=== PATIENT | male | born 1955 | race Caucasian/White ===

== ENCOUNTER 2020-05-04 00:08 | Inpatient (IN) | payer BC ==
[~2020-05-04] VITALS: Ht 162.6 cm; Wt 96.2 kg
[2020-05-04] VITALS (46 sets, daily range): BP systolic 87–162; BP diastolic 37–76
[2020-05-04] MEDS ORDERED: NACL 0.9% 1,000 ML IV SCH (00:15)
[2020-05-04] MEDS ORDERED: ETOMIDATE 20 MG/10 ML VIAL IVP ONE ×2 (00:15→12:00)
[2020-05-04] MEDS ORDERED: cefTRIAXone 1,000 MG in DEXT 5% MINI-BAG PLUS 50 ML IV ONE (00:15)
[2020-05-04] MEDS ORDERED: SUCCINYLCHOLINE CHLORIDE 200 MG/10 ML VIAL IVP ONE ×2 (00:15→12:00)
[2020-05-04] MEDS ORDERED: INTUBATION KIT MC ONE (00:20)
--- NOTE | 2020-05-04 00:20 | NUR ---
IV ACCESS OBTAINED TO RIGHT HAND [address] CHILD TO INTUBATE PATIENT.
[2020-05-04] MEDS ORDERED: PROPOFOL 1000 MG/100 ML PREMIX 100 ML IV ONE ×2 (00:23→00:45)
--- NOTE | 2020-05-04 00:37 | NUR ---
Assist ER DR Diggs intubating patient in ER with ETT size 8 secured with anchorfast @ 23 cm at teeth. Ventilator plugged to the red outlet. BVM @ the bedside. Patient kept desaturating after placed on the vent. Bagged for couple of minutes. Changed G5 ventilator to Torres. Airway patent, will continue to monitor.
--- NOTE | 2020-05-04 00:40 | NUR ---
INTUBATED BY DR CHILD. ETT TO VENT 7.5, 23CM AT TEETH. GOOD COLOR CHANGE UPON BAGGING.
--- NOTE | 2020-05-04 00:45 | NUR ---
REPORT RECEIVED FROM ANJEL CORREA FOR CONTINUATION OF CARE.
--- NOTE | 2020-05-04 00:45 | NUR ---
RE[facility] KAT HOBBS. [facility]
--- NOTE | 2020-05-04 01:15 | NUR ---
65 Y/O MALE BIBA C/O SOB X 1 DAY. PT IS COVID + , TESTED ON MONDAY. PT C/O OF INTERMITTENT DULL CHEST PAIN 2/. PT OBSERVED TO BE LABORED BREATHING WITH PALE SKIN AT THIS TIME. PT SAO2 21% ON RM AIR. LUNG SOUND BL DIMINSHED . A/O X 4 AT THIS TIME. PT POOR HISTORIAN , UNABLE TO SPEAK DUE TO SOB. PT IN BED, LOCKED AND IN LOWEST POSITION, HOB ELEVATED, SIDE RAIL X2 FOR PT SAFETY. SOFT WRIST RESTRAINTS NOTED FOR PREVENTION OF MEDICAL DISRUPTION . NO INJURY NOTED AT WRIST RESTRAINT SITES. +CMS. PT CONNECTED TO CHILD ADVOCATE , PULSE OX AND BP CUFF. RT AT BEDSIDE. PMH: DM, HTN NKA
--- NOTE | 2020-05-04 01:30 | NUR ---
RT AT BEDSIDE FOR PT EVALUATION.
[2020-05-04] MEDS ORDERED: MIDAZOLAM MDV 50 MG in NACL 0.9% 40 ML IV PRN ×2 (02:00→08:15)
[2020-05-04] MEDS ORDERED: ATROPINE 1 MG/10 ML SYR IVP ONE ×2 (02:00→02:01)
--- NOTE | 2020-05-04 02:00 | NUR ---
ERMD MADE AWARE OF PT DECREASED HR , 49 BPM AND DECREASED BLOOD PRESSURE 81/47 mmHg. PER ERMD ADMINISTER ATROPINE 1 MG STAT. DISCONTINUE PROPOFOL AND BEGIN VERSED 50MG DRIP INSTEAD.
[2020-05-04] MEDS ORDERED: MIDAZOLAM MDV 50 MG/10 ML VIAL IV ONE ×2 (02:05→04:01)
[2020-05-04] MEDS ORDERED: NACL 0.9% 1,000 ML IV ONE (02:15)
--- NOTE | 2020-05-04 02:45 | NUR ---
PT REPOSITIONED FOR COMFORT.
--- NOTE | 2020-05-04 02:47 | NUR ---
# 16 FR Mendieta catheter with 10 ml utilizing sterile technique. Immediate return of 300 ml YELLOW urine noted. Bedside drainage bag placed below level of bladder. Urine sample collected and sent to lab. Pt tolerated procedure WELL.
[2020-05-04] MEDS ORDERED: LORazepam 2 MG/ML VIAL IM/IVP PRN (02:50)
[2020-05-04] MEDS ORDERED: MAG SULF 2000 MG/WATER PREMIX 50 ML IV PRN (02:50)
[2020-05-04] MEDS ORDERED: MORPHINE SULFATE 2 MG/ML SYR IVP PRN (02:50)
[2020-05-04] MEDS ORDERED: ZOLPIDEM 5 MG TAB PO PRN (02:50)
[2020-05-04] MEDS ORDERED: ONDANSETRON 4 MG/2 ML VIAL IM/IVP PRN (02:50)
[2020-05-04] MEDS ORDERED: HYDROcodone/APAP 5/325 MG 1 TAB TAB PO PRN (02:50)
[2020-05-04] MEDS ORDERED: ALBUTEROL HFA MDI 90 MCG/ACTUATION 8 GM INH PRN (02:55)
--- NOTE | 2020-05-04 02:55 | NUR ---
blood culture , labs and urine sample collected and handed to Pb, Second Operator.
--- NOTE | 2020-05-04 03:20 | NUR ---
RT AT BEDSIDE FOR ASSESSMENT.
[2020-05-04 03:24] LABS: BASOPHILS % (AUTO) 0.2 % (0.0-2.0); HEMATOCRIT 37.9 % (36-52); HEMOGLOBIN 12.7 g/dL (12.0-18.0); LYMPHOCYTES # (AUTO) 1.2 K/uL (2.0-11.5); LYMPHOCYTES % (AUTO) 11.1 % (20.5-51.1); MEAN CORPUSCULAR HEMOGLOBIN 30 pg (27-31); MEAN CORPUSCULAR HGB CONC 34 g/dL (33-37); MONOCYTES # (AUTO) 0.4 K/uL (0.8-1.0); MONOCYTES % (AUTO) 3.6 % (1.7-9.3); NEUTROPHILS # (AUTO) 9.1 K/uL (1.8-7.7); NEUTROPHILS % (AUTO) 85.1 % (42.2-75.2); PLATELET COUNT (AUTO) 184 K/uL (140-450); RED BLOOD CELL COUNT(AUTO) 4.25 MIL/uL (4.20-6.10); RED CELL DISTRIBUTION WIDTH 13.3 % (11.6-13.7); WHITE BLOOD COUNT (AUTO) 10.7 K/uL (4.8-10.8)
[2020-05-04 03:26] LABS: APPEARANCE,URINE HAZY (CLEAR); BILIRUBIN,URINE NEGATIVE (NEGATIVE); BLOOD, URINE 2+ (NEGATIVE); COLOR,URINE YELLOW (YELLOW); LEUKOCYTE ESTERASE ,URINE NEGATIVE (NEGATIVE); NITRITE, URINE NEGATIVE (NEGATIVE); PH,URINE 5.5 (5.0-9.0); UGLUCOSE 3+ (NEGATIVE)
[2020-05-04] MEDS ORDERED: cefTRIAXone 1,000 MG VIAL ONE (03:30)
[2020-05-04 03:32] LABS: WBC,URINE 0-5 /HPF (0-5)
[2020-05-04 03:37] LABS: BARBITURATE, URINE NEGATIVE ng/ml (NEG <=200); BENZODIAZEPINE, URINE NEGATIVE ng/mL (NEG <=200); CANNABINOID, URINE NEGATIVE ng/mL (NEG <=50); COCAINE, URINE NEGATIVE ng/mL (NEG <=300); OPIATE, URINE NEGATIVE ng/mL (NEG <=2000); PHENCYCLIDINE SCREEN,URINE NEGATIVE ng/mL (NEG <=25)
[2020-05-04 03:40] LABS: PROTHROMBIN TIME 10.8 secs (10.8-13.4)
--- NOTE | 2020-05-04 03:45 | NUR ---
TRANSFERRING PT TO ICU BED 5 W/ EMT AND RT AT THIS TIME.
[2020-05-04 03:48] LABS: ALBUMIN 2.4 g/dL (3.4-5.0); CARBON DIOXIDE 19.9 mmol/L (21-32); CREATININE 1.9 mg/dL (0.6-1.3); POTASSIUM 4.9 mmol/L (3.5-5.1); TOTAL BILIRUBIN 0.5 mg/dL (0.0-1.0)
--- NOTE | 2020-05-04 04:00 | NUR ---
Patient will be admitted to care of DR. OWENS. Admited to ICU. Will go to room 5. Belongings list completed. Report to ANJEL CAMPOS.
[2020-05-04 04:48] LABS: PHOSPHORUS 3.9 mg/dL (2.5-4.9); THYROID STIMULATING HORMONE 1.75 uIU/mL (0.34-3.74)
--- NOTE | 2020-05-04 07:00 | NUR ---
HANDOFF RECEIVED FROM FORENSIC ACCOUNTANT RN. PT IS ETT TO VENT, FIO2 100%, PEEP 16, R 22. PT IS SR ON THE MONITOR. PT HAS RAC 20 G AND R HAND 20 G. PT HAS VERSED RUNNING AT 6 MG/HR. PT IS NPO EXCEPT MEDS. PT HAS CERDA CATHETER IN PLACE. HOB 30 DEG WITH BED IN LOW, LOCKED POSITION.
[2020-05-04] MEDS ORDERED: AZITHROMYCIN 250 MG TAB PO SCH ×2 (08:00→09:00)
[2020-05-04] MEDS ORDERED: DOCUSATE 100 MG/10 ML UDC PO PRN (08:05)
--- NOTE | 2020-05-04 08:29 | NUR ---
PATIENT HAS BEEN SCREENED AND CATEGORIZED HIGH NUTRITION RISK. PATIENT WILL BE SEEN WITHIN 1-2 DAYS OF ADMISSION. 05/04/20-05/05/[address]
[2020-05-04] MEDS ORDERED: LOVENOX 1MG/KG Q12H SUBQ SCH (09:00)
[2020-05-04] MEDS: NACL 0.9% 1,000 ML IV SCH ×2 (09:08→20:00)
[2020-05-04 09:38] LABS: BASOPHILS # (AUTO) 0.1 K/uL (0.00-0.22); BASOPHILS % (AUTO) 0.6 % (0.0-2.0); LYMPHOCYTES # (AUTO) 1.4 K/uL (2.0-11.5); LYMPHOCYTES % (AUTO) 9.9 % (20.5-51.1); MEAN CORPUSCULAR HEMOGLOBIN 30 pg (27-31); MEAN CORPUSCULAR HGB CONC 33 g/dL (33-37); MEAN CORPUSCULAR VOLUME 88.9 fL (80-94); MONOCYTES # (AUTO) 0.4 K/uL (0.8-1.0); MONOCYTES % (AUTO) 2.6 % (1.7-9.3); NEUTROPHILS # (AUTO) 12.2 K/uL (1.8-7.7); NEUTROPHILS % (AUTO) 86.9 % (42.2-75.2); PLATELET COUNT (AUTO) 237 K/uL (140-450); RED BLOOD CELL COUNT(AUTO) 4.72 MIL/uL (4.20-6.10); RED CELL DISTRIBUTION WIDTH 13.5 % (11.6-13.7); WHITE BLOOD COUNT (AUTO) 14.1 K/uL (4.8-10.8)
[2020-05-04] MEDS: ZINC SULF 220 MG CAP PO SCH ×2 (09:59→20:36)
[2020-05-04] MEDS: VITAMIN D 400 IU TAB PO SCH (09:59)
[2020-05-04] MEDS: ASCORBIC ACID 500 MG/5 ML ORASYR PO SCH (10:00)
[2020-05-04] MEDS: ENOXAPARIN 100 MG/ML SYR SUBQ SCH ×2 (10:05→20:37)
--- NOTE | 2020-05-04 11:09 | NUR ---
SOCIAL WORK NOTE: BOB WAS UNABLE TO MEET PATIENT AT BEDSIDE DUE TO MEDICAL CONDITION. BOB CONTACTED PATIENT'S EMERGENCY CONTACT AND LEFT VM TO COMPLETE ASSESSMENT. BOB WILL FOLLOW UP. Addendum: 06/11/20 at 1115 by Reinaldo Styles SS [facility] Patient: Sushil Riverao : 1955 Age/Sex: 65/M Unit#: [id number] Room/Bed: IC01/A User: Reinaldo Styles SS Date: 05/04/20 15:48 Type: CM Discharge Plan Assessment Patient's Orientation Unable To Assess Information Provided By SUSHIL RIVERA JR - SON Comments SW WAS UNABLE TO MEET PATIENT AT BEDSIDE DUE TO MEDICAL CONDITION. SW COMPLETED ASSESSMENT WITH PATIENT'S SON. PATIENT'S SON REQUESTED TO ADD PATIENT'S DAUGHTER TO EMERGENCY CONTACT LIST. Program Advocate, Realtionship and Phone Number SUSHIL RIVREA JR SON [phone] FLORIN MYERS DAUGHTER [phone] [facility] Power of Electric Pile Driver Operator No Does Patient Have a POLST No Identifying Problems No Social Work Triggers Is A Social Work Consult Needed No Mandate Report Filed No Explanation Of Identifying Problems PATIENT IS A 65-YEAR-OLD MALE ADMITTED FOR COVID AND RESPIRATORY FAILURE. PATIENT HAS PMHX OF DIABETES AND HYPERTENSION. PER SON, PATIENT HAS NO HISTORY OF SUBSTANCE ABUSE OR MENTAL HEALTH. Admitted From Home Pre-Admission Level Of Functioning Status Independent/Ambulatory Prior Resources/Services Used In Last 12 Months No Prior Resources Used Prior DME No Prior DME Used Dialysis Comments N/A Living Situation Lives With Family House Other Living Situation/Comment PER SON, PATIENT LIVES WITH , SON, AND DAUGHTER. Patient Had Caregiver No Home Support No Caregiver Issues Financial Issues No Known Financial Issue Referral To The Financial Counselor Needed No Factors/Needs No D/C Needs Identified Explanation And Or Other Factors Affecting/Possible DC Needs PATIENT'S SON STATED HE WOULD PROVIDE TRANSPORTATION FOR PATIENT HOME. Pt/Rep Participated In Discharge Plan Yes Patient/Family Agress With Discharge Plan Yes Discharge Plan Comments TENTATIVE DISCHARGE PLAN IS FOR PATIENT TO RETURN HOME. DC Plan Status Initiated Addendum: 06/11/20 at 1117 by Reinaldo Styles BOB CONTACTED ZECHARIAH RIVERA JR TO OFFER SOCIAL SUPPORT AND RESOURCES. BOB LEFT VM AND WILL FOLLOW UP. Addendum: 06/11/20 at 1139 by Reinaldo SLAUGHTER BOB WAS CONTACTED BY SUSHIL RIVERA JR WHO RETURNED SW PHONE CALL. PER SUSHIL, NOTHING COMES TO MIND REGARDING RESOURCES OR ASSISTANCE. BOB PROVIDED CONTACT INFORMATION TO SUSHIL AND WILL REMAIN AVAILABLE IF ANY ISSUES ARISE.
[2020-05-04] MEDS ORDERED: ATEN50TA8 PO (11:10)
[2020-05-04] MEDS ORDERED: CANA100T PO (11:10)
[2020-05-04] MEDS ORDERED: AMLO5TAB PO (11:10)
[2020-05-04] MEDS ORDERED: BENA40TA9 PO (11:10)
[2020-05-04] MEDS ORDERED: INSU100I3 SQ (11:10)
[2020-05-04] MEDS ORDERED: ATOR40TA PO (11:10)
[2020-05-04] MEDS ORDERED: ACT30 PO (11:10)
--- NOTE | 2020-05-04 11:48 | NUR ---
GAVE DR. NEWMAN ABG RESULTS. INCREASED PEEP TO 18 AND ORDERED PT TO BE PLACED PRONE. STATED PEEP MAY BE TITRATED DOWN AT TOLERATED.
--- NOTE | 2020-05-04 12:00 | NUR ---
PT PLACED INTO PRONE POSITION PER DR. NEWMAN'S RECOMMENDATION. RT ANISHA AT BEDSIDE FOR ASSISTANCE.
[2020-05-04] MEDS ORDERED: DEXTROSE 50% 50 ML SYR IVP PRN (12:05)
[2020-05-04] MEDS ORDERED: ROCURONIUM 50 MG/5 ML VIAL IV ONE (12:19)
[2020-05-04] MEDS ORDERED: ROCURONIUM 50 MG/5 ML VIAL IV SCH (12:25)
[2020-05-04] MEDS ORDERED: fentaNYL citrate 1 MG in NACL 0.9% 80 ML IV PRN (12:25)
[2020-05-04 13:04] LABS: CHOL/HDL RATIO 4.4 (1-4.5)
[2020-05-04] MEDS: fentaNYL citrate 1 MG in NACL 0.9% 80 ML IV PRN ×2 (13:53→20:00)
[2020-05-04] MEDS: MIDAZOLAM MDV 100 MG in NACL 0.9% 80 ML IV PRN ×2 (14:00→22:37)
[2020-05-04] MEDS: PROPOFOL 1000 MG/100 ML PREMIX 100 ML IV PRN (16:01)
[2020-05-04] MEDS: BLOOD GLUCOSE MONITORING 1 DEV DEV FS SCH ×2 (16:30→20:40)
[2020-05-04] MEDS: INSULIN LISPRO SLIDING SCALE 100 UNITS/ML VIAL SUBQ PRN ×2 (17:46→20:42)
--- NOTE | 2020-05-04 17:55 | NUR ---
SPOKE TO SON SUSHIL RIVERA ABOUT CONVALESCENT PLASMA THERAPY. FAMILY REFUSED TRANSFUSION. PAPERWORK IN CHART. DR. RADHA MITTAL.
[2020-05-04] MEDS ORDERED: BUMETANIDE 1 MG/4 ML VIAL IV SCH (18:15)
--- NOTE | 2020-05-04 19:15 | NUR ---
HANDOFF GIVEN TO FERN PICKER RN FOR CONTINUITY OF CARE
--- NOTE | 2020-05-04 19:30 | NUR ---
ASSUMED CARE OF PT.SR TO SB ON MONITOR. ETT TO VENT AC PRVC MODE FIO2 100% TV 450 PEEP 16; WITH CHRIS PICC LINE GOOD BLOOD TO BOTH PORT INFUSING FENTANYL 1.5MCG/KG/HR; NS AT 60ML/HR; PROPOFOL AT 5MCG/KG/MIN;VERSED 10MG/HR.W/OGT INTACT.CLAMPED.W/CERDA CATHETER TO BSD DRAINING SMALL AMT OF YELLOW URINE.FLACC 0 Addendum: 05/05/20 at 0132 by Bhavana Taylor RN PTS DRY WEIGHT 95.3KG
[2020-05-04] MEDS: amLODIPine 5 MG TAB PO SCH (20:37)
--- NOTE | 2020-05-04 21:00 | NUR ---
URINE SPECIMEN SENT TO LAB ORDERED
[2020-05-05] VITALS (71 sets, daily range): BP systolic 80–135; BP diastolic 44–77
--- NOTE | 2020-05-05 01:30 | NUR ---
PTS CONDITION REMAINS UNCHANGED.VENT SETTINGS STILL THE SAME.PICC LINE INTACT .PT SEDATED.FLACC 0
[2020-05-05] MEDS: fentaNYL citrate 1 MG in NACL 0.9% 80 ML IV PRN ×3 (02:56→18:06)
--- NOTE | 2020-05-05 05:00 | NUR ---
PTS POSITION CHANGED TO SUPINE.VAP ORAL CARE DONE.MORNING CARE AND CHG BATH DONE.FLACC 0
[2020-05-05 06:47] LABS: BASOPHILS % (AUTO) 0.1 % (0.0-2.0); HEMATOCRIT 37.4 % (36-52); HEMOGLOBIN 12.3 g/dL (12.0-18.0); LYMPHOCYTES % (AUTO) 5.7 % (20.5-51.1); MEAN CORPUSCULAR HEMOGLOBIN 30 pg (27-31); MEAN CORPUSCULAR HGB CONC 33 g/dL (33-37); MEAN CORPUSCULAR VOLUME 89.4 fL (80-94); MONOCYTES # (AUTO) 0.4 K/uL (0.8-1.0); MONOCYTES % (AUTO) 2.3 % (1.7-9.3); NEUTROPHILS # (AUTO) 15.9 K/uL (1.8-7.7); NEUTROPHILS % (AUTO) 91.9 % (42.2-75.2); PLATELET COUNT (AUTO) 237 K/uL (140-450); RED BLOOD CELL COUNT(AUTO) 4.18 MIL/uL (4.20-6.10); RED CELL DISTRIBUTION WIDTH 13.9 % (11.6-13.7); WHITE BLOOD COUNT (AUTO) 17.3 K/uL (4.8-10.8)
[2020-05-05 06:52] LABS: ALBUMIN 2.4 g/dL (3.4-5.0); ANION GAP 13.8 (8-16); CARBON DIOXIDE 19.7 mmol/L (21-32); CREATININE 2.3 mg/dL (0.6-1.3); MAGNESIUM 2.3 mg/dL (1.8-2.4); PHOSPHORUS 4.5 mg/dL (2.5-4.9); POTASSIUM 5.5 mmol/L (3.5-5.1); TOTAL BILIRUBIN 0.2 mg/dL (0.0-1.0)
--- NOTE | 2020-05-05 07:00 | NUR ---
HANDOFF RECEIVED FROM GRAB DRIVER RN. PT IS ETT TO VENT, FIO2 100%, VT 450, PEEP 16, R 20. PT IS SB ON THE MONITOR. PT HAS RAC 20 G AND R UA PICC. PT HAS VERSED RUNNING AT 10 MG/HR, PROPOFOL AT 5 MCG/KG/MIN, AND FENTANYL AT 1.5 MCG/KR/HR. DOSING WEIGHT IS 95.3 KG. PT IS NPO EXCEPT MEDS. PT HAS CERDA CATHETER IN PLACE. HOB 30 DEG WITH BED IN LOW, LOCKED POSITION.
[2020-05-05] MEDS: BLOOD GLUCOSE MONITORING 1 DEV DEV FS SCH ×4 (07:30→21:11)
[2020-05-05 08:08] LABS: T4 (THYROXINE) 5.8 ug/dL (4.5-12.0)
[2020-05-05] MEDS: amLODIPine 5 MG TAB PO SCH ×2 (08:13→21:00)
[2020-05-05] MEDS: atenoloL 50 MG TAB PO SCH (08:13)
--- NOTE | 2020-05-05 08:58 | NUR ---
DR. NEWMAN AT BEDSIDE TO SEE PT
[2020-05-05] MEDS ORDERED: NOREPINEPHRINE 4 MG in DEXTROSE 5% 250 ML IV PRN (09:05)
[2020-05-05] MEDS ORDERED: SODIUM ZIRCONIUM CYCLOSILICATE 10 GM POWD.PACK PO SCH (09:18)
[2020-05-05] MEDS: DEXAMETHASONE 4 MG/ML VIAL IVP SCH (09:32)
[2020-05-05] MEDS: ZINC SULF 220 MG CAP PO SCH ×2 (09:33→21:00)
[2020-05-05] MEDS: PANTOPRAZOLE 40 MG INJ VIAL IVP SCH (09:33)
[2020-05-05] MEDS: ATORVASTATIN 20 MG TAB PO SCH (09:33)
[2020-05-05] MEDS: ASCORBIC ACID 500 MG/5 ML ORASYR PO SCH (09:33)
[2020-05-05] MEDS: VITAMIN D 400 IU TAB PO SCH (09:34)
[2020-05-05] MEDS: AZITHROMYCIN 250 MG TAB PO SCH (09:34)
[2020-05-05] MEDS: ENOXAPARIN 100 MG/ML SYR SUBQ SCH (09:35)
[2020-05-05] MEDS: MIDAZOLAM MDV 100 MG in NACL 0.9% 80 ML IV PRN ×2 (09:38→21:14)
--- NOTE | 2020-05-05 09:45 | NUR ---
MEDICATIONS ADMINISTERED PER ORDER. PT TOLERATED WELL. TEMPERATURE 97.5 AXILLARY. BS 190, 2 UNITS INSULIN ADMINISTERED. CHG BATH, VAP ORAL CARE, CERDA CARE PROVIDED.
[2020-05-05] MEDS: INSULIN LISPRO SLIDING SCALE 100 UNITS/ML VIAL SUBQ PRN ×4 (10:36→21:12)
--- NOTE | 2020-05-05 11:17 | NUR ---
DISCHARGE PLANNING: THIS IS A 65 Y/O MALE PATIENT BIBA FROM HOME DUE TO WORSENING SOB. PAST MEDICAL HISTORY INCLUDE DIABETES, HTN AND HYPERLIPIDEMIA. INITIAL DIAGNOSIS OF COVID, RESPIRATORY FAILURE. CURRENT LABS INCLUDE WBC 17.3, H/H 12.3/37.4, NA/K 128/5.5, BUN/CREA 57/2.3, D DIMER 631. ORALLY INTUBATED TO VENT, FIO2 100%, PEEP 16, O2 SAT 97%. SEDATED WITH VERSED AND FENTANYL. ON DECADRON, ROCEPHIN, AZITHROMYCIN. SEEN BY PULMO - CONT VENT WEAN TOLERABLE. FAMILY REFUSE CONVALESCENT. NOT A CANDIDATE FOR REMDESIVIR DUE TO RENAL FAILURE. SEEN BY NEPHRO - CHECK URINE ELECTROLYTES AND RENAL U/S, GENTLE HYDRATION, RECOMMEND 1 DOSE OF BUMEX TO MONITOR URINE OUTPUT, PATIENT MAY REQUIRE RENAL PATIENT THERAPY IF URINE OUTPUT REMAINS POOR KIDNEY FUNCTION WORSENS. SEEN BY ID - CONTACT AND DROPLET ISOLATION, CONT PROPHYLACTIC ANTICOAGULATION WITH LOVENOX, CONT DEXAMETHASONE, MAY CONTINUE EMPIRIC ANTIBIOTIC THERAPY WITH CEFTRIAXONE AND AZITHROMYCIN, NOT A CANDIDATE FOR REMDESIVIR THERAPY DUE TO RENAL INSUFFICIENCY. DC PLAN PENDING ON PATIENT'S RESPONSE TO TREATMENT. Addendum: 05/08/20 at 1304 by Colleen Darling CM REMAINS INTUBATED TO VENT FIO2 60%, PEEP 10, O2 SAT 94%. SEDATED WITH FENTANYL AND PROPOFOL. FOR HD TOMORROW. Addendum: 05/11/20 at 1142 by Colleen Darling CM REMAINS INTUBATED TO VENT FIO2 100%, PEEP 10, O2 SAT 96%. SEDATED WITH FENTANYL AND PROPOFOL. ON ZOSYN, DEXAMETHASONE. HD TODAY. SEEN BY PULMO - CONT VENT WEANING. Addendum: 05/18/20 at 1117 by Colleen Darling CM REMAINS INTUBATED TO VENT, FIO2 80, PEEP 8, O2 SAT 93%. SEDATED WITH FENTANYL AND VERSED. STILL ON DECADRON. PER PULMO - CONT MECHANICAL VENTILATION. CONTINUE WEANING DOWN PEEP AND FIO2 REQUIREMENTS. RPT CXR TODAY - IMPROVED AERATION OF THE LUNGS. BIBASILAR/ATELECTASIS/CONSOLIDATION. Addendum: 05/24/20 at 0918 by Colleen Darling CM REMAINS ORALLY INTUBATED TO VENT, FIO2 70%, PEEP 10 AND O2 SAT 94%. SEDATED WITH VERSED AND FENTANYL DRIPS. ON DECADRON, LOVENOX. SEEN BY ALLEN HERRERA PROTOCOL. Addendum: 06/01/20 at 1140 by Colleen Darling CM REMAINS INTUBATED TO VENT FIO2 80%, PEEP 14, O2 SAT 90% AND SEDATED WITH FENTANYL, VERSED AND PROPOFOL. ON ZOSYN, DECADRON AND HEPARIN SQ. FOR HD TOMORROW. Addendum: 06/05/20 at 1439 by Colleen Darling CM REMAINS INTUBATED TO VENT, FIO2 70%, PEEP 12 AND O2 SAT 93%. SEDATED WITH FENTANYL AND VERSED. ON VANCOMYCIN AND ZOSYN. PER PULMO - PATIENT IS UNABLE YET TO WEAN. PATIENT'S PROGNOSIS IS GUARDED AND CRITICAL. SEN BY SURGERY - AWAITING FIO2 TO ATTAIN STABLE LEVELS PREFERABLY BELOW 50% PRIOR TO PROCEEDING WITH PEG/TRACH. Addendum: 06/05/20 at 1659 by Colleen Darling LATE ENTRY: MANASA [place]OLES OF [facility] UPDATED OF THE PATIENT'S CONDITION. SHE CONFIRMED THAT STAY IS AUTHORIZED [id number]. Addendum: 06/10/20 at 1216 by Colleen Darling CM S/P PEG PLACEMENT 06/09/[address] HARRELL. PATIENT REMAINS ORALLY INTUBATED TO VENT, FIO2 60%, PEEP 8 AND O2 SAT 93%. SEDATED WITH FENTANYL AND VERSED. FOR HD YESTERDAY FOR VOLUME AND CLEARANCE. PER ID - CONT CURRENT THERAPY. PER PULMO - CONT MECHANICAL VENT WEAN, RECOMMEND SURGERY CONSULTATION FOR TRACHEOSTOMY. Addendum: 06/12/20 at 1147 by Colleen Darling CM REMAINS INTUBATED TO VENT FIO2 50%, PEEP8, O2 SAT 92%. SEDATED WITH FENTANYL AND VERSED. ON VANCOMYCIN, ZOSYN, DECADRON. SEEN BY NEPHRO-HD TODAY FOR CLEARANCE. PATIENT'S FAMILY REFUSED BLOOD PRODUCT PATIENT IS JEHOVAH WITNESS. Addendum: 06/15/20 at 1117 by Colleen Darling CM REMAINS INTUBATED TO VENT - FIO2 50%, PEEP 8, O2 SAT 98%. SEDATED WITH FENTANYL AND VERSED. ON DECADRON. SEEN BY NEPHRO - CONT MECHANICAL VENTILATION WEAN , NOT TOLERATING CPAP. PENDING TRACH PER SURGERY. SEEN BY [facility] - ORDERED PROCRIT IV 3 TIMES A WEEK WITH DIALYSIS. H/H 6.7/21.3. FERRIC GLUCONATE IV ORDERED. Addendum: 06/16/20 at 1421 by Colleen Darling CM CONTACTED PATIENT'S SON SUSHIL HARLEY, TO DISCUSS PLAN FOR TRACH AND IS IN AGREEMENT. ALL QUESTIONS AND CONCERNS ANSWERED. PRIMARY ANJEL JARQUIN AND DR. MORRIS MADE AWARE. Addendum: 06/19/20 at 1128 by Colleen Darling CM REMAINS INTUBATED SEDATED TO VENT, FIO2 40%, PEEP 5, O2 SAT 97%. SEDATED WITH FENTANYL AND VERSED. ON DECADRON. DISCUSSED DURING BED HUDDLE, TRACH AND TUNNELLED CATH PLACEMENT WILL NOT BE DONE TODAY DUE TO DROP IN H/H. Addendum: 06/22/20 at 1050 by Colleen Darling CM CONTACTED MANASA NAPOLES OF [facility] AT [phone] TO PROVIDE UPDATES, NO ANSWER. LEFT MESSAGE. WILL FOLLOW UP. Addendum: 06/22/20 at 1524 by Colleen Darling CM RECEIVED A CALL BACK FROM MANASA NAPOLES OF . I INQUIRED IF SHE IS STILL THE CM ASSIGNED TO THE PATIENT AND SHE ANSWERED YES. UPDATED HER OF THE PATIENT'S CONDITION. PER YESIKA, SHE APPROVED [id number] THE STAY UNTIL 06/23/2020 AND REMAINING DAYS WILL BE PENDING REVIEW OF DAILY CLINICALS. Addendum: 06/23/20 at 1046 by Colleen Darling CM REMAINS INTUBATED TO VENT, FIO2 45%, PEEP 5, O2 SAT 98%. ON LEVOPHED DRIP AT 2 MCG. SCHEDULED FOR TRACH PLACEMENT AT [address] HARRELL. Addendum: 06/25/20 at 1446 by Colleen Darling CM PATIENT CODED 2X EARLY THIS MORNING. DISCUSSED DURING BED HUDDLE FAMILY STILL WANTS FULL CODE. Addendum: 06/26/20 at 1431 by Colleen Darling CM REACHED OUT TO MANASA NAPOLES OF OF [facility] TO PROVIDE UPDATES, NO ANSWER. LEFT MESSAGE.
--- NOTE | 2020-05-05 12:00 | NUR ---
BS 175, 2 UNITS INSULIN ADMINISTERED.
[2020-05-05] MEDS: NACL 0.9% 1,000 ML IV SCH (12:10)
--- NOTE | 2020-05-05 13:30 | NUR ---
05/05/20 RD INITIAL ASSESSMENT COMPLETED PLEASE REFER TO NUTRITION ASSESSMENT UNDER CARE ACTIVITY FOR ESTIMATED NUTRITIONAL NEEDS. 1. RECOMMENDED GLUCERNA 1.2 @ 70 ML/HR X 8 HOURS WITH PROSOURCE BID -THIS WILL PROVIDE 792 KCAL AND 63 GM OF PROTEIN, MEETING 74% OF KCAL AND 90% OF PROTEIN 2. FREE WATER FLUSH OF 100 ML Q6H 3. CONTINUE VITAMIN C AND ZINC SUPPLEMENTATION 4. RD TO FOLLOW-UP 2-3 DAYS, HIGH RISK [address]
--- NOTE | 2020-05-05 13:58 | NUR ---
DR. MULLER AT BEDSIDE. PT TO HAVE HEMODIALYSIS CATHETER PLACED TODAY AND UNDERGO HEMODIALYSIS. CONSENT OBTAINED FROM SONSUSHIL JR. CONSENT IN CHART.
[2020-05-05] MEDS: PROPOFOL 1000 MG/100 ML PREMIX 100 ML IV PRN (16:05)
--- NOTE | 2020-05-05 16:30 | NUR ---
BS 204 4 UNITS GIVEN. VAP ORAL CARE, REPOSITIONED.
--- NOTE | 2020-05-05 17:50 | NUR ---
DR HOBBS CALLED BACK REGARDING HD CATH PLACEMENT, DR HOBBS IS UNAVAILABLE TODAY, MAYBE ABLE TO PLACE HD CATH TOMORROW, DR RODNEY RICHARDS FOR DR MULLER PAGED AND CALLED BACK NOTIFIED OF DELAY IN HD CATH PLACEMENT, OK TO DO DIALYSIS TOMORROW AFTER CATH PLACEMENT.
--- NOTE | 2020-05-05 18:00 | NUR ---
PT PRONED WITH RT ANISHA'S ASSISTANCE. PT TOLERATED WELL
--- NOTE | 2020-05-05 19:15 | NUR ---
HANDOFF GIVEN TO TREE TRIMMER HELPER RN FOR CONTINUITY OF CARE.
[2020-05-05 19:30] LABS: ANION GAP 15.3 (8-16); CREATININE 2.8 mg/dL (0.6-1.3); POTASSIUM 5.3 mmol/L (3.5-5.1)
--- NOTE | 2020-05-05 19:30 | NUR ---
ASSUMED CARE OF PT. SB NOTED ON MONITOR. ETT TO VENT AC PRVC MODE FIO2 100% TV 450 PEEP 16; WITH CHRIS PICC LINE GOOD BLOOD TO BOTH PORT INFUSING FENTANYL 1.5MCG/KG/HR; NS AT 60ML/HR; PROPOFOL AT 5MCG/KG/MIN;VERSED 10MG/HR.W/OGT INTACT.CLAMPED.W/CERDA CATHETER TO BSD DRAINING SMALL AMT OF YELLOW URINE.FLACC 0 DRY WEIGHT 95.3KG
--- NOTE | 2020-05-05 19:59 | NUR ---
RECEIVED PATIENT FROM AM SHIFT. PATIENT WAS SEEN AND ASSESSED. FOUND PT IN PRONE POSITION. PATIENT IS INTUBATED WITH ETT SIZE 8.0 AND SECURED WITH ANCHOR-FAST AT 23cm. PATIENT IS ON VENT SETTINGS: AC/PRVC RR 20, VT 450, PEEP 16, FiO2 100% WITH SPO2 OF 98%. VENT IS PLUGGED IN RED OUTLET. ALARMS SET AND AUDIBLE TO ENVIRONMENT. SUCTIONED SMALL AMOUNT OF CLEAR/WHITE THICK SECRETIONS FROM ETT. AIRWAY IS PATENT. AUSCULTATION REVEALS BILATERAL COARSE BREATH SOUNDS. PATIENT IS IN NO APPARENT RESPIRATORY DISTRESS AT THIS TIME. WILL CONTINUE TO MONITOR PATIENT.
[2020-05-05] MEDS: BUMETANIDE 1 MG/4 ML VIAL IV SCH (21:01)
--- NOTE | 2020-05-05 22:30 | NUR ---
PHONE CALL FROM PTS LILIANA LING JR, PTS SON.UPDATED ON PTS PRESENT CONDITION.QUESTIONS ANSWERED.
[2020-05-06] VITALS (69 sets, daily range): BP systolic 84–140; BP diastolic 48–86
--- NOTE | 2020-05-06 01:05 | NUR ---
PT STILL ON PRONE POSITION.NO SOB NOTED.SR TO SB NOTED ON MONITOR.FLACC 0
[2020-05-06] MEDS: fentaNYL citrate 1 MG in NACL 0.9% 80 ML IV PRN ×3 (02:05→20:30)
--- NOTE | 2020-05-06 04:00 | NUR ---
PTS CONDITION REMAINS UNCHANGED.STILL ON PRONE POSITION.PICC LINE AND CERDA CATHETER INTACT.FLACC 0
[2020-05-06] MEDS: NACL 0.9% 1,000 ML IV SCH (04:50)
[2020-05-06 06:05] LABS: BASOPHILS % (AUTO) 0.2 % (0.0-2.0); HEMATOCRIT 37.4 % (36-52); HEMOGLOBIN 12.4 g/dL (12.0-18.0); LYMPHOCYTES # (AUTO) 0.9 K/uL (2.0-11.5); LYMPHOCYTES % (AUTO) 4.6 % (20.5-51.1); MEAN CORPUSCULAR HEMOGLOBIN 30 pg (27-31); MEAN CORPUSCULAR HGB CONC 33 g/dL (33-37); MONOCYTES # (AUTO) 0.5 K/uL (0.8-1.0); MONOCYTES % (AUTO) 2.7 % (1.7-9.3); NEUTROPHILS # (AUTO) 17.4 K/uL (1.8-7.7); NEUTROPHILS % (AUTO) 92.5 % (42.2-75.2); PLATELET COUNT (AUTO) 271 K/uL (140-450); RED BLOOD CELL COUNT(AUTO) 4.16 MIL/uL (4.20-6.10); RED CELL DISTRIBUTION WIDTH 14.2 % (11.6-13.7); WHITE BLOOD COUNT (AUTO) 18.9 K/uL (4.8-10.8)
--- NOTE | 2020-05-06 06:30 | NUR ---
PT STILL ON PRONE POSITION.NO BM NOTED THIS SHIFT.FLACC 0
[2020-05-06 06:43] LABS: ALBUMIN 2.1 g/dL (3.4-5.0); ANION GAP 19.5 (8-16); CARBON DIOXIDE 16.9 mmol/L (21-32); CREATININE 3.3 mg/dL (0.6-1.3); MAGNESIUM 2.6 mg/dL (1.8-2.4); PHOSPHORUS 6.7 mg/dL (2.5-4.9); POTASSIUM 5.4 mmol/L (3.5-5.1); TOTAL BILIRUBIN 0.2 mg/dL (0.0-1.0)
--- NOTE | 2020-05-06 07:20 | NUR ---
RECEIVED BEDSIDE REPORT FROM CHIEF LIBRARIAN BRANCH NURSE ANUSHA RN, PT SEDATED RASS -3, DRY WEIGHT 95.3KG,PT IN PRONE POSITION. ON ETT TO VENT AC/PVRC FIO2 100%, PEEP 16, RATE 20, NO SOB NOTED, SATURATING @ 100%, PICC LINE TO R UPPER ARM RUNNING @ 5MCG/KG/MIN, VERSED @ 10MG/HR, FENTANYL @1.5MCG/KG/HR, AND NS @ 60ML/HR, INFUSING WELL. OGT IN PLACE, CLAMPED FOR PRONING. CERDA CATH IN PLACE DRAINING TO GRAVITY. INITIAL ASSESSMENT DONE, ALL SAFETY PRECAUTION MET, CALL LIGHT WITHIN REACH, WILL CONTINUE TO MONITOR.
[2020-05-06] MEDS: MIDAZOLAM MDV 100 MG in NACL 0.9% 80 ML IV PRN ×2 (07:34→16:36)
[2020-05-06] MEDS: BLOOD GLUCOSE MONITORING 1 DEV DEV FS SCH ×4 (08:07→21:00)
[2020-05-06] MEDS: INSULIN LISPRO SLIDING SCALE 100 UNITS/ML VIAL SUBQ PRN ×4 (08:11→23:03)
[2020-05-06] MEDS: amLODIPine 5 MG TAB PO SCH ×2 (09:00→21:00)
[2020-05-06] MEDS: atenoloL 50 MG TAB PO SCH (09:00)
[2020-05-06] MEDS: PANTOPRAZOLE 40 MG INJ VIAL IVP SCH (09:51)
[2020-05-06] MEDS: BUMETANIDE 1 MG/4 ML VIAL IV SCH (09:51)
[2020-05-06] MEDS: VITAMIN D 400 IU TAB PO SCH (09:52)
[2020-05-06] MEDS: ASCORBIC ACID 500 MG/5 ML ORASYR PO SCH (09:52)
[2020-05-06] MEDS: DOCUSATE 100 MG/10 ML UDC GT SCH (09:52)
[2020-05-06] MEDS: DEXAMETHASONE 4 MG/ML VIAL IVP SCH (09:53)
[2020-05-06] MEDS: SENNA 8.6 MG TAB PO SCH (09:53)
[2020-05-06] MEDS: ATORVASTATIN 20 MG TAB PO SCH (09:53)
[2020-05-06] MEDS: ZINC SULF 220 MG CAP PO SCH ×2 (09:53→21:50)
[2020-05-06] MEDS: AZITHROMYCIN 250 MG TAB PO SCH (09:53)
[2020-05-06] MEDS: ENOXAPARIN 100 MG/ML SYR SUBQ SCH (10:10)
--- NOTE | 2020-05-06 10:35 | NUR ---
PT. ADMITTED WITH LOW PRINCE SCALE AT RISK, COVID POSITIVE, ON PRONE POSITIONING, BILATERAL INNER BUTTOCKS STARTING BLISTERING, SKIN INTACT, VERSATEL DRESSING APPLIED, CONTINUE TO FOLLOW PRESSURE INJURY PREVENTION INTERVENTIONS.POC DISCUSSED WITH PRIMARY RN. -TURN AND REPOSITION PATIENT Q 2H -ASSESS AND MONITOR SKIN CONDITION DURING POSITION CHANGE -OFFLOAD BILATERAL HEELS BY PLACING PILLOWS UNDER CALVES AT ALL TIMES, UNLESS OTHERWISE CONTRAINDICATED -PRESSURE REDISTRIBUTION BY PLACING PILLOWS AND OFFLOADING SACRALCOCCYX -KEEP SKIN CLEAN AND DRY AT ALL TIMES. -APPLY VERSATEL DRESSING TO R/L INNER BUTTOCKS CHANGE Q5 DAYS AND PRN IF SOILING
--- NOTE | 2020-05-06 11:15 | NUR ---
DR HOBBS AT BEDSIDE TO INSERT DIALYSIS CATH.
--- NOTE | 2020-05-06 11:20 | NUR ---
DR NEWMAN CAME AND SAW PT, PER DR TO LOWER PEEP TO 15, AND AFTER DIALYSIS TO LOWER PEEP TO 14, WILL ENDORSE TO RT.
[2020-05-06] MEDS: PROPOFOL 1000 MG/100 ML PREMIX 100 ML IV PRN (11:34)
--- NOTE | 2020-05-06 11:35 | NUR ---
DR HOBBS SAW CXR, STATED CATH OK TO USE.
--- NOTE | 2020-05-06 16:20 | NUR ---
DIALYSIS COMPLETED PER DIALYSIS NURSE 2L TAKEN OUT.
--- NOTE | 2020-05-06 19:20 | NUR ---
ENDORSED PT TO BOOKKEEPING CLERK NURSE EDUARDO FOR CONTINUOUS OF CARE.
--- NOTE | 2020-05-06 19:32 | NUR ---
RECEIVED PATIENT FROM AM SHIFT. PATIENT WAS SEEN AND ASSESSED. PATIENT IS INTUBATED WITH ETT SIZE 8.0 AND SECURED WITH ANCHOR-FAST AT 23cm. PATIENT IS ON VENT SETTINGS: AC/PRVC RR 20, VT 450, PEEP 15, FiO2 100% WITH SPO2 OF 98%. TITRATED PEEP TO 14 PER DOCTOR'S ORDER. VENT IS PLUGGED IN RED OUTLET. ALARMS SET AND AUDIBLE TO ENVIRONMENT. SUCTIONED SMALL AMOUNT OF YELLOW THICK SECRETIONS FROM ETT. AIRWAY IS PATENT. AUSCULTATION REVEALS BILATERAL COARSE BREATH SOUNDS. PATIENT IS IN NO APPARENT RESPIRATORY DISTRESS AT THIS TIME. PRN TX NOT INDICATED AT THIS TIME. WILL CONTINUE TO MONITOR PATIENT.
--- NOTE | 2020-05-06 19:35 | NUR ---
RECEIVED REPORT FROM [facility] NURSE. PT ETT TO VENT, AC PRVC FI02 100%, RATE 20, PEEP 15. CHRIS PICC IN PLACE. PROPOFOL 5MCG/KG/MIN, VERSED 10MG/HR, FENTANYL 1 MCG/KG/HR AND NS @ 60ML/HR. PT RASS -3, DRY WEIGHT 95.3KG. PT WITHDRAWS TO PAIN. RAC 20G SL. RIJ KENZIE CATH WITH PIGTAIL IN PLACE. SOME BLOOD NOTED AT SITE, DRESSING IN PLACE/SURGICELL. PT HAS OGT IN PLACE, CONNECTED TO GLUCERNA 1.2 @ 10ML/HR. SKIN WARM AND DRY, AFEBRILE, INTACT. HOB 30 DEGREES, SIDE RAILS UP, BED LOCKED AND IN LOWEST POSITION. DROPLET PRECAUTIONS IN PLACE. WILL CONTINUE TO MONITOR.
--- NOTE | 2020-05-06 20:05 | NUR ---
RT AT BEDSIDE, DECREASED PEEP TO 14, ALL VITALS WITHIN RANGE, WILL CONTINUE TO MONITOR.
--- NOTE | 2020-05-06 22:25 | NUR ---
RT DECREASED PEEP TO 13, SP02 ABOVE 95%, NO SIGNS OF DISTRESS. WILL CONTINUE TO MONITOR.
--- NOTE | 2020-05-06 22:58 | NUR ---
CALL MADE TO DR. HOBBS, MADE AWARE PT IS BLEEDING CONTINUOUSLY MODERATE AMOUNT OF BLOOD AT RIGHT IJ HD CATH. MD AWARE PT's DRESSING HAS ALREADY BEEN CHANGED 3 TIMES. WILL CHANGE DRESSING AGAIN AND APPLY MORE SANDBAGS. WILL CONTINUE TO MONITOR.
[2020-05-07] VITALS (103 sets, daily range): BP systolic 95–165; BP diastolic 41–94
--- NOTE | 2020-05-07 00:01 | NUR ---
CENTRAL LINE DRESSING CHANGE AT [facility] IJ HD CATH. SANDBAGS APPLIED AND LEFT ON SITE. HR AND BP STABLE. SP02 WITHIN RANGE PEEP AT 12 PER RT. PROVIDED ORAL CARE. PT TOLERATING FEEDINGS WELL. FLACC 0. SAFETY MEASURES IN PLACE.
--- NOTE | 2020-05-07 01:30 | NUR ---
PLACED PATIENT IN PRONE POSITION. PATIENT TOLERATED PROCEDURE WELL. SUCTION YELLOW AMOUNT OF YELLOW THICK SECRETIONS FROM ETT. SPO2 94%. BILATERAL BREATH SOUNDS ON AUSCULTATION. PATIENT IS IN NO RESPIRATORY DISTRESS AT THIS TIME. RN AT BEDSIDE. WILL CONTINUE TO MONITOR PATIENT.
--- NOTE | 2020-05-07 01:40 | NUR ---
FEEDING HELD AT THIS TIME. CHECKED RIJ SITE, STILL A MODERATE AMOUNT OF BLEEDING NOTED WHEN SANDBAGS ARE REMOVED, CHANGED DRESSING PER EXCESS SOILING. PT SUCCESSFULLY PRONED, HEAD/NECK IS POSITIONED WITH SANDBAG AT RIJ SITE WITH PRESSURE AND DRESSING SECURELY IN PLACE. CONNECTED TO MONITOR, REVERSE [place], SIDE RAILS UP, ETT INTACT AND ABLE TO PASS CATHETER THROUGH. CHRIS PICC INTACT. PT RASS -3. WILL CONTINUE TO MONITOR.
--- NOTE | 2020-05-07 06:31 | NUR ---
05/06/20 @ 2210 PEEP WAS TITRATED TO 13 cmH20 05/06/20 @ 2315 PEEP WAS TITRATED TO 12 cmH20 PER DOCTORS ORDER 05/07/20 @ 0130 FiO2 TITRATED TO 90%. WILL CONTINUE TO MONITOR PT.
[2020-05-07 07:17] LABS: HEPATITIS A ANTIBODY IGM Negative (Negative); HEPATITIS B CORE AB TOTAL Negative (Negative); HEPATITIS B SURFACE ANTIBODY Non Reactive (.); HEPATITIS B SURFACE ANTIGEN Negative (Negative)
[2020-05-07 07:20] LABS: BASOPHILS % (AUTO) 0.2 % (0.0-2.0); HEMATOCRIT 34.9 % (36-52); HEMOGLOBIN 11.8 g/dL (12.0-18.0); LYMPHOCYTES # (AUTO) 0.6 K/uL (2.0-11.5); LYMPHOCYTES % (AUTO) 3.5 % (20.5-51.1); MEAN CORPUSCULAR HEMOGLOBIN 30 pg (27-31); MEAN CORPUSCULAR HGB CONC 34 g/dL (33-37); MEAN CORPUSCULAR VOLUME 88.8 fL (80-94); MONOCYTES # (AUTO) 0.5 K/uL (0.8-1.0); MONOCYTES % (AUTO) 2.8 % (1.7-9.3); NEUTROPHILS # (AUTO) 17.1 K/uL (1.8-7.7); NEUTROPHILS % (AUTO) 93.5 % (42.2-75.2); PLATELET COUNT (AUTO) 306 K/uL (140-450); RED BLOOD CELL COUNT(AUTO) 3.93 MIL/uL (4.20-6.10); RED CELL DISTRIBUTION WIDTH 13.9 % (11.6-13.7); WHITE BLOOD COUNT (AUTO) 18.3 K/uL (4.8-10.8)
--- NOTE | 2020-05-07 07:20 | NUR ---
RECEIVED BEDSIDE REPORT FROM BI MANAGER NURSE ONEYDA RN, PT SEDATED RASS -3, DRY WEIGHT 95.3KG,PT IN PRONE POSITION. ON ETT TO VENT AC/PVRC FIO2 100%, PEEP 12, RATE 20, NO SOB NOTED, SATURATING @ 100%, PICC LINE TO R UPPER ARM RUNNING PROPOFOL @ 5MCG/KG/MIN, VERSED @ 10MG/HR, FENTANYL @1MCG/KG/HR, AND IV TO LEFT FA 20G, NS @ 60ML/HR, INFUSING WELL. OGT IN PLACE, CLAMPED FOR PRONING. CERDA CATH IN PLACE DRAINING TO GRAVITY. INITIAL ASSESSMENT DONE, ALL SAFETY PRECAUTION MET, CALL LIGHT WITHIN REACH, WILL CONTINUE TO MONITOR.
[2020-05-07] MEDS: BLOOD GLUCOSE MONITORING 1 DEV DEV FS SCH ×4 (07:30→21:00)
--- NOTE | 2020-05-07 07:45 | NUR ---
TURNED PT TO SUPINE POSITION WITH NO ISSUES. ETT IS SECURED AND PATENT.
--- NOTE | 2020-05-07 08:00 | NUR ---
SUCCESSFULLY SUPINE PT, PT TOLERATED WELL, NO DISTRESS NOTED, WILL CONTINUE TO MONITOR.
[2020-05-07] MEDS: fentaNYL citrate 1 MG in NACL 0.9% 80 ML IV PRN (08:09)
[2020-05-07 08:14] LABS: ALBUMIN 1.7 g/dL (3.4-5.0); ANION GAP 13.4 (8-16); CARBON DIOXIDE 22.6 mmol/L (21-32); CREATININE 3.3 mg/dL (0.6-1.3); MAGNESIUM 2.2 mg/dL (1.8-2.4); PHOSPHORUS 5.8 mg/dL (2.5-4.9); TOTAL BILIRUBIN 0.3 mg/dL (0.0-1.0)
[2020-05-07] MEDS: MIDAZOLAM MDV 100 MG in NACL 0.9% 80 ML IV PRN ×3 (08:24→23:57)
[2020-05-07] MEDS: NACL 0.9% 1,000 ML IV SCH ×2 (08:26→14:10)
--- NOTE | 2020-05-07 08:48 | NUR ---
CALLED DR HOBBS REGARDING PT BLEEDING, PER , HE WILL COME AND SEE PT LATER DURING THE DAY.
[2020-05-07] MEDS: INSULIN LISPRO SLIDING SCALE 100 UNITS/ML VIAL SUBQ PRN ×4 (08:49→20:58)
[2020-05-07] MEDS: ENOXAPARIN 100 MG/ML SYR SUBQ SCH (09:00)
[2020-05-07] MEDS: PANTOPRAZOLE 40 MG INJ VIAL IVP SCH (09:03)
[2020-05-07] MEDS: SENNA 8.6 MG TAB PO SCH (09:03)
[2020-05-07] MEDS: DOCUSATE 100 MG/10 ML UDC GT SCH (09:03)
[2020-05-07] MEDS: DEXAMETHASONE 4 MG/ML VIAL IVP SCH (09:03)
[2020-05-07] MEDS: ZINC SULF 220 MG CAP PO SCH ×2 (09:03→21:00)
[2020-05-07] MEDS: amLODIPine 5 MG TAB PO SCH ×2 (09:04→21:00)
[2020-05-07] MEDS: VITAMIN D 400 IU TAB PO SCH (09:04)
[2020-05-07] MEDS: atenoloL 50 MG TAB PO SCH (09:04)
[2020-05-07] MEDS: AZITHROMYCIN 250 MG TAB PO SCH (09:04)
[2020-05-07] MEDS: ASCORBIC ACID 500 MG/5 ML ORASYR PO SCH (09:04)
--- NOTE | 2020-05-07 09:04 | NUR ---
DUE MEDICATIONS ADMINISTERED, PT TOLERATED WELL, NO DISTRESS NOTED, CERDA CARE DONE, CHG BATH GIVEN, PT TOLERATED WELL, WILL CONTINUE TO MONITOR.
[2020-05-07] MEDS: ATORVASTATIN 20 MG TAB PO SCH (09:05)
--- NOTE | 2020-05-07 09:15 | NUR ---
DR LOONEY AT BEDSIDE EVALUATING PT, NOTIFIED REGARDING BLEEDING, PER DR POOL TO HOLD LOVENOX AND TO CONTINUE TO MONITOR PT. WILL CONTINUE WITH ORDERS.
--- NOTE | 2020-05-07 11:30 | NUR ---
DR HOBBS AT BEDSIDE DOING PROCEDURE. PT TOLERATED WELL, WILL CONTINUE TO MONITOR.
--- NOTE | 2020-05-07 13:49 | NUR ---
NEW TUBE FEEDING RECOMMENDATIONS GIVEN TO ANJEL DUVALL FOR NEPRO 1.8 @ 70 ML/HR X 8 HOURS WITH PROSOURCE BID. THIS WILL PROVIDE 1128 KCAL AND 75 GM OF PROTEIN.
--- NOTE | 2020-05-07 14:00 | NUR ---
DIALYSIS STARTED, DIALYSIS NURSE AT BEDSIDE, WILL CONTINUE TO MONITOR.
--- NOTE | 2020-05-07 16:33 | NUR ---
DILAYSIS COMPLETED, PER DIALYSIS NURSE 2L FLUID TAKEN OUT, PT TOLERATED WELL, WILL CONTINUE TO MONITOR.
--- NOTE | 2020-05-07 19:26 | NUR ---
RECEIVED PATIENT FROM AM SHIFT. PATIENT WAS SEEN AND ASSESSED. FOUND PT IN SUPINE POSITION. PATIENT IS INTUBATED WITH ETT SIZE 8.0 AND SECURED WITH ANCHOR-FAST AT 23cm. PATIENT IS ON VENT SETTINGS: AC/PRVC RR 20, VT 450, PEEP 12, FiO2 100% WITH SPO2 OF 95%. TITRATED PEEP TO [id number]. PER DOCTOR'S ORDER. VENT IS PLUGGED IN RED OUTLET. ALARMS SET AND AUDIBLE TO ENVIRONMENT. SUCTIONED SMALL AMOUNT OF YELLOW THICK SECRETIONS FROM ETT. AIRWAY IS PATENT. AUSCULTATION REVEALS BILATERAL COARSE BREATH SOUNDS. PATIENT IS IN NO APPARENT RESPIRATORY DISTRESS AT THIS TIME. PRN TX NOT INDICATED AT THIS TIME. WILL CONTINUE TO MONITOR PATIENT.
--- NOTE | 2020-05-07 19:29 | NUR ---
RECEIVED REPORT FROM AM SHIFT RN FOR CONTINUITY OF CARE. ETT TO VENT, SEDATED RASS -3. ON AC PRVC MODE FIO2 60%, RATE 20, PEEP 12. SINUS RHYTHM ON MONITOR. RIJ DIALYSIS CATHETER IN PLACE, SALINE LOCKED. CHRIS PICC INFUSING PROPOFOL 5 MCG/KG/MIN, VERSED 10MG/HR, FENTANYL 1MCG/KG/MIN. SKIN INTACT, WARM AND DRY. TEMP 101.4F OGT TO FEEDING, 0 RESIDUALS NOTED. CERDA CATHETER IN PLACE.
--- NOTE | 2020-05-07 19:29 | NUR ---
ENDORSED TO STOKER ERECTOR AND SERVICER NURSE BG HOBBS, FOR CONTINUOUS OF CARE.
[2020-05-07] MEDS: ACETAMINOPHEN 325 MG TAB PO PRN (20:30)
[2020-05-07] MEDS ORDERED: CRUSHER, PILL MC ONE (20:56)
--- NOTE | 2020-05-07 21:00 | NUR ---
TEMPERATURE 101.4F TYLENOL PRN ADMINISTERED. WILL CONTINUE TO MONITOR.
--- NOTE | 2020-05-07 21:30 | NUR ---
SPO2 97%. PER DOCTORS ORDER. TITRATED PEEP TO 10 CMH20. PT IS TOLERATING WELL. RN NOTIFIED. WILL CONTINUE TO MONITOR PT.
[2020-05-07] MEDS: fentaNYL citrate - 50mL vial 2.5 MG in NACL 0.9% 200 ML IV PRN (21:35)
--- NOTE | 2020-05-07 22:45 | NUR ---
PT ETT TO VENT, RESPIRATIONS EVEN AND UNLABORED, CHEST RISE IS SYMMETRICAL. WILL CONTINUE TO MONITOR.
[2020-05-08] VITALS (72 sets, daily range): BP systolic 92–165; BP diastolic 45–72
[2020-05-08] MEDS: ACETAMINOPHEN 325 MG TAB PO PRN
--- NOTE | 2020-05-08 | NUR ---
TEMPERATURE 100.4F, TYLENOL PRN GIVEN. WILL CONTINUE TO MONITOR.
[2020-05-08] MEDS: MIDAZOLAM MDV 100 MG in NACL 0.9% 80 ML IV PRN ×3 (00:12→22:35)
[2020-05-08] MEDS: PROPOFOL 1000 MG/100 ML PREMIX 100 ML IV PRN (00:12)
--- NOTE | 2020-05-08 01:00 | NUR ---
PLACED PATIENT IN PRONE POSITION. PATIENT TOLERATED PROCEDURE WELL. SUCTION YELLOW AMOUNT OF WHITE/YELLOW THICK SECRETIONS FROM ETT. SPO2 90%. BILATERAL BREATH SOUNDS ON AUSCULTATION. PATIENT IS IN NO RESPIRATORY DISTRESS AT THIS TIME. RNs AT BEDSIDE. WILL CONTINUE TO MONITOR PATIENT.
--- NOTE | 2020-05-08 01:00 | NUR ---
PT PLACED IN PRONE POSITION. WILL CONTINUE TO MONITOR.
--- NOTE | 2020-05-08 03:45 | NUR ---
ORAL CARE PROVIDED, CERDA CARE PROVIDED. PT IN PRONE POSITION. WILL CONTINUE TO MONITOR.
--- NOTE | 2020-05-08 05:38 | NUR ---
PT IS STILL ON VENTILATOR SUPPORT. VENT PLUGGED IN RED OUTLET AND ALARMS SET AND FUNCTIONING. AIRWAY IS PATENT AND ETT IS SECURED WITH ANCHOR-FAST. PT IS IN NO RESPIRATORY DISTRESS AT THIS TIME. WILL CONTINUE TO MONITOR PT.
[2020-05-08] MEDS: NACL 0.9% 1,000 ML IV SCH ×2 (06:50→23:30)
--- NOTE | 2020-05-08 07:20 | NUR ---
RECEIVED PT FROM SYSTEMATIC THEOLOGY PROFESSOR NURSE, SEDATED, IN PRONE POSITION. PUPILS 3MM, PERRL. RESPONDS TO PAINFUL STIMULI. ETT TO VENT: PRVC MODE WITH FIO2 @ 70%. LUNG SOUNDS DIMINISHED THROUGHOUT. +S1, S2 UPON AUSCULTATION, OGT IN PLACE WITH TUBE FEEDING ON HOLD, PER SYSTEMATIC THEOLOGY PROFESSOR. BOWEL SOUNDS ACTIVE X4. ABD LARGE, SOFT WITHOUT PALPABLE MASSES. RT IJ KENZIE CATH IN PLACE. CHRIS PICC INFUSING PROPOFOL, VERSED, NS, AND FENTANYL INFUSING. SEE IV SPREADSHEET. RFA 20 G, SALINE LOCK PATENT. CERDA IN PLACE DRAINING CLEAR, LIGHT-KHAI URINE TO GRAVITY. SKIN WARM AND DRY. SAFETY PRECAUTIONS IN PLACE WITH BED LOW AND LOCKED. WILL CONTINUE TO MONITOR FOR CHANGES.
--- NOTE | 2020-05-08 07:22 | NUR ---
REPORT GIVEN TO AM SHIFT RN FOR CONTINUITY OF CARE
[2020-05-08] MEDS: BLOOD GLUCOSE MONITORING 1 DEV DEV FS SCH ×4 (07:30→21:00)
[2020-05-08 07:32] LABS: ALBUMIN 1.6 g/dL (3.4-5.0); ANION GAP 13.6 (8-16); CARBON DIOXIDE 26.5 mmol/L (21-32); CREATININE 3.9 mg/dL (0.6-1.3); MAGNESIUM 2.2 mg/dL (1.8-2.4); PHOSPHORUS 4.5 mg/dL (2.5-4.9); POTASSIUM 4.1 mmol/L (3.5-5.1); TOTAL BILIRUBIN 0.4 mg/dL (0.0-1.0)
[2020-05-08] MEDS: amLODIPine 5 MG TAB PO SCH ×2 (09:00→21:00)
[2020-05-08] MEDS: atenoloL 50 MG TAB PO SCH (09:00)
[2020-05-08] MEDS: DOCUSATE 100 MG/10 ML UDC GT SCH (09:30)
[2020-05-08] MEDS: PANTOPRAZOLE 40 MG INJ VIAL IVP SCH (09:34)
[2020-05-08] MEDS: VITAMIN D 400 IU TAB PO SCH (09:34)
[2020-05-08] MEDS: DEXAMETHASONE 4 MG/ML VIAL IVP SCH (09:34)
[2020-05-08] MEDS: ATORVASTATIN 20 MG TAB PO SCH (09:35)
[2020-05-08] MEDS: SENNA 8.6 MG TAB PO SCH (09:35)
[2020-05-08] MEDS: ENOXAPARIN 100 MG/ML SYR SUBQ SCH (09:36)
[2020-05-08] MEDS: AZITHROMYCIN 250 MG TAB PO SCH (09:36)
[2020-05-08] MEDS: ZINC SULF 220 MG CAP PO SCH ×2 (09:36→21:00)
[2020-05-08] MEDS: ASCORBIC ACID 500 MG/5 ML ORASYR PO SCH (09:37)
[2020-05-08] MEDS: INSULIN LISPRO SLIDING SCALE 100 UNITS/ML VIAL SUBQ PRN ×4 (09:38→22:18)
--- NOTE | 2020-05-08 11:30 | NUR ---
DIALYSIS NURSE IN, REQUESTED PT BE SUPINED AT THIS TIME. PT TOLERATED WELL.
--- NOTE | 2020-05-08 15:23 | NUR ---
05/08/20 RD FOLLOW UP COMPLETED PLEASE REFER TO NUTRITION ASSESSMENT UNDER CARE ACTIVITY FOR ESTIMATED NUTRITIONAL NEEDS. 1. CONTINUE NEPRO 1.8 @ 70 ML/HR X 8 HOURS WITH PROSOURCE BID -THIS PROVIDES 1128 KCAL AND 75 GM OF PROTEIN. MEETING 100% OF ESTIMATED KCAL AND PROTEIN NEEDS 2. CONT. FREE WATER FLUSH OF 100 ML Q6H 3. CONTINUE VITAMIN C AND ZINC SUPPLEMENTATION 4. RD TO FOLLOW-UP 2-3 DAYS, HIGH RISK FLOWER WATKINS, CHERYL
[2020-05-08] MEDS ORDERED: NOREPINEPHRINE 4 MG/4 ML VIAL IV ONE (16:42)
--- NOTE | 2020-05-08 19:33 | NUR ---
REPORT RECEIVED FROM AM SHIFT RN FOR CONTINUITY OF CARE. PT SEDATED RASS -3. ETT TO VENT. PRVC MODE. FIO2 60%, RATE 20, TV 450, PEEP 10. SINUS RHYTHM ON MONITOR. IV SITE RT FOREARM 20G AND CHRIS PICC LINE INFUSING PROPOFOL 5MCG/KG/MIN, VERSED 10MG/HR, FENTANYL 1MCG/KG/MIN, NS 60 ML/HR. RIJ HEMODIALYSIS CATHETER SALINE LOCKED, INTACT, PATENT. OGT TO FEEDING, 0 RESIDUALS NOTED. CERDA CATHETER IN PLACE. SKIN WARM AND DRY. DRY WEIGHT 95.3KG.
--- NOTE | 2020-05-08 19:33 | NUR ---
REPORT GIVEN TO NIGHTSHIFT NURSE, AT BEDSIDE, FOR CONTINUITY OF CARE.
--- NOTE | 2020-05-08 21:00 | NUR ---
TEMPERATURE 100.2F, COOLING MEASURES IN PLACE.
--- NOTE | 2020-05-08 23:15 | NUR ---
ORAL CARE PROVIDED. RESPIRATIONS EVEN AND UNLABORED. CHEST RISE SYMMETRICAL. SAFETY PRECAUTIONS IN PLACE. WILL CONTINUE TO MONITOR.
[2020-05-08] MEDS ORDERED: PIPERACILLIN/TAZOBACTAM 3.375 GM VIAL IV ONE (23:55)
[2020-05-09] VITALS (58 sets, daily range): BP systolic 93–152; BP diastolic 45–88
--- NOTE | 2020-05-09 | NUR ---
TEMPERATURE 99.6F, WILL CONTINUE TO MONITOR.
[2020-05-09] MEDS: fentaNYL citrate - 50mL vial 2.5 MG in NACL 0.9% 200 ML IV PRN (00:55)
--- NOTE | 2020-05-09 02:17 | NUR ---
PT HAS EYES CLOSED, SEDATED RASS -3, RESPIRATIONS EVEN AND UNLABORED. CHEST RISE SYMMETRICAL. SAFETY PRECAUTIONS IN PLACE. WILL CONTINUE TO MONITOR.
--- NOTE | 2020-05-09 02:45 | NUR ---
PT PLACED IN PRONE POSITION, FEEDING HELD. WILL CONTINUE TO MONITOR.
--- NOTE | 2020-05-09 04:56 | NUR ---
PT HAS EYES CLOSED, SEDATED RASS -3, RESPIRATIONS EVEN AND UNLABORED. CHEST RISE SYMMETRICAL. SAFETY PRECAUTIONS IN PLACE. WILL CONTINUE TO MONITOR.
--- NOTE | 2020-05-09 06:35 | NUR ---
PT HAS EYES CLOSED, SEDATED RASS -3, RESPIRATIONS EVEN AND UNLABORED. CHEST RISE SYMMETRICAL. SAFETY PRECAUTIONS IN PLACE. WILL CONTINUE TO MONITOR.
[2020-05-09 06:53] LABS: ALBUMIN 1.6 g/dL (3.4-5.0); ANION GAP 11.4 (8-16); CARBON DIOXIDE 26.3 mmol/L (21-32); MAGNESIUM 2.2 mg/dL (1.8-2.4); PHOSPHORUS 4.9 mg/dL (2.5-4.9); POTASSIUM 3.7 mmol/L (3.5-5.1); TOTAL BILIRUBIN 0.3 mg/dL (0.0-1.0)
[2020-05-09 07:18] LABS: CREATININE 4.1 mg/dL (0.6-1.3)
--- NOTE | 2020-05-09 07:30 | NUR ---
REPORT GIVEN TO AM SHIFT RN FOR CONTINUITY OF CARE
--- NOTE | 2020-05-09 07:30 | NUR ---
RECEIVED WINDOW SIDE REPORT FROM BLANKER PRESS OPERATOR NURSE. PT PRONE IN BED, INTUBATED, RASS -3, UNABLE TO MAKE NEEDS KNOWN, AROUSABLE TO LIGHT PAIN. ETT TO VENT: ACPRVC FIO2 100%, RR 20, PEEP 10, BREATHING EVEN AND UNLABORED. OG TUBE FEEDING HELD WHILE PRONE. CERDA CATHETER DRAINING TO GRAVITY, CLEAR YELLOW URINE. RFA 20 G, CHRIS PICC CLEAN DRY INTACT. INFUSING PROPOFOL @ 5 MCG/KG/MIN, NS @ 60 ML/HR, FENTANYL @ 1 MCG/KG/HR, VERSED @ MG/HR. BED IN TRENDELENBURG POSITION, PROCESS CONTROL BOARD OPERATOR IN PLACE. SAFETY MEASURES IN PLACE.
[2020-05-09] MEDS: MIDAZOLAM MDV 100 MG in NACL 0.9% 80 ML IV PRN ×2 (07:31→19:01)
[2020-05-09] MEDS: BLOOD GLUCOSE MONITORING 1 DEV DEV FS SCH ×4 (08:04→21:52)
[2020-05-09] MEDS: INSULIN LISPRO SLIDING SCALE 100 UNITS/ML VIAL SUBQ PRN ×3 (08:06→16:58)
--- NOTE | 2020-05-09 08:06 | NUR ---
BLOOD GLUCOSE CHECKED, 326, 8 UNITS HUMALOG ADMINISTERED.
[2020-05-09] MEDS: DOCUSATE 100 MG/10 ML UDC GT SCH (10:02)
[2020-05-09] MEDS: DEXAMETHASONE 4 MG/ML VIAL IVP SCH (10:03)
[2020-05-09] MEDS: PANTOPRAZOLE 40 MG INJ VIAL IVP SCH (10:03)
[2020-05-09] MEDS: ATORVASTATIN 20 MG TAB PO SCH (10:04)
[2020-05-09] MEDS: VITAMIN D 400 IU TAB PO SCH (10:04)
[2020-05-09] MEDS: amLODIPine 5 MG TAB PO SCH ×2 (10:04→21:14)
[2020-05-09] MEDS: atenoloL 50 MG TAB PO SCH (10:05)
[2020-05-09] MEDS: AZITHROMYCIN 250 MG TAB PO SCH (10:06)
[2020-05-09] MEDS: ZINC SULF 220 MG CAP PO SCH (10:06)
[2020-05-09] MEDS: ENOXAPARIN 100 MG/ML SYR SUBQ SCH (10:07)
[2020-05-09] MEDS: SENNA 8.6 MG TAB PO SCH (10:09)
--- NOTE | 2020-05-09 10:15 | NUR ---
SCHEDULED AM MEDS ADMINISTERED PER MD ORDER. MED EDUCATION PROVIDED, REINFORCEMENT NEEDED. VIT C NOT STOCKED, CALLED PHARMACY, WILL ADMINISTER SOON AVAILABLE. OG TUBE RESIDUAL 5ML, FLUSHED BEFORE AND AFTER MEDS. MORNING HYGIENE AND ORAL CARE PROVIDED. CHANGED ALL DIRTY LINEN AND OFFLOADED PRESSURE WITH PILLOWS. HCG BATH AND CATHETER CARE PROVIDED. PT TOLERATED WELL, NO SIGNS OF ACUTE DISTRESS NOTED. EDUCATION PROGRAM ASSOCIATE IN PLACE. SAFETY MEASURES IN PLACE.
[2020-05-09] MEDS: PROPOFOL 1000 MG/100 ML PREMIX 100 ML IV PRN (10:30)
--- NOTE | 2020-05-09 10:30 | NUR ---
STARTED NEW BOTTLE OF PROPOFOL. MED EDUCATION PROVIDED, REINFORCEMENT NEEDED.
[2020-05-09] MEDS: ASCORBIC ACID 500 MG/5 ML ORASYR PO SCH (10:39)
--- NOTE | 2020-05-09 10:39 | NUR ---
VIT C RECEIVED FROM PHARMACY. ADMINISTERED PER MD ORDER. MED EDUCATION PROVIDED, REINFORCEMENT NEEDED. BED IN LOW POSITION. SAP TREASURY CONSULTANT IN PLACE, SAFETY MEASURES IN PLACE.
--- NOTE | 2020-05-09 12:28 | NUR ---
BLOOD SUGAR CHECKED, 362, 10 UNITS HUMALOG ADMINISTERED. MED EDUCATION PROVIDED, REINFORCEMENT NEEDED.
[2020-05-09] MEDS: PIPERACILLIN/TAZOBACTAM 2.25 GM in DEXTROSE 5% 50 ML IV SCH ×2 (13:06→21:50)
--- NOTE | 2020-05-09 16:59 | NUR ---
BLOOD GLUCOSE CHECKED, 236, 4 UNITS HUMALOG ADMINISTERED. MED EDUCATION PROVIDED, REINFORCEMENT NEEDED.
[2020-05-09] MEDS: NACL 0.9% 1,000 ML IV SCH (19:03)
--- NOTE | 2020-05-09 19:25 | NUR ---
RECEIVED PATIENT ON BED WITH HOB ELEVATED TO 30 DEGREE; SEDATED WITH PROFOPOL, VERSED AND FENTANYL DRIP, RASS-3. ORALLY INTUBATED AND VENTILATED AT 90% FIO2. CARDIACSCOPE SHOWS ON SINUS RHYTHM HR 67/MIN NO ARRTHYMIAS SEEN. IVF IN PROGRESS NORMAL SALINE AT 60 ML/HR VIA PICC LINE ON RIGHT UPPER ARM; PATENT AND INTACT.ABDOMEN IS SOFT; HYPOACTIVE BOWEL SOUNDS. WITH CERDA CATH IN PLACE DRAINING TO CLOUDY YELLOW URINE OUTPUT; INTACT.
--- NOTE | 2020-05-09 20:30 | NUR ---
RECEIVED PATIENT FROM AM SHIFT. PATIENT WAS SEEN AND ASSESSED. FOUND PT IN SUPINE POSITION. PATIENT IS INTUBATED WITH ETT SIZE 8.0 AND SECURED WITH ANCHOR-FAST AT 23cm. PATIENT IS ON VENT SETTINGS: AC/PRVC RR 20, VT 450, PEEP 10, FiO2 90% WITH SPO2 OF 98%. VENT IS PLUGGED IN RED OUTLET. ALARMS SET AND AUDIBLE TO ENVIRONMENT. SUCTIONED SMALL AMOUNT OF YELLOW THICK SECRETIONS FROM ETT. AIRWAY IS PATENT. AUSCULTATION REVEALS BILATERAL COARSE BREATH SOUNDS. PATIENT IS IN NO APPARENT RESPIRATORY DISTRESS AT THIS TIME. PRN TX NOT INDICATED AT THIS TIME. WILL CONTINUE TO MONITOR PATIENT.
[2020-05-10] VITALS (44 sets, daily range): BP systolic 99–173; BP diastolic 47–91
--- NOTE | 2020-05-10 00:30 | NUR ---
PLACED PATIENT IN PRONE POSITION; MONITORED CLOSELY.
--- NOTE | 2020-05-10 00:45 | NUR ---
PLACED PATIENT IN PRONE POSITION. PATIENT TOLERATED PROCEDURE WELL. SUCTION YELLOW AMOUNT OF WHITE/YELLOW THICK SECRETIONS FROM ETT. SPO2 95%. BILATERAL BREATH SOUNDS ON AUSCULTATION. PATIENT IS IN NO RESPIRATORY DISTRESS AT THIS TIME. RNs AT BEDSIDE. WILL CONTINUE TO MONITOR PATIENT.
[2020-05-10] MEDS: PIPERACILLIN/TAZOBACTAM 2.25 GM in DEXTROSE 5% 50 ML IV SCH ×3 (05:00→20:44)
[2020-05-10 06:16] LABS: BASOPHILS % (AUTO) 0.1 % (0.0-2.0); EOSINOPHILS % (AUTO) 0.1 % (0.0-4.0); HEMATOCRIT 29.9 % (36-52); LYMPHOCYTES # (AUTO) 0.6 K/uL (2.0-11.5); LYMPHOCYTES % (AUTO) 3.8 % (20.5-51.1); MEAN CORPUSCULAR HEMOGLOBIN 30 pg (27-31); MEAN CORPUSCULAR HGB CONC 33 g/dL (33-37); MEAN CORPUSCULAR VOLUME 89.2 fL (80-94); MONOCYTES # (AUTO) 0.3 K/uL (0.8-1.0); MONOCYTES % (AUTO) 2.2 % (1.7-9.3); NEUTROPHILS # (AUTO) 14.8 K/uL (1.8-7.7); NEUTROPHILS % (AUTO) 93.8 % (42.2-75.2); PLATELET COUNT (AUTO) 284 K/uL (140-450); RED BLOOD CELL COUNT(AUTO) 3.36 MIL/uL (4.20-6.10); RED CELL DISTRIBUTION WIDTH 14.1 % (11.6-13.7); WHITE BLOOD COUNT (AUTO) 15.8 K/uL (4.8-10.8)
[2020-05-10] MEDS: fentaNYL citrate - 50mL vial 2.5 MG in NACL 0.9% 200 ML IV PRN (06:30)
[2020-05-10] MEDS: MIDAZOLAM MDV 100 MG in NACL 0.9% 80 ML IV PRN ×2 (06:38→15:54)
[2020-05-10 06:41] LABS: ALBUMIN 1.6 g/dL (3.4-5.0); ANION GAP 12.2 (8-16); CARBON DIOXIDE 25.1 mmol/L (21-32); MAGNESIUM 2.4 mg/dL (1.8-2.4); PHOSPHORUS 5.3 mg/dL (2.5-4.9); POTASSIUM 4.3 mmol/L (3.5-5.1); TOTAL BILIRUBIN 0.3 mg/dL (0.0-1.0)
[2020-05-10 07:10] LABS: CREATININE 4.3 mg/dL (0.6-1.3)
--- NOTE | 2020-05-10 07:25 | NUR ---
RECEIVED WINDOW SIDE REPORT FROM FAST FOOD CREW MEMBER NURSE. PT PRONE IN BED, INTUBATED, RASS -3, UNABLE TO MAKE NEEDS KNOWN, AROUSABLE TO LIGHT PAIN. ETT TO VENT: ACPRVC FIO2 90%, RR 20, PEEP 10, SPO2 99%. BREATHING EVEN AND UNLABORED, NO SIGNS OF ACUTE DISTRESS NOTED. OG TUBE FEEDING ON HOLD WHILE PATIENT PRONE. CERDA CATHETER IN PLACE, DRAINING TO GRAVITY, KHAI COLORED URINE. RFA 20 G, CHRIS PICC CLEAN DRY INTACT, INFUSING:PROPOFOL @ 5 MCG/KG/MIN, NS @ 60 ML/HR, FENTANYL @ 1 MCG/KG/HR, VERSED @ 10 MG/HR. BED IN [place]DE[place]G, LOW POSITION, BANK NOTE DESIGNER IN PLACE. SAFETY MEASURES IN PLACE.
[2020-05-10] MEDS: INSULIN LISPRO SLIDING SCALE 100 UNITS/ML VIAL SUBQ PRN ×5 (07:31→21:30)
[2020-05-10] MEDS: BLOOD GLUCOSE MONITORING 1 DEV DEV FS SCH ×4 (08:03→21:30)
--- NOTE | 2020-05-10 08:04 | NUR ---
BLOOD GLUCOSE CHECKED, 425, ADMINISTERED 10 UNITS HUMALOG, AWAITING MD ORDERS FOR FOLLOW UP.
[2020-05-10] MEDS: NACL 0.9% 1,000 ML IV SCH (08:50)
[2020-05-10] MEDS: DEXAMETHASONE 4 MG/ML VIAL IVP SCH (09:13)
[2020-05-10] MEDS: DOCUSATE 100 MG/10 ML UDC GT SCH (09:13)
[2020-05-10] MEDS: PANTOPRAZOLE 40 MG INJ VIAL IVP SCH (09:14)
[2020-05-10] MEDS: ATORVASTATIN 20 MG TAB PO SCH (09:14)
[2020-05-10] MEDS: amLODIPine 5 MG TAB PO SCH ×2 (09:15→20:45)
[2020-05-10] MEDS: SENNA 8.6 MG TAB PO SCH (09:15)
[2020-05-10] MEDS: atenoloL 50 MG TAB PO SCH (09:15)
[2020-05-10] MEDS: ASCORBIC ACID 500 MG/5 ML ORASYR PO SCH (09:16)
[2020-05-10] MEDS: ENOXAPARIN 100 MG/ML SYR SUBQ SCH (09:17)
--- NOTE | 2020-05-10 09:19 | NUR ---
SCHEDULED MORNING MEDS ADMINISTERED PER MD ORDER. MED EDUCATION PROVIDED, REINFORCEMENT NEEDED. G TUBE RESIDUAL <3 ML, FLUSHED BEFORE AND AFTER MEDS. MORNING HYGIENE PROVIDED, CHANGED ALL DIRTY LINEN, REPOSITIONED PT AND OFFLOADED PRESSURE WITH PILLOWS. HCG BATH PROVIDED, CATHETER CARE PROVIDED. BED IN LOW POSITION, SEASONER IN PLACE, SAFETY MEASURES IN PLACE.
[2020-05-10] MEDS ORDERED: MAGNESIUM HYDROXIDE 2400 MG/30 ML UDC PO PRN (11:40)
[2020-05-10] MEDS ORDERED: MINERAL OIL 135 ML ENEM RC SCH (11:45)
--- NOTE | 2020-05-10 11:53 | NUR ---
BLOOD GLUCOSE CHECKED, 430, ADMINISTERED [address] OWENS OFFICE FOR ORDERS. LEFT A VOICEMAIL, AWAITING ORDERS FROM DR OWENS.
[2020-05-10] MEDS ORDERED: INSULIN LANTUS 100 UNITS/ML 10 ML VIAL SUBQ SCH (12:19)
--- NOTE | 2020-05-10 19:18 | NUR ---
RECEIVED PATIENT FROM AM SHIFT. PATIENT WAS SEEN AND ASSESSED. FOUND PT IN PRONE POSITION. PATIENT IS INTUBATED WITH ETT SIZE 8.0 AND SECURED WITH ANCHOR-FAST AT 23cm. PATIENT IS ON VENT SETTINGS: AC/PRVC RR 20, VT 450, PEEP 10, FiO2 80% WITH SPO2 OF 97%. VENT IS PLUGGED IN RED OUTLET. ALARMS SET AND AUDIBLE TO ENVIRONMENT. SUCTIONED SMALL AMOUNT OF WHITE/YELLOW THICK SECRETIONS FROM ETT. AIRWAY IS PATENT. AUSCULTATION REVEALS BILATERAL RALES BREATH SOUNDS. PATIENT IS IN NO APPARENT RESPIRATORY DISTRESS AT THIS TIME. PRN TX NOT INDICATED AT THIS TIME. WILL CONTINUE TO MONITOR PATIENT.
--- NOTE | 2020-05-10 20:00 | NUR ---
RECEIVED PATIENT IN PRONE POSITION , ETT TO VENT, SETTING IS AC/PC /28 RATE 30 FIO2 90% PEEP 10, OG IN PLACE , ON VERSED 7 MG/HR, PROPOFOL 15 MCG/KG/MIN , FENTANYL 1.6 MCG/KG/HR, PAULETTE 50 MCG/MIN, INFUSING AT CHRIS , SITE IS DRY AND INTACT, FLUSHED WITH 10 ML NS, RASS SCORE IS -3, WILL CONTINUE TO MONITOR PATIENT.
[2020-05-10] MEDS: PROPOFOL 1000 MG/100 ML PREMIX 100 ML IV PRN (20:41)
[2020-05-10] MEDS: POLYETHYLENE GLYCOL 17 GM/PKT PO SCH (20:47)
[2020-05-11] VITALS (38 sets, daily range): BP systolic 95–177; BP diastolic 49–97
--- NOTE | 2020-05-11 | NUR ---
CHANGED HEAD OF PATIENT TO RIGHT SIDE, GOOD SKIN CARE AND ORAL CARE GIVEN.
--- NOTE | 2020-05-11 00:30 | NUR ---
REPOSITION PATIENT'S HEAD, ARMS, AND ETT. PATIENT TOLERATED PROCEDURE WELL. BILATERAL BREATH SOUNDS ON AUSCULTATION. CATHETER PASSED. SUCTION SCANT WHITE/YELLOW THICK SECRETIONS FROM ETT. AIRWAY IS PATENT. PATIENT IS IN NO RESPIRATORY DISTRESS AT THIS TIME. RN AT BEDSIDE. WILL CONTINUE TO MONITOR PATIENT.
[2020-05-11] MEDS: MIDAZOLAM MDV 100 MG in NACL 0.9% 80 ML IV PRN ×3 (01:35→20:44)
--- NOTE | 2020-05-11 02:14 | NUR ---
BLOOD SUGER CHECKED =279 , HUMALOG 6 UNITS SQ GIVEN ORDERED.
--- NOTE | 2020-05-11 04:51 | NUR ---
ORAL CARE GIVEN , AM LAB OBTAINED FROM PICC LINE , MORNING CARE PROVIDED.
[2020-05-11] MEDS: PIPERACILLIN/TAZOBACTAM 2.25 GM in DEXTROSE 5% 50 ML IV SCH ×3 (05:01→20:35)
[2020-05-11 06:42] LABS: BASOPHILS % (AUTO) 0.3 % (0.0-2.0); HEMATOCRIT 32.8 % (36-52); HEMOGLOBIN 10.8 g/dL (12.0-18.0); LYMPHOCYTES # (AUTO) 0.7 K/uL (2.0-11.5); LYMPHOCYTES % (AUTO) 4.1 % (20.5-51.1); MEAN CORPUSCULAR HEMOGLOBIN 30 pg (27-31); MEAN CORPUSCULAR HGB CONC 33 g/dL (33-37); MEAN CORPUSCULAR VOLUME 89.6 fL (80-94); MONOCYTES # (AUTO) 0.5 K/uL (0.8-1.0); MONOCYTES % (AUTO) 2.6 % (1.7-9.3); NEUTROPHILS # (AUTO) 16.5 K/uL (1.8-7.7); PLATELET COUNT (AUTO) 293 K/uL (140-450); RED BLOOD CELL COUNT(AUTO) 3.66 MIL/uL (4.20-6.10); RED CELL DISTRIBUTION WIDTH 14.1 % (11.6-13.7); WHITE BLOOD COUNT (AUTO) 17.8 K/uL (4.8-10.8)
--- NOTE | 2020-05-11 07:15 | NUR ---
RECEIVED BEDSIDE REPORT FROM ASSOCIATE PROFESSOR OF ENGLISH NURSE, PT SEDATED RASS -3. BREATHING ON ETT TO VENT, AC/PVRC FIO2 100%, PEEP 10 RATE 20, NO SOB NOTED, EQUAL BILATERAL CHEST RISE, PICC LINE TO R UPPER ARM PATENT INTACT, INFUSING PROPOFOL @ 5MCG/KG/MIN, VERSED @ 10MG/HR, FENTANYL @ 1 MCG/KG/HR, NS @ 60ML/HR, INFUSING WELL. IV TO R FA 20G PATENT INTACT, SL. R IJ DIALYSIS CATH DRESSING CLEAN DRY AND INTACT. PT SCHEDULED FOR DIALYSIS TODAY. OGT IN PLACE, CONFIRMED WITH AUSCULTATION, RESIDUAL 50ML. CERDA CATH IN PLACE, DRAINING TO GRAVITY. PT HAS BEEN ANURIC. INITIAL ASSESSMENT DONE, ALL SAFETY PRECAUTION MET, CALL LIGHT WITHIN REACH. WILL CONTINUE TO MONITOR.
[2020-05-11] MEDS: BLOOD GLUCOSE MONITORING 1 DEV DEV FS SCH ×4 (08:01→21:00)
[2020-05-11] MEDS: INSULIN LISPRO SLIDING SCALE 100 UNITS/ML VIAL SUBQ PRN ×4 (08:02→22:57)
[2020-05-11] MEDS: NACL 0.9% 1,000 ML IV SCH ×2 (08:10→18:10)
[2020-05-11] MEDS: atenoloL 50 MG TAB PO SCH ×2 (09:00→09:02)
[2020-05-11] MEDS: amLODIPine 5 MG TAB PO SCH ×3 (09:00→20:33)
[2020-05-11] MEDS: ASCORBIC ACID 500 MG/5 ML ORASYR PO SCH (09:01)
[2020-05-11] MEDS: PANTOPRAZOLE 40 MG INJ VIAL IVP SCH (09:01)
[2020-05-11] MEDS: DOCUSATE 100 MG/10 ML UDC GT SCH (09:01)
[2020-05-11] MEDS: POLYETHYLENE GLYCOL 17 GM/PKT PO SCH ×2 (09:01→20:32)
[2020-05-11] MEDS: ATORVASTATIN 20 MG TAB PO SCH (09:02)
[2020-05-11] MEDS: SENNA 8.6 MG TAB PO SCH (09:02)
[2020-05-11] MEDS: DEXAMETHASONE 4 MG/ML VIAL IVP SCH (09:03)
[2020-05-11] MEDS: INSULIN LANTUS 100 UNITS/ML 10 ML VIAL SUBQ SCH (09:05)
[2020-05-11] MEDS: ENOXAPARIN 100 MG/ML SYR SUBQ SCH (09:05)
--- NOTE | 2020-05-11 09:05 | NUR ---
DUE MEDICATIONS ADMINISTERED, NORVASC AND TENORMIN NOT GIVEN, PT IS GETTING DIALYSIS, CERDA CARE DONE, CHG BATH GIVEN, PT TOLERATED WELL, WILL CONTINUE TO MONITOR.
[2020-05-11 10:01] LABS: ANION GAP 18.9 (8-16); CARBON DIOXIDE 24.6 mmol/L (21-32); POTASSIUM 4.5 mmol/L (3.5-5.1)
[2020-05-11 10:02] LABS: ALBUMIN 1.8 g/dL (3.4-5.0); PHOSPHORUS 5.2 mg/dL (2.5-4.9); TOTAL BILIRUBIN 0.4 mg/dL (0.0-1.0)
[2020-05-11 10:03] LABS: CREATININE 4.7 mg/dL (0.6-1.3)
[2020-05-11] MEDS: PROPOFOL 1000 MG/100 ML PREMIX 100 ML IV PRN ×2 (12:26→20:39)
[2020-05-11] MEDS: fentaNYL citrate - 50mL vial 2.5 MG in NACL 0.9% 200 ML IV PRN (12:27)
--- NOTE | 2020-05-11 15:13 | NUR ---
05/11/20 RD FOLLOW UP COMPLETED PLEASE REFER TO NUTRITION ASSESSMENT UNDER CARE ACTIVITY FOR ESTIMATED NUTRITIONAL NEEDS. 1. CONTINUE NEPRO 1.8 @ 70 ML/HR X 8 HOURS WITH PROSOURCE BID -THIS PROVIDES 1128 KCAL AND 75 GM OF PROTEIN. MEETING 100% OF ESTIMATED KCAL AND PROTEIN NEEDS 2. CONT. FREE WATER FLUSH OF 100 ML Q6H 3. CONTINUE VITAMIN C SUPPLEMENTATION 4. RD TO FOLLOW-UP 2-3 DAYS, HIGH RISK FLOWER WATKINS, RD
--- NOTE | 2020-05-11 17:18 | NUR ---
DUE MEDICATION ADMINISTERED, WILL CONTINUE TO MONITOR,.
--- NOTE | 2020-05-11 19:26 | NUR ---
ENDORSED PT TO DENTURE FINISHER NURSE FOR CONTINUOUS OF CARE.
--- NOTE | 2020-05-11 20:15 | NUR ---
RECEIVED PATIENT ON PRONE POSITION , ET SECURED TO VENT , SETTING : AC/PRVC MODE ,TV 450 RATE OF 20 FIO2 90% PEEP 10, TOLERATED SETTING AT THIS TIME. OGT FEEDIN IS ON HOLD DUE TO PRONE POSITION, F/C IN PLACE TO GRAVITY , RIGHT IJ KENZIE CATHETER TO HD ACCESS , DRESSING INTACT. WILL CONTINUE TO MONITOR.
--- NOTE | 2020-05-11 22:20 | NUR ---
BLOOD SUGAR CHECKED 392 HUMALOG 10 UNITS SQ GIVEN PER SLIDING SCALE. CONTINUE WITH PROPOFOL 15 MCG/KG/MIN VERSED 10 MG/HR, FENTANYL 1 MCG/KG/HR , NS AT 60 ML/HR , WILL CONTINUE TO MONITOR,
[2020-05-12] VITALS (74 sets, daily range): BP systolic 84–172; BP diastolic 37–82
--- NOTE | 2020-05-12 00:46 | NUR ---
PT RECIEVED IN PRONE POSITION CURRENTLY UNABLE TO OBTAIN/VIEW ETT DEPTH/MARKINGS PT RECIEVED ON PRVC 450 +10, f 20 100% VENT PLUGGED INTO RED OUTLET AMBU AT BEDSIDE WILL CONTINUE TO MONITOR
[2020-05-12] MEDS: NACL 0.9% 1,000 ML IV SCH (01:46)
[2020-05-12] MEDS: PIPERACILLIN/TAZOBACTAM 2.25 GM in DEXTROSE 5% 50 ML IV SCH ×3 (05:02→20:43)
[2020-05-12] MEDS: INSULIN LISPRO SLIDING SCALE 100 UNITS/ML VIAL SUBQ PRN ×4 (05:28→21:32)
[2020-05-12] MEDS: BLOOD GLUCOSE MONITORING 1 DEV DEV FS SCH ×4 (05:30→21:49)
[2020-05-12 05:47] LABS: BASOPHILS % (AUTO) 0.1 % (0.0-2.0); EOSINOPHILS % (AUTO) 0.3 % (0.0-4.0); HEMATOCRIT 24.7 % (36-52); HEMOGLOBIN 8.1 g/dL (12.0-18.0); LYMPHOCYTES # (AUTO) 0.9 K/uL (2.0-11.5); LYMPHOCYTES % (AUTO) 5.6 % (20.5-51.1); MEAN CORPUSCULAR HEMOGLOBIN 30 pg (27-31); MEAN CORPUSCULAR HGB CONC 33 g/dL (33-37); MEAN CORPUSCULAR VOLUME 90.7 fL (80-94); MONOCYTES # (AUTO) 0.5 K/uL (0.8-1.0); NEUTROPHILS # (AUTO) 14.9 K/uL (1.8-7.7); PLATELET COUNT (AUTO) 231 K/uL (140-450); RED BLOOD CELL COUNT(AUTO) 2.72 MIL/uL (4.20-6.10); WHITE BLOOD COUNT (AUTO) 16.4 K/uL (4.8-10.8)
[2020-05-12 06:18] LABS: ALBUMIN 1.4 g/dL (3.4-5.0); ANION GAP 15.1 (8-16); CARBON DIOXIDE 26.1 mmol/L (21-32); POTASSIUM 5.2 mmol/L (3.5-5.1); TOTAL BILIRUBIN 0.3 mg/dL (0.0-1.0)
--- NOTE | 2020-05-12 06:20 | NUR ---
DR ROA CAME IN AND UPDATE PATIENT'S CONDITION, NO NEW ORDER NOTED.
--- NOTE | 2020-05-12 06:50 | NUR ---
DR ROA STATES OK TO GIVE TUBE FEEDING AT 10 ML /HR WHILE PATIENT IS IN PRONE POSITION, WILL ENDORSE TO ONCOMING SHIFT NURSE.
[2020-05-12 07:22] LABS: CREATININE 5.2 mg/dL (0.6-1.3)
[2020-05-12] MEDS: PROPOFOL 1000 MG/100 ML PREMIX 100 ML IV PRN ×2 (07:28→19:00)
--- NOTE | 2020-05-12 07:41 | NUR ---
RECEIVED BEDSIDE REPORT FROM ELECTROLYSIS NEEDLE OPERATOR NURSE, PT SEDATED RASS -3. BREATHING ON ETT TO VENT, AC/PVRC FIO2 100%, PEEP 10 RATE 20, NO SOB NOTED, PT IN PRONE POSITION, PICC LINE TO R UPPER ARM PATENT INTACT, INFUSING PROPOFOL @ 15MCG/KG/MIN, VERSED @ 10MG/HR, FENTANYL @ 1 MCG/KG/HR, NS @ 60ML/HR, INFUSING WELL. IV TO R FA 20G PATENT INTACT, SL. R IJ DIALYSIS CATH DRESSING CLEAN DRY AND INTACT. PT SCHEDULED FOR DIALYSIS TODAY. OGT IN PLACE, CONFIRMED WITH AUSCULTATION, RESIDUAL 50ML. CERDA CATH IN PLACE, DRAINING TO GRAVITY. PT HAS BEEN ANURIC. INITIAL ASSESSMENT DONE, ALL SAFETY PRECAUTION MET, CALL LIGHT WITHIN REACH. WILL CONTINUE TO MONITOR.
[2020-05-12 07:42] LABS: MAGNESIUM 2.4 mg/dL (1.8-2.4)
[2020-05-12] MEDS: MIDAZOLAM MDV 100 MG in NACL 0.9% 80 ML IV PRN ×2 (07:53→18:27)
[2020-05-12] MEDS: POLYETHYLENE GLYCOL 17 GM/PKT PO SCH ×2 (08:53→20:43)
[2020-05-12] MEDS: DOCUSATE 100 MG/10 ML UDC GT SCH (08:54)
[2020-05-12] MEDS: ASCORBIC ACID 500 MG/5 ML ORASYR PO SCH (08:54)
[2020-05-12] MEDS: ENOXAPARIN 100 MG/ML SYR SUBQ SCH (08:54)
[2020-05-12] MEDS: PANTOPRAZOLE 40 MG INJ VIAL IVP SCH (08:54)
[2020-05-12] MEDS: DEXAMETHASONE 4 MG/ML VIAL IVP SCH (08:55)
[2020-05-12] MEDS: SENNA 8.6 MG TAB PO SCH (08:55)
[2020-05-12] MEDS: ATORVASTATIN 20 MG TAB PO SCH (08:55)
--- NOTE | 2020-05-12 08:55 | NUR ---
DUE MEDICATIONS ADMINISTERED, PT TOLERATED WELL, WILL CONTINUE TO MONITOR
[2020-05-12] MEDS: INSULIN LANTUS 100 UNITS/ML 10 ML VIAL SUBQ SCH (08:57)
[2020-05-12] MEDS: atenoloL 50 MG TAB PO SCH (09:00)
[2020-05-12] MEDS: amLODIPine 5 MG TAB PO SCH ×2 (09:00→20:43)
--- NOTE | 2020-05-12 12:30 | NUR ---
PT WAS TURNED TO SUPINE POSITION WITH NO ISSUES. ETT SECURED AND PATENT.
--- NOTE | 2020-05-12 12:32 | NUR ---
SUCCESSFULLY POSITIONED PT TO SUPINE POSITION, PT TOLERATED WELL, WILL CONTINUE TO MONITOR.
--- NOTE | 2020-05-12 13:24 | NUR ---
DUE MEDICATIONS ADMINISTERED, PT TOLERATED WELL, WILL CONTINUE TO MONITOR.
[2020-05-12] MEDS: fentaNYL citrate - 50mL vial 2.5 MG in NACL 0.9% 200 ML IV PRN (16:52)
--- NOTE | 2020-05-12 16:52 | NUR ---
BLOOD SUGAR CHECKED, INSULIN GIVEN PER PROTOCOL, WILL CONTINUE TO MONITOR.
--- NOTE | 2020-05-12 19:25 | NUR ---
PT RECEIVED IN SUPINE POSITION ON PRVC W/ SETTINGS NOTATED 450 +10 f20 75% 8.0 ETT SECURED @ 24CM BMV AT BEDSIDE VENT PLUGGED INTO RED OUTLET WILL CONTINUE TO MONITOR
--- NOTE | 2020-05-12 19:26 | NUR ---
ENDORSED PT TO CRUCIBLE PACKER NURSE FOR CONTINUOUS OF CARE.
--- NOTE | 2020-05-12 19:54 | NUR ---
RECEIVED PATIENT IN SUPINE POSITION , REMAINS ON VENT WITH AC/PVRC MODE FIO2 75% RATE OF 20 PEEP 10, TOLERATE SETTING AT THIS TIME, OG FEEDING CONTINUES WITH NEPRO @ 60 ML/HR, CONTINUE ON VERSED 10 MG/HR , PROPOFOL , FENTANYL AND IVF NS AT 60 ML/HR , ALL INFUSING AT CHRIS PICC LINE , DRESSING DRY AND CLEAN, RIJ IN PLACE TO HD ACCESS, HD TODAY ,HD NURSE AWARE, LARGE ABD IS NON TENDER AND NONDISTENDED, ON BACTERIOLOGIST INDUSTRIAL -SINUS RHYTHM ON THE MONITOR.WILL CONTINUE TO MONITOR.
--- NOTE | 2020-05-12 20:48 | NUR ---
SCANNER IS NOT WORKING UNABLE TO SCAN ANYTHING, REPORT TO CHARGE NURSE.
--- NOTE | 2020-05-12 22:17 | NUR ---
HEMODIALYSIS NURSE STARTED HD AT BEDSIDE.
--- NOTE | 2020-05-12 22:18 | NUR ---
HEPARIN 10,000 UNIT GIVEN TO HD NURSE FOR HER TO USE .
--- NOTE | 2020-05-12 22:59 | NUR ---
SBP DROP TO 70'S , START LEVOPHED DRIP PER PRN ORDER. WILL CONTINUE TO MONITOR.
[2020-05-13] VITALS (36 sets, daily range): BP systolic 98–158; BP diastolic 49–75
--- NOTE | 2020-05-13 00:37 | NUR ---
HD COMPLETED WITH 1800 ML OUT, WILL TITRATE OFF LEVOPHED.
--- NOTE | 2020-05-13 01:30 | NUR ---
HD FINISHED AND 1800 ML OUT , TAPE OFF LEVOPHED, WILL CONTINUE TO MONITOR.
--- NOTE | 2020-05-13 02:56 | NUR ---
LARGE BM X1 CHANGED ALL LINEN , GOOD SKIN CARE AND ORAL CARE GIVEN, PUT PATIENT ON PRONE POSITION WITH RT .
[2020-05-13] MEDS: PIPERACILLIN/TAZOBACTAM 2.25 GM in DEXTROSE 5% 50 ML IV SCH ×3 (04:36→21:36)
[2020-05-13] MEDS ORDERED: MIDAZOLAM MDV 50 MG/10 ML VIAL IV ONE (05:32)
[2020-05-13] MEDS: INSULIN LISPRO SLIDING SCALE 100 UNITS/ML VIAL SUBQ PRN ×4 (05:43→22:24)
[2020-05-13 05:57] LABS: HEMOGLOBIN 8.9 g/dL (12.0-18.0)
[2020-05-13 06:06] LABS: HEMATOCRIT 26.5 % (36-52); MEAN CORPUSCULAR HEMOGLOBIN 30 pg (27-31); MEAN CORPUSCULAR HGB CONC 33 g/dL (33-37); PLATELET COUNT (AUTO) 261 K/uL (140-450); RED BLOOD CELL COUNT(AUTO) 2.95 MIL/uL (4.20-6.10); WHITE BLOOD COUNT (AUTO) 23.5 K/uL (4.8-10.8)
[2020-05-13] MEDS: BLOOD GLUCOSE MONITORING 1 DEV DEV FS SCH ×4 (06:17→21:00)
[2020-05-13 06:41] LABS: EOSINOPHILS % (MANUAL) 1 % (0-4)
[2020-05-13 06:42] LABS: LYMPHOCYTES % (MANUAL) 6 % (20-46); MONOCYTES % (MANUAL) 3 % (5-12)
[2020-05-13 06:52] LABS: ALBUMIN 1.6 g/dL (3.4-5.0); ANION GAP 15.5 (8-16); MAGNESIUM 2.2 mg/dL (1.8-2.4); PHOSPHORUS 6.8 mg/dL (2.5-4.9); POTASSIUM 4.5 mmol/L (3.5-5.1); TOTAL BILIRUBIN 0.4 mg/dL (0.0-1.0)
[2020-05-13 06:56] LABS: CREATININE 4.5 mg/dL (0.6-1.3)
--- NOTE | 2020-05-13 06:57 | NUR ---
RECEIVED A CALL FROM LAB FOR BUN 77 CREATININE 45, PATIENT IS ON HD , RENAL MD AWARE.
[2020-05-13] MEDS: NACL 0.9% 1,000 ML IV SCH (07:39)
[2020-05-13] MEDS: PANTOPRAZOLE 40 MG INJ VIAL IVP SCH (08:07)
[2020-05-13] MEDS: SENNA 8.6 MG TAB PO SCH (08:08)
[2020-05-13] MEDS: ASCORBIC ACID 500 MG/5 ML ORASYR PO SCH (08:08)
[2020-05-13] MEDS: DOCUSATE 100 MG/10 ML UDC GT SCH (08:08)
[2020-05-13] MEDS: ATORVASTATIN 20 MG TAB PO SCH (08:09)
[2020-05-13] MEDS: DEXAMETHASONE 4 MG/ML VIAL IVP SCH (08:09)
[2020-05-13] MEDS: POLYETHYLENE GLYCOL 17 GM/PKT PO SCH ×2 (08:09→21:00)
[2020-05-13] MEDS: INSULIN LANTUS 100 UNITS/ML 10 ML VIAL SUBQ SCH (08:11)
[2020-05-13] MEDS: atenoloL 50 MG TAB PO SCH (08:15)
[2020-05-13] MEDS: amLODIPine 5 MG TAB PO SCH ×2 (08:15→21:36)
[2020-05-13] MEDS: ENOXAPARIN 30 MG/0.3 ML SYR SUBQ SCH (08:18)
--- NOTE | 2020-05-13 08:41 | NUR ---
am meds GIVEN, GT RESIDUAL 100ML, PT IN PRONE POSITION, ORAL CARE DONE BUT LIMITTED, LARGE SOFT BM, PERICARE DONE, CERDA CARE DONE/. CHG WIPE DONE.
--- NOTE | 2020-05-13 13:35 | NUR ---
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 BILATERAL INNER BUTTOCKS BLISTERING WITH CLEAR FLUIDS SKIN INTACT, VERSATEL DRESSING IN PLACE. CONTINUE OFFLOADING AND KEEP AREA DRY AND CLEAN.
--- NOTE | 2020-05-13 14:02 | NUR ---
DR ALCAZAR AT BEDSIDE.
[2020-05-13] MEDS: fentaNYL citrate - 50mL vial 2.5 MG in NACL 0.9% 200 ML IV PRN (14:15)
[2020-05-13] MEDS: PROPOFOL 1000 MG/100 ML PREMIX 100 ML IV PRN (14:21)
[2020-05-13] MEDS: MIDAZOLAM MDV 100 MG in NACL 0.9% 80 ML IV PRN (14:27)
--- NOTE | 2020-05-13 16:00 | NUR ---
DR CISNEROS AT BEDSIDE, NO NEW ORDERS
--- NOTE | 2020-05-13 16:30 | NUR ---
PT TURNED TO SUPINE POSITION AT THIS TIME WITH RT MANAGING AIRWAY, PT RYLEY WELL, NO ADVERSE EVENTS, LARGE LOOSE BM, PERICARE DONE, CERDA CARE DONE, CHG WIPE DONE OGT FEEDING STARTED.
--- NOTE | 2020-05-13 16:30 | NUR ---
RN AT BEDSIDE, PT PLACED IN SUPINE POSITION, ETT SECURE AND INTACT, WILL CONTINUE TO MONITOR.
[2020-05-13] MEDS ORDERED: Z-GUARD PASTE TP ONE (18:26)
--- NOTE | 2020-05-13 19:20 | NUR ---
RECEIVED PATIENT ON BED WITH HOB ELEVATED TO 30 DEGREE; ORALLY INTUBATED AND VENTILATED AT 75%FIO2. SEDATED RASS-3 WITH CONTINOUS PROPOFOL, VERSED AND FENTANYL DRIP. CARDIACSCOPE SHOWS ON SINUS RHYTHM HR 90/MIN NO ARRHYTHMIAS SEEN. ABDOMEN IS SOFT, OBESE BOWEL SOUNDS ACTIVE. ON CONTINOUS TUBE FEEDING NEPRO AT 70 ML/HR VIA OGT; TOLERATED, NO RESIDUALS. WITH CERDA CATH IN SITU TO GRAVITY DRAINAGE BAG WITH SCANTY BROWN URINE OUTPUT. WITH RECTAL TUBE IN PLACE DRAINING TO LOOSE WATERY STOOL.
[2020-05-14] VITALS (72 sets, daily range): BP systolic 77–177; BP diastolic 34–87
--- NOTE | 2020-05-14 01:30 | NUR ---
POSITIONED PATIENT INTO PRONE POSITION. TUBE FEEDING HOLD WHILE IN PRONE POSITION.
[2020-05-14] MEDS: Z-GUARD PASTE TP SCH ×2 (03:00→12:19)
[2020-05-14] MEDS: PROPOFOL 1000 MG/100 ML PREMIX 100 ML IV PRN ×2 (03:52→20:01)
--- NOTE | 2020-05-14 04:00 | NUR ---
MORNING CARE DONE.
[2020-05-14] MEDS: PIPERACILLIN/TAZOBACTAM 2.25 GM in DEXTROSE 5% 50 ML IV SCH ×3 (05:00→20:32)
[2020-05-14 05:57] LABS: HEMATOCRIT 26.1 % (36-52); HEMOGLOBIN 8.5 g/dL (12.0-18.0); MEAN CORPUSCULAR HEMOGLOBIN 30 pg (27-31); MEAN CORPUSCULAR HGB CONC 33 g/dL (33-37); MEAN CORPUSCULAR VOLUME 91.2 fL (80-94); PLATELET COUNT (AUTO) 256 K/uL (140-450); RED BLOOD CELL COUNT(AUTO) 2.86 MIL/uL (4.20-6.10); RED CELL DISTRIBUTION WIDTH 14.1 % (11.6-13.7)
[2020-05-14 06:22] LABS: ALBUMIN 1.6 g/dL (3.4-5.0); ANION GAP 20.9 (8-16); CARBON DIOXIDE 21.2 mmol/L (21-32); PHOSPHORUS 8.3 mg/dL (2.5-4.9); POTASSIUM 5.1 mmol/L (3.5-5.1); TOTAL BILIRUBIN 0.3 mg/dL (0.0-1.0)
[2020-05-14 06:33] LABS: CREATININE 6.3 mg/dL (0.6-1.3)
[2020-05-14 06:45] LABS: MAGNESIUM 2.5 mg/dL (1.8-2.4)
--- NOTE | 2020-05-14 06:45 | NUR ---
SEEN BY DR. CISNEROS' UPDATED ON PATIENT'S CONDITION; NO NEW ORDER MADE.
--- NOTE | 2020-05-14 07:15 | NUR ---
RECEIVED REPORT FROM Remitly RN. POC DISCUSSED. PT ON PRONE POSITION. OT TO VENT, AC MODE @ 85% FIO2. O2 SAT 94%. SEDATED RASS -3 ON CONTINUES PROPOFOL, VERSED, AND FENTANYL DRIP. SR IN THE TELE MONITOR. ACTIVE BOWEL SOUND NOTED. RECTAL TUBE IN PLACE WITH MED BROWN LOOSE STOOL. FC PATENT WITH ZERO OUTPUT. WILL CONTINUE TO MONITOR. Addendum: 05/14/20 at 1031 by Mikhail Fall RN RECEIVED REPORT FROM Remitly RN. POC DISCUSSED. PT ON PRONE POSITION. ETT TO VENT, AC MODE @ 85% FIO2. O2 SAT 94%. SEDATED RASS -3 ON CONTINUES PROPOFOL, VERSED, AND FENTANYL DRIP. SR IN THE TELE MONITOR. ACTIVE BOWEL SOUND NOTED. RECTAL TUBE IN PLACE WITH MED BROWN LOOSE STOOL. FC PATENT WITH ZERO OUTPUT. WILL CONTINUE TO MONITOR.
[2020-05-14] MEDS: BLOOD GLUCOSE MONITORING 1 DEV DEV FS SCH ×4 (08:25→20:46)
[2020-05-14] MEDS: SENNA 8.6 MG TAB PO SCH (08:26)
[2020-05-14] MEDS: PANTOPRAZOLE 40 MG INJ VIAL IVP SCH (08:27)
[2020-05-14] MEDS: DOCUSATE 100 MG/10 ML UDC GT SCH (08:28)
[2020-05-14] MEDS: DEXAMETHASONE 4 MG/ML VIAL IVP SCH (08:28)
[2020-05-14] MEDS: POLYETHYLENE GLYCOL 17 GM/PKT PO SCH ×2 (08:29→20:32)
[2020-05-14] MEDS: atenoloL 50 MG TAB PO SCH (08:29)
[2020-05-14] MEDS: amLODIPine 5 MG TAB PO SCH ×2 (08:29→20:32)
[2020-05-14] MEDS: ENOXAPARIN 30 MG/0.3 ML SYR SUBQ SCH (08:33)
[2020-05-14] MEDS: ATORVASTATIN 20 MG TAB PO SCH (08:33)
[2020-05-14 08:37] LABS: WHITE BLOOD COUNT (AUTO) 25.8 K/uL (4.8-10.8)
[2020-05-14 08:38] LABS: EOSINOPHILS % (MANUAL) 3 % (0-4); LYMPHOCYTES % (MANUAL) 8 % (20-46); MONOCYTES % (MANUAL) 2 % (5-12)
[2020-05-14] MEDS: INSULIN LANTUS 100 UNITS/ML 10 ML VIAL SUBQ SCH ×2 (08:38→14:17)
[2020-05-14] MEDS: INSULIN LISPRO SLIDING SCALE 100 UNITS/ML VIAL SUBQ PRN ×4 (08:39→20:47)
[2020-05-14] MEDS: MIDAZOLAM MDV 100 MG in NACL 0.9% 80 ML IV PRN ×2 (09:26→19:59)
[2020-05-14] MEDS: ASCORBIC ACID 500 MG/5 ML ORASYR PO SCH (10:00)
--- NOTE | 2020-05-14 10:55 | NUR ---
HD STARTED. REPORTED CURRENT VS TO HD NURSE. NO CHANGE OF CONDITION AT THIS TIME.
--- NOTE | 2020-05-14 11:15 | NUR ---
LEVOPHED RESTARTED FOR LOW BP DURING DIALYSIS
--- NOTE | 2020-05-14 11:35 | NUR ---
INCREASED LEVO FROM 6 MCG/MIN TO 8 MCG/MIN. LOW BP NOTED WITH HD.
--- NOTE | 2020-05-14 13:30 | NUR ---
HD DONE WITH 1500 OUTPUT. PT TOLERATED WELL. NO CHANGE OF CONDITION.
[2020-05-14] MEDS: fentaNYL citrate - 50mL vial 2.5 MG in NACL 0.9% 200 ML IV PRN (14:14)
--- NOTE | 2020-05-14 15:23 | NUR ---
RN AT BEDSIDE, PT PLACED IN SUPINE POSITION, ETT SECURE AND INTACT.
--- NOTE | 2020-05-14 16:30 | NUR ---
TURNED PATIENT TO SUPINE POSITION. TUBE FEEDING RESUMED. PT TOLERATED WELL TO POSITIONING, O2 SAT MAINTAINED TO 94 TO 96%. NO CYANOSIS NOTED.
[2020-05-14] MEDS: NOREPINEPHRINE 8 MG in DEXTROSE 5% 250 ML IV PRN (17:48)
--- NOTE | 2020-05-14 19:10 | NUR ---
ENDORSED TO NIGHT RN. POC DISCUSSED. O2 SAT 88%, RT AT BEDSIDE. TRACH SUCTIONING DONE. OBTAINED THICK YELLOW SECRETIONS. KEPT PT ON SUPINE POSITON.
--- NOTE | 2020-05-14 19:14 | NUR ---
RECEIVED PATIENT FROM AM SHIFT. PATIENT WAS SEEN AND ASSESSED. FOUND PT IN SUPINE POSITION. PATIENT IS INTUBATED WITH ETT SIZE 8.0 AND SECURED WITH ANCHOR-FAST AT 23cm. PATIENT IS ON VENT SETTINGS: AC/PRVC RR 20, VT 450, PEEP 10, FiO2 80% WITH SPO2 OF 91%. VENT IS PLUGGED IN RED OUTLET. ALARMS SET AND AUDIBLE TO ENVIRONMENT. SUCTIONED SMALL AMOUNT OF WHITE/YELLOW THICK SECRETIONS FROM ETT. AIRWAY IS PATENT. AUSCULTATION REVEALS BILATERAL RALES BREATH SOUNDS. PATIENT IS IN NO APPARENT RESPIRATORY DISTRESS AT THIS TIME. PRN TX NOT INDICATED AT THIS TIME. WILL CONTINUE TO MONITOR PATIENT.
--- NOTE | 2020-05-14 19:30 | NUR ---
ASSUMED CARE OF PT.INITIAL ASSESSMENT COMPLETED.SR ON MONITOR. HOB ELEVATED TO 30 DEGREE; ORALLY INTUBATED AC/PRVC FIO2 80% TV450 RATE 20 PEEP 10 . WITH PICC LINE TO CHRIS.SEDATED RASS-3 ON CONTINUOUS PROPOFOL DRIP 10MCG/KG/MIN. DRY WEIGHT 95.3 KG, VERSED 10MG/HR AND FENTANYL DRIP 1MCG/KG/HR AND LEVOPHED 8MG IN 250ML D5W AT 8MCG/MIN. ABDOMEN SOFT, BOWEL SOUNDS ACTIVE. ON CONTINUOUS TUBE FEEDING NEPRO AT 70 ML/HR VIA OGT; TOLERATED,50ML RESIDUALS. WITH CERDA CATH TO GRAVITY DRAINAGE BAG WITH SCANTY LIGHT KHAI URINE OUTPUT. WITH RECTAL TUBE IN PLACE DRAINING LOOSE WATERY STOOL.FLACC 0.NOTED MULTIPLE BLISTERS.
--- NOTE | 2020-05-14 20:00 | NUR ---
ORAL CARE USING VAP KIT RENDERED.PT REPOSITIONED.FLACC 0
[2020-05-15] VITALS (55 sets, daily range): BP systolic 57–159; BP diastolic 31–80
[2020-05-15] MEDS: Z-GUARD PASTE TP SCH ×2 (00:20→13:00)
--- NOTE | 2020-05-15 01:20 | NUR ---
PLACED PATIENT IN PRONE POSITION. PATIENT TOLERATED PROCEDURE WELL. SUCTION SMALL AMOUNT OF WHITE/YELLOW THICK SECRETIONS FROM ETT. ETT SECURED AND AIRWAY IS PATENT. SPO2 93%. BILATERAL BREATH SOUNDS ON AUSCULTATION. PATIENT IS IN NO RESPIRATORY DISTRESS AT THIS TIME. RNs AT BEDSIDE. WILL CONTINUE TO MONITOR PATIENT.
--- NOTE | 2020-05-15 02:54 | NUR ---
PTS CONDITION REMAINS UNCHANGED.STILL SEDATED; FLACC 0.PRONE POSITION
--- NOTE | 2020-05-15 04:30 | NUR ---
MORNING CARE DONE.PT STILL PRONE.FLACC 0
[2020-05-15 05:08] LABS: BASOPHILS # (AUTO) 0.1 K/uL (0.00-0.22); BASOPHILS % (AUTO) 0.3 % (0.0-2.0); EOSINOPHILS % (AUTO) 0.3 % (0.0-4.0); HEMATOCRIT 24.1 % (36-52); HEMOGLOBIN 7.9 g/dL (12.0-18.0); LYMPHOCYTES # (AUTO) 1.2 K/uL (2.0-11.5); LYMPHOCYTES % (AUTO) 6.5 % (20.5-51.1); MEAN CORPUSCULAR HEMOGLOBIN 30 pg (27-31); MEAN CORPUSCULAR HGB CONC 33 g/dL (33-37); MEAN CORPUSCULAR VOLUME 90.5 fL (80-94); MONOCYTES # (AUTO) 0.4 K/uL (0.8-1.0); MONOCYTES % (AUTO) 2.5 % (1.7-9.3); NEUTROPHILS # (AUTO) 16.4 K/uL (1.8-7.7); NEUTROPHILS % (AUTO) 90.4 % (42.2-75.2); PLATELET COUNT (AUTO) 231 K/uL (140-450); RED BLOOD CELL COUNT(AUTO) 2.67 MIL/uL (4.20-6.10); RED CELL DISTRIBUTION WIDTH 13.9 % (11.6-13.7); WHITE BLOOD COUNT (AUTO) 18.1 K/uL (4.8-10.8)
[2020-05-15] MEDS: PIPERACILLIN/TAZOBACTAM 2.25 GM in DEXTROSE 5% 50 ML IV SCH ×3 (05:09→20:36)
[2020-05-15 06:09] LABS: ALBUMIN 1.4 g/dL (3.4-5.0); ANION GAP 20.8 (8-16); CARBON DIOXIDE 22.3 mmol/L (21-32); POTASSIUM 5.1 mmol/L (3.5-5.1); TOTAL BILIRUBIN 0.3 mg/dL (0.0-1.0)
[2020-05-15 06:30] LABS: CREATININE 6.6 mg/dL (0.6-1.3)
[2020-05-15] MEDS: MIDAZOLAM MDV 100 MG in NACL 0.9% 80 ML IV PRN ×2 (06:50→19:19)
--- NOTE | 2020-05-15 07:04 | NUR ---
DR CISNEROS,PULMO IN THE UNIT.UPDATED ON PTS PRESENT CONDITION; PER MD TO DECREASE PEEP TO 8. ORDERED.
--- NOTE | 2020-05-15 07:10 | NUR ---
RECEIVED REPORT FROM [facility] NURSE. PT RESTING IN BED. NO SIGNS OF DISTRESS NOTED. PT ON FIO2 17%, PEEP 8, AND RATE 20. R UPPER ARM PICC LINE AND RAC 20G IS CLEAN, DRY, AND INTACT. CERDA CATH DRAINING URINE, RECTAL TUBE DRAINING OUT BROWN COLORED STOOL. SAFETY MEASURES IN PLACE. WILL CONTINUE TO MONITOR Addendum: 05/15/20 at 0912 by Melisa Chapman RN PT SEDATED RASS -3, DRY WEIGHT 95.3 KG, IN PRONE POSITION, OGT IN PLACE CONFIRMED PLACEMENT WITH AUSCULTATION, RESIDUAL 90ML, PT ON PROPOFOL 10MCG/KG/MIN, VERSED 10MG/HR, FENTANYL @ 1MCG/KG/HR, NS @ 60ML/HR, INFUSING WELL.
[2020-05-15] MEDS: BLOOD GLUCOSE MONITORING 1 DEV DEV FS SCH ×4 (07:30→20:45)
[2020-05-15] MEDS: PANTOPRAZOLE 40 MG INJ VIAL IVP SCH (08:03)
[2020-05-15] MEDS: DOCUSATE 100 MG/10 ML UDC GT SCH (08:03)
[2020-05-15] MEDS: POLYETHYLENE GLYCOL 17 GM/PKT PO SCH ×2 (08:03→20:36)
[2020-05-15] MEDS: DEXAMETHASONE 4 MG/ML VIAL IVP SCH (08:04)
[2020-05-15] MEDS: ATORVASTATIN 20 MG TAB PO SCH (08:04)
[2020-05-15] MEDS: SENNA 8.6 MG TAB PO SCH (08:04)
[2020-05-15] MEDS: amLODIPine 5 MG TAB PO SCH ×2 (08:06→20:37)
[2020-05-15] MEDS: atenoloL 50 MG TAB PO SCH (08:06)
[2020-05-15] MEDS: ENOXAPARIN 30 MG/0.3 ML SYR SUBQ SCH (08:08)
[2020-05-15] MEDS: ASCORBIC ACID 500 MG/5 ML ORASYR PO SCH (08:30)
[2020-05-15] MEDS: INSULIN LANTUS 100 UNITS/ML 10 ML VIAL SUBQ SCH (08:31)
[2020-05-15] MEDS: INSULIN LISPRO SLIDING SCALE 100 UNITS/ML VIAL SUBQ PRN ×4 (08:32→20:46)
--- NOTE | 2020-05-15 08:33 | NUR ---
ADMINISTERED SCHED MED PRESCRIBED PER MD ORDER. PT TOLERATED WELL. NO SIGNS OF DISTRESS NOTED. RESIDUALS CHECKED WITH ONLY OUTPUT OF 90. CHG BATH PER PROTOCOL. PT TOLERATED WELL. SAFETY MEASURES IN PLACE. WILL CONTINUE TO MONITOR
[2020-05-15] MEDS ORDERED: fentaNYL citrate 1 MG in NACL 0.9% 80 ML IV PRN (09:00)
--- NOTE | 2020-05-15 11:30 | NUR ---
PT BLOOD SUGAR IS 326. PRN INSULIN WILL BE ADMINISTERED PRESCRIBED PER MD ORDER. SAFETY MEASURES IN PLACE. WILL CONTINUE TO MONITOR
--- NOTE | 2020-05-15 12:00 | NUR ---
ADMINISTERED PRN INSULIN PRESCRIBED PER MD ORDER. PT TOLERATED WELL. NO SIGNS OF DISTRESS NOTED. SAFETY MEASURES IN PLACE. WILL CONTINUE TO MONITOR
--- NOTE | 2020-05-15 16:30 | NUR ---
PT BLOOD SUGAR IS 284. PRN INSULIN WILL BE ADMINISTERED PRESCRIBED PER MD ORDER. SAFETY MEASURES IN PLACE. WILL CONTINUE TO MONITOR
--- NOTE | 2020-05-15 16:45 | NUR ---
PT PLACED INTO SUPINE POSITION. ETT IS SECURE WITH A PATENT AIRWAY. VENT ALARMS ON AND FUNCTIONING.
--- NOTE | 2020-05-15 17:31 | NUR ---
ADMINISTERED PRN INSULIN PRESCRIBED PER MD ORDER. PT TOLERATED WELL. NO SIGNS OF DISTRESS NOTED. SAFETY MEASURES IN PLACE. WILL CONTINUE TO MONITOR
--- NOTE | 2020-05-15 19:15 | NUR ---
ASSUMED CARE OF PT.INITIAL ASSESSMENT COMPLETED.SR ON MONITOR.ETT TO VENT AC/PRVC FIO2 75% TV450 RATE 20 PEEP 8 . WITH PICC LINE TO CHRIS.SEDATED RASS-3 ON CONTINUOUS. DRY WEIGHT 95.3 KG, VERSED 10MG/HR AND FENTANYL DRIP 1MCG/KG/HR AND LEVOPHED 8MG IN 250ML D5W AT 10MCG/MIN. ABDOMEN SOFT, BOWEL SOUNDS ACTIVE, WILL RESTART OGT FEEDING ORDERED. WITH CERDA CATH TO GRAVITY DRAINAGE BAG WITH SCANTY LIGHT KHAI URINE OUTPUT. WITH RECTAL TUBE IN PLACE DRAINING LOOSE WATERY STOOL.MULTIPLE BLISTERS STILL NOTED.FLACC 0
[2020-05-15] MEDS: fentaNYL citrate - 50mL vial 2.5 MG in NACL 0.9% 200 ML IV PRN (19:20)
--- NOTE | 2020-05-15 19:30 | NUR ---
ENDORSED PT TO FIRST ASSIST NURSE FOR CONTINUOUS OF CARE.
--- NOTE | 2020-05-15 20:15 | NUR ---
OGT FEEDING RESTARTED ORDERED.NEPRO AT 70ML/HR AND WATER FLUSH.
--- NOTE | 2020-05-15 23:19 | NUR ---
PHONE CALL FROM PTS SON SUSHIL, UPDATED ON PTS PRESENT CONDITION.QUESTIONS ANSWERED
[2020-05-16] VITALS (35 sets, daily range): BP systolic 86–163; BP diastolic 47–78
[2020-05-16] MEDS: Z-GUARD PASTE TP SCH ×2 (00:17→13:00)
--- NOTE | 2020-05-16 01:00 | NUR ---
PTS POSITION CHANGED TO PRONE; RT EDUARDO AT BEDSIDE.OGT CLAMPED FOR NOW.
--- NOTE | 2020-05-16 04:20 | NUR ---
MORNING CARE DONE.FLACC 0.STILL ON PRONE POSITION.
[2020-05-16] MEDS: MIDAZOLAM MDV 100 MG in NACL 0.9% 80 ML IV PRN (04:29)
[2020-05-16] MEDS: PIPERACILLIN/TAZOBACTAM 2.25 GM in DEXTROSE 5% 50 ML IV SCH ×3 (05:18→21:49)
[2020-05-16] MEDS: BLOOD GLUCOSE MONITORING 1 DEV DEV FS SCH ×4 (06:21→21:49)
[2020-05-16] MEDS: INSULIN LISPRO SLIDING SCALE 100 UNITS/ML VIAL SUBQ PRN ×3 (06:23→21:51)
--- NOTE | 2020-05-16 06:36 | NUR ---
DR CISNEROS IN THE UNIT; UPDATED ON PTS CONDITION.MD AWARE PTS SATURATION 81%; TO NOTIFY RT TO INCREASE FIO2 ON THE VENT SETTING; PT ON 75% AT THIS TIME.
[2020-05-16 07:08] LABS: BASOPHILS # (AUTO) 0.1 K/uL (0.00-0.22); BASOPHILS % (AUTO) 0.3 % (0.0-2.0); EOSINOPHILS % (AUTO) 0.2 % (0.0-4.0); HEMATOCRIT 25.6 % (36-52); HEMOGLOBIN 8.5 g/dL (12.0-18.0); LYMPHOCYTES # (AUTO) 1.1 K/uL (2.0-11.5); LYMPHOCYTES % (AUTO) 5.8 % (20.5-51.1); MEAN CORPUSCULAR HEMOGLOBIN 30 pg (27-31); MEAN CORPUSCULAR HGB CONC 33 g/dL (33-37); MEAN CORPUSCULAR VOLUME 89.8 fL (80-94); MONOCYTES # (AUTO) 0.4 K/uL (0.8-1.0); MONOCYTES % (AUTO) 1.9 % (1.7-9.3); NEUTROPHILS # (AUTO) 18.2 K/uL (1.8-7.7); NEUTROPHILS % (AUTO) 91.8 % (42.2-75.2); PLATELET COUNT (AUTO) 262 K/uL (140-450); RED BLOOD CELL COUNT(AUTO) 2.85 MIL/uL (4.20-6.10); RED CELL DISTRIBUTION WIDTH 13.7 % (11.6-13.7); WHITE BLOOD COUNT (AUTO) 19.8 K/uL (4.8-10.8)
[2020-05-16 07:24] LABS: ANION GAP 20.9 (8-16); CARBON DIOXIDE 21.7 mmol/L (21-32); POTASSIUM 4.6 mmol/L (3.5-5.1)
[2020-05-16 07:28] LABS: CREATININE 5.8 mg/dL (0.6-1.3)
--- NOTE | 2020-05-16 07:30 | NUR ---
RECEIVED REPORT FROM ZEV HOBBS , ETT TO VENT ON PRONE POSITION ,OGT FEEDING ON HOLD, IV GLUID HAH CHRIS PICCLINE. RT IJ BYRON TON CATH. CERDA CATH HAS SMALL AMOUNT OF DARK URINE.. RECTAL BAG HAS DARK LIQUID BM.
[2020-05-16] MEDS: amLODIPine 5 MG TAB PO SCH (09:00)
[2020-05-16] MEDS: POLYETHYLENE GLYCOL 17 GM/PKT PO SCH ×2 (09:00→21:56)
[2020-05-16] MEDS: INSULIN LANTUS 100 UNITS/ML 10 ML VIAL SUBQ SCH (09:00)
[2020-05-16] MEDS: ENOXAPARIN 30 MG/0.3 ML SYR SUBQ SCH (09:00)
[2020-05-16] MEDS: atenoloL 50 MG TAB PO SCH (09:00)
[2020-05-16] MEDS: DOCUSATE 100 MG/10 ML UDC GT SCH (09:00)
[2020-05-16] MEDS: DEXAMETHASONE 4 MG/ML VIAL IVP SCH (09:00)
[2020-05-16] MEDS: ASCORBIC ACID 500 MG/5 ML ORASYR PO SCH (09:00)
[2020-05-16] MEDS: PANTOPRAZOLE 40 MG INJ VIAL IVP SCH (09:00)
[2020-05-16] MEDS: SENNA 8.6 MG TAB PO SCH (09:00)
[2020-05-16] MEDS: ATORVASTATIN 20 MG TAB PO SCH (09:00)
[2020-05-16] MEDS: NOREPINEPHRINE 8 MG in DEXTROSE 5% 250 ML IV PRN ×3 (18:10→22:31)
--- NOTE | 2020-05-16 18:10 | NUR ---
HEMODIALYSIS STARTED NBLOOD PRESSURE DROP 67/41 START LEVO PHED 5MCG/KG/MIN.
--- NOTE | 2020-05-16 19:30 | NUR ---
PT. ON HEMODIALYSIS REPORT GIVE TO
--- NOTE | 2020-05-16 20:00 | NUR ---
PATIENT RECEIVED FROM SUN MATA RN AT 1900. PATIENT IS SEDATED, RASS -3, SR ON THE MONITOR, ETT TO VENT, ON AC/PRVC, TV 450, RATE 20, PEEP 10, FIO2 80%. OGT INTACT, FEEDING NEPRO AT 70 ML/HR, RESIDUAL 10 ML, HOB ELEVATED. CERDA CATH INTACT WITH SCANTY LIGHT KHAI URINE. HEMODIALYSIS ONGOING AT THIS TIME. PICC LINE ON CHRIS INTACT, PATIENT ON VERSED DRIP AT 10 MG/HR, LEVOPHED AT 10 MCG/MIN, FENTANYL AT 1 MCG/KG/HR. NO RESPIRATORY DISTRESS, FLACC 0.
--- NOTE | 2020-05-16 22:00 | NUR ---
HEMODIALYSIS OUTPUT 1600 ML. PATIENT SEDATED, NO RESPIRATORY DISTRESS, FLACC 0.
[2020-05-16] MEDS: fentaNYL citrate - 50mL vial 2.5 MG in NACL 0.9% 200 ML IV PRN (22:16)
[2020-05-17] VITALS (20 sets, daily range): BP systolic 103–173; BP diastolic 55–78
--- NOTE | 2020-05-17 01:00 | NUR ---
PATIENT PLACED ON PRONE POSITION, RT AT BEDSIDE, NO RESPIRATORY DISTRESS, FLACC 0. Addendum: 05/17/20 at 0229 by Chetna Wagner RN PATIENT'S OGT CLAMPED, FEEDING OFF AT THIS TIME.
[2020-05-17] MEDS: Z-GUARD PASTE TP SCH ×3 (01:32→23:28)
[2020-05-17] MEDS: MIDAZOLAM MDV 100 MG in NACL 0.9% 80 ML IV PRN ×3 (02:00→23:40)
--- NOTE | 2020-05-17 02:25 | NUR ---
REMAINS SEDATED ,ON PRONE POSITION, NO RESPIRATORY DISTRESS.
--- NOTE | 2020-05-17 04:00 | NUR ---
PATIENT CALM AND SEDATED, REMAINS ON PRONE POSITION, NO RESPIRATORY DISTRESS.
[2020-05-17] MEDS: PIPERACILLIN/TAZOBACTAM 2.25 GM in DEXTROSE 5% 50 ML IV SCH ×3 (04:46→21:15)
[2020-05-17] MEDS: BLOOD GLUCOSE MONITORING 1 DEV DEV FS SCH ×4 (06:10→21:00)
[2020-05-17] MEDS: INSULIN LISPRO SLIDING SCALE 100 UNITS/ML VIAL SUBQ PRN ×3 (06:10→22:38)
--- NOTE | 2020-05-17 06:57 | NUR ---
AM CARE PROVIDED, OGT FEEDING STILL OFF AT THIS TIME, PATIENT ON PRONE POSITION, NO RESPIRATORY DISTRESS, BLOOD SUGAR CHECKED DONE , 278, 6 UNITS HUMALOG INSULIN GIVEN SUBQ, CONTINUE ON FENTANYL, VERSED AND LEVOPHED DRIPS, NO RESPIRATORY DISTRESS, FLACC 0.
[2020-05-17 06:58] LABS: BASOPHILS # (AUTO) 0.2 K/uL (0.00-0.22); EOSINOPHILS # (AUTO) 0.1 K/uL (0-0.4); EOSINOPHILS % (AUTO) 0.3 % (0.0-4.0); HEMOGLOBIN 8.9 g/dL (12.0-18.0); LYMPHOCYTES # (AUTO) 1.2 K/uL (2.0-11.5); MEAN CORPUSCULAR HEMOGLOBIN 30 pg (27-31); MEAN CORPUSCULAR HGB CONC 33 g/dL (33-37); MEAN CORPUSCULAR VOLUME 90.3 fL (80-94); MONOCYTES # (AUTO) 0.3 K/uL (0.8-1.0); NEUTROPHILS # (AUTO) 21.6 K/uL (1.8-7.7); PLATELET COUNT (AUTO) 303 K/uL (140-450); RED CELL DISTRIBUTION WIDTH 13.7 % (11.6-13.7); WHITE BLOOD COUNT (AUTO) 23.5 K/uL (4.8-10.8)
[2020-05-17 07:12] LABS: ANION GAP 22.3 (8-16); CARBON DIOXIDE 21.8 mmol/L (21-32); POTASSIUM 4.1 mmol/L (3.5-5.1)
[2020-05-17 07:15] LABS: CREATININE 5.2 mg/dL (0.6-1.3)
--- NOTE | 2020-05-17 07:34 | NUR ---
RECEIVED FROM CHARITY HOBBS. HE HAS TRACH TO VENT, ON PRONE POSITION, OGT ON HOLD RECTAL BAG DRAIN DARK LIQUID BM CERDA CATH DRAIN SMALL AMOUNT OF DARK URINE.
[2020-05-17 07:45] LABS: NEUTROPHILS % (AUTO) 92.1 % (42.2-75.2)
[2020-05-17 07:46] LABS: LYMPHOCYTES % (AUTO) 5.3 % (20.5-51.1); MONOCYTES % (AUTO) 1.3 % (1.7-9.3)
[2020-05-17] MEDS: DOCUSATE 100 MG/10 ML UDC GT SCH (08:23)
[2020-05-17] MEDS: DEXAMETHASONE 4 MG/ML VIAL IVP SCH (08:24)
[2020-05-17] MEDS: POLYETHYLENE GLYCOL 17 GM/PKT PO SCH ×2 (08:24→21:15)
[2020-05-17] MEDS: PANTOPRAZOLE 40 MG INJ VIAL IVP SCH (08:24)
[2020-05-17] MEDS: SENNA 8.6 MG TAB PO SCH (08:24)
[2020-05-17] MEDS: ATORVASTATIN 20 MG TAB PO SCH (08:24)
[2020-05-17] MEDS: atenoloL 50 MG TAB PO SCH (08:25)
[2020-05-17] MEDS: ENOXAPARIN 30 MG/0.3 ML SYR SUBQ SCH (09:00)
[2020-05-17] MEDS: INSULIN LANTUS 100 UNITS/ML 10 ML VIAL SUBQ SCH (09:00)
[2020-05-17] MEDS: ASCORBIC ACID 500 MG/5 ML ORASYR PO SCH (09:00)
[2020-05-17] MEDS: NOREPINEPHRINE 8 MG in DEXTROSE 5% 250 ML IV PRN (10:49)
--- NOTE | 2020-05-17 11:26 | NUR ---
(05/17/20) RD FOLLOW UP COMPLETED PLEASE REFER TO NUTRITION PROGRESS NOTE UNDER CARE ACTIVITY FOR ESTIMATED NUTRITION NEEDS. RD RECOMMENDATIONS: 1. CONTINUE NEPRO 1.8 @ 70 ML/HR X 8 HOURS WITH PROSOURCE BID. THIS PROVIDES 1128 KCAL AND 75 GM OF PROTEIN. MEETING 100% OF ESTIMATED KCAL AND PROTEIN NEEDS. 2. CONT. FREE WATER FLUSH OF 100 ML Q6H. 3. CONTINUE VITAMIN C SUPPLEMENTATION. 4. RD TO FOLLOW-UP 2-3 DAYS, HIGH RISK. RUBEN NAIDU, , RDN
--- NOTE | 2020-05-17 15:00 | NUR ---
VISIT BY DR STEVENS NO ORDER CHANGED.
--- NOTE | 2020-05-17 20:00 | NUR ---
RECEIVED PATIENT IN SUPINE POSITION , ETT TO VENT WITH PRVC MODE , FIO2 80%, PP 8 , SEDATED WITH RASS SCORE -3, ON OT WITH NEPRO FEEDING TOLERATED WELL, RIGHT IJ QUONTIN CATHETER FOR HD ACCESS, DRESSING INTACT, RECTAL TUBE IS IN PLACE, ON IV DRIP VERSED , FENTANYL VIA CHRIS PICC LINE , DRESSING INTACT.
--- NOTE | 2020-05-17 22:16 | NUR ---
BLOOD SUGAR CHECKED , HUMALOG 4 UNITS SQ GIVEN FOR BS 235 PER SLIDIING SCALE, .
[2020-05-18] VITALS (37 sets, daily range): BP systolic 72–164; BP diastolic 49–77
--- NOTE | 2020-05-18 | NUR ---
PUT PATIENT IN PRONE POSITION WITH ASSISTED BY 3 RN AND 1 RT. PATIENT TOLERATED WELL.
--- NOTE | 2020-05-18 02:00 | NUR ---
RED PORT OF PICC LINE IS NOT WORKING , AND ANOTHER PORT HAS A LOT RESISTANT, FLUSHED WITH NS.
--- NOTE | 2020-05-18 06:00 | NUR ---
UNABLE TO GET BLOOD FROM PICC LINE, AND THE LAST PORT ALSO NOT WORKING . ALL LINES CONNECTED TO PERIPHARAL LINE AT [facility] WITH 2O G WITH GOOD BLOOD RETURN.
[2020-05-18 06:38] LABS: BASOPHILS # (AUTO) 0.1 K/uL (0.00-0.22); BASOPHILS % (AUTO) 0.5 % (0.0-2.0); EOSINOPHILS % (AUTO) 0.2 % (0.0-4.0); HEMATOCRIT 25.8 % (36-52); HEMOGLOBIN 8.6 g/dL (12.0-18.0); LYMPHOCYTES # (AUTO) 1.2 K/uL (2.0-11.5); LYMPHOCYTES % (AUTO) 5.5 % (20.5-51.1); MEAN CORPUSCULAR HEMOGLOBIN 30 pg (27-31); MEAN CORPUSCULAR HGB CONC 33 g/dL (33-37); MEAN CORPUSCULAR VOLUME 90.3 fL (80-94); MONOCYTES # (AUTO) 0.4 K/uL (0.8-1.0); MONOCYTES % (AUTO) 1.8 % (1.7-9.3); NEUTROPHILS # (AUTO) 19.9 K/uL (1.8-7.7); PLATELET COUNT (AUTO) 267 K/uL (140-450); RED BLOOD CELL COUNT(AUTO) 2.86 MIL/uL (4.20-6.10); RED CELL DISTRIBUTION WIDTH 13.7 % (11.6-13.7); WHITE BLOOD COUNT (AUTO) 21.6 K/uL (4.8-10.8)
[2020-05-18] MEDS: INSULIN LISPRO SLIDING SCALE 100 UNITS/ML VIAL SUBQ PRN ×4 (06:38→21:33)
[2020-05-18] MEDS: BLOOD GLUCOSE MONITORING 1 DEV DEV FS SCH ×4 (06:40→20:35)
[2020-05-18 06:53] LABS: ANION GAP 23.1 (8-16); CARBON DIOXIDE 20.8 mmol/L (21-32); POTASSIUM 4.9 mmol/L (3.5-5.1)
[2020-05-18 07:08] LABS: CREATININE 6.9 mg/dL (0.6-1.3)
--- NOTE | 2020-05-18 07:16 | NUR ---
ENDORSED TO DAY SHIFT NURSE FOR CONTINUITY OF CARE.
[2020-05-18] MEDS: DOCUSATE 100 MG/10 ML UDC GT SCH (08:10)
[2020-05-18] MEDS: atenoloL 50 MG TAB PO SCH (08:11)
[2020-05-18] MEDS: ENOXAPARIN 30 MG/0.3 ML SYR SUBQ SCH (08:11)
[2020-05-18] MEDS: INSULIN LANTUS 100 UNITS/ML 10 ML VIAL SUBQ SCH (08:11)
[2020-05-18] MEDS: SENNA 8.6 MG TAB PO SCH (08:12)
[2020-05-18] MEDS: POLYETHYLENE GLYCOL 17 GM/PKT PO SCH ×2 (08:12→20:35)
[2020-05-18] MEDS: ATORVASTATIN 20 MG TAB PO SCH (08:12)
[2020-05-18] MEDS: PANTOPRAZOLE 40 MG INJ VIAL IVP SCH (08:15)
[2020-05-18] MEDS: DEXAMETHASONE 4 MG/ML VIAL IVP SCH (08:15)
[2020-05-18] MEDS: ASCORBIC ACID 500 MG/5 ML ORASYR PO SCH (08:58)
--- NOTE | 2020-05-18 08:58 | NUR ---
AM MEDS GIVEN, OGT RESIDUAL 130ML, RECEIVED PT FROM VETERINARIAN POULTRY NURSE AT 0730, PT SEDATED TO RASS -3 WITH VERSED AT 10MG/HR, FENTANYL AT 1MCG/KG/HR, VITALS STABLE, ETT TO VENT, PRVC FIO2 80%, 450, PEEP 8, RR 20, PT IN PRONE POSITION, ARM POSITIONS CHANGED, SKIN WARM DRY COLOR WNL, FC TO GRAVITY, NO URINE NOTED AT THIS TIME, RECTAL TUBE IN PLACE, NONBLOODDY DARK BROWN STOOL, TUBE FLUSHED WITH 40ML WATER, RAC 20G PIV SITE WNL, FLUSHES WELL, CHRIS PICC OCCLUDED BOTH PORTS, WILL NOTIFY , SITE WNL, ALL SAFETY MEASURES I NPLACE, POC REVIEWED.
[2020-05-18] MEDS ORDERED: ALTEPLASE 2 MG VIAL MC SCH (11:10)
--- NOTE | 2020-05-18 11:58 | NUR ---
DIALYSIS NURSE JACOB CALLED TO NOTIFY OF HD ORDER FOR TODAY
[2020-05-18] MEDS: MIDAZOLAM MDV 100 MG in NACL 0.9% 80 ML IV PRN (12:36)
[2020-05-18] MEDS: PIPERACILLIN/TAZOBACTAM 2.25 GM in DEXTROSE 5% 50 ML IV SCH ×2 (13:00→20:35)
--- NOTE | 2020-05-18 13:15 | NUR ---
DR COPELAND AT BEDSIDE FOR EVAL
[2020-05-18] MEDS: Z-GUARD PASTE TP SCH (13:18)
--- NOTE | 2020-05-18 13:25 | NUR ---
DAUGHTER FLORIN RIVERA CALLED, PT CONDITION UPDATED, REQUESTS DOCTOR TO CALL HER, WILL RELAY MESSAGE TO DR LOONEY.
--- NOTE | 2020-05-18 16:09 | NUR ---
CATHFLOW USED FOR BOTH PORT OF PICC LINE PER PROTOCOL, SUCCESSFULLY FIXED OCCLUSION, ACTIVASE WITHDRAWN PER PROTOCOL.
--- NOTE | 2020-05-18 17:15 | NUR ---
DIALYSIS NURSE AT BEDSIDE.
--- NOTE | 2020-05-18 17:30 | NUR ---
BP LOW, LEVO RE-STARTED AT 4MCG
--- NOTE | 2020-05-18 19:15 | NUR ---
DIALYSIS DONE, 1900ML TAKEN OUT PER TERA HOBBS.
--- NOTE | 2020-05-18 19:30 | NUR ---
ASSUMED CARE OF PT.PT ON PRONE POSITION.SR ON MONITOR.ETT TO VENT AC/PRVC MODE FIO2 75% TV 450 RATE 20 PEEP8; PICC LINE TO CHRIS INTACT.GOOD BLOOD RETURN TO BOTH PORTS INFUSING VERSED 8MG/HR; LEVOPHED 8MG IN 250ML D5W AT 8MCG/MIN; [id number]/KG/HR.RT KENZIE CATH INTACT.OGT INTACT.CLAMPED FOR NOW.RECTAL TUBE LEAKING; REINSERTED.CERDA CATH INTACT WITH SCANTY KHAI COLORED URINE NOTED.FLACC 0
--- NOTE | 2020-05-18 22:05 | NUR ---
DR GARCIA IN THE UNIT.NO NEW ORDERS
--- NOTE | 2020-05-18 23:00 | NUR ---
PTS POSITION CHANGED TO SUPINE WITH RT EDUARDO AT BEDSIDE.
[2020-05-19] VITALS (45 sets, daily range): BP systolic 81–161; BP diastolic 46–82
--- NOTE | 2020-05-19 | NUR ---
ORAL CARE USING VAP KIT RENDERED.FLACC 0
[2020-05-19] MEDS: Z-GUARD PASTE TP SCH ×2 (01:10→13:00)
--- NOTE | 2020-05-19 02:00 | NUR ---
PTS CONDITION REMAINS UNCHANGED.REPOSITIONED.FLACC 0
[2020-05-19] MEDS: MIDAZOLAM MDV 100 MG in NACL 0.9% 80 ML IV PRN ×2 (03:43→18:02)
--- NOTE | 2020-05-19 04:30 | NUR ---
ORAL CARE DONE.REPOSITIONED.FLACC 0
[2020-05-19] MEDS: PIPERACILLIN/TAZOBACTAM 2.25 GM in DEXTROSE 5% 50 ML IV SCH ×3 (05:06→20:21)
[2020-05-19] MEDS: fentaNYL citrate - 50mL vial 2.5 MG in NACL 0.9% 200 ML IV PRN (05:11)
--- NOTE | 2020-05-19 06:00 | NUR ---
MORNING CARE DONE.REPOSITIONED.15ML KHAI URINE/CERDA CATHETER,FLACC 0
[2020-05-19 06:50] LABS: BASOPHILS # (AUTO) 0.1 K/uL (0.00-0.22); BASOPHILS % (AUTO) 0.6 % (0.0-2.0); EOSINOPHILS # (AUTO) 0.1 K/uL (0-0.4); EOSINOPHILS % (AUTO) 0.2 % (0.0-4.0); HEMATOCRIT 24.8 % (36-52); HEMOGLOBIN 8.2 g/dL (12.0-18.0); LYMPHOCYTES # (AUTO) 0.7 K/uL (2.0-11.5); LYMPHOCYTES % (AUTO) 2.7 % (20.5-51.1); MEAN CORPUSCULAR HEMOGLOBIN 30 pg (27-31); MEAN CORPUSCULAR HGB CONC 33 g/dL (33-37); MEAN CORPUSCULAR VOLUME 91.1 fL (80-94); MONOCYTES # (AUTO) 0.5 K/uL (0.8-1.0); MONOCYTES % (AUTO) 1.8 % (1.7-9.3); NEUTROPHILS # (AUTO) 23.3 K/uL (1.8-7.7); NEUTROPHILS % (AUTO) 94.7 % (42.2-75.2); PLATELET COUNT (AUTO) 259 K/uL (140-450); RED BLOOD CELL COUNT(AUTO) 2.72 MIL/uL (4.20-6.10); WHITE BLOOD COUNT (AUTO) 24.6 K/uL (4.8-10.8)
[2020-05-19] MEDS: BLOOD GLUCOSE MONITORING 1 DEV DEV FS SCH ×4 (07:00→20:40)
[2020-05-19] MEDS: INSULIN LISPRO SLIDING SCALE 100 UNITS/ML VIAL SUBQ PRN ×4 (07:01→20:41)
[2020-05-19 07:05] LABS: ANION GAP 23.3 (8-16); CARBON DIOXIDE 20.8 mmol/L (21-32); POTASSIUM 4.1 mmol/L (3.5-5.1)
[2020-05-19 08:52] LABS: CREATININE 5.9 mg/dL (0.6-1.3)
[2020-05-19] MEDS: atenoloL 50 MG TAB PO SCH (09:00)
[2020-05-19] MEDS: SENNA 8.6 MG TAB PO SCH (09:00)
[2020-05-19] MEDS: ENOXAPARIN 30 MG/0.3 ML SYR SUBQ SCH (09:00)
[2020-05-19] MEDS: POLYETHYLENE GLYCOL 17 GM/PKT PO SCH ×2 (09:00→20:21)
[2020-05-19] MEDS: DOCUSATE 100 MG/10 ML UDC GT SCH (09:00)
[2020-05-19] MEDS: ASCORBIC ACID 500 MG/5 ML ORASYR PO SCH (09:42)
[2020-05-19] MEDS: DEXAMETHASONE 4 MG/ML VIAL IVP SCH (09:43)
[2020-05-19] MEDS: PANTOPRAZOLE 40 MG INJ VIAL IVP SCH (09:43)
[2020-05-19] MEDS: ATORVASTATIN 20 MG TAB PO SCH (09:43)
--- NOTE | 2020-05-19 09:45 | NUR ---
AM MEDS GIVEN, PT WITHOUT ANY RESIDUAL IN OGT, FEEDING ONGOING, PROSOURCE GIVEN, CERDA CARE DONE, CHG WIPE DONE, ORAL CARE DONE.
[2020-05-19] MEDS: INSULIN LANTUS 100 UNITS/ML 10 ML VIAL SUBQ SCH (11:00)
--- NOTE | 2020-05-19 11:20 | NUR ---
FENTANYL INCREASED FOR INCREASED RR, RESTLESS, RASS +1, O2SAT 80%, ETT SUCTIONED WITH THICK SECRETIONS, FIO2 INCREASED TO 75%, RT ANISHA NOTIFIED.
--- NOTE | 2020-05-19 13:00 | NUR ---
PT PRONED AT THIS TIME, WITH RT AT BEDSIDE FOR AIRWAY MANAGEMENT, PT RYLEY WELL, NO ADVERSE EVENTS.
--- NOTE | 2020-05-19 18:10 | NUR ---
FENT DECREASED FOR DECREASED BP.
--- NOTE | 2020-05-19 19:30 | NUR ---
DR GARCIA IN THE UNIT.UPDATED ON PTS PRESENT CONDITION.NO NEW ORDERS
--- NOTE | 2020-05-19 20:00 | NUR ---
PTS POSITION CHANGED TO SUPINE; [place] FOR HD TONIGHT
--- NOTE | 2020-05-19 21:46 | NUR ---
ONGOING HEMODIALYSIS; BP 79/51; LEVOPHED INCREASED TO 8MCG/MIN Addendum: 05/19/20 at 2213 by Bhavana Taylor RN LEVOPHED RESTARTED FOR LOW BP DURING HD AT 4MCG/MIN
--- NOTE | 2020-05-19 21:55 | NUR ---
BP 87/45; LEVOPHED INCREASED TO 8MCG/MIN; PT STILL ONGOING HD AT THIS TIME
--- NOTE | 2020-05-19 22:30 | NUR ---
HD COMPLETED; PT STILL ON LEVOPHED DRIP AT 8MCG/MIN.1600ML OUT PER HD NURSE
[2020-05-20] VITALS (34 sets, daily range): BP systolic 92–136; BP diastolic 52–98
--- NOTE | 2020-05-20 | NUR ---
ORAL CARE USING VAP KIT RENDERED.FLACC 0.REPOSITIONED
[2020-05-20] MEDS: fentaNYL citrate - 50mL vial 2.5 MG in NACL 0.9% 200 ML IV PRN (00:37)
[2020-05-20] MEDS: Z-GUARD PASTE TP SCH ×2 (01:36→13:00)
--- NOTE | 2020-05-20 03:30 | NUR ---
PTS RECTAL TUBE LEAKING; IRRIGATED; PT CLEANED.REPOSITIONED
--- NOTE | 2020-05-20 04:30 | NUR ---
ORAL CARE DONE.REPOSITIONED.FLACC 0
[2020-05-20] MEDS: PIPERACILLIN/TAZOBACTAM 2.25 GM in DEXTROSE 5% 50 ML IV SCH ×3 (05:19→20:12)
[2020-05-20 06:31] LABS: HEMATOCRIT 23.8 % (36-52); HEMOGLOBIN 7.9 g/dL (12.0-18.0); MEAN CORPUSCULAR HEMOGLOBIN 30 pg (27-31); MEAN CORPUSCULAR HGB CONC 33 g/dL (33-37); PLATELET COUNT (AUTO) 237 K/uL (140-450); RED BLOOD CELL COUNT(AUTO) 2.61 MIL/uL (4.20-6.10); RED CELL DISTRIBUTION WIDTH 14.3 % (11.6-13.7); WHITE BLOOD COUNT (AUTO) 21.1 K/uL (4.8-10.8)
[2020-05-20] MEDS: BLOOD GLUCOSE MONITORING 1 DEV DEV FS SCH ×4 (06:34→20:12)
[2020-05-20 06:35] LABS: ANION GAP 19.6 (8-16); CARBON DIOXIDE 24.2 mmol/L (21-32); POTASSIUM 3.8 mmol/L (3.5-5.1)
[2020-05-20] MEDS: INSULIN LISPRO SLIDING SCALE 100 UNITS/ML VIAL SUBQ PRN ×3 (06:37→20:14)
--- NOTE | 2020-05-20 07:21 | NUR ---
REPORT GIVEN TO SUN FOR CONTINUITY OF CARE
--- NOTE | 2020-05-20 07:30 | NUR ---
RECEIVED REPORT FRON ZEV LUNA. ON SUPINE ETT TO VENT ,OGT FEEDING .IV FLUID HAS PICCLINE ONRT UPPER ARM, HEMODIALYSIS CATH ON RT IJ.CERDA CATH DRAIN SMALL AMOUNT OF URINE.
[2020-05-20 07:59] LABS: LYMPHOCYTES % (MANUAL) 4 % (20-46); MONOCYTES % (MANUAL) 3 % (5-12)
[2020-05-20 08:17] LABS: CREATININE 5.1 mg/dL (0.6-1.3)
[2020-05-20] MEDS: INSULIN LANTUS 100 UNITS/ML 10 ML VIAL SUBQ SCH (09:00)
[2020-05-20] MEDS: ENOXAPARIN 30 MG/0.3 ML SYR SUBQ SCH (09:00)
[2020-05-20] MEDS: PANTOPRAZOLE 40 MG INJ VIAL IVP SCH (09:09)
[2020-05-20] MEDS: DEXAMETHASONE 4 MG/ML VIAL IVP SCH (09:09)
[2020-05-20] MEDS: DOCUSATE 100 MG/10 ML UDC GT SCH (09:09)
[2020-05-20] MEDS: ATORVASTATIN 20 MG TAB PO SCH (09:09)
[2020-05-20] MEDS: SENNA 8.6 MG TAB PO SCH (09:10)
[2020-05-20] MEDS: POLYETHYLENE GLYCOL 17 GM/PKT PO SCH ×2 (09:10→20:12)
[2020-05-20] MEDS: atenoloL 50 MG TAB PO SCH (09:11)
[2020-05-20] MEDS: ASCORBIC ACID 500 MG/5 ML ORASYR PO SCH (09:11)
[2020-05-20] MEDS: MIDAZOLAM MDV 100 MG in NACL 0.9% 80 ML IV PRN (09:15)
--- NOTE | 2020-05-20 10:30 | NUR ---
PUT PT. ON PRONE POSITION AT 1030 AM. , TOLERATED WELL.
--- NOTE | 2020-05-20 13:45 | NUR ---
THE RESULT OF COVID SWAB [RAPID] IS NEGATIVE, CALENDER RUNNER AWARE, Addendum: 05/20/20 at 2015 by Nevin Vargas RN THIS NOTE IS NOT FOR THIS PATIENT.
--- NOTE | 2020-05-20 16:30 | NUR ---
BLOOD GLUCOSE 276 INSULIN COVER ORDERED.
--- NOTE | 2020-05-20 17:30 | NUR ---
REPORT GIVE TO ZEV FOR CONTINUOS CARE.
--- NOTE | 2020-05-20 19:20 | NUR ---
ASSUMED CARE OF PT.INITIAL ASSESSMENT COMPLETED.PT ON PRONE POSITION.SR ON MONITOR.ETT TO VENT AC/PRVC FIO2 75% TV450 RATE 20 PEEP 8 . WITH PICC LINE TO CHRIS.SEDATED RASS-3 ;VERSED 7 MG/HR AND FENTANYL DRIP 1MCG/KG/HR; ABDOMEN SOFT, BOWEL SOUNDS ACTIVE, OGT CLAMPED FOR NOW. WITH CERDA CATH TO GRAVITY DRAINAGE BAG WITH SCANTY LIGHT KHAI URINE OUTPUT. WITH RECTAL TUBE IN PLACE DRAINING LOOSE WATERY STOOL.MULTIPLE BLISTERS STILL NOTED.FLACC 0
--- NOTE | 2020-05-20 20:00 | NUR ---
ORAL CARE USING VAP KIT RENDERED.FLACC 0.
--- NOTE | 2020-05-20 23:27 | NUR ---
PHONE CALL FROM PTS SON, UPDATED ON PTS PRESENT CONDITION.QUESTIONS ANSWERED.
[2020-05-21] VITALS (26 sets, daily range): BP systolic 80–139; BP diastolic 8–72
[2020-05-21] MEDS: Z-GUARD PASTE TP SCH ×2 (01:14→13:00)
[2020-05-21] MEDS: MIDAZOLAM MDV 100 MG in NACL 0.9% 80 ML IV PRN (01:15)
--- NOTE | 2020-05-21 01:19 | NUR ---
PT STILL PRONE POSITION.RASS -3 ON VERSED AND FENTANYL DRIP.FLACC 0
[2020-05-21] MEDS: fentaNYL citrate - 50mL vial 2.5 MG in NACL 0.9% 200 ML IV PRN ×2 (04:49→14:46)
[2020-05-21] MEDS: PIPERACILLIN/TAZOBACTAM 2.25 GM in DEXTROSE 5% 50 ML IV SCH ×2 (04:53→13:00)
--- NOTE | 2020-05-21 05:00 | NUR ---
PT POSITION CHANGED TO SUPINE.ORAL CARE DONE.MORNING CARE DONE.FLACC 0.OGT FEEDING RESTARTED.
[2020-05-21] MEDS: BLOOD GLUCOSE MONITORING 1 DEV DEV FS SCH ×4 (06:31→21:00)
[2020-05-21 06:40] LABS: BASOPHILS # (AUTO) 0.2 K/uL (0.00-0.22); EOSINOPHILS % (AUTO) 0.1 % (0.0-4.0); HEMATOCRIT 25.6 % (36-52); HEMOGLOBIN 8.5 g/dL (12.0-18.0); LYMPHOCYTES % (AUTO) 4.8 % (20.5-51.1); MEAN CORPUSCULAR HEMOGLOBIN 30 pg (27-31); MEAN CORPUSCULAR HGB CONC 33 g/dL (33-37); MEAN CORPUSCULAR VOLUME 91.2 fL (80-94); MONOCYTES # (AUTO) 0.5 K/uL (0.8-1.0); MONOCYTES % (AUTO) 2.3 % (1.7-9.3); NEUTROPHILS # (AUTO) 19.4 K/uL (1.8-7.7); NEUTROPHILS % (AUTO) 91.8 % (42.2-75.2); PLATELET COUNT (AUTO) 261 K/uL (140-450); RED BLOOD CELL COUNT(AUTO) 2.81 MIL/uL (4.20-6.10); RED CELL DISTRIBUTION WIDTH 14.7 % (11.6-13.7); WHITE BLOOD COUNT (AUTO) 21.1 K/uL (4.8-10.8)
[2020-05-21 07:15] LABS: ALBUMIN 1.7 g/dL (3.4-5.0); ASPARTATE AMINOTRANSFERASE 50 U/L (15-37); CARBON DIOXIDE 21.4 mmol/L (21-32); CHLORIDE 97 mmol/L (98-107); GFR ARICAN-AMERICAN 11 mL/min (>90); GLUCOSE 144 mg/dL (74-106); MAGNESIUM 2.5 mg/dL (1.8-2.4); POTASSIUM 4.4 mmol/L (3.5-5.1); SODIUM SERUM 138 mmol/L (136-145); TOTAL BILIRUBIN 0.4 mg/dL (0.0-1.0)
--- NOTE | 2020-05-21 07:30 | NUR ---
Received pt on the vent setting PRVC 450, R 20, Fio2 75% Peep 8. Patient intubated with 8.0 ETT secured with anchor fast @ 23CM at lip. Pt has good chest rise and fall, airway patent. No respiratory distress noted. Vent plugged into the red outlet, alarm set audible. Ambu bag @ the bedside. Will continue to monitor.
--- NOTE | 2020-05-21 07:30 | NUR ---
SEEN BY DR. HOBBS, ORDER RECEIVED HE AWARE .OF CRITICAL LAB RESULT HE WILL HAVE HD TO DAY.
--- NOTE | 2020-05-21 08:15 | NUR ---
SEEN BYDR. PAIGE NO ORDER CHANGED.
[2020-05-21] MEDS: POLYETHYLENE GLYCOL 17 GM/PKT PO SCH ×2 (09:00→20:54)
[2020-05-21] MEDS: ASCORBIC ACID 500 MG/5 ML ORASYR PO SCH (09:00)
[2020-05-21] MEDS: DOCUSATE 100 MG/10 ML UDC GT SCH (09:00)
[2020-05-21] MEDS: DEXAMETHASONE 4 MG/ML VIAL IVP SCH (09:00)
[2020-05-21] MEDS: atenoloL 50 MG TAB PO SCH (09:00)
[2020-05-21] MEDS: ATORVASTATIN 20 MG TAB PO SCH (09:00)
[2020-05-21] MEDS: INSULIN LANTUS 100 UNITS/ML 10 ML VIAL SUBQ SCH (09:00)
[2020-05-21] MEDS: ENOXAPARIN 30 MG/0.3 ML SYR SUBQ SCH (09:00)
[2020-05-21] MEDS: PANTOPRAZOLE 40 MG INJ VIAL IVP SCH (09:00)
[2020-05-21] MEDS: SENNA 8.6 MG TAB PO SCH (09:00)
[2020-05-21 10:29] LABS: UREA NITROGEN, BLOOD 124 mg/dL (7-18)
[2020-05-21 10:30] LABS: CREATININE 6.8 mg/dL (0.6-1.3); PHOSPHORUS 10.5 mg/dL (2.5-4.9)
[2020-05-21] MEDS: INSULIN LISPRO SLIDING SCALE 100 UNITS/ML VIAL SUBQ PRN ×3 (12:00→21:00)
[2020-05-21 15:25] LABS: LACTATE DEHYDROGENASE 120 U/L (85-227)
[2020-05-21] MEDS: NOREPINEPHRINE 8 MG in DEXTROSE 5% 250 ML IV PRN (16:00)
--- NOTE | 2020-05-21 16:00 | NUR ---
PT B/P DROP TO 67/40. LEVOPHED IV STARTED AT 2MCG`/MIN
--- NOTE | 2020-05-21 17:30 | NUR ---
HEMODIALYSIS COMPLETED REMOVE 2.2 ML OUT
--- NOTE | 2020-05-21 19:05 | NUR ---
RECEIVED PATIENT FROM DAY SHIFT ON DOCUMENTED VENT SETTINGS. VENT PLUGGED INTO RED OUTLET. BMV AT BEDSIDE.ETT SECURED AND MOVED. ALARMS AUDIBLE AND FUNCTIONING. WILL CONT TO MONITOR IN CHANGES OF PATIENT CONDITIONS.
--- NOTE | 2020-05-21 23:05 | NUR ---
RECEIVED REPORT FROM DAY NURSE; PT SEDATED RASS-3 ON PROPOFOL @ 10 MCG/KG/MIN AND FENTANYL @ 1.5 MCG/KG/HR. ETT TO VENT ON PRESSURE CONTROL PEEP 10 @ 85% FIO2. SR 70-80S, +1 TRACE GENERALIZED EDEMA; PALPABLE PERIPHERAL PULSES. OGT IN PLACE; CLAMPED @ THIS TIME. CERDA CATH DRAINING DARK YELLOW URINE. R UPPER ARM PICC NOTED; PATENT INTACT, L IJ KENZIE CATH IN PLACE. R AC 20 G NOTED. SKIN NON INTACT. FLACC 0 WILL CONTINUE TO OBSERVE. Addendum: 05/22/20 at 0611 by Juan Miller RN ERROR WRONG PATIENT
--- NOTE | 2020-05-21 23:05 | NUR ---
RECEIVED REPORT FROM DAY NURSE; PT IN SUPINE POSITION. SEDATED ON VERSED AND FENTANYL DRIP RASS -3. ETT TO VENT ON PRESSURE CONTROL 75%, PEEP 8, IRENE SECRETIONS ONTED. SR 80S NOTED, +1-2 EDEMA GENERALIZED. ABD SOFT NON DISTENDED. OGT IN PLACE TOLERATING GT FEEDINGS. RECTAL TUBE IN PLACE. CERDA DRAINING SCANT URINE. R UPPER ARM PICC PATENT INTACT, R IJ KENZIE CATH NOTED. SKIN NON INTACT. FLACC 0.
[2020-05-22] VITALS (38 sets, daily range): BP systolic 58–156; BP diastolic 32–89
[2020-05-22] MEDS: Z-GUARD PASTE TP SCH ×2 (01:43→12:16)
[2020-05-22] MEDS: fentaNYL citrate - 50mL vial 2.5 MG in NACL 0.9% 200 ML IV PRN ×2 (02:00→21:17)
[2020-05-22 05:50] LABS: BASOPHILS # (AUTO) 0.1 K/uL (0.00-0.22); BASOPHILS % (AUTO) 0.5 % (0.0-2.0); EOSINOPHILS # (AUTO) 0.2 K/uL (0-0.4); EOSINOPHILS % (AUTO) 1.1 % (0.0-4.0); HEMATOCRIT 25.2 % (36-52); HEMOGLOBIN 8.4 g/dL (12.0-18.0); LYMPHOCYTES # (AUTO) 0.8 K/uL (2.0-11.5); LYMPHOCYTES % (AUTO) 4.3 % (20.5-51.1); MEAN CORPUSCULAR HEMOGLOBIN 30 pg (27-31); MEAN CORPUSCULAR HGB CONC 33 g/dL (33-37); MEAN CORPUSCULAR VOLUME 90.9 fL (80-94); MONOCYTES # (AUTO) 0.4 K/uL (0.8-1.0); MONOCYTES % (AUTO) 2.3 % (1.7-9.3); NEUTROPHILS # (AUTO) 16.8 K/uL (1.8-7.7); NEUTROPHILS % (AUTO) 91.8 % (42.2-75.2); PLATELET COUNT (AUTO) 237 K/uL (140-450); RED BLOOD CELL COUNT(AUTO) 2.77 MIL/uL (4.20-6.10); RED CELL DISTRIBUTION WIDTH 14.8 % (11.6-13.7); WHITE BLOOD COUNT (AUTO) 18.3 K/uL (4.8-10.8)
[2020-05-22 05:53] LABS: ALBUMIN 1.5 g/dL (3.4-5.0); ANION GAP 18.2 (8-16); ASPARTATE AMINOTRANSFERASE 45 U/L (15-37); CARBON DIOXIDE 23.3 mmol/L (21-32); CHLORIDE 99 mmol/L (98-107); GFR ARICAN-AMERICAN 13 mL/min (>90); GLUCOSE 298 mg/dL (74-106); LACTATE DEHYDROGENASE 541 U/L (85-227); MAGNESIUM 1.8 mg/dL (1.8-2.4); PHOSPHORUS 8.1 mg/dL (2.5-4.9); POTASSIUM 3.5 mmol/L (3.5-5.1); SODIUM SERUM 137 mmol/L (136-145); TOTAL BILIRUBIN 0.3 mg/dL (0.0-1.0)
[2020-05-22] MEDS: INSULIN LISPRO SLIDING SCALE 100 UNITS/ML VIAL SUBQ PRN ×2 (06:15→20:12)
[2020-05-22] MEDS: BLOOD GLUCOSE MONITORING 1 DEV DEV FS SCH ×4 (06:15→20:12)
[2020-05-22] MEDS: MIDAZOLAM MDV 100 MG in NACL 0.9% 80 ML IV PRN ×2 (07:14→21:17)
--- NOTE | 2020-05-22 07:30 | NUR ---
RECEIVE FROM MERVIN HOBBS. ET TUBE TO VENT ON PRONE POSITION IV HAS PICC LINE . AND KENZIE CATH FOR HD,RECTAL TUBE DRAIN DARK LIQUID BM . CERDA CATH DRAIN SCAN AMOUNT OF DARK URINE.
[2020-05-22] MEDS: POLYETHYLENE GLYCOL 17 GM/PKT PO SCH ×2 (09:00→20:12)
[2020-05-22] MEDS: ATORVASTATIN 20 MG TAB PO SCH (09:00)
[2020-05-22] MEDS: PANTOPRAZOLE 40 MG INJ VIAL IVP SCH (09:00)
[2020-05-22] MEDS: ENOXAPARIN 30 MG/0.3 ML SYR SUBQ SCH (09:00)
[2020-05-22] MEDS: ASCORBIC ACID 500 MG/5 ML ORASYR PO SCH (09:00)
[2020-05-22] MEDS: atenoloL 50 MG TAB PO SCH (09:00)
[2020-05-22] MEDS: INSULIN LANTUS 100 UNITS/ML 10 ML VIAL SUBQ SCH (09:00)
[2020-05-22] MEDS: DEXAMETHASONE 4 MG/ML VIAL IVP SCH (09:00)
[2020-05-22] MEDS: DOCUSATE 100 MG/10 ML UDC GT SCH (09:00)
[2020-05-22] MEDS: SENNA 8.6 MG TAB PO SCH (09:00)
[2020-05-22 09:11] LABS: UREA NITROGEN, BLOOD 97 mg/dL (7-18)
[2020-05-22 09:12] LABS: CREATININE 5.6 mg/dL (0.6-1.3)
--- NOTE | 2020-05-22 11:30 | NUR ---
BLOOD SUGAR 332 INSULIN GIVEN ORDER.
--- NOTE | 2020-05-22 14:30 | NUR ---
BL. GLUCOSE 232 INSULIN GIVEN ORDER.
--- NOTE | 2020-05-22 18:00 | NUR ---
HEMODIALYSIS AT BED SIDE.
[2020-05-22] MEDS: NOREPINEPHRINE 8 MG in DEXTROSE 5% 250 ML IV PRN ×2 (18:20→18:28)
--- NOTE | 2020-05-22 19:30 | NUR ---
REPORT GAVE TO ANUSHA HOBBS.
--- NOTE | 2020-05-22 19:30 | NUR ---
PT PRONE POSITION.ETT TO VENT FIO2 FIO2 70% TV450 RATE 20 PEEP8; RT IJ KENZIE CATHETER.HD ONGOING.RECTAL TUBE LEAKING; PT CLEANED.CERDA CATHETER INTACT SCANTY URINE NOTED.PT ON LEVOPHED DRIP 8MG IN 250ML D5W AT 14MCG/MIN; FENTANYL 1.5MCG/KG/HR AND VERSED DRIP 7MG/HR.
--- NOTE | 2020-05-22 19:31 | NUR ---
RECEIVED PT ON PRONE POSITION; HEMODIALYSIS ONGOING AT THIS TIME.
--- NOTE | 2020-05-22 20:05 | NUR ---
HD COMPLETED; 1.6L OUT PER DIALYSIS NURSE.
--- NOTE | 2020-05-22 21:46 | NUR ---
2140 placed patient in supine position. sxned pt mouth and tube and placed tube to left side of mouth. patient on 100% fio2 during positioning
[2020-05-23] VITALS (28 sets, daily range): BP systolic 80–139; BP diastolic 15–93
--- NOTE | 2020-05-23 | NUR ---
ORAL CARE USING VAP KIT RENDERED.PT REPOSITIONED.FLACC 0
[2020-05-23] MEDS: Z-GUARD PASTE TP SCH ×2 (00:47→12:00)
--- NOTE | 2020-05-23 03:46 | NUR ---
PTS CONDITION REMAINS UNCHANGED.ORAL CARE DONE.FLACC 0
--- NOTE | 2020-05-23 05:30 | NUR ---
MORNING CARE DONE.ORAL CARE RENDERED.REPOSITIONED.CONTINUED ON OGT FEEDING,NO RESIDUALS NOTED.FLACC 0
[2020-05-23] MEDS: BLOOD GLUCOSE MONITORING 1 DEV DEV FS SCH ×4 (06:54→21:00)
[2020-05-23] MEDS: INSULIN LISPRO SLIDING SCALE 100 UNITS/ML VIAL SUBQ PRN ×4 (06:55→23:24)
[2020-05-23 07:21] LABS: BASOPHILS # (AUTO) 0.1 K/uL (0.00-0.22); BASOPHILS % (AUTO) 0.8 % (0.0-2.0); EOSINOPHILS # (AUTO) 0.5 K/uL (0-0.4); EOSINOPHILS % (AUTO) 2.5 % (0.0-4.0); HEMATOCRIT 27.2 % (36-52); LYMPHOCYTES # (AUTO) 1.3 K/uL (2.0-11.5); LYMPHOCYTES % (AUTO) 6.9 % (20.5-51.1); MEAN CORPUSCULAR HEMOGLOBIN 30 pg (27-31); MEAN CORPUSCULAR HGB CONC 33 g/dL (33-37); MEAN CORPUSCULAR VOLUME 91.9 fL (80-94); MONOCYTES # (AUTO) 0.5 K/uL (0.8-1.0); MONOCYTES % (AUTO) 2.6 % (1.7-9.3); NEUTROPHILS # (AUTO) 15.9 K/uL (1.8-7.7); NEUTROPHILS % (AUTO) 87.2 % (42.2-75.2); PLATELET COUNT (AUTO) 226 K/uL (140-450); RED BLOOD CELL COUNT(AUTO) 2.96 MIL/uL (4.20-6.10); RED CELL DISTRIBUTION WIDTH 14.9 % (11.6-13.7); WHITE BLOOD COUNT (AUTO) 18.3 K/uL (4.8-10.8)
[2020-05-23] MEDS: ASCORBIC ACID 500 MG/5 ML ORASYR PO SCH (07:41)
[2020-05-23] MEDS: DOCUSATE 100 MG/10 ML UDC GT SCH (07:41)
[2020-05-23] MEDS: SENNA 8.6 MG TAB PO SCH (07:42)
[2020-05-23] MEDS: PANTOPRAZOLE 40 MG INJ VIAL IVP SCH (07:42)
[2020-05-23] MEDS: DEXAMETHASONE 4 MG/ML VIAL IVP SCH (07:42)
[2020-05-23] MEDS: POLYETHYLENE GLYCOL 17 GM/PKT PO SCH ×2 (07:42→20:53)
[2020-05-23] MEDS: atenoloL 50 MG TAB PO SCH (07:42)
[2020-05-23] MEDS: ATORVASTATIN 20 MG TAB PO SCH (07:42)
[2020-05-23 07:48] LABS: ALBUMIN 1.7 g/dL (3.4-5.0); ANION GAP 20.2 (8-16); ASPARTATE AMINOTRANSFERASE 42 U/L (15-37); CARBON DIOXIDE 23.4 mmol/L (21-32); CHLORIDE 100 mmol/L (98-107); GFR ARICAN-AMERICAN 15 mL/min (>90); GLUCOSE 138 mg/dL (74-106); LACTATE DEHYDROGENASE 577 U/L (85-227); MAGNESIUM 1.6 mg/dL (1.8-2.4); PHOSPHORUS 8.6 mg/dL (2.5-4.9); POTASSIUM 3.6 mmol/L (3.5-5.1); SODIUM SERUM 140 mmol/L (136-145); TOTAL BILIRUBIN 0.3 mg/dL (0.0-1.0)
--- NOTE | 2020-05-23 08:02 | NUR ---
BEDSIDE REPORT RECEIVED FROM DRAFTING LAYOUT MAN NURSE AT 0720, PT ETT TO VENT, SEDATED TO RASS -3 WITH VERSED AT 7, FENTANYL AT 1.5, DRYWT 95.3KG, RESP EVEN, EQUAL CHEST RISE AND FALL, VENT SETTING PRVC FIO2 70% 450, PEEP 8, BS DIMINISHED, ABD SOFT NON DISTENDED, OGT FEEDING ONGOING WITH NEPRO AT 70ML/HR FWF 100/6HR, AM MEDS GIVEN, RESIDUAL 10ML, PROSOURCE GIVEN, ORAL CARE DONE, CERDA CARE DONE, CHG WIPE DONE, PICC LINE AT [facility] SITE WNL, PIV R FA 20G S/L, CERDA IN PLACE, MINIMAL URINE IN TUBING, RECTAL TUBE IN PLACE. ALL SAFETY MEASURE IN PLACE, POC REVIEWED, WILL CONTINUE TO MONTIOR
[2020-05-23] MEDS: INSULIN LANTUS 100 UNITS/ML 10 ML VIAL SUBQ SCH (09:00)
--- NOTE | 2020-05-23 09:06 | NUR ---
DR JIM AT BEDSIDE.
[2020-05-23 09:27] LABS: CREATININE 5.1 mg/dL (0.6-1.3); UREA NITROGEN, BLOOD 85 mg/dL (7-18)
[2020-05-23] MEDS: ENOXAPARIN 30 MG/0.3 ML SYR SUBQ SCH (10:00)
[2020-05-23 10:45] LABS: ANION GAP 24.4 (8-16); CARBON DIOXIDE 20.2 mmol/L (21-32); POTASSIUM 3.6 mmol/L (3.5-5.1)
[2020-05-23 11:33] LABS: CREATININE 5.2 mg/dL (0.6-1.3)
[2020-05-23] MEDS: ACETAMINOPHEN 325 MG TAB PO PRN (12:21)
[2020-05-23] MEDS: fentaNYL citrate - 50mL vial 2.5 MG in NACL 0.9% 200 ML IV PRN (12:29)
--- NOTE | 2020-05-23 12:30 | NUR ---
TYLENOL GIVEN FOR FEVER 100.4
--- NOTE | 2020-05-23 17:02 | NUR ---
SMALL LEAK FROM RECTAL TUBE, PERICARE DONE, BED BATH GIVEN, AWAITING DIALYSIS BEFORE PRONING.
[2020-05-23] MEDS: MIDAZOLAM MDV 100 MG in NACL 0.9% 80 ML IV PRN ×2 (18:12→21:09)
--- NOTE | 2020-05-23 19:25 | NUR ---
RECEIVED PATIENT FROM DAY SHIFT ON PRVC 20,450, PEEP 10, 70% FIO2. VENT PLUGGED INTO RED OUTLET. BMV AT BEDSIDE.ETT SECURED AND MOVED. ALARMS SET AND AUDIBLE. PATIENT IS IN NO RESPIRATORY DISTRESS. WILL CONT TO MONITOR
--- NOTE | 2020-05-23 20:00 | NUR ---
RECEIVED PATIENT IN SUPINE POSITION , ET TO VENT WITH FIO2 70% , OG TUBE FEEDING WITH NEPRO AT 70 ML/HR, SINUS RHYTHM ON THE MONITOR, PICC LINE AT [facility] , IV DRIP WITH VERSED AT 7MG/HR, FENTANYL 1.5 MCG/KG/HR INFUSING AT PICC LINE, SITE IS CLEAR, [facility] CATHETER ACCESS TO HD , HD NURSE IS GOING TO DIALYTE PATIENT, RASS SCARE IS -3. WILL CONTINUE TO MONITOR.
[2020-05-23] MEDS: NOREPINEPHRINE 8 MG in DEXTROSE 5% 250 ML IV PRN (21:06)
--- NOTE | 2020-05-23 22:43 | NUR ---
HD COMPLETED WITH 900 ML OUT, START LEVOPHED AT 2 MCG AND STOP AFTER HD DUE TO SBP DROP TO 80. WILL CONTINUE TO MONITOR,
--- NOTE | 2020-05-23 22:44 | NUR ---
BLOOD SUGAR CHECKED AND 6 UNIT OF HUMALOG GIVEN SQ PER SLIDING SCALE.
[2020-05-24] VITALS (26 sets, daily range): BP systolic 85–155; BP diastolic 53–83
--- NOTE | 2020-05-24 00:42 | NUR ---
PATIENT PLACED IN PRONE POSITION. ETT REMAINS SECURED. ALARMS SET. WILL CONT TO MONITOR
[2020-05-24] MEDS: Z-GUARD PASTE TP SCH ×3 (01:00→23:12)
[2020-05-24] MEDS: BLOOD GLUCOSE MONITORING 1 DEV DEV FS SCH ×4 (05:20→21:38)
[2020-05-24] MEDS: INSULIN LISPRO SLIDING SCALE 100 UNITS/ML VIAL SUBQ PRN ×2 (05:24→19:29)
[2020-05-24] MEDS: fentaNYL citrate - 50mL vial 2.5 MG in NACL 0.9% 200 ML IV PRN ×2 (05:38→23:25)
--- NOTE | 2020-05-24 06:13 | NUR ---
BLOOD SUGAR CHECKED AND HUMALOG 6 UNITS SQ GIVEN PER SLIDING SCALE.
[2020-05-24 06:56] LABS: BASOPHILS # (AUTO) 0.1 K/uL (0.00-0.22); EOSINOPHILS # (AUTO) 0.3 K/uL (0-0.4); EOSINOPHILS % (AUTO) 1.9 % (0.0-4.0); HEMATOCRIT 25.3 % (36-52); HEMOGLOBIN 8.4 g/dL (12.0-18.0); LYMPHOCYTES # (AUTO) 0.7 K/uL (2.0-11.5); MEAN CORPUSCULAR HEMOGLOBIN 31 pg (27-31); MEAN CORPUSCULAR HGB CONC 33 g/dL (33-37); MONOCYTES # (AUTO) 0.2 K/uL (0.8-1.0); MONOCYTES % (AUTO) 1.4 % (1.7-9.3); NEUTROPHILS # (AUTO) 13.3 K/uL (1.8-7.7); NEUTROPHILS % (AUTO) 90.7 % (42.2-75.2); PLATELET COUNT (AUTO) 201 K/uL (140-450); RED BLOOD CELL COUNT(AUTO) 2.75 MIL/uL (4.20-6.10); RED CELL DISTRIBUTION WIDTH 15.9 % (11.6-13.7); WHITE BLOOD COUNT (AUTO) 14.7 K/uL (4.8-10.8)
[2020-05-24 07:15] LABS: ANION GAP 19.1 (8-16); POTASSIUM 3.1 mmol/L (3.5-5.1)
[2020-05-24 07:18] LABS: MAGNESIUM 2.2 mg/dL (1.8-2.4); PHOSPHORUS 7.3 mg/dL (2.5-4.9)
--- NOTE | 2020-05-24 07:30 | NUR ---
RECEIVE REPORT FRON SOL HOBBS, PT HAS ETT SHORTY VENT . ON PRONE POSITIONiv fluid HAS PICC LINE AND KENZIE CATH FOR HD, HAS RECTAL BAG ANS CERDA CAT HAS SMALL AMT OF URINE.
[2020-05-24 07:55] LABS: CREATININE 5.4 mg/dL (0.6-1.3)
--- NOTE | 2020-05-24 07:58 | NUR ---
RECEIVED ON A CARESCAPE R860 VENTILATOR PLUGGED INOT RED OUTLET TOLERATING WELL WITHOUT ADVERSE REACTIONS NOTED TO AN ENDOTRACHEAL TUBE 8.0 SECURED AT 23cm TEETH/GUM LINE WITH ANCHOR FAST CUFF PRESSURE CHECKED NOTED AMBU BAG AT BEDSIDE LOC SEDATED PRONE POSITION GOOD CHEST RISE ENDOTRACHEAL SUCTION FOR LARGE THIN YELLOW SECRETIONS AIRWAY PATENT PER ARDS PROTOCOL INCREASED PEEP TO [id number] DECREASED FIO2 TO 65%
[2020-05-24] MEDS: ATORVASTATIN 20 MG TAB PO SCH (08:45)
[2020-05-24] MEDS: DEXAMETHASONE 4 MG/ML VIAL IVP SCH (08:45)
[2020-05-24] MEDS: DOCUSATE 100 MG/10 ML UDC GT SCH (08:45)
[2020-05-24] MEDS: PANTOPRAZOLE 40 MG INJ VIAL IVP SCH (08:45)
[2020-05-24] MEDS: ASCORBIC ACID 500 MG TAB PO SCH (08:46)
[2020-05-24] MEDS: atenoloL 50 MG TAB PO SCH (08:46)
[2020-05-24] MEDS: POLYETHYLENE GLYCOL 17 GM/PKT PO SCH ×2 (08:46→19:53)
[2020-05-24] MEDS: SENNA 8.6 MG TAB PO SCH (08:46)
[2020-05-24] MEDS: INSULIN LANTUS 100 UNITS/ML 10 ML VIAL SUBQ SCH (09:00)
[2020-05-24] MEDS: ENOXAPARIN 30 MG/0.3 ML SYR SUBQ SCH (09:00)
--- NOTE | 2020-05-24 12:10 | NUR ---
SEDATED NO RESPIRATORY DISTRESS NOTED GOOD CHEST RISE
--- NOTE | 2020-05-24 16:30 | NUR ---
BLOOD GLUCOSE 163 INSULIN GIVEN ORDERED,
--- NOTE | 2020-05-24 19:30 | NUR ---
REPORT GIVE TO SOL HOBBS.
--- NOTE | 2020-05-24 20:00 | NUR ---
RECEIVED PATIENT IN PRONE POSITION , ET TO VENT WITH SETTING OF : AC/PRVC RATE OF 20 FIO2 70% TOLERATE THE SETTING, OG FEEDING IS ON HOLD , IV DRIP: VERSED AT 7 MG/HR, FENTANYL 1.5 MCG /KG/HR, INFUSING AT CHRIS , SITE IS CLEAN, DRESSING INTACT, RASS -3 MUNIRA BUTTOCK OPEN WOUND- COVERED WITH OPTIFORM. RIJ DRESSING INTACT ACCESS TO HEMODIALYSIS. CERDA CATHETER IN PLACE AND RECTAL TUBE IN PLACE, DRAINING TO GRAVITY.
[2020-05-24] MEDS: POTASSIUM CHLORIDE 20% 40 MEQ/15 ML UDC PO PRN (21:38)
--- NOTE | 2020-05-24 21:39 | NUR ---
K 3.1 IN THIS MORNING , KCL 40 MEQ OG TUBE GIVEN PER PRN ORDER.
[2020-05-25] VITALS (30 sets, daily range): BP systolic 105–158; BP diastolic 51–80
--- NOTE | 2020-05-25 01:00 | NUR ---
ASSISTED BY RT AND 3 OTHER NURSE HELP TO PUT PATIENT IN SUPINE POSITION. GOOD SKIN CARE AND ORAL CARE GIVEN.
[2020-05-25] MEDS: BLOOD GLUCOSE MONITORING 1 DEV DEV FS SCH ×4 (05:49→21:00)
[2020-05-25 05:55] LABS: CARBON DIOXIDE 22.6 mmol/L (21-32); POTASSIUM 4.6 mmol/L (3.5-5.1)
[2020-05-25 06:08] LABS: CREATININE 6.7 mg/dL (0.6-1.3)
[2020-05-25 06:22] LABS: BASOPHILS # (AUTO) 0.1 K/uL (0.00-0.22); BASOPHILS % (AUTO) 0.7 % (0.0-2.0); EOSINOPHILS # (AUTO) 0.1 K/uL (0-0.4); EOSINOPHILS % (AUTO) 0.4 % (0.0-4.0); HEMATOCRIT 26.9 % (36-52); HEMOGLOBIN 8.8 g/dL (12.0-18.0); LYMPHOCYTES # (AUTO) 1.1 K/uL (2.0-11.5); LYMPHOCYTES % (AUTO) 6.4 % (20.5-51.1); MEAN CORPUSCULAR HEMOGLOBIN 30 pg (27-31); MEAN CORPUSCULAR HGB CONC 33 g/dL (33-37); MEAN CORPUSCULAR VOLUME 91.7 fL (80-94); MONOCYTES # (AUTO) 0.5 K/uL (0.8-1.0); MONOCYTES % (AUTO) 3.1 % (1.7-9.3); NEUTROPHILS # (AUTO) 14.8 K/uL (1.8-7.7); NEUTROPHILS % (AUTO) 89.4 % (42.2-75.2); PLATELET COUNT (AUTO) 231 K/uL (140-450); RED BLOOD CELL COUNT(AUTO) 2.94 MIL/uL (4.20-6.10); RED CELL DISTRIBUTION WIDTH 15.7 % (11.6-13.7); WHITE BLOOD COUNT (AUTO) 16.6 K/uL (4.8-10.8)
[2020-05-25] MEDS: MIDAZOLAM MDV 100 MG in NACL 0.9% 80 ML IV PRN ×2 (07:52→20:31)
[2020-05-25] MEDS: DOCUSATE 100 MG/10 ML UDC GT SCH (09:12)
[2020-05-25] MEDS: ATORVASTATIN 20 MG TAB PO SCH (09:13)
[2020-05-25] MEDS: PANTOPRAZOLE 40 MG INJ VIAL IVP SCH (09:13)
[2020-05-25] MEDS: DEXAMETHASONE 4 MG/ML VIAL IVP SCH (09:13)
[2020-05-25] MEDS: POLYETHYLENE GLYCOL 17 GM/PKT PO SCH ×2 (09:14→20:23)
[2020-05-25] MEDS: SENNA 8.6 MG TAB PO SCH (09:14)
[2020-05-25] MEDS: atenoloL 50 MG TAB PO SCH (09:14)
[2020-05-25] MEDS: ASCORBIC ACID 500 MG TAB PO SCH (09:15)
[2020-05-25] MEDS: INSULIN LANTUS 100 UNITS/ML 10 ML VIAL SUBQ SCH (09:17)
[2020-05-25] MEDS: ENOXAPARIN 30 MG/0.3 ML SYR SUBQ SCH (09:35)
--- NOTE | 2020-05-25 11:03 | NUR ---
ADMINISTERED SCHEDULED MEDS PER MD ORDER. MED EDUCATION PROVIDED, REINFORCEMENT NEEDED. G TUBE RESIDUAL 5ML, FLUSHED BEFORE AND AFTER MEDS. PROVIDED AM CARE: ORAL CARE, CATHETER CARE, CHG BATH, CHANGED ALL DIRTY LINEN. PT REPOSITIONED AND OFFLOADED PRESSURE WITH PILLOWS.
[2020-05-25] MEDS: INSULIN LISPRO SLIDING SCALE 100 UNITS/ML VIAL SUBQ PRN ×3 (12:08→22:51)
[2020-05-25] MEDS: Z-GUARD PASTE TP SCH (12:11)
--- NOTE | 2020-05-25 12:50 | NUR ---
PER LIBERTAD/RN DR. COREA AT BEDSIDE DECREASED PEEP [id number]
--- NOTE | 2020-05-25 13:55 | NUR ---
SEDATED RESTING WELL ENDOTRACHEAL SUCTION FOR MODERATE THICK YELLOW SECRETONS AIRWAY PATENT
--- NOTE | 2020-05-25 16:21 | NUR ---
05/25/20 RD FOLLOW UP COMPLETED PLEASE REFER TO NUTRITION ASSESSMENT UNDER CARE ACTIVITY FOR ESTIMATED NUTRITIONAL NEEDS. 1. CONTINUE NEPRO 1.8 @ 70 ML/HR X 8 HOURS WITH PROSOURCE BID -THIS PROVIDES 1128 KCAL AND 75 GM OF PROTEIN. MEETING 100% OF ESTIMATEDKCAL AND PROTEIN NEEDS 2. CONT. FREE WATER FLUSH OF 100 ML Q6H 3. CONTINUE VITAMIN C SUPPLEMENTATION 4. RD TO FOLLOW-UP 2-3 DAYS, HIGH RISK QUYEN ARREAGA, RD
[2020-05-25] MEDS: fentaNYL citrate - 50mL vial 2.5 MG in NACL 0.9% 200 ML IV PRN (20:35)
--- NOTE | 2020-05-25 20:37 | NUR ---
RECEIVED PATIENT IN SUPINE POSITION , ETT TO VENT, FIO2 60% PEEP 10 M SEDATED , OG FEEDING WITH NEPRO AT 70 ML/HR, IV DRIP : VERSED 7 MG/HR, TURN ON THE FENTANYL AT 1.5 MCG/KG/HR - PATIENT HAS DIFFICULTY BREATHING , RR UP TO 35, RIGHT IJ KENZIE CATHETER FOR HD ACCESS, WAITING FOR HD NURSE TO DO HD TODAY. ALL IV MEDICATION INFUSING AT CHRIS PICC LINE , SITE IS CLEAR, CERDA CATH IS IN PLACE, DRAIN TO GRAVITY , RECTAL TUBE IS IN PLACE, WILL CONTINUE THE CARE.
--- NOTE | 2020-05-25 22:05 | NUR ---
HD IS ONGOING AND HD NURSE AT BEDSIDE . TOLERATED AT THIS TIME.
--- NOTE | 2020-05-25 23:30 | NUR ---
HD COMPLETED WITH 2 LITER OUT, LEVOPHED STARTED AT 2 MCG WHILE DIALYTE DUE TO SBP DOWN TO 78. AND STOPPED AFTER HD.
[2020-05-26] VITALS (28 sets, daily range): BP systolic 97–156; BP diastolic 51–77
[2020-05-26] MEDS: Z-GUARD PASTE TP SCH ×3 (01:00→23:16)
--- NOTE | 2020-05-26 01:38 | NUR ---
0130 HELPED PRONE PATIENT
[2020-05-26] MEDS: BLOOD GLUCOSE MONITORING 1 DEV DEV FS SCH ×4 (06:36→21:00)
[2020-05-26] MEDS: INSULIN LISPRO SLIDING SCALE 100 UNITS/ML VIAL SUBQ PRN ×4 (06:37→23:17)
--- NOTE | 2020-05-26 07:15 | NUR ---
HANDOFF RECEIVED FROM MILITARY PAY TECHNICIAN RN. PT IS SEDATED RASS -3. PT IS ETT TO VENT, ACPRVC FIO2 65%, R 20, PEEP 10. PT HAS CHRIS PICC AND RIJ HD ACCESS. VERSED IS RUNNING AT 10 MG/HR, FENTANYL AT 1.5 MCG/KG/HR. PT HAS OG TUBE WITH NEPRO RUNNING AT 70 ML/HR WITH FWF 100 Q 6HR. PT IS SR ON THE MONITOR. CERDA CATHETER AND RECTAL TUBE IN PLACE. FEEDING IS HELD DUE TO PRONE. HOB 30 DEG, BED IN LOW, LOCKED POSITION. WILL CONTINUE TO MONITOR.
[2020-05-26] MEDS: atenoloL 50 MG TAB PO SCH (07:54)
[2020-05-26] MEDS: POLYETHYLENE GLYCOL 17 GM/PKT PO SCH ×2 (08:14→21:05)
[2020-05-26] MEDS: PANTOPRAZOLE 40 MG INJ VIAL IVP SCH (08:14)
[2020-05-26] MEDS: ATORVASTATIN 20 MG TAB PO SCH (08:15)
[2020-05-26] MEDS: DOCUSATE 100 MG/10 ML UDC GT SCH (08:15)
[2020-05-26] MEDS: SENNA 8.6 MG TAB PO SCH (08:15)
[2020-05-26] MEDS: ASCORBIC ACID 500 MG TAB PO SCH (08:15)
[2020-05-26] MEDS: DEXAMETHASONE 4 MG/ML VIAL IVP SCH (08:16)
[2020-05-26] MEDS: INSULIN LANTUS 100 UNITS/ML 10 ML VIAL SUBQ SCH (08:21)
--- NOTE | 2020-05-26 09:15 | NUR ---
MEDICATIONS ADMINISTERED PER ORDER. PT TOLERATED WELL. 5 ML RESIDUAL FROM TUBE FEED. CHG BATH PROVIDED. TEMPERATURE 99.2 AXILLARY. WILL CONTINUE TO MONITOR
[2020-05-26] MEDS: MIDAZOLAM MDV 100 MG in NACL 0.9% 80 ML IV PRN (09:51)
[2020-05-26 11:13] LABS: BASOPHILS # (AUTO) 0.2 K/uL (0.00-0.22); MEAN CORPUSCULAR HEMOGLOBIN 31 pg (27-31)
[2020-05-26 11:15] LABS: BASOPHILS % (AUTO) 1.1 % (0.0-2.0); EOSINOPHILS # (AUTO) 1.3 K/uL (0-0.4); EOSINOPHILS % (AUTO) 7.4 % (0.0-4.0); HEMATOCRIT 25.7 % (36-52); HEMOGLOBIN 8.6 g/dL (12.0-18.0); LYMPHOCYTES # (AUTO) 1.5 K/uL (2.0-11.5); LYMPHOCYTES % (AUTO) 8.5 % (20.5-51.1); MEAN CORPUSCULAR HGB CONC 34 g/dL (33-37); MEAN CORPUSCULAR VOLUME 91.8 fL (80-94); MONOCYTES # (AUTO) 0.3 K/uL (0.8-1.0); MONOCYTES % (AUTO) 1.8 % (1.7-9.3); NEUTROPHILS % (AUTO) 81.2 % (42.2-75.2); PLATELET COUNT (AUTO) 275 K/uL (140-450); RED CELL DISTRIBUTION WIDTH 16.1 % (11.6-13.7); WHITE BLOOD COUNT (AUTO) 17.2 K/uL (4.8-10.8)
[2020-05-26 11:45] LABS: ANION GAP 19.6 (8-16); CARBON DIOXIDE 23.8 mmol/L (21-32); POTASSIUM 3.4 mmol/L (3.5-5.1)
--- NOTE | 2020-05-26 12:20 | NUR ---
BS 196, 2 UNITS INSULIN ADMINISTERED. TEMPERATURE 98.1 AXILLARY. MEDS ADMINISTERED PER ORDER
[2020-05-26 12:22] LABS: CREATININE 5.4 mg/dL (0.6-1.3)
[2020-05-26] MEDS: fentaNYL citrate - 50mL vial 2.5 MG in NACL 0.9% 200 ML IV PRN (14:00)
--- NOTE | 2020-05-26 17:00 | NUR ---
BS 223, 4 UNITS INSULIN GIVEN
--- NOTE | 2020-05-26 17:10 | NUR ---
PT PLACED INTO SUPINE POSITION WITH RT JOAQUÍN AT BEDSIDE. TOLERATED WELL. CHANGED. VAP ORAL CARE, CHG BATH, CERDA CARE DONE.
--- NOTE | 2020-05-26 19:15 | NUR ---
HANDOFF GIVEN TO WASTEWATER OPERATOR RN FOR CONTINUITY OF CARE
--- NOTE | 2020-05-26 20:12 | NUR ---
RECEIVED PATIENT FROM AM SHIFT. PATIENT WAS SEEN AND ASSESSED. FOUND PT IN SUPINE POSITION. PATIENT IS INTUBATED WITH ETT SIZE 8.0 AND SECURED WITH ANCHOR-FAST AT 23cm. PATIENT IS ON VENT SETTINGS: AC/PRVC RR 16, VT 450, PEEP 10, FiO2 60% WITH SPO2 OF 92%. AMBU BAG AT BEDSIDE. VENT IS PLUGGED IN RED OUTLET. ALARMS SET AND AUDIBLE TO ENVIRONMENT. SUCTIONED SMALL AMOUNT OF YELLOW THIN SECRETIONS FROM ETT. AIRWAY IS PATENT. AUSCULTATION REVEALS BILATERAL RALES BREATH SOUNDS. PATIENT IS IN NO APPARENT RESPIRATORY DISTRESS AT THIS TIME. PRN TX NOT INDICATED AT THIS TIME. WILL CONTINUE TO MONITOR PATIENT.
--- NOTE | 2020-05-26 21:30 | NUR ---
CALLED DR. COREA TO ASKED IF HE MADE CHANGES TO VENT DURING HIS ICU VISIT. DOCTOR CONFIRMED HE DECREASED SET RATE TO 16 BPM.
--- NOTE | 2020-05-26 21:30 | NUR ---
DR GARCIA CAME IN AND UPDATE PATIENT'S CONDITION , NO NEW ORDER NOTED.
[2020-05-27] VITALS (26 sets, daily range): BP systolic 106–145; BP diastolic 55–80
--- NOTE | 2020-05-27 01:40 | NUR ---
HOLD FEEDING BEFORE PRONE POSITION , WAITING FOR RT TO HELP FOR PUTTING PATIENT IN PRONE POSITION.
--- NOTE | 2020-05-27 02:00 | NUR ---
PLACED PATIENT IN PRONE POSITION. PATIENT TOLERATED PROCEDURE WELL. SUCTION SMALL AMOUNT OF WHITE/YELLOW THICK SECRETIONS FROM ETT. ETT SECURED AND AIRWAY IS PATENT. BILATERAL BREATH SOUNDS ON AUSCULTATION. PATIENT IS IN NO RESPIRATORY DISTRESS AT THIS TIME. RNs AT BEDSIDE. WILL CONTINUE TO MONITOR PATIENT.
--- NOTE | 2020-05-27 03:28 | NUR ---
ORAL CARE AND SKIN CARE GIVEN, RT AND 3 RN ASSISTED TO PUT PATIENT IN PRONE POSITION.
[2020-05-27] MEDS: MIDAZOLAM MDV 100 MG in NACL 0.9% 80 ML IV PRN ×2 (04:02→18:24)
[2020-05-27] MEDS: BLOOD GLUCOSE MONITORING 1 DEV DEV FS SCH ×4 (08:38→20:12)
[2020-05-27] MEDS: INSULIN LISPRO SLIDING SCALE 100 UNITS/ML VIAL SUBQ PRN ×3 (08:39→17:46)
[2020-05-27] MEDS: atenoloL 50 MG TAB PO SCH (09:00)
[2020-05-27] MEDS: DOCUSATE 100 MG/10 ML UDC GT SCH (09:05)
[2020-05-27] MEDS: POLYETHYLENE GLYCOL 17 GM/PKT PO SCH ×2 (09:06→20:12)
[2020-05-27] MEDS: DEXAMETHASONE 4 MG/ML VIAL IVP SCH (09:07)
[2020-05-27] MEDS: PANTOPRAZOLE 40 MG INJ VIAL IVP SCH (09:07)
[2020-05-27] MEDS: ATORVASTATIN 20 MG TAB PO SCH (09:09)
[2020-05-27] MEDS: ASCORBIC ACID 500 MG TAB PO SCH (09:09)
[2020-05-27] MEDS: SENNA 8.6 MG TAB PO SCH (09:09)
[2020-05-27] MEDS: INSULIN LANTUS 100 UNITS/ML 10 ML VIAL SUBQ SCH (09:17)
[2020-05-27] MEDS: fentaNYL citrate - 50mL vial 2.5 MG in NACL 0.9% 200 ML IV PRN (10:37)
--- NOTE | 2020-05-27 12:15 | NUR ---
REPOSITIONED PT TO SUPINE POSITION, PT TOLERATED WELL, AWAITING FOR DIALYSIS, PER DIALYSIS NURSE WILL COME @ 11-12.
[2020-05-27] MEDS: Z-GUARD PASTE TP SCH (12:20)
--- NOTE | 2020-05-27 13:15 | NUR ---
SEDATED STABLE GOOD CHEST ENDOTRACHEAL SUCTION FOR LARGE THICK YELLOW SECRETIONS AIRWAY PATENT SATURATION 86% ON FIO2 OF 55% PEEP [id number] INCREASED FIO2 TO 60% PEEP [id number]
--- NOTE | 2020-05-27 15:09 | NUR ---
PT O2 SAT WENT DOWN TO 70%, PT ON DIALYSIS AT THIS MOMENT, FIO2 INCREASED TO 100%, WILL KEEP FIO2 100% DURING DIALYSIS, WILL CONTINUE TO MONITOR.
--- NOTE | 2020-05-27 19:15 | NUR ---
ENDORSED PT TO TUBERCULOSIS SPECIALIST NURSE, FOR CONTINUOUS OF CARE.
--- NOTE | 2020-05-27 19:30 | NUR ---
ASSUMED CARE OF PT.INITIAL ASSESSMENT COMPLETED.SR ON MONITOR.ETT TO VENT AC/PRVC FIO2 100%, CHANGED BY RT EDUARDO TO 65%,TV450 RATE 16 PEEP 12 .W/KENZIE CATHETER TO RT IJ INTACT. WITH PICC LINE TO CHRIS.SEDATED RASS-3 VERSED 5 MG/HR AND FENTANYL DRIP 1.5 MCG/KG/HR; ABDOMEN SOFT, BOWEL SOUNDS ACTIVE, OGT INTACT, WITH OGT INFUSING ORDERED NEPRO AT 70ML/HR WITH WATER FLUSH. WITH CERDA CATH TO GRAVITY DRAINAGE BAG WITH SCANTY LIGHT KHAI URINE OUTPUT. WITH RECTAL TUBE IN PLACE DRAINING LOOSE WATERY STOOL,SMALL AMT.MULTIPLE BLISTERS STILL NOTED AND OPEN BLISTER TO RT THIGH NOTED.FLACC 0
[2020-05-28] VITALS (29 sets, daily range): BP systolic 109–149; BP diastolic 53–108
--- NOTE | 2020-05-28 | NUR ---
ORAL CARE USING VAP KIT RENDERED,FLACC 0.REPOSITIONED
[2020-05-28] MEDS: Z-GUARD PASTE TP SCH ×2 (00:17→12:20)
--- NOTE | 2020-05-28 03:00 | NUR ---
PTS CONDITION REMAINS UNCHANGED.FLACC 0.AFEBRILE
[2020-05-28] MEDS: fentaNYL citrate - 50mL vial 2.5 MG in NACL 0.9% 200 ML IV PRN ×2 (04:16→21:55)
--- NOTE | 2020-05-28 05:00 | NUR ---
MORNING CARE DONE.ORAL CARE COMPLETED.PT SEDATED RASS-3; FLACC 0.REPOSITIONED
[2020-05-28 05:25] LABS: BASOPHILS % (AUTO) 0.3 % (0.0-2.0); EOSINOPHILS # (AUTO) 0.1 K/uL (0-0.4); HEMATOCRIT 26.4 % (36-52); HEMOGLOBIN 8.5 g/dL (12.0-18.0); LYMPHOCYTES # (AUTO) 0.8 K/uL (2.0-11.5); LYMPHOCYTES % (AUTO) 6.8 % (20.5-51.1); MEAN CORPUSCULAR HEMOGLOBIN 30 pg (27-31); MEAN CORPUSCULAR HGB CONC 32 g/dL (33-37); MEAN CORPUSCULAR VOLUME 93.7 fL (80-94); MONOCYTES # (AUTO) 0.7 K/uL (0.8-1.0); MONOCYTES % (AUTO) 6.1 % (1.7-9.3); NEUTROPHILS # (AUTO) 9.7 K/uL (1.8-7.7); NEUTROPHILS % (AUTO) 85.8 % (42.2-75.2); PLATELET COUNT (AUTO) 211 K/uL (140-450); RED BLOOD CELL COUNT(AUTO) 2.82 MIL/uL (4.20-6.10); RED CELL DISTRIBUTION WIDTH 16.6 % (11.6-13.7); WHITE BLOOD COUNT (AUTO) 11.3 K/uL (4.8-10.8)
[2020-05-28 06:59] LABS: ANION GAP 20.4 (8-16); CARBON DIOXIDE 21.3 mmol/L (21-32); POTASSIUM 3.7 mmol/L (3.5-5.1)
--- NOTE | 2020-05-28 07:09 | NUR ---
PHONE CALL TO DR LOONEY RE BS 429; SAID OK TO GIVE 10 UNITS HUMALOG.ADMINISTERED
[2020-05-28] MEDS: BLOOD GLUCOSE MONITORING 1 DEV DEV FS SCH ×4 (07:10→20:19)
[2020-05-28] MEDS: INSULIN LISPRO SLIDING SCALE 100 UNITS/ML VIAL SUBQ PRN ×4 (07:11→20:20)
--- NOTE | 2020-05-28 07:20 | NUR ---
RECEIVED BEDSIDE REPORT FROM SPLUNK DASHBOARD DEVELOPER NURSE, PT SEDATED RASS -3. BREATHING ON ETT TO VENT, AC/PVRC FIO2 65%, PEEP 10 RATE 20, NO SOB NOTED, EQUAL BILATERAL CHEST RISE, PICC LINE TO R UPPER ARM PATENT INTACT, INFUSING PROPOFOL @ 5MCG/KG/MIN, VERSED @ 10MG/HR, FENTANYL @ 1 MCG/KG/HR, NS @ 60ML/HR, INFUSING WELL. R IJ DIALYSIS CATH DRESSING CLEAN DRY AND INTACT. OGT IN PLACE, CONFIRMED WITH AUSCULTATION, RESIDUAL 0ML. CERDA CATH IN PLACE, DRAINING TO GRAVITY. PT HAS BEEN ANURIC. INITIAL ASSESSMENT DONE, ALL SAFETY PRECAUTION MET, CALL LIGHT WITHIN REACH. WILL CONTINUE TO MONITOR.
[2020-05-28] MEDS: MIDAZOLAM MDV 100 MG in NACL 0.9% 80 ML IV PRN (08:05)
[2020-05-28 08:18] LABS: CREATININE 5.3 mg/dL (0.6-1.3)
[2020-05-28] MEDS: PANTOPRAZOLE 40 MG INJ VIAL IVP SCH (09:09)
[2020-05-28] MEDS: POLYETHYLENE GLYCOL 17 GM/PKT PO SCH ×2 (09:09→20:09)
[2020-05-28] MEDS: ATORVASTATIN 20 MG TAB PO SCH (09:11)
[2020-05-28] MEDS: SENNA 8.6 MG TAB PO SCH (09:12)
[2020-05-28] MEDS: DEXAMETHASONE 4 MG/ML VIAL IVP SCH (09:12)
[2020-05-28] MEDS: ASCORBIC ACID 500 MG TAB PO SCH (09:13)
[2020-05-28] MEDS: atenoloL 50 MG TAB PO SCH (09:14)
[2020-05-28] MEDS: DOCUSATE 100 MG/10 ML UDC GT SCH (09:15)
--- NOTE | 2020-05-28 09:21 | NUR ---
05/28/20 RD FOLLOW UP COMPLETED PLEASE REFER TO NUTRITION ASSESSMENT UNDER CARE ACTIVITY FOR ESTIMATED NUTRITIONAL NEEDS. 1. RECOMMEND NEPRO 1.8 @ 30 ML/HR X 24 HOURS WITH PROSOURCE BID -THIS PROVIDES 1416 KCAL AND 88 GM OF PROTEIN. MEETING 100% OF ESTIMATEDKCAL AND PROTEIN NEEDS 2. CONT. FREE WATER FLUSH OF 100 ML Q6H 3. CONTINUE VITAMIN C SUPPLEMENTATION 4. RD TO FOLLOW-UP 2-3 DAYS, HIGH RISK CLAIRE ANDERSON, CHERYL
[2020-05-28] MEDS: INSULIN LANTUS 100 UNITS/ML 10 ML VIAL SUBQ SCH (09:29)
--- NOTE | 2020-05-28 19:15 | NUR ---
ASSUMED CARE OF PT.INITIAL ASSESSMENT COMPLETED.SR ON MONITOR.ORALLY INTUBATED TO VENT AC/PRVC FIO2 65%, TV450 RATE 16 PEEP 10 .W/KENZIE CATHETER TO RT IJ INTACT. WITH PICC LINE TO CHRIS.SEDATED RASS-3 VERSED 5 MG/HR AND FENTANYL DRIP 1.5 MCG/KG/HR; W/ OGT.ABDOMEN SOFT, BOWEL SOUNDS ACTIVE, WITH OGT FEEDING INFUSING NEPRO AT 40ML/HR WITH WATER FLUSH. WITH CERDA CATH TO GRAVITY DRAINAGE BAG WITH SCANTY LIGHT KHAI URINE OUTPUT. WITH RECTAL TUBE IN PLACE DRAINING LOOSE WATERY STOOL,MODERATE AMT.MULTIPLE BLISTERS STILL NOTED AND OPEN BLISTER TO RT THIGH WITH DRESSING NOTED.FLACC 0.REPOSITIONED
--- NOTE | 2020-05-28 19:20 | NUR ---
ENDORSED PT TO ENTERPRISE ARCHITECT MANAGER NURSE FOR CONTINUOUS OF CARE
--- NOTE | 2020-05-28 20:00 | NUR ---
ORAL CARE USING VAP KIT RENDERED.FLACC 0
[2020-05-29] VITALS (28 sets, daily range): BP systolic 95–165; BP diastolic 49–96
--- NOTE | 2020-05-29 | NUR ---
PT AFEBRILE.REPOSITIONED.NO RESIDUAL NOTED.OGT FEEDING CONTINUED ORDERED.FLACC 0
[2020-05-29] MEDS: Z-GUARD PASTE TP SCH ×2 (00:21→13:17)
--- NOTE | 2020-05-29 04:51 | NUR ---
Pt remains on vent, unchanged in condition throughout the night. in semi fowlers position.
--- NOTE | 2020-05-29 05:39 | NUR ---
PTS CONDITION REMAINS UNCHANGED.MORNING CARE DONE.REPOSITIONED.FLACC 0
[2020-05-29] MEDS: BLOOD GLUCOSE MONITORING 1 DEV DEV FS SCH ×4 (06:19→20:30)
[2020-05-29] MEDS: INSULIN LISPRO SLIDING SCALE 100 UNITS/ML VIAL SUBQ PRN ×4 (06:19→20:31)
[2020-05-29 06:21] LABS: BASOPHILS # (AUTO) 0.1 K/uL (0.00-0.22); BASOPHILS % (AUTO) 0.5 % (0.0-2.0); EOSINOPHILS # (AUTO) 0.1 K/uL (0-0.4); EOSINOPHILS % (AUTO) 1.2 % (0.0-4.0); HEMATOCRIT 26.2 % (36-52); HEMOGLOBIN 8.5 g/dL (12.0-18.0); LYMPHOCYTES # (AUTO) 0.9 K/uL (2.0-11.5); LYMPHOCYTES % (AUTO) 7.3 % (20.5-51.1); MEAN CORPUSCULAR HEMOGLOBIN 30 pg (27-31); MEAN CORPUSCULAR HGB CONC 33 g/dL (33-37); MEAN CORPUSCULAR VOLUME 93.2 fL (80-94); MONOCYTES # (AUTO) 0.7 K/uL (0.8-1.0); MONOCYTES % (AUTO) 5.3 % (1.7-9.3); NEUTROPHILS # (AUTO) 10.7 K/uL (1.8-7.7); NEUTROPHILS % (AUTO) 85.7 % (42.2-75.2); PLATELET COUNT (AUTO) 272 K/uL (140-450); RED BLOOD CELL COUNT(AUTO) 2.81 MIL/uL (4.20-6.10); RED CELL DISTRIBUTION WIDTH 16.4 % (11.6-13.7); WHITE BLOOD COUNT (AUTO) 12.5 K/uL (4.8-10.8)
[2020-05-29] MEDS: MIDAZOLAM MDV 100 MG in NACL 0.9% 80 ML IV PRN (07:02)
--- NOTE | 2020-05-29 07:10 | NUR ---
RECEIVED BEDSIDE REPORT FROM PHOTOENGRAVING PROOFER APPRENTICE NURSE, PT SEDATED RASS -3. BREATHING ON ETT TO VENT, AC/PVRC FIO2 65%, PEEP 10 RATE 20, NO SOB NOTED, EQUAL BILATERAL CHEST RISE, PICC LINE TO R UPPER ARM PATENT INTACT, INFUSING PROPOFOL @ 5MCG/KG/MIN, VERSED @ 5MG/HR, FENTANYL @ 1.5 MCG/KG/HR, NS @ 60ML/HR, INFUSING WELL. R IJ DIALYSIS CATH DRESSING CLEAN DRY AND INTACT. OGT IN PLACE, CONFIRMED WITH AUSCULTATION, RESIDUAL 0ML. CERDA CATH IN PLACE, DRAINING TO GRAVITY. PT HAS BEEN ANURIC. INITIAL ASSESSMENT DONE, ALL SAFETY PRECAUTION MET, CALL LIGHT WITHIN REACH. WILL CONTINUE TO MONITOR.
[2020-05-29 07:30] LABS: ANION GAP 19.7 (8-16); CARBON DIOXIDE 21.3 mmol/L (21-32)
[2020-05-29 08:18] LABS: CREATININE 6.2 mg/dL (0.6-1.3)
[2020-05-29] MEDS: PANTOPRAZOLE 40 MG INJ VIAL IVP SCH (09:19)
[2020-05-29] MEDS: DEXAMETHASONE 4 MG/ML VIAL IVP SCH (09:19)
[2020-05-29] MEDS: ATORVASTATIN 20 MG TAB PO SCH (09:19)
[2020-05-29] MEDS: DOCUSATE 100 MG/10 ML UDC GT SCH (09:19)
[2020-05-29] MEDS: SENNA 8.6 MG TAB PO SCH (09:20)
[2020-05-29] MEDS: POLYETHYLENE GLYCOL 17 GM/PKT PO SCH ×2 (09:20→20:13)
[2020-05-29] MEDS: atenoloL 50 MG TAB PO SCH (09:20)
[2020-05-29] MEDS: ASCORBIC ACID 500 MG TAB PO SCH (09:21)
[2020-05-29] MEDS: INSULIN LANTUS 100 UNITS/ML 10 ML VIAL SUBQ SCH (09:23)
[2020-05-29] MEDS: NOREPINEPHRINE 8 MG in DEXTROSE 5% 250 ML IV PRN (14:09)
--- NOTE | 2020-05-29 16:40 | NUR ---
DIALYSIS COMPLETED, PER DIALYSIS NURSE AMAIRANI HOBBS 2000ML OUTPUT. PT TOLERATED WELL, WILL CONTINUE TO MONITOR.
[2020-05-29] MEDS: fentaNYL citrate - 50mL vial 2.5 MG in NACL 0.9% 200 ML IV PRN (18:08)
--- NOTE | 2020-05-29 19:10 | NUR ---
RECEIVED PATIENT FROM DAY SHIFT ON DOCUMENTED VENT SETTINGS. VENT PLUGGED INTO RED OUTLET. BMV AT BEDSIDE.ETT SECURED. ALARMS AUDIBLE. SX COPIOUS AMOUNT OF SECRETION. WILL CONT TO MONITOR
--- NOTE | 2020-05-29 19:20 | NUR ---
ENDORSED PT TO FINGER GRIP MACHINE OPERATOR NURSE FOR CONTINUOUS OF CARE.
--- NOTE | 2020-05-29 19:25 | NUR ---
ASSUMED CARE OF PT.INITIAL ASSESSMENT COMPLETED.SR ON MONITOR.ETT TO VENT AC/PRVC FIO2 65%, TV450 RATE 16 PEEP 8.W/KENZIE CATHETER TO RT IJ INTACT. WITH PICC LINE TO CHRIS.SEDATED RASS-3 VERSED 5 MG/HR AND FENTANYL DRIP 1.5 MCG/KG/HR;WITH OGT,5ML RESIDUAL NOTED INFUSING NEPRO AT 40ML/HR WITH WATER FLUSH ORDERED. WITH CERDA CATHETER TO BSD W/ SCANTY CLOUDY LIGHT KHAI URINE OUTPUT. WITH RECTAL TUBE IN PLACE DRAINING LOOSE WATERY STOOL,SMALLL AMT.MULTIPLE BLISTERS STILL NOTED AND OPEN BLISTER TO RT THIGH WITH DRESSING NOTED.FLACC 0.REPOSITIONED
--- NOTE | 2020-05-29 21:51 | NUR ---
SPECIMEN FOR KIM VIRUS PCR AND GEOVANNA COLLECTED AND SENT TO LAB
[2020-05-30] VITALS (29 sets, daily range): BP systolic 99–180; BP diastolic 45–85
[2020-05-30] MEDS: Z-GUARD PASTE TP SCH ×2 (00:35→13:32)
--- NOTE | 2020-05-30 00:47 | NUR ---
ORAL CARE USING VAP KIT RENDERED,PT REPOSITIONED.FLACC 0
--- NOTE | 2020-05-30 04:00 | NUR ---
PTS CONDITION REMAINS UNCHANGED.ORAL CARE RENDERED.REPOSITIONED.FLACC 0
[2020-05-30] MEDS: MIDAZOLAM MDV 100 MG in NACL 0.9% 80 ML IV PRN ×3 (04:06→21:13)
[2020-05-30] MEDS: BLOOD GLUCOSE MONITORING 1 DEV DEV FS SCH ×4 (06:17→21:00)
[2020-05-30] MEDS: INSULIN LISPRO SLIDING SCALE 100 UNITS/ML VIAL SUBQ PRN ×3 (06:18→23:05)
[2020-05-30 06:25] LABS: BASOPHILS # (AUTO) 0.1 K/uL (0.00-0.22); BASOPHILS % (AUTO) 0.5 % (0.0-2.0); EOSINOPHILS # (AUTO) 0.3 K/uL (0-0.4); EOSINOPHILS % (AUTO) 2.3 % (0.0-4.0); HEMATOCRIT 24.5 % (36-52); LYMPHOCYTES # (AUTO) 1.1 K/uL (2.0-11.5); LYMPHOCYTES % (AUTO) 7.5 % (20.5-51.1); MEAN CORPUSCULAR HEMOGLOBIN 30 pg (27-31); MEAN CORPUSCULAR HGB CONC 33 g/dL (33-37); MEAN CORPUSCULAR VOLUME 92.6 fL (80-94); MONOCYTES # (AUTO) 0.6 K/uL (0.8-1.0); MONOCYTES % (AUTO) 3.7 % (1.7-9.3); NEUTROPHILS # (AUTO) 12.7 K/uL (1.8-7.7); PLATELET COUNT (AUTO) 262 K/uL (140-450); RED BLOOD CELL COUNT(AUTO) 2.65 MIL/uL (4.20-6.10); RED CELL DISTRIBUTION WIDTH 16.2 % (11.6-13.7); WHITE BLOOD COUNT (AUTO) 14.8 K/uL (4.8-10.8)
[2020-05-30 06:39] LABS: ANION GAP 18.7 (8-16); CARBON DIOXIDE 23.1 mmol/L (21-32); POTASSIUM 3.8 mmol/L (3.5-5.1)
--- NOTE | 2020-05-30 06:41 | NUR ---
MORNING CARE DONE.
[2020-05-30 07:28] LABS: CREATININE 5.5 mg/dL (0.6-1.3)
--- NOTE | 2020-05-30 07:30 | NUR ---
RECEIVED REPORT FROM ZEV HOBBS, ETT TO VENT .OG FEEDING IN PROGRESS ON SEDATIN WITH FENTANYL AND VERSED IV DRIP.
--- NOTE | 2020-05-30 08:00 | NUR ---
SEEN BY DR. ROMAN MEJIA.
[2020-05-30] MEDS: INSULIN LANTUS 100 UNITS/ML 10 ML VIAL SUBQ SCH (09:00)
[2020-05-30] MEDS: DOCUSATE 100 MG/10 ML UDC GT SCH (09:23)
[2020-05-30] MEDS: ATORVASTATIN 20 MG TAB PO SCH (09:23)
[2020-05-30] MEDS: ASCORBIC ACID 500 MG TAB PO SCH (09:23)
[2020-05-30] MEDS: atenoloL 50 MG TAB PO SCH (09:23)
[2020-05-30] MEDS: SENNA 8.6 MG TAB PO SCH (09:23)
[2020-05-30] MEDS: POLYETHYLENE GLYCOL 17 GM/PKT PO SCH ×2 (09:23→21:06)
[2020-05-30] MEDS: PANTOPRAZOLE 40 MG INJ VIAL IVP SCH (09:23)
[2020-05-30] MEDS ORDERED: fentaNYL citrate 1 MG in NACL 0.9% 80 ML IV PRN (10:40)
--- NOTE | 2020-05-30 11:38 | NUR ---
SEEN BY CHAU VILLANUEVA ORDER RECEIVED, WILL HAVE HEMODIALYSIS IN AM.
[2020-05-30] MEDS: fentaNYL citrate - 50mL vial 2.5 MG in NACL 0.9% 200 ML IV PRN ×2 (11:44→21:19)
--- NOTE | 2020-05-30 12:29 | NUR ---
BECOME SOB R 40/MIN HR 109/MIN BP175/85. O2 SAT 84%
--- NOTE | 2020-05-30 12:30 | NUR ---
SEEN BY DR. COREA AT BED SIDE, ORDER RECEIVED .
[2020-05-30] MEDS ORDERED: LORazepam 2 MG/ML VIAL ONE (12:36)
--- NOTE | 2020-05-30 12:36 | NUR ---
ATIVAN 2MG IV P GIVEN ORDERED.
--- NOTE | 2020-05-30 13:00 | NUR ---
PT BREASTING BETTER HR 90 R 19 BP 143 /64.
--- NOTE | 2020-05-30 16:36 | NUR ---
PT DESATURATING. INCREASED PEEP TO +14 AND FI02 100%. SATURATION IMPROVED TO 94&. DR. COREA NOTIFIED. Addendum: 05/30/20 at 1639 by Eliazar Pool RT VENT CHANGES DONE AT 12:25
--- NOTE | 2020-05-30 19:30 | NUR ---
REPORT GIVED TO SOL HOBBS.
--- NOTE | 2020-05-30 20:00 | NUR ---
RECEIVED PATIENT IN SUPINE POSITION , ETT TO VENT WITH FIO2 100%, PEEP 14 , OG TUBE FEEDING WITH NEPRO AT 40 ML/HR, OHKamila EKNZIE CATHETER ACCESS FOR HD, CHRIS PICC LINE FOR ALL IV MEDICATION : VERSED 6 MG/HR, FENTANYL 2.1 MCG/KG/HR , CERDA CATHETER IN PLACE DRAINING TO GRAVITY, RECTAL TUBE IN PLACE FOR DIARRHEA. WILL CONTINUE TO MONITOR.
[2020-05-30] MEDS: PIPERACILLIN/TAZOBACTAM 3.375 GM in DEXTROSE 5% 50 ML IV SCH (21:41)
--- NOTE | 2020-05-30 22:00 | NUR ---
BLOOD SUGAR CHECKED , 2 UNITS OF HUMALOG SQ GIVEN ORDERED.
[2020-05-31] VITALS (30 sets, daily range): BP systolic 89–151; BP diastolic 20–76
[2020-05-31] MEDS: Z-GUARD PASTE TP SCH ×2 (01:51→13:25)
--- NOTE | 2020-05-31 03:36 | NUR ---
FENTANYL TITRATE TO 1.5 MCG/KG/HR. SBP KEEP TO ABOVE 100. PATIENT TOLERATE WELL WITH VENT SETTING,
--- NOTE | 2020-05-31 04:53 | NUR ---
REPOSITION Q2H TO KEEP SKIN CLEAN AND DRY , GOOD SKIN CARE AND ORAL CARE PROVIDED, BARRIER CREAM APPLIED TO PERINEAL AND COCCYX AREA, OPTIFORM IS ON.
[2020-05-31 06:09] LABS: BASOPHILS # (AUTO) 0.1 K/uL (0.00-0.22); BASOPHILS % (AUTO) 0.8 % (0.0-2.0); EOSINOPHILS # (AUTO) 0.7 K/uL (0-0.4); EOSINOPHILS % (AUTO) 5.3 % (0.0-4.0); HEMATOCRIT 22.5 % (36-52); HEMOGLOBIN 7.3 g/dL (12.0-18.0); LYMPHOCYTES # (AUTO) 1.7 K/uL (2.0-11.5); LYMPHOCYTES % (AUTO) 11.9 % (20.5-51.1); MEAN CORPUSCULAR HEMOGLOBIN 30 pg (27-31); MEAN CORPUSCULAR HGB CONC 33 g/dL (33-37); MONOCYTES # (AUTO) 0.4 K/uL (0.8-1.0); MONOCYTES % (AUTO) 2.6 % (1.7-9.3); NEUTROPHILS # (AUTO) 11.1 K/uL (1.8-7.7); NEUTROPHILS % (AUTO) 79.4 % (42.2-75.2); PLATELET COUNT (AUTO) 247 K/uL (140-450); RED BLOOD CELL COUNT(AUTO) 2.42 MIL/uL (4.20-6.10); RED CELL DISTRIBUTION WIDTH 16.7 % (11.6-13.7)
[2020-05-31] MEDS: INSULIN LISPRO SLIDING SCALE 100 UNITS/ML VIAL SUBQ PRN ×3 (06:21→22:17)
[2020-05-31] MEDS: BLOOD GLUCOSE MONITORING 1 DEV DEV FS SCH ×4 (06:21→21:00)
[2020-05-31 06:29] LABS: ANION GAP 17.2 (8-16); CARBON DIOXIDE 23.7 mmol/L (21-32); POTASSIUM 3.9 mmol/L (3.5-5.1)
[2020-05-31 06:47] LABS: CREATININE 6.5 mg/dL (0.6-1.3)
--- NOTE | 2020-05-31 07:10 | NUR ---
PATIENT HAS A DIARRHEA, CHANGED TO PRONE POSITION , CHANGED ALL LINENS , GOOD SKIN CARE GIVEN, REPORT GIVEN TO SUN. Addendum: 05/31/20 at 0713 by [employer] HOBBS RN WRONG PATIENT,
--- NOTE | 2020-05-31 07:13 | NUR ---
PATIENT HAS RECTAL TUBE, REPORT GIVEN TO SUN.
[2020-05-31] MEDS: DOCUSATE 100 MG/10 ML UDC GT SCH (08:28)
[2020-05-31] MEDS: PIPERACILLIN/TAZOBACTAM 3.375 GM in DEXTROSE 5% 50 ML IV SCH ×2 (08:29→20:27)
[2020-05-31] MEDS: ATORVASTATIN 20 MG TAB PO SCH (08:30)
[2020-05-31] MEDS: SENNA 8.6 MG TAB PO SCH (08:31)
[2020-05-31] MEDS: atenoloL 50 MG TAB PO SCH (08:31)
[2020-05-31] MEDS: POLYETHYLENE GLYCOL 17 GM/PKT PO SCH ×2 (08:31→20:26)
[2020-05-31] MEDS: ASCORBIC ACID 500 MG TAB PO SCH (08:32)
[2020-05-31] MEDS: INSULIN LANTUS 100 UNITS/ML 10 ML VIAL SUBQ SCH (09:00)
--- NOTE | 2020-05-31 09:00 | NUR ---
HD START, WA TOLERATED WELL,
--- NOTE | 2020-05-31 10:25 | NUR ---
REPORT GIVE TO ANGEL HOBBS.
--- NOTE | 2020-05-31 11:56 | NUR ---
05/31/20 RD FOLLOW UP COMPLETED. PLEASE REFER TO NUTRITION ASSESSMENT UNDER CARE ACTIVITY FOR ESTIMATED NUTRITIONAL NEEDS. 1. CONTINUE NEPRO 1.8 @ 340 ML/HR X 24 HOURS WITH PROSOURCE BID 2. CONT. FREE WATER FLUSH OF 100 ML Q6H 3. CONTINUE VITAMIN C SUPPLEMENTATION 4. RD TO FOLLOW-UP 2-3 DAYS, HIGH RISK QUYEN ARREAGA, RD
--- NOTE | 2020-05-31 12:30 | NUR ---
HD COMPLETED 1600 FLUID REMOVED VITAL SIGN WITH IN NORMAL LIMIT.
[2020-05-31] MEDS: PROPOFOL 1000 MG/100 ML PREMIX 100 ML IV PRN (17:30)
--- NOTE | 2020-05-31 19:30 | NUR ---
RECEIVED PATIENT IN SUPINE POSITION , ETT TO VENT WITH FIO2 90%, PEEP 14, OG FEEDING WITH NEPRO AT 40 ML/HR, S/P HD TODAY -ACCESS AT RIGHT IJ KENZIE CATHETER , DRESSING INTACT, CHRIS PICC LINE - RUNNING ALL IV MEDICATION : VERSED 6 MG/HR, FENTANYL 2 MCG/KG/HR, SITE IS CLEAR, CERDA CATHER IN PLACE, DRAINING TO GRAVITY ,RECTAL TUBE IN PLACE. WILL CONTINUE TO MONITOR.
--- NOTE | 2020-05-31 19:35 | NUR ---
HG 7.3 HCT 22.5, NA 133 RENAL MD AWARE PER DAY SHIFT NURSE AND RENAL MD'S NOTES.
[2020-05-31] MEDS: MIDAZOLAM MDV 100 MG in NACL 0.9% 80 ML IV PRN (20:34)
--- NOTE | 2020-05-31 23:00 | NUR ---
BLOOD SUGAR CHECKED AND HUMALOG 6 UNIT SQ GIVEN PER SLIDING SCALE FOR BS 262.
[2020-06-01] VITALS (30 sets, daily range): BP systolic 112–194; BP diastolic 54–95
[2020-06-01] MEDS: Z-GUARD PASTE TP SCH ×3 (01:00→23:28)
--- NOTE | 2020-06-01 01:54 | NUR ---
TURN AND REPOSITION Q2H TO KEEP SKIN CLEAN AND DRY , SOME STOOL LEAKING FROKM RECTAL TUBE, BARRIER CREAM APPLIED , GOOD SKIN CARE AND ORAL CARE GIVEN. WILL CONTINUE TO MONITOR.
--- NOTE | 2020-06-01 04:57 | NUR ---
SBP 170-180'S , PAGED DR CROEA.
--- NOTE | 2020-06-01 05:40 | NUR ---
REPOSITION BP CUFF, SBP 134, BLOOD SUGAR CHECKED , BS 279 , NO HUMALOG AVAILABLE AT THIS TIME, CHARGE NURSE AWARE , PHARMACY IS CLOSED , WILL ENDORSE TO ONCOMING NURSE.
[2020-06-01 06:09] LABS: BASOPHILS # (AUTO) 0.1 K/uL (0.00-0.22); BASOPHILS % (AUTO) 0.4 % (0.0-2.0); EOSINOPHILS % (AUTO) 0.2 % (0.0-4.0); HEMATOCRIT 23.4 % (36-52); HEMOGLOBIN 7.6 g/dL (12.0-18.0); LYMPHOCYTES % (AUTO) 7.4 % (20.5-51.1); MEAN CORPUSCULAR HEMOGLOBIN 30 pg (27-31); MEAN CORPUSCULAR HGB CONC 33 g/dL (33-37); MEAN CORPUSCULAR VOLUME 92.6 fL (80-94); MONOCYTES # (AUTO) 0.5 K/uL (0.8-1.0); MONOCYTES % (AUTO) 3.8 % (1.7-9.3); NEUTROPHILS % (AUTO) 88.2 % (42.2-75.2); PLATELET COUNT (AUTO) 252 K/uL (140-450); RED BLOOD CELL COUNT(AUTO) 2.52 MIL/uL (4.20-6.10); RED CELL DISTRIBUTION WIDTH 16.1 % (11.6-13.7); WHITE BLOOD COUNT (AUTO) 13.6 K/uL (4.8-10.8)
[2020-06-01] MEDS: BLOOD GLUCOSE MONITORING 1 DEV DEV FS SCH ×4 (06:40→23:26)
[2020-06-01] MEDS: INSULIN LISPRO SLIDING SCALE 100 UNITS/ML VIAL SUBQ PRN ×4 (06:42→23:27)
[2020-06-01] MEDS: fentaNYL citrate - 50mL vial 2.5 MG in NACL 0.9% 200 ML IV PRN ×2 (06:53→21:02)
--- NOTE | 2020-06-01 07:25 | NUR ---
RECEIVED BEDSIDE REPORT FROM NURSE ASSESSOR NURSE SOL RN, PT SEDATED RASS -3. DRY WEIGHT 95.3KG. PT ON ETT TO VENT AC/PRVC FIO2 80%, RATE 16, PEEP 14, SATURATING @ 96%, NO SOB NOTED, EQUAL BILATERAL CHEST RISE, PICC LINE TO R UPPER ARM, PATENT INTACT, INFUSING VERSED @ 6MG/HR, FENTANYL @ 2MCG/KG/HR, INFUSING WELL, R IJ DIALYSIS CATH IN PLACE DRESSINGS CLEAN DRY AND INTACT. OGT IN PLACE WITH FEEDING NEPRO @40ML/HR, TOLERATING WELL, CERDA CATH IN PLACE DRAINING TO GRAVITY, RECTAL TUBE IN PLACE DRAINING TO GRAVITY, INITIAL ASSESSMENT DONE, ALL SAFETY PRECAUTIONS MET, CALL LIGHT WITHIN REACH, WILL CONTINUE TO MONITOR.
[2020-06-01] MEDS: DOCUSATE 100 MG/10 ML UDC GT SCH (08:34)
[2020-06-01] MEDS: ATORVASTATIN 20 MG TAB PO SCH (08:35)
[2020-06-01] MEDS: atenoloL 50 MG TAB PO SCH (08:35)
[2020-06-01] MEDS: ASCORBIC ACID 500 MG TAB PO SCH (08:36)
[2020-06-01] MEDS: SENNA 8.6 MG TAB PO SCH (08:36)
[2020-06-01] MEDS: POLYETHYLENE GLYCOL 17 GM/PKT PO SCH ×2 (08:36→20:55)
[2020-06-01] MEDS: PIPERACILLIN/TAZOBACTAM 3.375 GM in DEXTROSE 5% 50 ML IV SCH ×2 (08:37→20:55)
[2020-06-01] MEDS: LANSOPRAZOLE 30 MG CAPDR GT SCH (08:37)
--- NOTE | 2020-06-01 08:37 | NUR ---
DUE MEDICATIONS ADMINISTERED, PT TOLERATED WELL, WILL CONTINUE TO MONITOR.
[2020-06-01 08:42] LABS: ANION GAP 17.3 (8-16); CARBON DIOXIDE 24.8 mmol/L (21-32); POTASSIUM 4.1 mmol/L (3.5-5.1)
[2020-06-01 08:49] LABS: CREATININE 5.5 mg/dL (0.6-1.3)
[2020-06-01] MEDS: INSULIN LANTUS 100 UNITS/ML 10 ML VIAL SUBQ SCH (08:55)
[2020-06-01] MEDS ORDERED: PANTOPRAZOLE 40 MG TABEC PO SCH (09:00)
[2020-06-01] MEDS ORDERED: NACL 0.9% 500 ML IV SCH (09:45)
--- NOTE | 2020-06-01 11:15 | NUR ---
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 BILATERAL INNER BUTTOCKS BLISTERING WITH CLEAR FLUIDS SKIN INTACT, VERSATEL DRESSING IN PLACE. CONTINUE OFFLOADING AND KEEP AREA DRY AND CLEAN. WILL CONTINUE SAME INTERVENTIONS
[2020-06-01] MEDS ORDERED: BLOOD GLUCOSE MONITORING 1 DEV DEV FS SCH (11:52)
--- NOTE | 2020-06-01 12:42 | NUR ---
DUE MEDICATIONS ADMINISTERED, PT TOLERATED WELL, WILL CONTINUE TO MONITOR.
[2020-06-01] MEDS: MIDAZOLAM MDV 100 MG in NACL 0.9% 80 ML IV PRN (15:32)
--- NOTE | 2020-06-01 18:54 | NUR ---
DUE MEDICATIONS ADMINISTERED PT TOLERATED WELL, WILL CONTINUE TO MONITOR.
--- NOTE | 2020-06-01 19:18 | NUR ---
ENDORSED PT TO COMMERCIAL FIELD INSPECTOR NURSE FOR CONTINUOUS OF CARE.
--- NOTE | 2020-06-01 19:58 | NUR ---
RECEIVED PATIENT IN SUPINE POSITION, ETT TO VENT WITH FIO2 75% PEEP 14, OG TUBE FEEDING WITH NEPRO AT 40 ML/HR, RIKamila KENZIE CATHETER ACCESS FOR HD, CHRIS PICC LINE ACCESS FOR ALL IV MEDICATION, IV DRIP: VERSED 6 MG/HR, FENTANYL 2.0 MCG/KG/HR CERDA CATHETER IS IN PLACE , DRAINING TO GRAVITY, RECTAL TUBE IN PLACE, WILL CONTINUOUS OF CARE.
[2020-06-02] VITALS (29 sets, daily range): BP systolic 79–171; BP diastolic 43–81
[2020-06-02 05:12] LABS: CARBON DIOXIDE 23.3 mmol/L (21-32); POTASSIUM 4.3 mmol/L (3.5-5.1)
[2020-06-02 05:20] LABS: MAGNESIUM 2.6 mg/dL (1.8-2.4); PHOSPHORUS 6.3 mg/dL (2.5-4.9)
[2020-06-02 05:28] LABS: CREATININE 6.3 mg/dL (0.6-1.3)
[2020-06-02] MEDS: BLOOD GLUCOSE MONITORING 1 DEV DEV FS SCH ×3 (05:50→18:00)
[2020-06-02] MEDS: INSULIN LISPRO SLIDING SCALE 100 UNITS/ML VIAL SUBQ PRN ×2 (05:55→12:57)
--- NOTE | 2020-06-02 06:30 | NUR ---
RECEIVED A CALL FROM LAB, BS 440 . ACCUCHECK DONE BS 419 , 10 UNIT OF HUMALOG SQ GIVEN ORDERED , WILL ENDORSE TO ONCOMING NURSE PER CHARGE NURSE.
[2020-06-02 06:42] LABS: BASOPHILS % (AUTO) 0.3 % (0.0-2.0); EOSINOPHILS % (AUTO) 0.1 % (0.0-4.0); HEMATOCRIT 23.7 % (36-52); HEMOGLOBIN 7.7 g/dL (12.0-18.0); LYMPHOCYTES # (AUTO) 0.6 K/uL (2.0-11.5); LYMPHOCYTES % (AUTO) 4.4 % (20.5-51.1); MEAN CORPUSCULAR HEMOGLOBIN 30 pg (27-31); MEAN CORPUSCULAR HGB CONC 32 g/dL (33-37); MEAN CORPUSCULAR VOLUME 93.4 fL (80-94); MONOCYTES # (AUTO) 0.5 K/uL (0.8-1.0); MONOCYTES % (AUTO) 3.5 % (1.7-9.3); NEUTROPHILS # (AUTO) 12.4 K/uL (1.8-7.7); NEUTROPHILS % (AUTO) 91.7 % (42.2-75.2); PLATELET COUNT (AUTO) 286 K/uL (140-450); RED BLOOD CELL COUNT(AUTO) 2.54 MIL/uL (4.20-6.10); RED CELL DISTRIBUTION WIDTH 16.2 % (11.6-13.7); WHITE BLOOD COUNT (AUTO) 13.5 K/uL (4.8-10.8)
--- NOTE | 2020-06-02 07:20 | NUR ---
RECEIVED REPORT FROM SOL HOBBS. TRACH TO VENT SETTING ACPC RATE 16 FIO2 90% PEEP 14 .IV HAS PICC RT UPPER ARM IN FUSSING FENTANYL AND VERSED FOR SEDATION .
--- NOTE | 2020-06-02 09:00 | NUR ---
HOLD THE TENORMINDUE TO LOW B/P. PT. HAVING HEMODIALYSIS.
[2020-06-02] MEDS: DOCUSATE 100 MG/10 ML UDC GT SCH (09:13)
[2020-06-02] MEDS: LANSOPRAZOLE 30 MG CAPDR GT SCH (09:13)
[2020-06-02] MEDS: PIPERACILLIN/TAZOBACTAM 3.375 GM in DEXTROSE 5% 50 ML IV SCH ×2 (09:14→20:08)
[2020-06-02] MEDS: ATORVASTATIN 20 MG TAB PO SCH (09:17)
[2020-06-02] MEDS: ASCORBIC ACID 500 MG TAB PO SCH (09:18)
[2020-06-02] MEDS: POLYETHYLENE GLYCOL 17 GM/PKT PO SCH ×2 (09:18→20:07)
[2020-06-02] MEDS: SENNA 8.6 MG TAB PO SCH (09:18)
[2020-06-02] MEDS: INSULIN LANTUS 100 UNITS/ML 10 ML VIAL SUBQ SCH (09:20)
--- NOTE | 2020-06-02 10:00 | NUR ---
Jimena JONES REMOVED 2000 ML.
--- NOTE | 2020-06-02 12:00 | NUR ---
BLOOD GLUCOSE 276 INSULIN GIVEN ORDERED.
[2020-06-02] MEDS: Z-GUARD PASTE TP SCH (13:00)
[2020-06-02] MEDS: atenoloL 50 MG TAB PO SCH (13:00)
--- NOTE | 2020-06-02 18:00 | NUR ---
BLOOD GLUCOSE 337 INSULIN GIVEN ORDERED.
--- NOTE | 2020-06-02 19:30 | NUR ---
REPORT GIVED TO SOL HOBBS.
--- NOTE | 2020-06-02 19:36 | NUR ---
RECEIVED PATIENT FROM AM SHIFT. PATIENT WAS SEEN AND ASSESSED. FOUND PT IN SUPINE POSITION. PATIENT IS INTUBATED WITH ETT SIZE 8.0 AND SECURED WITH ANCHOR-FAST AT 23cm. PATIENT IS ON VENT SETTINGS: AC/PRVC RR 16, VT 450, PEEP 14, FiO2 1000% WITH SPO2 OF 97%. AMBU BAG AT BEDSIDE. VENT IS PLUGGED IN RED OUTLET. ALARMS SET AND AUDIBLE TO ENVIRONMENT. SUCTIONED SMALL AMOUNT OF YELLOW THIN SECRETIONS FROM ETT. AIRWAY IS PATENT. AUSCULTATION REVEALS BILATERAL RALES BREATH SOUNDS. PATIENT IS IN NO APPARENT RESPIRATORY DISTRESS AT THIS TIME. PRN TX NOT INDICATED AT THIS TIME. WILL CONTINUE TO MONITOR PATIENT.
--- NOTE | 2020-06-02 20:00 | NUR ---
RECEIVED PATIENT IN SUPINE POSITION , ETT TO VENT WITH FIO2 80%, PEEP 14 , TOLERATE SETTING AT THIS TIME. OG TUBE FEEDING WITH NEPRO AT 40 ML/HR, CHRIS PICC LINE ACCESS TO ALL IV MEDICATION - VERSED 5 MG/HR, FENTANYL 2.0 MCG/KG/HR, SITE IS CLEAR , RIJ DRESSING INTACT -ACCESS TO HEMODIALYSIS, CERDA CATH IN PLACE AND DRAINING TO GRAVITY. RECTAL TUBE IN PLACE, WILL CONTINUE TO MONITOR.
--- NOTE | 2020-06-02 23:25 | NUR ---
ACCUCHECK DONE , 2 UNIT OF HUMALOG SQ GIVEN ORDERED.
--- NOTE | 2020-06-02 23:54 | NUR ---
TITRATED FiO2 TO 70%. SPO2 94%. PT TOLERATING WELL RN NOTIFIED. WILL CONTINUE TO MONITOR PT.
[2020-06-03] VITALS (28 sets, daily range): BP systolic 102–167; BP diastolic 55–86
[2020-06-03] MEDS: BLOOD GLUCOSE MONITORING 1 DEV DEV FS SCH ×5 (00:10→23:09)
[2020-06-03] MEDS: Z-GUARD PASTE TP SCH ×2 (00:10→12:44)
[2020-06-03] MEDS: INSULIN LISPRO SLIDING SCALE 100 UNITS/ML VIAL SUBQ PRN ×5 (00:12→23:10)
[2020-06-03] MEDS: fentaNYL citrate - 50mL vial 2.5 MG in NACL 0.9% 200 ML IV PRN ×2 (00:12→16:01)
--- NOTE | 2020-06-03 05:00 | NUR ---
TURN AND REPOSITION Q2H TO KEEP SKIN CLEAN AND DRY, SKIN CARE AND ORAL CARE PROVIDED,BARRIER CREAM APPLIED TO PERINEAL AREA.
[2020-06-03 05:22] LABS: MAGNESIUM 3.5 mg/dL (1.8-2.4); PHOSPHORUS 5.3 mg/dL (2.5-4.9)
[2020-06-03 05:23] LABS: BASOPHILS # (AUTO) 0.1 K/uL (0.00-0.22); BASOPHILS % (AUTO) 0.4 % (0.0-2.0); EOSINOPHILS % (AUTO) 0.1 % (0.0-4.0); HEMATOCRIT 22.9 % (36-52); HEMOGLOBIN 7.4 g/dL (12.0-18.0); LYMPHOCYTES # (AUTO) 0.8 K/uL (2.0-11.5); MEAN CORPUSCULAR HEMOGLOBIN 30 pg (27-31); MEAN CORPUSCULAR HGB CONC 32 g/dL (33-37); MEAN CORPUSCULAR VOLUME 93.4 fL (80-94); MONOCYTES # (AUTO) 0.8 K/uL (0.8-1.0); MONOCYTES % (AUTO) 4.9 % (1.7-9.3); NEUTROPHILS # (AUTO) 14.4 K/uL (1.8-7.7); NEUTROPHILS % (AUTO) 89.6 % (42.2-75.2); PLATELET COUNT (AUTO) 284 K/uL (140-450); RED BLOOD CELL COUNT(AUTO) 2.45 MIL/uL (4.20-6.10); RED CELL DISTRIBUTION WIDTH 16.1 % (11.6-13.7); WHITE BLOOD COUNT (AUTO) 16.1 K/uL (4.8-10.8)
[2020-06-03 05:28] LABS: ANION GAP 18.1 (8-16); CARBON DIOXIDE 21.3 mmol/L (21-32); POTASSIUM 4.4 mmol/L (3.5-5.1)
[2020-06-03 06:12] LABS: CREATININE 5.3 mg/dL (0.6-1.3)
--- NOTE | 2020-06-03 06:12 | NUR ---
ABNORMAL LAB RESULTS REPORTED TO PRIMARY RN AT THIS TIME FOR FOLLOW UP WITH MD.
--- NOTE | 2020-06-03 06:17 | NUR ---
BUN 96 CREAT 5.3 GLUCOSE 472 , PATIENT IS ON HEMODIALYSIS , MD AWARE, 10 UNITS OF INSULIN GIVEN ORDERED. WILL ENDORSE TO ONCOMING NURSE.
--- NOTE | 2020-06-03 06:50 | NUR ---
CHARGE NURSE SPOKE TO DR GOLDMAN OVER THE PHONE , ADDITIONAL 4 UNIT OF HUMALOG SQ GIVEN ORDERED.
--- NOTE | 2020-06-03 06:55 | NUR ---
ALL SCANNER IS NOT WORKING IN ICU, SOME MEDS NOT SCAN. CHARGE NURSE AWARE.
[2020-06-03] MEDS ORDERED: INSULIN LISPRO 100 UNITS/ML VIAL SUBQ SCH (07:15)
--- NOTE | 2020-06-03 07:25 | NUR ---
RECEIVED BEDSIDE REPORT FROM LECTURER OF PORTUGUESE NURSE SOL RN, PT SEDATED RASS -3. IN DRY WEIGHT 95.3KG. PT ON ETT TO VENT AC/PRVC FIO2 70%, TV 450,RATE 16, PEEP 14, SATURATING @ 96%, NO SOB NOTED, EQUAL BILATERAL CHEST RISE AND FALL, PICC LINE TO R UPPER ARM, PATENT INTACT, INFUSING VERSED @ 5MG/HR, FENTANYL @ 1.5MCG/KG/HR, INFUSING WELL, R IJ DIALYSIS CATH IN PLACE DRESSINGS CLEAN DRY AND INTACT. OGT IN PLACE WITH FEEDING NEPRO @40ML/HR, TOLERATING WELL, CERDA CATH IN PLACE DRAINING MINIMAL URINE TO GRAVITY, RECTAL TUBE IN PLACE DRAINING TO GRAVITY, INITIAL ASSESSMENT DONE, ALL SAFETY PRECAUTIONS MET, CALL LIGHT WITHIN REACH, WILL CONTINUE TO MONITOR.
[2020-06-03] MEDS: DOCUSATE 100 MG/10 ML UDC GT SCH (08:37)
[2020-06-03] MEDS: POLYETHYLENE GLYCOL 17 GM/PKT PO SCH ×2 (08:38→20:11)
[2020-06-03] MEDS: SENNA 8.6 MG TAB PO SCH (08:38)
[2020-06-03] MEDS: ATORVASTATIN 20 MG TAB PO SCH (08:38)
[2020-06-03] MEDS: PIPERACILLIN/TAZOBACTAM 3.375 GM in DEXTROSE 5% 50 ML IV SCH ×2 (08:38→20:11)
[2020-06-03] MEDS: ASCORBIC ACID 500 MG TAB PO SCH (08:39)
[2020-06-03] MEDS: LANSOPRAZOLE 30 MG CAPDR GT SCH (08:40)
[2020-06-03] MEDS: atenoloL 50 MG TAB PO SCH (08:40)
--- NOTE | 2020-06-03 08:41 | NUR ---
AM MEDS GIVEN, ATENOLOL HELD FOR INTERMITTENT HYPOTENTION [facility]
[2020-06-03] MEDS: INSULIN LANTUS 100 UNITS/ML 10 ML VIAL SUBQ SCH (09:09)
[2020-06-03] MEDS: MIDAZOLAM MDV 100 MG in NACL 0.9% 80 ML IV PRN (10:05)
--- NOTE | 2020-06-03 13:36 | NUR ---
DIALYSIS NURSE IMMANUEL NOTIFIED OF HD ORDER FOR TOMORROW (06/04/2020)
--- NOTE | 2020-06-03 14:37 | NUR ---
06/03/20 RD FOLLOW UP COMPLETED. PLEASE REFER TO NUTRITION ASSESSMENT UNDER CARE ACTIVITY FOR ESTIMATED NUTRITIONAL NEEDS. 1. CONTINUE NEPRO 1.8 @ 40 ML/HR X 24 HOURS WITH PROSOURCE BID 2. CONT. FREE WATER FLUSH OF 100 ML Q6H 3. CONTINUE VITAMIN C SUPPLEMENTATION 4. RD TO FOLLOW-UP 2-3 DAYS, HIGH RISK QUYEN ARREAGA, RD
--- NOTE | 2020-06-03 17:20 | NUR ---
BED BATH GIVEN, CERDA CARE DONE, CHG WIPE DONE, ORAL CARE DONE,
--- NOTE | 2020-06-03 19:30 | NUR ---
ASSUMED CARE OF PT.INITIAL ASSESSMENT COMPLETED.SR ON MONITOR.ORALLY INTUBATED TO VENT AC/PRVC FIO2 60%, TV450 RATE 16 PEEP 14.W/KENZIE CATHETER TO RT IJ INTACT DRY AND INTACT DRESSING. WITH PICC LINE TO CHRIS FLUSHED; W/GOOD BLOOD RETURN TO BOTH PORTS.SEDATED RASS-3 VERSED 5 MG/HR AND FENTANYL DRIP 2 MCG/KG/HR;WITH OGT,NO RESIDUAL NOTED INFUSING NEPRO AT 40ML/HR WITH WATER FLUSH ORDERED. WITH CERDA CATHETER TO BSD W/ SCANTY CLOUDY LIGHT KHAI URINE OUTPUT. WITH RECTAL TUBE IN PLACE DRAINING LOOSE WATERY STOOL,SMALLL AMT.MULTIPLE OPEN BLISTERS STILL NOTED AND OPEN BLISTER TO RT THIGH WITH DRESSING NOTED.FLACC 0.REPOSITIONED
--- NOTE | 2020-06-03 20:00 | NUR ---
ORAL CARE USING VAP KIT RENDERED.PT ON PREVACID FOR GI PROPHYLAXIS AND HEPARIN FOR DVT PROPHYLAXIS.FLACC 0
--- NOTE | 2020-06-03 20:05 | NUR ---
RECEIVED PATIENT FROM AM SHIFT. PATIENT WAS SEEN AND ASSESSED. FOUND PT IN SUPINE POSITION. PATIENT IS INTUBATED WITH ETT SIZE 8.0 AND SECURED WITH ANCHOR-FAST AT 23cm. PATIENT IS ON VENT SETTINGS: AC/PRVC RR 16, VT 450, PEEP 14, FiO2 60% WITH SPO2 OF 97%. AMBU BAG AT BEDSIDE. VENT IS PLUGGED IN RED OUTLET. ALARMS SET AND AUDIBLE TO ENVIRONMENT. SUCTIONED SMALL AMOUNT OF YELLOW THICK SECRETIONS FROM ETT. AIRWAY IS PATENT. AUSCULTATION REVEALS BILATERAL RALES BREATH SOUNDS. PATIENT IS IN NO APPARENT RESPIRATORY DISTRESS AT THIS TIME. WILL CONTINUE TO MONITOR PATIENT.
--- NOTE | 2020-06-03 23:31 | NUR ---
BS 285; INSULIN COVERAGE ADMINISTERED VERIFIED W/ANJEL ESQUIVEL
--- NOTE | 2020-06-03 23:53 | NUR ---
TITRATED PEEP FROM 14 cmH20 TO 13 cmH20. PT TOLERATING WELL. RN NOTIFIED. WILL CONTINUE TO MONITOR PT.
[2020-06-04] VITALS (34 sets, daily range): BP systolic 65–168; BP diastolic 46–87
--- NOTE | 2020-06-04 00:45 | NUR ---
PT REPOSITIONED.FLAAC 0.RASS -3 MAINTAINED
[2020-06-04] MEDS: Z-GUARD PASTE TP SCH ×2 (01:00→13:00)
--- NOTE | 2020-06-04 02:00 | NUR ---
PTS CONDITION REMAINS UNCHANGED.PT SEDATED ON VERSED AND FENTANYL DRIPS RASS -3.
--- NOTE | 2020-06-04 03:50 | NUR ---
TITRATED PEEP FROM 13 cmH20 TO 12 cmH20. SPO2 98%. PT TOLERATING WELL. RN NOTIFIED. WILL CONTINUE TO MONITOR PT.
--- NOTE | 2020-06-04 05:30 | NUR ---
MORNING CARE DONE.ORAL CARE RENDERED.FLACC 0.REPOSITIONED
[2020-06-04] MEDS: INSULIN LISPRO SLIDING SCALE 100 UNITS/ML VIAL SUBQ PRN ×3 (05:57→18:27)
[2020-06-04] MEDS: BLOOD GLUCOSE MONITORING 1 DEV DEV FS SCH ×3 (05:57→18:27)
[2020-06-04] MEDS: fentaNYL citrate - 50mL vial 2.5 MG in NACL 0.9% 200 ML IV PRN ×2 (07:05→22:52)
--- NOTE | 2020-06-04 07:20 | NUR ---
RECEIVED BEDSIDE REPORT FROM SALES ORDER ADMINISTRATOR NURSE , PT SEDATED RASS -3. DRY WEIGHT 95.3KG. ETT TO VENT AC/PRVC FIO2 60%, TV 450,RATE 16, PEEP 12, SATURATING 93%, NO SOB NOTED, EQUAL BILATERAL CHEST RISE AND FALL, PICC LINE TO R UPPER ARM, PATENT INTACT, INFUSING VERSED @ 5MG/HR, FENTANYL @ 2MCG/KG/HR, INFUSING WELL, R IJ DIALYSIS CATH IN PLACE DRESSINGS CLEAN DRY AND INTACT. OGT IN PLACE WITH FEEDING NEPRO @40ML/HR FWF 100/6H, TOLERATING WELL, CERDA CATH IN PLACE DRAINING MINIMAL URINE TO GRAVITY, RECTAL TUBE IN PLACE DRAINING TO GRAVITY, INITIAL ASSESSMENT DONE, ALL SAFETY MEASURES IN PLACE, PLAN OF CARE REVIEWED, WILL CONTINUE TO MONITOR.
[2020-06-04 07:35] LABS: MAGNESIUM 3.1 mg/dL (1.8-2.4)
[2020-06-04 07:36] LABS: CARBON DIOXIDE 22.1 mmol/L (21-32); POTASSIUM 4.1 mmol/L (3.5-5.1)
[2020-06-04] MEDS: DOCUSATE 100 MG/10 ML UDC GT SCH (07:53)
[2020-06-04] MEDS: PIPERACILLIN/TAZOBACTAM 3.375 GM in DEXTROSE 5% 50 ML IV SCH ×2 (07:56→20:59)
[2020-06-04] MEDS: POLYETHYLENE GLYCOL 17 GM/PKT PO SCH ×2 (07:57→21:00)
[2020-06-04] MEDS: atenoloL 50 MG TAB PO SCH (07:57)
[2020-06-04] MEDS: SENNA 8.6 MG TAB PO SCH (07:57)
[2020-06-04] MEDS: ATORVASTATIN 20 MG TAB PO SCH (07:57)
[2020-06-04] MEDS: ASCORBIC ACID 500 MG TAB PO SCH (07:58)
[2020-06-04] MEDS: INSULIN LANTUS 100 UNITS/ML 10 ML VIAL SUBQ SCH (07:59)
[2020-06-04 08:32] LABS: CREATININE 6.1 mg/dL (0.6-1.3)
--- NOTE | 2020-06-04 08:49 | NUR ---
AM MEDS GIVEN, NO RESIDUAL, PT WITH LOOSE STOOL LEAKING OUT OF RECTAL TUBE, PERICARE DONE.
[2020-06-04] MEDS: LANSOPRAZOLE 30 MG CAPDR GT SCH (09:00)
[2020-06-04] MEDS: FAMOTIDINE 20 MG TAB PO SCH (10:07)
[2020-06-04] MEDS: MIDAZOLAM MDV 100 MG in NACL 0.9% 80 ML IV PRN (11:12)
[2020-06-04 12:01] LABS: BASOPHILS # (AUTO) 0.2 K/uL (0.00-0.22); EOSINOPHILS # (AUTO) 0.4 K/uL (0-0.4); EOSINOPHILS % (AUTO) 1.7 % (0.0-4.0); HEMATOCRIT 25.3 % (36-52); HEMOGLOBIN 8.2 g/dL (12.0-18.0); LYMPHOCYTES # (AUTO) 1.3 K/uL (2.0-11.5); LYMPHOCYTES % (AUTO) 6.2 % (20.5-51.1); MEAN CORPUSCULAR HEMOGLOBIN 30 pg (27-31); MEAN CORPUSCULAR HGB CONC 32 g/dL (33-37); MEAN CORPUSCULAR VOLUME 92.3 fL (80-94); MONOCYTES # (AUTO) 0.6 K/uL (0.8-1.0); NEUTROPHILS # (AUTO) 18.6 K/uL (1.8-7.7); NEUTROPHILS % (AUTO) 88.1 % (42.2-75.2); PLATELET COUNT (AUTO) 274 K/uL (140-450); RED BLOOD CELL COUNT(AUTO) 2.75 MIL/uL (4.20-6.10); RED CELL DISTRIBUTION WIDTH 15.7 % (11.6-13.7); WHITE BLOOD COUNT (AUTO) 21.2 K/uL (4.8-10.8)
--- NOTE | 2020-06-04 13:15 | NUR ---
LEVO STARTED FOR HYPOTENSION DURING HD
--- NOTE | 2020-06-04 13:50 | NUR ---
HD COMPLETED, 2000ML TAKEN OUT PER DIALYSIS NURSE AMAIRANI
--- NOTE | 2020-06-04 14:15 | NUR ---
HD COMPLETED, 2000ML TAKEN OUT PER AMAIRANI DIALYSIS NURSE
--- NOTE | 2020-06-04 14:30 | NUR ---
LEVOPHED STOPPED NOW
--- NOTE | 2020-06-04 17:02 | NUR ---
BED BATH GIVEN, ORAL CARE DONE, CERDA REMOVED PER DR GOLDMAN,PERICARE DONE, RECTAL TUBE LEAKING, Z GURD APPLIED,
--- NOTE | 2020-06-04 19:20 | NUR ---
RECEIVED PATIENT ON BED WITH HOB ELEVATED TO 30 DEGREE; SEDATED WITH FENTANYL AND VERSED DRIP TO KEEP RASS-3. ORALLY INTUBATED AND VENTILATED AT 60% FIO2; CARDIACSCOPE SHOWS ON SINUS RHYTHM HR 95/MIN NO ARRHYTHMIAS SEEN. ABDOMEN IS SOFT, OBESE, BOWEL SOUNDS +. ON CONTINOUS TUBE FEEDING NEPRO AT 40 ML/HR VIA OGT; TOLERATED.
--- NOTE | 2020-06-04 19:37 | NUR ---
RECEIVED PATIENT FROM AM SHIFT. PATIENT WAS SEEN AND ASSESSED. FOUND PT IN SUPINE POSITION. PATIENT IS INTUBATED WITH ETT SIZE 8.0 AND SECURED WITH ANCHOR-FAST AT 23cm. PATIENT IS ON VENT SETTINGS: AC/PRVC RR 16, VT 450, PEEP 14, FiO2 60% WITH SPO2 OF 93%. AMBU BAG AT BEDSIDE. VENT IS PLUGGED IN RED OUTLET. ALARMS SET AND AUDIBLE TO ENVIRONMENT. SUCTIONED SMALL AMOUNT OF YELLOW THIN SECRETIONS FROM ETT. AIRWAY IS PATENT. AUSCULTATION REVEALS BILATERAL RALES BREATH SOUNDS. PATIENT IS IN NO APPARENT RESPIRATORY DISTRESS AT THIS TIME. WILL CONTINUE TO MONITOR PATIENT.
[2020-06-05] VITALS (30 sets, daily range): BP systolic 96–169; BP diastolic 54–87
[2020-06-05] MEDS: MIDAZOLAM MDV 100 MG in NACL 0.9% 80 ML IV PRN ×2 (00:39→16:07)
[2020-06-05] MEDS: INSULIN LISPRO SLIDING SCALE 100 UNITS/ML VIAL SUBQ PRN ×4 (00:51→18:43)
[2020-06-05] MEDS: BLOOD GLUCOSE MONITORING 1 DEV DEV FS SCH ×4 (00:52→18:00)
--- NOTE | 2020-06-05 01:16 | NUR ---
TITRATED FiO2 FROM 60% TO 80% DUE TO PT DESATURATING IN 70s. SPO2 92%. PT TOLERATING WELL. RN NOTIFIED. WILL CONTINUE TO MONITOR PT.
--- NOTE | 2020-06-05 02:00 | NUR ---
REPOSITIONED PATIENT INTO PRONE POSITION. Addendum: 06/05/20 at 0736 by Harper Scherer RN PROVIDER MISTAKE; WRONG ENTRY.
[2020-06-05] MEDS: Z-GUARD PASTE TP SCH ×2 (04:00→15:20)
--- NOTE | 2020-06-05 04:00 | NUR ---
MORNING BED BATH DONE; ORAL CARE DONE WITH VAP KIT.
[2020-06-05 06:38] LABS: HEMATOCRIT 24.6 % (36-52); MEAN CORPUSCULAR HEMOGLOBIN 30 pg (27-31); MEAN CORPUSCULAR HGB CONC 33 g/dL (33-37); MEAN CORPUSCULAR VOLUME 92.9 fL (80-94); PLATELET COUNT (AUTO) 255 K/uL (140-450); RED BLOOD CELL COUNT(AUTO) 2.64 MIL/uL (4.20-6.10); RED CELL DISTRIBUTION WIDTH 15.9 % (11.6-13.7)
[2020-06-05 07:40] LABS: WHITE BLOOD COUNT (AUTO) 27.1 K/uL (4.8-10.8)
--- NOTE | 2020-06-05 07:50 | NUR ---
CRITICAL LAB RECEIVED: WBC 27.1, CALLED DR CASTANEDA AND UPDATED ON PT CONDITION. PER , FOLLOW UP WITH DR GARCIA. CALLED DR GARCIA, AWAITING CALL BACK.
[2020-06-05 07:57] LABS: ALBUMIN 1.5 g/dL (3.4-5.0); ANION GAP 18.3 (8-16); CARBON DIOXIDE 21.4 mmol/L (21-32); MAGNESIUM 3.3 mg/dL (1.8-2.4); PHOSPHORUS 4.8 mg/dL (2.5-4.9); POTASSIUM 3.7 mmol/L (3.5-5.1); TOTAL BILIRUBIN 0.3 mg/dL (0.0-1.0)
--- NOTE | 2020-06-05 08:00 | NUR ---
RECEIVED BEDSIDE REPORT FROM GAMBLING MONITOR NURSE, RASS -3, PT IS ETT TO VENT AC PRVC FIO2 80%, TV 450, RATE 16, PEEP 12, SATURATING @ 95%. S1S2 NOTED UPON AUSCULTATION, PT HAS PT HAS CHRIS PICC LINE RUNNING VERSED 7MG/HR, FENTANYL 2 MCG/KG/HR AND IVF @ 5ML/HR. ASYMPTOMATIC AND PATENT. RT IJ, ASYMPTOMATIC. BOWEL SOUNDS ACTIVE IN ALL 4 QUADRANTS. OG-TUBE TO FEED, NEPRO RUNNING AT 40ML/HR, FWF: 100 Q6HR, RESIDUAL: 0ML. RECTAL TUBE IN PLACE, DRAINING TO GRAVITY. SKIN WARM DRY, SKIN: WOUND TO LT BUTTOCKS AND SKIN TEAR TO RT THIGH, AND WOUND TO TIP OF PENIS WITH WHITE DISCHARGE. SAFETY MEASURES IN PLACE, BED LOW AND LOCKED, SIDE RAILS UP, CALL LIGHT WITHIN REACH, WILL CONTINUE TO MONITOR.
[2020-06-05] MEDS: DOCUSATE 100 MG/10 ML UDC GT SCH (09:32)
[2020-06-05] MEDS: LANSOPRAZOLE 30 MG CAPDR GT SCH (09:33)
[2020-06-05] MEDS: POLYETHYLENE GLYCOL 17 GM/PKT PO SCH ×2 (09:34→21:00)
[2020-06-05] MEDS: FAMOTIDINE 20 MG TAB PO SCH (09:34)
[2020-06-05] MEDS: ASCORBIC ACID 500 MG TAB PO SCH (09:34)
[2020-06-05] MEDS: SENNA 8.6 MG TAB PO SCH (09:34)
[2020-06-05] MEDS: ATORVASTATIN 20 MG TAB PO SCH (09:34)
[2020-06-05] MEDS: INSULIN LANTUS 100 UNITS/ML 10 ML VIAL SUBQ SCH (09:39)
[2020-06-05] MEDS: PIPERACILLIN/TAZOBACTAM 3.375 GM in DEXTROSE 5% 50 ML IV SCH ×2 (09:41→20:35)
--- NOTE | 2020-06-05 10:00 | NUR ---
NO S/S OF DISTRESS NOTED, REPOSITIONED PT. SAFETY MEASURES IN PLACE, WILL CONT TO MONITOR
[2020-06-05] MEDS ORDERED: VANCOMYCIN PER PHARMACY MC PRN (10:40)
--- NOTE | 2020-06-05 11:45 | NUR ---
DR MULLER ON THE UNIT, UPDATED ON PT CONDITION. NO NEW ORDERS AT THIS TIME
[2020-06-05] MEDS ORDERED: VANCOMYCIN HCL 1.25 GM in DEXTROSE 5% 500 ML IV SCH (12:00)
[2020-06-05] MEDS: fentaNYL citrate - 50mL vial 2.5 MG in NACL 0.9% 200 ML IV PRN (12:06)
--- NOTE | 2020-06-05 12:25 | NUR ---
HD NURSE ON UNIT PREPARING FOR HD FOR THIS PT.
--- NOTE | 2020-06-05 13:00 | NUR ---
PTs B/P DROPPING, STARTED ON LEVOPHED DRIP PER MD ORDER.
--- NOTE | 2020-06-05 13:30 | NUR ---
PT's HEMODIALYSIS OUTPUT: 2L, PT STILL ON LEVOPHED DRIP. WILL CONT TO MONITOR CLOSELY Addendum: 06/05/20 at 2002 by Essence العراقي RN RN WRONG TIME
[2020-06-05 15:19] LABS: LYMPHOCYTES % (MANUAL) 2 % (20-46); MONOCYTES % (MANUAL) 1 % (5-12)
[2020-06-05 15:20] LABS: METAMYELOCYTES % 1 % (0-0); MYELOCYTES % 2 % (0-0)
--- NOTE | 2020-06-05 15:30 | NUR ---
PT's HEMODIALYSIS OUTPUT: 2L, PT STILL ON LEVOPHED DRIP. WILL CONT TO MONITOR CLOSELY
--- NOTE | 2020-06-05 16:30 | NUR ---
ROUTINE CARE GIVEN, CHG BATH, LUISA CARE, CLEAN LINEN AND BLANKETS, TURN AND REPOSITION PT. PT TOLERATED FEEDING WELL. RESIDUAL 0ML. SAFETY MEASURES IN PLACE, WILL CONT TO ASSESS.
--- NOTE | 2020-06-05 18:00 | NUR ---
PT's CONDITION REMAINS UNCHANGED, NO S/S OF DISTRESS NOTED, REPOSITIONED PT. SAFETY MEASURES IN PLACE, WILL CONT TO MONITOR
--- NOTE | 2020-06-05 19:20 | NUR ---
RECEIVED PATIENT ON BED; ORALLY INTUBATED AND VENTILATED AT 80% FIO2, AC PRVC MODE. SEDATED WITH VERSED AND FENTANYL DRIP INFUSING TO RIGHT UPPER ARM PICC LINE, TO KEEP RASS -3.CARDIACSCOPE SHOWS ON SINUS RHYTHM HR 98/MIN. ABDOMEN IS SOFT' HYPOACTIVE BOWEL SOUNDS. ON CONTINOUS TUBE FEEDING NEPRO AT 40 ML/HR VIA OGT; TOLERATED. RECTAL BAG IN PLACE, DRAINING TO LIQUID BROWN FOUL SMELLING STOOL.
[2020-06-06] VITALS (27 sets, daily range): BP systolic 104–173; BP diastolic 49–83
[2020-06-06] MEDS: INSULIN LISPRO SLIDING SCALE 100 UNITS/ML VIAL SUBQ PRN ×4 (01:13→23:17)
[2020-06-06] MEDS: fentaNYL citrate - 50mL vial 2.5 MG in NACL 0.9% 200 ML IV PRN ×2 (02:34→16:52)
[2020-06-06] MEDS: Z-GUARD PASTE TP SCH ×2 (04:00→13:00)
--- NOTE | 2020-06-06 04:00 | NUR ---
MORNING BED BATH DONE; WOUND CARE DONE. KEPT CLEAN DRY AND COMFORTABLE.
[2020-06-06] MEDS: MIDAZOLAM MDV 100 MG in NACL 0.9% 80 ML IV PRN (06:31)
[2020-06-06 06:35] LABS: BASOPHILS # (AUTO) 0.1 K/uL (0.00-0.22); BASOPHILS % (AUTO) 0.3 % (0.0-2.0); EOSINOPHILS # (AUTO) 0.1 K/uL (0-0.4); EOSINOPHILS % (AUTO) 0.5 % (0.0-4.0); HEMATOCRIT 32.2 % (36-52); HEMOGLOBIN 10.4 g/dL (12.0-18.0); LYMPHOCYTES # (AUTO) 0.9 K/uL (2.0-11.5); MEAN CORPUSCULAR HEMOGLOBIN 30 pg (27-31); MEAN CORPUSCULAR HGB CONC 32 g/dL (33-37); MEAN CORPUSCULAR VOLUME 92.9 fL (80-94); MONOCYTES # (AUTO) 0.4 K/uL (0.8-1.0); MONOCYTES % (AUTO) 2.5 % (1.7-9.3); NEUTROPHILS # (AUTO) 14.2 K/uL (1.8-7.7); NEUTROPHILS % (AUTO) 90.7 % (42.2-75.2); PLATELET COUNT (AUTO) 161 K/uL (140-450); RED BLOOD CELL COUNT(AUTO) 3.46 MIL/uL (4.20-6.10); RED CELL DISTRIBUTION WIDTH 16.9 % (11.6-13.7); WHITE BLOOD COUNT (AUTO) 15.7 K/uL (4.8-10.8)
[2020-06-06] MEDS: BLOOD GLUCOSE MONITORING 1 DEV DEV FS SCH ×5 (06:56→23:16)
[2020-06-06 07:07] LABS: ALBUMIN 1.4 g/dL (3.4-5.0); ANION GAP 15.8 (8-16); CARBON DIOXIDE 21.9 mmol/L (21-32); MAGNESIUM 1.9 mg/dL (1.8-2.4); PHOSPHORUS 4.6 mg/dL (2.5-4.9); POTASSIUM 3.7 mmol/L (3.5-5.1); TOTAL BILIRUBIN 0.3 mg/dL (0.0-1.0)
[2020-06-06 07:12] LABS: CREATININE 4.2 mg/dL (0.6-1.3)
[2020-06-06 07:36] LABS: MAGNESIUM 2.3 mg/dL (1.8-2.4); PHOSPHORUS 4.7 mg/dL (2.5-4.9)
--- NOTE | 2020-06-06 08:00 | NUR ---
RECEIVED BEDSIDE REPORT FROM SUGAR CONTROLLER NURSE, RASS -3, PT IS ETT TO VENT AC PRVC FIO2 60%, TV 450, RATE 16, PEEP 12, SATURATING @ 95%. S1S2 NOTED UPON AUSCULTATION, PT HAS PT HAS CHRIS PICC LINE RUNNING VERSED 5MG/HR, FENTANYL 2 MCG/KG/HR AND IVF @ 5ML/HR. ASYMPTOMATIC AND PATENT. RT IJ, ASYMPTOMATIC. BOWEL SOUNDS ACTIVE IN ALL 4 QUADRANTS. OG-TUBE TO FEED, NEPRO RUNNING AT 40ML/HR, FWF: 100 Q6HR, RESIDUAL: 10ML. RECTAL TUBE IN PLACE, DRAINING TO GRAVITY. SKIN WARM DRY, SKIN: WOUND TO LT BUTTOCKS AND SKIN TEAR TO RT THIGH, AND WOUND TO TIP OF PENIS. SAFETY MEASURES IN PLACE, BED LOW AND LOCKED, SIDE RAILS UP, CALL LIGHT WITHIN REACH, WILL CONTINUE TO MONITOR.
[2020-06-06] MEDS: ATORVASTATIN 20 MG TAB PO SCH (08:01)
[2020-06-06] MEDS: LANSOPRAZOLE 30 MG CAPDR GT SCH (08:01)
[2020-06-06] MEDS: POLYETHYLENE GLYCOL 17 GM/PKT PO SCH ×2 (08:01→20:04)
[2020-06-06] MEDS: ASCORBIC ACID 500 MG TAB PO SCH (08:02)
[2020-06-06] MEDS: FAMOTIDINE 20 MG TAB PO SCH (08:02)
[2020-06-06] MEDS: INSULIN LANTUS 100 UNITS/ML 10 ML VIAL SUBQ SCH (08:08)
[2020-06-06] MEDS: PIPERACILLIN/TAZOBACTAM 3.375 GM in DEXTROSE 5% 50 ML IV SCH ×2 (08:12→20:04)
--- NOTE | 2020-06-06 09:15 | NUR ---
DR FREEMAN ON THE UNIT. UPDATED ON PTs CONDITION. SAYS TO CONSIDER TRACH NEXT WEEK.
--- NOTE | 2020-06-06 09:48 | NUR ---
06/06/20 RD FOLLOW UP COMPLETED PLEASE REFER TO NUTRITION ASSESSMENT UNDER CARE ACTIVITY FOR ESTIMATED NUTRITIONAL NEEDS. 1. CONTINUE NEPRO 1.8 @ 40 ML/HR X 24 HOURS WITH PROSOURCE BID 2. CONT FREE WATER FLUSH OF 100 ML Q6H 3. CONTINUE VITAMIN C SUPPLEMENTATION 4. RD TO FOLLOW-UP 2-3 DAYS, HIGH RISK CLAIRE ANDERSON, RD
--- NOTE | 2020-06-06 10:00 | NUR ---
TURNED AND REPOSITIONED PT. SAFETY MEASURES IN PLACE, WILL CONT TO MONITOR
--- NOTE | 2020-06-06 12:00 | NUR ---
VAP ORAL CARE GIVEN, TURNED AND REPOSITIONED. PT TOLERATED WELL. CURRENTLY FIO2 60%, O2 SATURATION 92%. WILL CONT TO MONITOR. SAFETY MEASURES IN PLACE.
--- NOTE | 2020-06-06 14:00 | NUR ---
NO S/S OF DISTRESS NOTED, REPOSITIONED PT. SAFETY MEASURES IN PLACE, WILL CONT TO MONITOR
--- NOTE | 2020-06-06 18:00 | NUR ---
PT's CONDITION REMAINS UNCHANGED, NO S/S OF DISTRESS NOTED, REPOSITIONED PT. SAFETY MEASURES IN PLACE, WILL CONT TO MONITOR
--- NOTE | 2020-06-06 20:00 | NUR ---
RECEIVED REPORT FROM DAY SHIFT RN. RASS -3. PT ETT TO VENT AC PRVC FIO2 60%, TV 450, RATE 16, PEEP 12. RESPIRATION EVEN AND UNLABORED. SYMMETRICAL CHEST EXPANSION. PT HAS CHRIS PICC LINE RUNNING VERSED 5 MG/HR, FENTANYL 2 MCG/KG/HR AND IVF @ 5ML/HR(TKO). DRY WEIGHT 95KG. LINE ASYMPTOMATIC PATENT AND INTACT. RT IJ, ASYMPTOMATIC. BOWEL SOUNDS ACTIVE. OG-TUBE IN PLACE INTACT AND PATENT. NEPRO RUNNING AT 40ML/HR WITH FWF 100MLS Q6HR. NO RESIDUALS NOTED. RECTAL TUBE IN PLACE, DRAINING TO GRAVITY. SKIN WARM AND DRY. SEE WOUND DOCUMENTATIONS FOR MORE DETAILS. SAFETY MEASURES IN PLACE, BED LOWEST POSITION, SIDE RAILS UP. WILL CONTINUE TO MONITOR.
--- NOTE | 2020-06-06 23:18 | NUR ---
LATEST BS 289. 6 UNITS PRN HUMALOG GIVEN ORDERED. ORAL CARE PROVIDED. TURNED AND REPOSITIONED. WILL CONTINUE TO MONITOR.
[2020-06-07] VITALS (27 sets, daily range): BP systolic 120–200; BP diastolic 60–91
[2020-06-07] MEDS: Z-GUARD PASTE TP SCH ×2 (01:00→13:00)
--- NOTE | 2020-06-07 02:00 | NUR ---
PT CONDITION REMAINS UNCHANGED. WILL CONTINUE TO MONITOR.
--- NOTE | 2020-06-07 04:00 | NUR ---
MORNING CARE PROVIDED. NO DISTRESS OBSERVED. WILL CONTINUE TO MONITOR.
[2020-06-07] MEDS: BLOOD GLUCOSE MONITORING 1 DEV DEV FS SCH ×4 (05:25→23:48)
[2020-06-07] MEDS: INSULIN LISPRO SLIDING SCALE 100 UNITS/ML VIAL SUBQ PRN ×3 (05:26→23:49)
[2020-06-07] MEDS: fentaNYL citrate - 50mL vial 2.5 MG in NACL 0.9% 200 ML IV PRN ×2 (05:28→18:33)
[2020-06-07] MEDS: MIDAZOLAM MDV 100 MG in NACL 0.9% 80 ML IV PRN ×3 (05:29→23:50)
[2020-06-07 06:57] LABS: MAGNESIUM 2.5 mg/dL (1.8-2.4); PHOSPHORUS 5.7 mg/dL (2.5-4.9)
--- NOTE | 2020-06-07 07:30 | NUR ---
RECEIVED REPORT FROM LISBETH PT HAS ETT TO VENT SETTING AC PRVC FIO2 60% TV 450 RATED 16 PEEP 12, SEDATED WITH VERSED 5G/H FENTANYL 2 MCG/KG/HB OGT FEEDING C NEPRO AT 40 ML/HR. RECTAL BAG HAS SMALL.OF LIQUID BM RETURN.
[2020-06-07] MEDS: LANSOPRAZOLE 30 MG CAPDR GT SCH (08:10)
[2020-06-07] MEDS: POLYETHYLENE GLYCOL 17 GM/PKT PO SCH ×2 (08:11→21:02)
[2020-06-07] MEDS: PIPERACILLIN/TAZOBACTAM 3.375 GM in DEXTROSE 5% 50 ML IV SCH ×2 (08:11→20:12)
[2020-06-07] MEDS: ASCORBIC ACID 500 MG TAB PO SCH (08:11)
[2020-06-07] MEDS: FAMOTIDINE 20 MG TAB PO SCH (08:11)
[2020-06-07] MEDS: ATORVASTATIN 20 MG TAB PO SCH (08:11)
[2020-06-07] MEDS: INSULIN LANTUS 100 UNITS/ML 10 ML VIAL SUBQ SCH (08:22)
[2020-06-07] MEDS ORDERED: VANCOMYCIN HCL 1.25 GM in DEXTROSE 5% 250 ML IV SCH (09:55)
--- NOTE | 2020-06-07 10:00 | NUR ---
REPOSITION ORALL CARE GIVEN,V/S WITH IN NORML LIMIT.
[2020-06-07 10:29] LABS: BASOPHILS # (AUTO) 0.1 K/uL (0.00-0.22); BASOPHILS % (AUTO) 0.3 % (0.0-2.0); EOSINOPHILS # (AUTO) 0.3 K/uL (0-0.4); EOSINOPHILS % (AUTO) 1.2 % (0.0-4.0); HEMATOCRIT 22.2 % (36-52); HEMOGLOBIN 7.1 g/dL (12.0-18.0); LYMPHOCYTES # (AUTO) 1.3 K/uL (2.0-11.5); LYMPHOCYTES % (AUTO) 5.4 % (20.5-51.1); MEAN CORPUSCULAR HEMOGLOBIN 30 pg (27-31); MEAN CORPUSCULAR HGB CONC 32 g/dL (33-37); MEAN CORPUSCULAR VOLUME 92.1 fL (80-94); MONOCYTES # (AUTO) 0.6 K/uL (0.8-1.0); MONOCYTES % (AUTO) 2.5 % (1.7-9.3); NEUTROPHILS # (AUTO) 21.3 K/uL (1.8-7.7); NEUTROPHILS % (AUTO) 90.6 % (42.2-75.2); PLATELET COUNT (AUTO) 245 K/uL (140-450); RED BLOOD CELL COUNT(AUTO) 2.41 MIL/uL (4.20-6.10); RED CELL DISTRIBUTION WIDTH 16.2 % (11.6-13.7)
[2020-06-07 10:41] LABS: WHITE BLOOD COUNT (AUTO) 13.5 K/uL (4.8-10.8)
--- NOTE | 2020-06-07 10:56 | NUR ---
DR ISAEL HOBBS AT BEDSIDE, DIALYSIS TO BE ORDERED FOR TOMORROW
--- NOTE | 2020-06-07 12:00 | NUR ---
BLOOD GLUCOSE 226 INSULIN COVER ORDERED.
--- NOTE | 2020-06-07 18:00 | NUR ---
blood glucose 296 INSULIN COVER ORDERED.
--- NOTE | 2020-06-07 18:30 | NUR ---
BP UPTO 197/79 METOPROLOL IV GAVE ORDER.
[2020-06-07] MEDS: LABETALOL 100 MG/20 ML VIAL IV PRN (19:02)
--- NOTE | 2020-06-07 19:30 | NUR ---
REPORT GIVE TO LISBETH TO CONTINUE CARE,
--- NOTE | 2020-06-07 20:00 | NUR ---
RECEIVED REPORT FROM DAY SHIFT RN. RASS -3. PT ETT TO VENT AC PRVC FIO2 60%, TV 450, RATE 16, PEEP 10. RESPIRATION EVEN AND UNLABORED. SYMMETRICAL CHEST EXPANSION. PT HAS CHRIS PICC LINE RUNNING VERSED 6MG/HR, FENTANYL 2 MCG/KG/HR AND IVF @ 5ML/HR(TKO). DRY WEIGHT 95KG. LINE ASYMPTOMATIC PATENT AND INTACT. RT IJ, ASYMPTOMATIC. BOWEL SOUNDS ACTIVE. OG-TUBE IN PLACE INTACT AND PATENT. NEPRO RUNNING AT 40ML/HR WITH FWF 100MLS Q6HR. NO RESIDUALS NOTED. RECTAL TUBE IN PLACE, DRAINING TO GRAVITY. SKIN WARM AND DRY. SEE WOUND DOCUMENTATION. SAFETY MEASURES IN PLACE, BED LOWEST POSITION, SIDE RAILS UP. WILL CONTINUE TO MONITOR.
[2020-06-08] VITALS (28 sets, daily range): BP systolic 103–179; BP diastolic 62–93
--- NOTE | 2020-06-08 | NUR ---
TURNED AND REPOSITIONED PT. NO DISTRESS OBSERVED. WILL CONTINUE TO MONITOR
[2020-06-08] MEDS: atenoloL 25 MG TAB PO SCH ×3 (00:08→20:41)
[2020-06-08] MEDS: Z-GUARD PASTE TP SCH ×2 (01:47→13:12)
--- NOTE | 2020-06-08 04:00 | NUR ---
MORNING CARE PROVIDED. PT CONDITION REMAINS UNCHANGED. RESPIRATION EVEN UNLABORED. PT ANURIC. WILL CONTINUE TO MONITOR.
[2020-06-08] MEDS: BLOOD GLUCOSE MONITORING 1 DEV DEV FS SCH ×4 (05:30→23:24)
[2020-06-08] MEDS: INSULIN LISPRO SLIDING SCALE 100 UNITS/ML VIAL SUBQ PRN ×4 (05:30→23:31)
[2020-06-08 06:47] LABS: ANION GAP 17.9 (8-16); CARBON DIOXIDE 20.8 mmol/L (21-32); POTASSIUM 4.7 mmol/L (3.5-5.1)
[2020-06-08 06:49] LABS: CREATININE 5.7 mg/dL (0.6-1.3)
--- NOTE | 2020-06-08 07:30 | NUR ---
RECEIVED BEDSIDE REPORT FROM COVERAGE ANALYST NURSE LISBETH RN, PT SEDATED RASS -3, DRY WEIGHT 95KG, PICC LINE TO R UPPER ARM PATENT INTACT, INFUSING FENTANYL @ 2MCG/KG/HR, VERSED @ 6MG/HR, INFUSING WELL, PT ON ETT TO VENT FIO2 60%, PEEP 10, SATURATING @ 94%, NO SOB NOTED EQUAL BILATERAL CHEST RISE, R IJ HEMODIALYSIS CATH IN PLACE, DRESSING CLEAN DRY AND INTACT, RECTAL TUBE IN PLACE DRAINING TO GRAVITY. OGT IN PLACE, CONFIRMED PLACEMENT, 5 CC RESIDUAL NOTED WITH FEEDING NEPRO. TOLERATING WELL, INITIAL ASSESSMENT DONE, ALL SAFETY PRECAUTION MET, WILL CONTINUE TO MONITOR.
[2020-06-08] MEDS: fentaNYL citrate - 50mL vial 2.5 MG in NACL 0.9% 200 ML IV PRN (08:32)
[2020-06-08] MEDS: INSULIN LANTUS 100 UNITS/ML 10 ML VIAL SUBQ SCH (09:09)
[2020-06-08] MEDS: FAMOTIDINE 20 MG TAB PO SCH (09:23)
[2020-06-08] MEDS: LANSOPRAZOLE 30 MG CAPDR GT SCH (09:23)
[2020-06-08] MEDS: ATORVASTATIN 20 MG TAB PO SCH (09:23)
[2020-06-08] MEDS: POLYETHYLENE GLYCOL 17 GM/PKT PO SCH ×2 (09:23→20:41)
[2020-06-08] MEDS: ASCORBIC ACID 500 MG TAB PO SCH (09:26)
[2020-06-08] MEDS: PIPERACILLIN/TAZOBACTAM 3.375 GM in DEXTROSE 5% 50 ML IV SCH ×2 (11:00→20:41)
--- NOTE | 2020-06-08 12:03 | NUR ---
DR NEWMAN AND DR TAPIA AT BEDSIDE EVALUATING PT
[2020-06-08] MEDS: MIDAZOLAM MDV 100 MG in NACL 0.9% 80 ML IV PRN (16:35)
--- NOTE | 2020-06-08 19:30 | NUR ---
ENDORSED PT TO LEAD JAVA J2EE DEVELOPER NURSE DONTAE FOR CONTINUOUS OF CARE.
--- NOTE | 2020-06-08 19:30 | NUR ---
RECEIVED PT REPORT FROM DAYSHIFT NURSE, AT [facility], FOR CONTINUITY OF CARE. SEDATED TO RASS -3, PER MD ORDERS. FLACC 0. DRY WEIGHT 95 KG. LUNG SOUNDS DIMINISHED THROUGHOUT. +S1, S2 UPON AUSCULTATION. SR ON MONITOR. OGT IN PLACE WITH FEEDING RUNNING ORDERED.+PLACEMENT VERIFIED, ZERO RESIDUAL ASPIRATED. ABD SOFT, NON-DISTENDED. RECTAL TUBE IN PLACE, FUNCTIONING PROPERLY. CHRIS PICC INFUSING FENTANYL AND VERSED, SEE IV SPREADSHEET. RT IJ KENZIE IN PLACE, ASYMPTOMATIC. SKIN WARM AND DRY, NOT INTACT, SEE WOUND ASSESSMENT. SAFETY PRECAUTIONS IN PLACE WITH BED LOW AND LOCKED. HOB >30 DEGREES. WILL CONT TO MOITOR FOR CHANGES.
[2020-06-08] MEDS ORDERED: LABETALOL 100 MG TAB ONE (20:38)
[2020-06-09] VITALS (26 sets, daily range): BP systolic 115–180; BP diastolic 64–87
--- NOTE | 2020-06-09 | NUR ---
HELD FEEDING D/T NPO ORDERS AT THIS TIME.
[2020-06-09] MEDS: Z-GUARD PASTE TP SCH ×2 (01:45→13:00)
[2020-06-09] MEDS: fentaNYL citrate - 50mL vial 2.5 MG in NACL 0.9% 200 ML IV PRN ×2 (01:58→17:30)
[2020-06-09] MEDS: LABETALOL 100 MG/20 ML VIAL IV PRN (04:00)
[2020-06-09] MEDS: BLOOD GLUCOSE MONITORING 1 DEV DEV FS SCH ×3 (06:00→18:00)
[2020-06-09 06:26] LABS: HEMATOCRIT 21.9 % (36-52); MEAN CORPUSCULAR HEMOGLOBIN 30 pg (27-31); MEAN CORPUSCULAR HGB CONC 32 g/dL (33-37); MEAN CORPUSCULAR VOLUME 94.4 fL (80-94); PLATELET COUNT (AUTO) 200 K/uL (140-450); RED BLOOD CELL COUNT(AUTO) 2.32 MIL/uL (4.20-6.10); RED CELL DISTRIBUTION WIDTH 16.4 % (11.6-13.7)
--- NOTE | 2020-06-09 07:14 | NUR ---
RECEIVED REPORT FROM DONTAE HOBBS. HE HAS ETT TO VENT SETTING UNCHANGE. OGT ON HOLD NPO IV OCHOA FENTANYL AND VERSED, RECTAL BAG HAS SMALL AMOUNT OF LIQUID BM,
--- NOTE | 2020-06-09 07:15 | NUR ---
GAVE REPORT TO YOLI HOBBS, AT WINDOW, FOR CONTINUITY OF CARE. PICC LINE PATENT.
[2020-06-09] MEDS: FAMOTIDINE 20 MG TAB PO SCH (09:00)
[2020-06-09] MEDS: ASCORBIC ACID 500 MG TAB PO SCH (09:00)
[2020-06-09] MEDS: ATORVASTATIN 20 MG TAB PO SCH (09:00)
[2020-06-09] MEDS: PIPERACILLIN/TAZOBACTAM 3.375 GM in DEXTROSE 5% 50 ML IV SCH ×2 (09:00→21:00)
[2020-06-09] MEDS: POLYETHYLENE GLYCOL 17 GM/PKT PO SCH ×2 (09:00→21:00)
[2020-06-09] MEDS: LANSOPRAZOLE 30 MG CAPDR GT SCH (09:00)
[2020-06-09] MEDS: INSULIN LANTUS 100 UNITS/ML 10 ML VIAL SUBQ SCH (09:00)
--- NOTE | 2020-06-09 09:00 | NUR ---
CHERI OF LAB REPORTED LAB CRITICAL VALUE WBC 24.6. DR. KULKARNI MADE AWARE.
[2020-06-09 09:01] LABS: EOSINOPHILS % (MANUAL) 1 % (0-4); LYMPHOCYTES % (MANUAL) 4 % (20-46); MONOCYTES % (MANUAL) 6 % (5-12)
--- NOTE | 2020-06-09 09:22 | NUR ---
SEEN BY DR. NEWMAN, NO ORDER CHANGED.
[2020-06-09] MEDS ORDERED: amLODIPine 5 MG TAB PO SCH (09:30)
[2020-06-09 11:34] LABS: ANION GAP 20.7 (8-16); CARBON DIOXIDE 18.8 mmol/L (21-32); POTASSIUM 4.5 mmol/L (3.5-5.1)
--- NOTE | 2020-06-09 12:25 | NUR ---
SEEN BY DR. NYE ,ORDER RECEIVED.
--- NOTE | 2020-06-09 12:35 | NUR ---
1212: RECEIVED A CALL FROM [employer], INFORMING ME OF CRITICAL LAB BUN 87/CREA 4.6. DR. KULKARNI MADE AWARE.
--- NOTE | 2020-06-09 12:53 | NUR ---
DECREASED PEEP TO 8, FIO2 55%. TOLERATING WELL, SATURATION IS 97%. RN NOTIFIED.
[2020-06-09] MEDS: LABETALOL 100 MG TAB PO SCH ×2 (13:00→16:21)
[2020-06-09 13:03] LABS: CREATININE 4.6 mg/dL (0.6-1.3)
--- NOTE | 2020-06-09 14:33 | NUR ---
06/09/20 RD FOLLOW UP COMPLETED PLEASE REFER TO NUTRITION ASSESSMENT UNDER CARE ACTIVITY FOR ESTIMATED NUTRITIONAL NEEDS. 1. WHEN MEDICALLY APPROPRIATE CONTINUE NEPRO 1.8 @ 40 ML/HR WITH PROSOURCE BID -THIS PROVIDES 1848 KCAL AND 108GM OF PROTEIN. MEETING 100% OF ESTIMATED KCAL AND PROTEIN NEEDS 2. CONT. FREE WATER FLUSH OF 100 ML Q6H 3. CONTINUE VITAMIN C SUPPLEMENTATION 4. RD TO FOLLOW-UP 2-3 DAYS, HIGH RISK FLOWER WATKINS, RD
[2020-06-09] MEDS ORDERED: VANCOMYCIN 1,000 MG in DEXTROSE 5% 250 ML IV SCH (15:00)
[2020-06-09] MEDS ORDERED: VANCOMYCIN HCL 1.25 GM in DEXTROSE 5% 250 ML IV SCH (15:00)
--- NOTE | 2020-06-09 15:15 | NUR ---
VALERIO BY DR. GARCIA. NO ORDER CHANGED.
[2020-06-09] MEDS ORDERED: fentaNYL citrate 0.05 MG/ML VIAL ONE (15:35)
[2020-06-09] MEDS ORDERED: MIDAZOLAM 5 MG/5 ML VIAL ONE (15:36)
--- NOTE | 2020-06-09 16:00 | NUR ---
PEG TUBE INSERTED BY DR. HARRELL AT BEDSIDE, NO BLEEDING NOTED KEEP PATIENT NPO FOR NEXT 4 HR. START FEEDING AFTER 2000 PM.
[2020-06-09] MEDS ORDERED: MIDAZOLAM 2 MG/2 ML VIAL IVP ONE (16:30)
--- NOTE | 2020-06-09 18:00 | NUR ---
BLOOD GLUCOSE 137 NO INSULIN GIVEN.
--- NOTE | 2020-06-09 19:15 | NUR ---
RECEIVED PATIENT FROM AM SHIFT. PATIENT WAS SEEN AND ASSESSED. FOUND PT IN SUPINE POSITION. PATIENT IS INTUBATED WITH ETT SIZE 8.0 AND SECURED WITH ANCHOR-FAST AT 23cm. PATIENT IS ON VENT SETTINGS: AC/PRVC RR 16, VT 450, PEEP 8, FiO2 50% WITH SPO2 OF 94%. AMBU BAG AT BEDSIDE. VENT IS PLUGGED IN RED OUTLET. ALARMS SET AND AUDIBLE TO ENVIRONMENT. SUCTIONED SMALL AMOUNT OF YELLOW THICK SECRETIONS FROM ETT. AIRWAY IS PATENT. AUSCULTATION REVEALS BILATERAL RALES BREATH SOUNDS. PATIENT IS IN NO APPARENT RESPIRATORY DISTRESS AT THIS TIME. WILL CONTINUE TO MONITOR PATIENT.
--- NOTE | 2020-06-09 19:30 | NUR ---
REPORT GIVE TO ONEYDA RN,
--- NOTE | 2020-06-09 19:30 | NUR ---
RECEIVED PATIENT ON BED; ORALLY INTUBATED AND VENTILATED AT 60 % FIO2; SEDATED WITH FENTANYL AND VERSED DRIP TO KEEP RASS-3. CARDIACSCOPE SHOWS SINUS RHYTHM HR 85/MIN NO ARRHYTHMIAS SEEN. WITH KENZIE CATH TO RIGHT INTERNAL JUGULAR FOR DIALYSIS ACCESS. WITH NEWLY INSERTED PEG TUBE TODAY; KEPT STILL ON NPO AND PER PREVIOUS RN SUN ENDORSED, TUBE FEEDING CAN BE RESTARTED AFTER 8 PM. ABDOMEN IS SOFT, HYPOACTIVE BOWEL SOUNDS. PATIENT IS ALSO ANURIC, ON HEMODIALYSIS. WITH RECTAL TUBE IN PLACE, DRAINING TO SCANTY BROWN WATERY STOOL.
--- NOTE | 2020-06-09 20:30 | NUR ---
TUBE FEEDING NEPRO 40 ML/HR RESTARTED; NO RESIDUALS NOTED.
[2020-06-10] VITALS (25 sets, daily range): BP systolic 89–154; BP diastolic 49–93
[2020-06-10] MEDS: Z-GUARD PASTE TP SCH ×2 (03:00→13:00)
[2020-06-10] MEDS: BLOOD GLUCOSE MONITORING 1 DEV DEV FS SCH ×4 (06:00→18:18)
[2020-06-10 06:16] LABS: HEMATOCRIT 23.1 % (36-52); HEMOGLOBIN 7.3 g/dL (12.0-18.0); MEAN CORPUSCULAR HEMOGLOBIN 30 pg (27-31); MEAN CORPUSCULAR HGB CONC 32 g/dL (33-37); MEAN CORPUSCULAR VOLUME 93.7 fL (80-94); PLATELET COUNT (AUTO) 240 K/uL (140-450); RED BLOOD CELL COUNT(AUTO) 2.47 MIL/uL (4.20-6.10); RED CELL DISTRIBUTION WIDTH 16.6 % (11.6-13.7); WHITE BLOOD COUNT (AUTO) 24.6 K/uL (4.8-10.8)
[2020-06-10 06:42] LABS: ANION GAP 19.5 (8-16); CARBON DIOXIDE 20.1 mmol/L (21-32); POTASSIUM 4.6 mmol/L (3.5-5.1)
[2020-06-10 07:18] LABS: CREATININE 5.3 mg/dL (0.6-1.3)
[2020-06-10] MEDS: fentaNYL citrate - 50mL vial 2.5 MG in NACL 0.9% 200 ML IV PRN ×2 (07:28→20:49)
[2020-06-10] MEDS: INSULIN LISPRO SLIDING SCALE 100 UNITS/ML VIAL SUBQ PRN ×2 (07:29→18:20)
[2020-06-10 08:14] LABS: EOSINOPHILS % (MANUAL) 1 % (0-4); MONOCYTES % (MANUAL) 4 % (5-12)
[2020-06-10 08:15] LABS: LYMPHOCYTES % (MANUAL) 4 % (20-46)
[2020-06-10] MEDS: LABETALOL 100 MG TAB PO SCH ×3 (09:00→16:01)
[2020-06-10] MEDS: amLODIPine 5 MG TAB PO SCH (09:00)
[2020-06-10] MEDS: ASCORBIC ACID 500 MG TAB PO SCH (09:32)
[2020-06-10] MEDS: LANSOPRAZOLE 30 MG CAPDR GT SCH (09:33)
[2020-06-10] MEDS: ATORVASTATIN 20 MG TAB PO SCH (09:33)
[2020-06-10] MEDS: FAMOTIDINE 20 MG TAB PO SCH (09:33)
[2020-06-10] MEDS: INSULIN LANTUS 100 UNITS/ML 10 ML VIAL SUBQ SCH (09:44)
[2020-06-10] MEDS: PIPERACILLIN/TAZOBACTAM 3.375 GM in DEXTROSE 5% 50 ML IV SCH ×2 (15:12→20:43)
[2020-06-10] MEDS: MIDAZOLAM MDV 100 MG in NACL 0.9% 80 ML IV PRN (15:50)
--- NOTE | 2020-06-10 19:20 | NUR ---
RECEIVED PATIENT ON BED WITH HOB ELEVATED TO 30DEGREE; ORALLY INTUBATED AND VENTILATED AT 60 % FIO2; SEDATED RASS -3 WITH FENTANYL AND VERSED DRIP.CARDIACSCOPE SHOWS ON SINUS RHYTHM HR 97/MIN NO ARRHYTHMIAS SEEN. ABDOMEN IS SOFT HYPOACTIVE BOWEL SOUND; ON CONTINOUS TUBE FEEDING NEPRO AT 40 ML/HR VIA PEG TUBE, TOLERATED, NO RESIDUALS. PATIENT IS ANURIC, A HEMODIALYSIS PATIENT WITH HD ACCESS KENZIE CATH TO RIGHT INTERNAL JUGULAR; INTACT.WITH RECTAL TUBE IN PLACE; DRAINING TO WATERY YELLOWISH BROWN STOOL, SMALL IN AMOUNT.
[2020-06-11] VITALS (26 sets, daily range): BP systolic 80–152; BP diastolic 27–74
[2020-06-11] MEDS: INSULIN LISPRO SLIDING SCALE 100 UNITS/ML VIAL SUBQ PRN ×2 (00:14→21:06)
[2020-06-11] MEDS: Z-GUARD PASTE TP SCH ×2 (04:00→13:00)
--- NOTE | 2020-06-11 04:30 | NUR ---
MORNING BED BATH DONE; WOUND CARE DONE.
--- NOTE | 2020-06-11 05:00 | NUR ---
BED BATH GIVEN, ORAL CARE PROVIDED. PATIENT TURNED AND REPOSITIONED FOR COMFORT
[2020-06-11] MEDS: BLOOD GLUCOSE MONITORING 1 DEV DEV FS SCH ×4 (06:00→20:50)
[2020-06-11] MEDS: MIDAZOLAM MDV 100 MG in NACL 0.9% 80 ML IV PRN (06:28)
[2020-06-11 07:15] LABS: ANION GAP 16.3 (8-16); CARBON DIOXIDE 22.4 mmol/L (21-32); POTASSIUM 3.7 mmol/L (3.5-5.1)
[2020-06-11 07:30] LABS: HEMATOCRIT 21.6 % (36-52); MEAN CORPUSCULAR HEMOGLOBIN 30 pg (27-31); MEAN CORPUSCULAR HGB CONC 32 g/dL (33-37); MEAN CORPUSCULAR VOLUME 94.8 fL (80-94); PLATELET COUNT (AUTO) 228 K/uL (140-450); RED BLOOD CELL COUNT(AUTO) 2.28 MIL/uL (4.20-6.10); RED CELL DISTRIBUTION WIDTH 17.1 % (11.6-13.7)
[2020-06-11 08:58] LABS: HEMOGLOBIN 6.8 g/dL (12.0-18.0); WHITE BLOOD COUNT (AUTO) 27.6 K/uL (4.8-10.8)
[2020-06-11] MEDS: FAMOTIDINE 20 MG TAB PO SCH (09:00)
[2020-06-11] MEDS: LANSOPRAZOLE 30 MG CAPDR GT SCH (09:00)
[2020-06-11] MEDS: INSULIN LANTUS 100 UNITS/ML 10 ML VIAL SUBQ SCH (09:00)
[2020-06-11] MEDS: ATORVASTATIN 20 MG TAB PO SCH (09:00)
[2020-06-11] MEDS: amLODIPine 5 MG TAB PO SCH (09:00)
[2020-06-11] MEDS: ASCORBIC ACID 500 MG TAB PO SCH (09:00)
[2020-06-11] MEDS: LABETALOL 100 MG TAB PO SCH ×3 (09:00→16:12)
[2020-06-11] MEDS: PIPERACILLIN/TAZOBACTAM 3.375 GM in DEXTROSE 5% 50 ML IV SCH ×2 (09:00→21:24)
[2020-06-11 09:02] LABS: LYMPHOCYTES % (MANUAL) 2 % (20-46); MONOCYTES % (MANUAL) 7 % (5-12)
[2020-06-11] MEDS ORDERED: ALTEPLASE 2 MG VIAL MC SCH (11:00)
--- NOTE | 2020-06-11 20:00 | NUR ---
RECEIVED PATIENT IN BED. PT ON MECHANICAL VENT WITH 60% FIO2. O2 SAT 98% AT THIS TIME. CHRIS DOUBLE LUMEN PICC NOTED. UNABLE TO FLUSH ONE PORT. PT ON FENTANYL GTT @ 2MCG/KG/HR AND VERSED AT 6ML/HR. BUE AND BLE EDEMA NOTED. RIJ KENZIE IN PLACE. PEG IN PLACE WITH TF RUNNING AT 40CC/HR. NO RESIDUALS NOTED. BED LOWERED WITH SIDE RAILS UP
[2020-06-11] MEDS: fentaNYL citrate - 50mL vial 2.5 MG in NACL 0.9% 200 ML IV PRN (20:54)
[2020-06-12] VITALS (33 sets, daily range): BP systolic 75–201; BP diastolic 36–128
[2020-06-12] MEDS: BLOOD GLUCOSE MONITORING 1 DEV DEV FS SCH ×4 (01:05→18:18)
[2020-06-12] MEDS: Z-GUARD PASTE TP SCH ×2 (01:06→13:00)
[2020-06-12 06:34] LABS: BASOPHILS # (AUTO) 0.1 K/uL (0.00-0.22); BASOPHILS % (AUTO) 0.5 % (0.0-2.0); EOSINOPHILS # (AUTO) 0.4 K/uL (0-0.4); EOSINOPHILS % (AUTO) 2.5 % (0.0-4.0); HEMATOCRIT 21.3 % (36-52); LYMPHOCYTES # (AUTO) 0.9 K/uL (2.0-11.5); LYMPHOCYTES % (AUTO) 5.2 % (20.5-51.1); MEAN CORPUSCULAR HEMOGLOBIN 30 pg (27-31); MEAN CORPUSCULAR HGB CONC 32 g/dL (33-37); MEAN CORPUSCULAR VOLUME 94.4 fL (80-94); MONOCYTES # (AUTO) 0.5 K/uL (0.8-1.0); NEUTROPHILS # (AUTO) 15.6 K/uL (1.8-7.7); NEUTROPHILS % (AUTO) 88.8 % (42.2-75.2); PLATELET COUNT (AUTO) 253 K/uL (140-450); RED BLOOD CELL COUNT(AUTO) 2.26 MIL/uL (4.20-6.10); RED CELL DISTRIBUTION WIDTH 17.3 % (11.6-13.7); WHITE BLOOD COUNT (AUTO) 17.6 K/uL (4.8-10.8)
[2020-06-12 06:41] LABS: POTASSIUM 3.5 mmol/L (3.5-5.1)
[2020-06-12 07:03] LABS: HEMOGLOBIN 6.8 g/dL (12.0-18.0)
--- NOTE | 2020-06-12 07:30 | NUR ---
RECEIVED BEDSIDE REPORT FROM CHISEL GRINDER NURSE , PT SEDATED RASS -3. DRY WEIGHT 95.3KG. ETT TO VENT AC/PRVC FIO2 50%, TV 450,RATE 16, PEEP 8, SATURATING 93%, NO SOB NOTED, EQUAL BILATERAL CHEST RISE AND FALL, PICC LINE TO R UPPER ARM, PATENT INTACT, INFUSING VERSED @ 6MG/HR, FENTANYL @ 2MCG/KG/HR, INFUSING WELL, ONE OF PICC LINE PORT OCCLUDED, R IJ DIALYSIS CATH IN PLACE DRESSINGS CLEAN DRY AND INTACT. OGT IN PLACE WITH FEEDING ON HOLD PER NPO AFTER MIDNIGHT ORDER , RECTAL TUBE IN PLACE DRAINING MINIMAL AMT TO GRAVITY, INITIAL ASSESSMENT DONE, ALL SAFETY MEASURES IN PLACE, PLAN OF CARE REVIEWED, WILL CONTINUE TO MONITOR.
[2020-06-12 07:33] LABS: ANION GAP 18.8 (8-16); CARBON DIOXIDE 19.7 mmol/L (21-32)
--- NOTE | 2020-06-12 07:43 | NUR ---
PATIENT ENDORSED TO AM NURSE
[2020-06-12 07:54] LABS: CREATININE 4.7 mg/dL (0.6-1.3)
--- NOTE | 2020-06-12 07:55 | NUR ---
RECEIVED CRITICAL LAB FOR BUN 77, CR 4.7, NOT REPORTED, PATIENT IS IN DIALYSIS NOW.
[2020-06-12] MEDS: LABETALOL 100 MG TAB PO SCH ×3 (09:00→17:00)
[2020-06-12] MEDS: amLODIPine 5 MG TAB PO SCH (09:00)
[2020-06-12] MEDS: FAMOTIDINE 20 MG TAB PO SCH (09:03)
[2020-06-12] MEDS: ATORVASTATIN 20 MG TAB PO SCH (09:04)
[2020-06-12] MEDS: ASCORBIC ACID 500 MG TAB PO SCH (09:04)
[2020-06-12] MEDS: LANSOPRAZOLE 30 MG CAPDR GT SCH (09:04)
[2020-06-12] MEDS: INSULIN LANTUS 100 UNITS/ML 10 ML VIAL SUBQ SCH (09:05)
[2020-06-12] MEDS: PIPERACILLIN/TAZOBACTAM 3.375 GM in DEXTROSE 5% 50 ML IV SCH ×2 (09:06→21:40)
[2020-06-12] MEDS: fentaNYL citrate - 50mL vial 2.5 MG in NACL 0.9% 200 ML IV PRN ×2 (09:08→22:47)
--- NOTE | 2020-06-12 09:10 | NUR ---
DIALYSIS IN PROGRESS, LEVOPHED STARTED AT 2MCG/MIN FOR HYPOTENSION
[2020-06-12] MEDS: MIDAZOLAM MDV 100 MG in NACL 0.9% 80 ML IV PRN (10:07)
--- NOTE | 2020-06-12 14:15 | NUR ---
WOUND CARE NURSE AT BEDSIDE, WOUND CARE DONE
--- NOTE | 2020-06-12 14:35 | NUR ---
WOUND CARE RE-EVALUATION NOTE: SKIN ASSESSMENT DONE WITH PRIMARY RN, WOUND CONDITION NOT IMPROVING, PREVIOUS BLISTERLING SKIN TO SACRALCOCCYX AND BUTTOKS ARE OPEN SKIN ,NEW SKIN BLISTERS AND TEARS DEVELOPED. PT. ON GT. AND PENDING FOR TRACH PLACEMENT.POC DISCUSSED WITH PRIMARY RN COMORBIDITIES RELATED TO DELAY WOUND HEALING AND FURTHER SKIN BREAKS: BOWEL INCONTINENCE, INFECTION, HYPOXEMIC DECREASE TISSUE PERFUSION, TISSUE ISCHEMA, DECREASE MOBILITY AND FUNCTIONAL ABILITIES, AND HOB ELEVATED THE MAJORITY OF TIMES DUE TO MEDICAL REASONS. COVID RELATED SKIN FAILURE DUE TO TISSUE LESS TOLERATE TO PRESSURE, SHEARING AND POSSIBLE ASSOCIATED WITH MICROVASCULAR INJURY. INTEGUMENTARY: -SUPERINTENDENT LOCAL RELATED ETT ALARCON SKIN FAILURE TO RIGHT 2X3 CM AND LEFT FACE 3X2CM BLACK STABLE ESCHAR,FOAM DRESSING IN PLACE -GT LUISA-STOMA SKIN DRY -MULTIPLE OPEN BLISTERING SKIN TEARS: LEFT ANTECUBITAL 2X3CM AND LEFT COHEN 1X5CM AND RIGHT MEDIAL THIGH 3X3CM, ALL WOUND BED ARE PINK SUPERFICIAL DEPTH NO S/S OF INFECTION, LUISA WOUND SKIN INTACT -LEFT LATERAL KNEE BLOOD FILLED INTACT BLISTER, 2X3 CM -INCONTINENT ASSOCIATE DERMATITIS (IAD) TO: INNER THIGHS AND SCROTAL AREA, SKIN REDNESS INTACT -COVID RELATED SKIN FAILURE OPEN BLISTER ON INTERGLUTEAL CLEFT OVAL SHAPE, WOUND BED 100% SHINE YELLOW TISSUE 1.5X3X0.2 CM, MOIST, NO ODOR AFTER CLEANSE, WOUND EDGE FLAT, SURROUNDING REDNESS DENUDED SKIN INDICATED FURTHER DAMAGE -COVID RELATED SKIN FAILURE OPEN BLISTER ON LEFT BUTTOCK, WOUND BED 100% GRANULATING TISSUE, 3X3 CM, SUPERFICIAL DEPTH, AREA MOIST, NO ODOR AFTER CLEANSE, WOUND EDGE FLAT, SURROUNDING REDNESS DENUDED SKIN INDICATED FURTHER DAMAGE -COVID RELATED SKIN FAILURE 2 OPEN BLISTER ON RIGHT BUTTOCK, 1X1CM AND 1.5X1CM, BOTH WOUND BEDS ARE 100% GRANULATING TISSUE, SUPERFICIAL DEPTH, AREA MOIST, NO ODOR AFTER CLEANSE, WOUND EDGE FLAT, SURROUNDING REDNESS DENUDED SKIN INDICATED FURTHER DAMAGE RECOMMENDATIONS: -APPLY VERSATEL DRESSING TO LEFT ANTECUBITAL, LEFT KNEE(INTACT BLISTER), LEFT COHEN, RIGHT MEDIAL THIGH SKIN TEARS CHANGE Q5 DAYS AND PRN -APPLY HYDRAGUARD TO BLE INNER THIGHS AND SCROTAL AREAS BID AND PRN IF SOILING -CLEANSE SACROCOCCYX AND INNER BUTTOCKS WOUNDS WITH NS. PAT DRY, APPLY THERAHONEY GEL AND COVER WITH COMPOSITE DRESSING QD AND PRN IF SOILING -APPLY HEEL PROTECTORS TO BOTH HEELS AT ALL TIMES -OFFLOAD BILATERAL HEELS BY PLACING PILLOWS UNDER CALVES UNLESS OTHERWISE CONTRAINDICATED -PRESSURE REDISTRIBUTION SURFACE THERAPY -TURN AND REPOSITION Q2H, OFFLOAD SACRALCOCCYX AND BUTTOCKS BY TURNING RIGHT AND LEFT -CONTINUE TO FOLLOW RD RECOMMENDATIONS ALL ABOVE RECOMMENDATIONS DISCUSSED WITH PRIMARY RN. PLEASE CONTACT WOUND CARE NURSE FOR ANY QUESTION AND CHANGE OF WOUND CONDITION Addendum: 06/12/20 at 8038 by Nina Rodriguez (Grace) RN DR. LOONEY NOTIFIED OF CHANGE OF SKIN CONDITION, POC DISCUSSED TORB. ATTEMPTED X3 IN DIFFERENT TIME TO CONTACT SUSHIL CASTRO.[phone] NO ANSWER
[2020-06-12] MEDS ORDERED: VANCOMYCIN HCL 1.25 GM in DEXTROSE 5% 250 ML IV SCH (15:00)
[2020-06-12] MEDS ORDERED: EPOETIN ALFA 10,000 UNITS/ML VIAL SUBQ SCH (17:22)
[2020-06-12] MEDS: INSULIN LISPRO SLIDING SCALE 100 UNITS/ML VIAL SUBQ PRN (18:18)
[2020-06-12] MEDS ORDERED: VANCOMYCIN PER PHARMACY MC PRN (18:20)
[2020-06-12] MEDS: ACETAMINOPHEN 325 MG TAB PO PRN (23:09)
[2020-06-12] MEDS: LABETALOL 100 MG/20 ML VIAL IV PRN (23:11)
[2020-06-13] VITALS (27 sets, daily range): BP systolic 105–173; BP diastolic 44–84
[2020-06-13] MEDS: BLOOD GLUCOSE MONITORING 1 DEV DEV FS SCH ×4 (01:00→17:10)
[2020-06-13] MEDS: Z-GUARD PASTE TP SCH (01:00)
[2020-06-13] MEDS: INSULIN LISPRO SLIDING SCALE 100 UNITS/ML VIAL SUBQ PRN ×3 (02:01→17:20)
[2020-06-13] MEDS: MIDAZOLAM MDV 100 MG in NACL 0.9% 80 ML IV PRN ×2 (02:26→16:06)
[2020-06-13 06:53] LABS: ANION GAP 16.2 (8-16); CARBON DIOXIDE 21.9 mmol/L (21-32); CREATININE 3.5 mg/dL (0.6-1.3); POTASSIUM 3.1 mmol/L (3.5-5.1)
[2020-06-13] MEDS: INSULIN LANTUS 100 UNITS/ML 10 ML VIAL SUBQ SCH (08:56)
[2020-06-13] MEDS: ASCORBIC ACID 500 MG TAB PO SCH (09:00)
[2020-06-13] MEDS: ATORVASTATIN 20 MG TAB PO SCH (09:00)
[2020-06-13] MEDS: LANSOPRAZOLE 30 MG CAPDR GT SCH (09:00)
[2020-06-13] MEDS: LABETALOL 100 MG TAB PO SCH ×3 (09:00→16:37)
[2020-06-13] MEDS: amLODIPine 5 MG TAB PO SCH (09:00)
[2020-06-13] MEDS: PIPERACILLIN/TAZOBACTAM 3.375 GM in DEXTROSE 5% 50 ML IV SCH ×2 (09:03→20:14)
[2020-06-13 09:49] LABS: BASOPHILS # (AUTO) 0.2 K/uL (0.00-0.22); BASOPHILS % (AUTO) 1.3 % (0.0-2.0); EOSINOPHILS % (AUTO) 0.1 % (0.0-4.0); HEMATOCRIT 21.9 % (36-52); LYMPHOCYTES # (AUTO) 0.6 K/uL (2.0-11.5); LYMPHOCYTES % (AUTO) 3.6 % (20.5-51.1); MEAN CORPUSCULAR HEMOGLOBIN 30 pg (27-31); MEAN CORPUSCULAR HGB CONC 32 g/dL (33-37); MEAN CORPUSCULAR VOLUME 94.7 fL (80-94); MONOCYTES # (AUTO) 0.5 K/uL (0.8-1.0); MONOCYTES % (AUTO) 2.9 % (1.7-9.3); NEUTROPHILS # (AUTO) 15.3 K/uL (1.8-7.7); NEUTROPHILS % (AUTO) 92.1 % (42.2-75.2); PLATELET COUNT (AUTO) 258 K/uL (140-450); RED BLOOD CELL COUNT(AUTO) 2.32 MIL/uL (4.20-6.10); RED CELL DISTRIBUTION WIDTH 17.7 % (11.6-13.7); WHITE BLOOD COUNT (AUTO) 16.6 K/uL (4.8-10.8)
[2020-06-13 10:06] LABS: HEMOGLOBIN 6.9 g/dL (12.0-18.0)
--- NOTE | 2020-06-13 10:07 | NUR ---
RECEIVED CRITICAL LAB FOR HGB 6.9, WBC 16.6, YESTERDAY LAB HGB 6.8, WBC 17.6, PRIMARY RN MILKA MADE AWARE, AND DR LOONEY MADE AWARE.
[2020-06-13] MEDS: FAMOTIDINE 20 MG TAB PO SCH (10:15)
--- NOTE | 2020-06-13 10:42 | NUR ---
PER PRIMARY RN MILKA, TRACH PROCEDURE WAS CANCELLED AND ELECTRONIC EQUIPMENT REPAIRER NURSE STARTED TUBE FEEDING, CHANGED FROM NPO TO TUBE FEEDING. CALLED [facility] FOR A BOTTLE OF TUBE FEEDING JMRO.
[2020-06-13] MEDS: POTASSIUM CHLORIDE 20% 40 MEQ/15 ML UDC PO PRN (11:05)
[2020-06-13] MEDS: fentaNYL citrate - 50mL vial 2.5 MG in NACL 0.9% 200 ML IV PRN (12:02)
[2020-06-13] MEDS: THERAHONEY GEL 42.5 GM TP SCH (15:00)
--- NOTE | 2020-06-13 19:30 | NUR ---
RECEIVED REPORT FROM [place] [employer] SSD NURSE. PATIENT ETT TO VENT, HOB 30 DEGREES. VENT SETTINGS ARE AC PC, FIO2 50%, RR 16, PEEP 8. OG TUBE PATENT AND SECURED, RUNNING NEPRO 40 ML/HR, TOLERATING WELL. PATIENT TOLERATING VENTILATOR AND VENT SETTINGS WELL. PATIENT CONNECTED TO CONTINUOUS TELE MONITOR, NORMAL SINUS ON THE MONITOR. IV ACCESS SITES INCLUDE RIGHT UPPER ARM PICC DOUBLE LUMEN AND RIGHT IJ FOR HEMODIALYSIS. PATIENT HAS A PEG TUBE INSERTED IN THE UPPER ABDOMEN, SECURED, PATENT AND MAINTAINABLE. IV DRIPS RUNNING INCLUDE FENTANYL AT 2 MCG/KG/HR, VERSED AT 8 MG/HR, AND NS AT 5 ML/HR. PATIENT IN A POSITION OF COMFORT, OFFLOADED FROM PRESSURE POINTS WITH US OF PILLOWS AND FREQUENT REPOSITIONING. BED LOCKED AND LOWERED INTO A POSITION OF SAFETY, FREQUENT ROUNDING AND CLOSE MONITORING PROVIDED.
--- NOTE | 2020-06-13 22:00 | NUR ---
FREQUENT ROUNDING AND CLOSE MONITORING, ORAL CARE AND SUCTIONING PROVIDED, CONTINUOUS TELE MONITORING, NORMAL SINUS RHYTHM, WILL CONTINUE TO CLOSELY MONITOR.
[2020-06-14] VITALS (28 sets, daily range): BP systolic 95–169; BP diastolic 45–88
--- NOTE | 2020-06-14 | NUR ---
PATIENT PROVIDE HYGIENE AND ORAL CARE, TOLERATING ET TUBE WELL, WILL CONTINUE TO MONITOR AND FREQUENTLY ROUND.
[2020-06-14] MEDS: BLOOD GLUCOSE MONITORING 1 DEV DEV FS SCH ×4 (00:18→18:02)
[2020-06-14] MEDS: INSULIN LISPRO SLIDING SCALE 100 UNITS/ML VIAL SUBQ PRN ×4 (00:21→18:01)
[2020-06-14] MEDS ORDERED: fentaNYL citrate 1 MG in NACL 0.9% 80 ML IV PRN (02:35)
--- NOTE | 2020-06-14 03:00 | NUR ---
ORAL CARE PROVIDED, CHANGED WOUND DRESSINGS, PATIENT HOB 30 DEGREES, IN A POSITION OF COMFORT, WILL CONTINUE TO MONITOR AND FREQUENTLY ROUND.
[2020-06-14] MEDS: MIDAZOLAM MDV 100 MG in NACL 0.9% 80 ML IV PRN ×2 (04:14→18:04)
[2020-06-14] MEDS: fentaNYL citrate - 50mL vial 2.5 MG in NACL 0.9% 200 ML IV PRN (04:16)
--- NOTE | 2020-06-14 05:00 | NUR ---
CENTRAL LINE DRESSING CHANGED.
[2020-06-14 06:51] LABS: ANION GAP 15.8 (8-16); CARBON DIOXIDE 21.2 mmol/L (21-32)
[2020-06-14 07:05] LABS: CREATININE 4.2 mg/dL (0.6-1.3)
[2020-06-14] MEDS: INSULIN LANTUS 100 UNITS/ML 10 ML VIAL SUBQ SCH (09:08)
[2020-06-14] MEDS: LOSARTAN 50 MG TAB PO SCH (09:38)
[2020-06-14] MEDS: LANSOPRAZOLE 30 MG CAPDR GT SCH (09:38)
[2020-06-14] MEDS: amLODIPine 5 MG TAB PO SCH (09:39)
[2020-06-14] MEDS: ATORVASTATIN 20 MG TAB PO SCH (09:39)
[2020-06-14] MEDS: FAMOTIDINE 20 MG TAB PO SCH (09:39)
[2020-06-14] MEDS: LABETALOL 100 MG TAB PO SCH ×3 (09:39→16:45)
[2020-06-14] MEDS: ASCORBIC ACID 500 MG TAB PO SCH (09:40)
[2020-06-14] MEDS: LABETALOL 100 MG/20 ML VIAL IV PRN (10:57)
[2020-06-14] MEDS: THERAHONEY GEL 42.5 GM TP SCH (16:00)
--- NOTE | 2020-06-14 20:03 | NUR ---
RECEIVED PATIENT IN SUPINE POSITION, ETT TO VENT WITH FIO2 50% PEEP 16 , OG TUBE FEEDING WITH NEPRO AT 40 ML/HR, CHRIS PICC LINE ,DRESSING INTACT, ALL IV MEDICATION INFUSING AT CHRIS PICC LINE, IV: VERSED 8 MG/HR LEVOPHED 2 MCG/MIN FENTANYL 2 MCG/KG/HR, RIJ SRI CATHETER INTACT. CERDA CATH IN PLACE AND DRAINING TO GRAVITY. RECTAL TUBE IN PLACE. WILL CONTINUE TO MONITOR.
--- NOTE | 2020-06-14 23:23 | NUR ---
SPOKE TO JACOB -HD NURSE OVER THE PHONE , AWARE HD TOMORROW.
[2020-06-15] VITALS (29 sets, daily range): BP systolic 104–144; BP diastolic 44–79
[2020-06-15] MEDS: BLOOD GLUCOSE MONITORING 1 DEV DEV FS SCH ×5 (00:36→23:57)
[2020-06-15] MEDS: INSULIN LISPRO SLIDING SCALE 100 UNITS/ML VIAL SUBQ PRN ×4 (00:38→18:39)
--- NOTE | 2020-06-15 05:21 | NUR ---
ORAL CARE AND SKIN CARE PROVIDED, TURN AND REPOSITION Q2H TO KEEP SKIN CLEAN AND DRY, CHANGED ALL LINENS.
[2020-06-15 06:45] LABS: ANION GAP 17.2 (8-16); POTASSIUM 4.2 mmol/L (3.5-5.1)
[2020-06-15 06:53] LABS: CREATININE 4.8 mg/dL (0.6-1.3)
--- NOTE | 2020-06-15 07:04 | NUR ---
RECEIVED A CALL FROM LAB BUN 7.7 CREA 4.8 CA 7.9 PATIENT IS GOING TO HAVE HD TODAY, WILL ENDORSE TO DAY NURSE. Addendum: 06/15/20 at 1051 by Agency 07 ANJEL RN JUDITH 06/15DARIO O9OO IV DOSE WILL BE GIVEN AFTER DIALYSIS
[2020-06-15 07:07] LABS: BASOPHILS # (AUTO) 0.1 K/uL (0.00-0.22); BASOPHILS % (AUTO) 0.7 % (0.0-2.0); EOSINOPHILS % (AUTO) 0.1 % (0.0-4.0); HEMATOCRIT 21.3 % (36-52); LYMPHOCYTES # (AUTO) 0.8 K/uL (2.0-11.5); LYMPHOCYTES % (AUTO) 4.4 % (20.5-51.1); MEAN CORPUSCULAR HEMOGLOBIN 30 pg (27-31); MEAN CORPUSCULAR HGB CONC 32 g/dL (33-37); MEAN CORPUSCULAR VOLUME 94.6 fL (80-94); MONOCYTES # (AUTO) 0.8 K/uL (0.8-1.0); MONOCYTES % (AUTO) 4.1 % (1.7-9.3); NEUTROPHILS # (AUTO) 17.3 K/uL (1.8-7.7); NEUTROPHILS % (AUTO) 90.7 % (42.2-75.2); PLATELET COUNT (AUTO) 276 K/uL (140-450); RED BLOOD CELL COUNT(AUTO) 2.25 MIL/uL (4.20-6.10); RED CELL DISTRIBUTION WIDTH 17.8 % (11.6-13.7)
[2020-06-15 07:24] LABS: HEMOGLOBIN 6.7 g/dL (12.0-18.0)
[2020-06-15] MEDS ORDERED: SODIUM FERRIC GLUCONATE 125 MG in NACL 0.9% 100 ML IV ONE (08:00)
[2020-06-15] MEDS: LABETALOL 100 MG TAB PO SCH ×3 (09:00→17:00)
[2020-06-15] MEDS: INSULIN LANTUS 100 UNITS/ML 10 ML VIAL SUBQ SCH (09:00)
[2020-06-15] MEDS: LOSARTAN 50 MG TAB PO SCH (09:00)
[2020-06-15] MEDS: amLODIPine 5 MG TAB PO SCH (09:00)
[2020-06-15] MEDS: EPOETIN ALFA 10,000 UNITS/ML VIAL IV SCH (09:00)
[2020-06-15] MEDS: ATORVASTATIN 20 MG TAB PO SCH (13:44)
[2020-06-15] MEDS: FAMOTIDINE 20 MG TAB PO SCH (13:45)
[2020-06-15] MEDS: ASCORBIC ACID 500 MG TAB PO SCH (13:45)
[2020-06-15] MEDS: LANSOPRAZOLE 30 MG CAPDR GT SCH (13:45)
[2020-06-15] MEDS: THERAHONEY GEL 42.5 GM TP SCH (14:00)
[2020-06-15] MEDS ORDERED: SODIUM FERRIC GLUCONATE 125 MG in NACL 0.9% 100 ML IV SCH (14:00)
--- NOTE | 2020-06-15 14:25 | NUR ---
06/15/20 RD FOLLOW UP COMPLETED PLEASE REFER TO NUTRITION ASSESSMENT UNDER CARE ACTIVITY FOR ESTIMATED NUTRITIONAL NEEDS. 1. CONTINUE NEPRO 1.8 @ 40 ML/HR WITH PROSOURCE TID -THIS PROVIDES 1908 KCAL AND 123 GM OF PROTEIN. MEETING 100% OF ESTIMATED KCAL AND PROTEIN NEEDS 2. CONT. FREE WATER FLUSH OF 100 ML Q6H 3. CONTINUE VITAMIN C SUPPLEMENTATION 4. RD TO FOLLOW-UP 2-3 DAYS, HIGH RISK FLOWER WATKINS, RD
[2020-06-15] MEDS: fentaNYL citrate - 50mL vial 2.5 MG in NACL 0.9% 200 ML IV PRN (17:25)
--- NOTE | 2020-06-15 20:00 | NUR ---
RECEIVED PATIENT IN SUPINE, ETT TO VENT WITH FIO2 50%, ON G-T FEEDING WITH NEPRO AT 40 ML/HR, IV DRIP: VERSED 8 MG/HR, FENTANYL 2 MCG/KG/HR, ALL IV MEDICATION INFUSING AT CHRIS PICC LINE ,SITE IS CLEAR, [facility], [place] CATHETER DRESSING INTACT FOR HD ACCESS, RECTAL TUBE IN PLACE, WILL CONTINUE TO MONITOR.
[2020-06-16] VITALS (30 sets, daily range): BP systolic 99–152; BP diastolic 47–81
--- NOTE | 2020-06-16 05:31 | NUR ---
BS CHECKED AND NO COVERAGE NOTED - 135.
--- NOTE | 2020-06-16 05:31 | NUR ---
ORAL CARE AND SKIN CARE GIVEN, TURN AND REPOSITION Q2H TO KEEP SKIN CLEAN AND DRY.
[2020-06-16] MEDS: BLOOD GLUCOSE MONITORING 1 DEV DEV FS SCH ×3 (06:34→17:28)
[2020-06-16] MEDS: fentaNYL citrate - 50mL vial 2.5 MG in NACL 0.9% 200 ML IV PRN (06:34)
[2020-06-16] MEDS: MIDAZOLAM MDV 100 MG in NACL 0.9% 80 ML IV PRN (06:37)
[2020-06-16 06:47] LABS: BASOPHILS % (AUTO) 0.2 % (0.0-2.0); EOSINOPHILS # (AUTO) 0.1 K/uL (0-0.4); EOSINOPHILS % (AUTO) 0.4 % (0.0-4.0); HEMATOCRIT 23.4 % (36-52); HEMOGLOBIN 7.5 g/dL (12.0-18.0); LYMPHOCYTES # (AUTO) 1.7 K/uL (2.0-11.5); LYMPHOCYTES % (AUTO) 7.6 % (20.5-51.1); MEAN CORPUSCULAR HEMOGLOBIN 31 pg (27-31); MEAN CORPUSCULAR HGB CONC 32 g/dL (33-37); MEAN CORPUSCULAR VOLUME 95.1 fL (80-94); MONOCYTES # (AUTO) 1.3 K/uL (0.8-1.0); MONOCYTES % (AUTO) 5.7 % (1.7-9.3); NEUTROPHILS # (AUTO) 19.2 K/uL (1.8-7.7); NEUTROPHILS % (AUTO) 86.1 % (42.2-75.2); PLATELET COUNT (AUTO) 253 K/uL (140-450); RED BLOOD CELL COUNT(AUTO) 2.46 MIL/uL (4.20-6.10); WHITE BLOOD COUNT (AUTO) 22.2 K/uL (4.8-10.8)
--- NOTE | 2020-06-16 07:18 | NUR ---
RECEIVED ON A [employer] R860 VENTILATOR PLUGGED INTO RED OUTLET TOLERATING WELL WITHOUT ADVERSE REACTIONS NOTED TO AN ENDOTRACHEAL TUBE #8.0 SECURED AT 23cm TEETH/GUM LINE WITH AN ANCHOR FAST CUFF PRESSURE CHECKED NOTED AMBU BAG AT BEDSIDE LOC SEDATED RESTING WELL GOOD CHEST RISE ENDOTRACHEAL SUCTION FOR MODERATE THIN WHITE SECRETIONS OROPHARYNGEAL SUCTION FOR COPIOUS WHTIE SECRETIONS AIRWAY PATENT SATURATION 97% ON FIO2 OF 50% PEEP 7cmH2O TITRATED FIO2 TO 45% PEEP 5cmH2O MARIO/RN NOTIFIED
[2020-06-16 08:20] LABS: MAGNESIUM 2.2 mg/dL (1.8-2.4)
[2020-06-16 08:22] LABS: FOLIC ACID 14.6 ng/mL (>3.0)
[2020-06-16 08:26] LABS: ANION GAP 15.6 (8-16); CARBON DIOXIDE 22.1 mmol/L (21-32); CREATININE 3.8 mg/dL (0.6-1.3); POTASSIUM 3.7 mmol/L (3.5-5.1)
[2020-06-16] MEDS: INSULIN LANTUS 100 UNITS/ML 10 ML VIAL SUBQ SCH (09:00)
[2020-06-16] MEDS: LANSOPRAZOLE 30 MG CAPDR GT SCH (09:37)
[2020-06-16] MEDS: ATORVASTATIN 20 MG TAB PO SCH (09:38)
[2020-06-16] MEDS: LOSARTAN 50 MG TAB PO SCH (09:38)
[2020-06-16] MEDS: amLODIPine 5 MG TAB PO SCH (09:38)
[2020-06-16] MEDS: FAMOTIDINE 20 MG TAB PO SCH (09:39)
[2020-06-16] MEDS: LABETALOL 100 MG TAB PO SCH ×4 (09:39→17:00)
[2020-06-16] MEDS: ASCORBIC ACID 500 MG TAB PO SCH (09:39)
[2020-06-16] MEDS: LABETALOL 100 MG/20 ML VIAL IV PRN (10:07)
--- NOTE | 2020-06-16 10:54 | NUR ---
dr farhana avendaño answering service was called to inform abnormal lab results k-5.7 , ca5.8 , bun-[id number] cr-7.4
--- NOTE | 2020-06-16 11:28 | NUR ---
NO DISTRESS NOTED RESTING COMFORTABLY EQUAL CHEST RISE AIRWAY PATENT
[2020-06-16] MEDS: THERAHONEY GEL 42.5 GM TP SCH (13:00)
[2020-06-16] MEDS: INSULIN LISPRO SLIDING SCALE 100 UNITS/ML VIAL SUBQ PRN ×2 (14:23→17:30)
--- NOTE | 2020-06-16 15:50 | NUR ---
SEDATED RESTING WELL EQUAL CHEST RISE ENDOTRACHEAL SUCTION FOR MODERATE THIN YELLOW SECRETIONS AIRWAY PATENT
--- NOTE | 2020-06-16 19:29 | NUR ---
RECEIVED PATIENT IN VENT VIA ETT WITH FIO2 45% , PEEP 5 , ON GT FEEDING WITH NEPRO AT 40 ML/HR, IV DRIPS: VERSED 8 MG/HR, FENTANYL 2 MCG/KG/HR, ALL IV MEDICATION INFUSING AT CHRIS PICC LINE, SITE IS CLEAR. RIJ KENZIE CATHETER INTACT, CERDA CATHETER IN PLACE, RECTAL TUBE IN PLACE, LOW HEMOGLUBIN BUT NO BLOOD TRANSFUSION DUE TO JEHOVA HOAHAOISM. WILL CONTINUE TO MONITOR.
[2020-06-17] VITALS (27 sets, daily range): BP systolic 107–148; BP diastolic 50–101
--- NOTE | 2020-06-17 | NUR ---
BLOOD SUGAR CHECKED AND 4 UNIT OF HUMALOG SQ GIVEN PER SLIDING SCALE FOR BS 244.
--- NOTE | 2020-06-17 04:00 | NUR ---
ORAL CARE AND SKIN CARE GIVEN, TURN AND REPOSITION Q2H TO PREVENT PRESSURE SORE.
[2020-06-17] MEDS: BLOOD GLUCOSE MONITORING 1 DEV DEV FS SCH ×4 (05:17→18:14)
[2020-06-17 06:03] LABS: HEMATOCRIT 22.4 % (36-52); HEMOGLOBIN 7.1 g/dL (12.0-18.0); MEAN CORPUSCULAR HEMOGLOBIN 30 pg (27-31); MEAN CORPUSCULAR HGB CONC 32 g/dL (33-37); MEAN CORPUSCULAR VOLUME 95.2 fL (80-94); PLATELET COUNT (AUTO) 240 K/uL (140-450); RED BLOOD CELL COUNT(AUTO) 2.36 MIL/uL (4.20-6.10); RED CELL DISTRIBUTION WIDTH 18.2 % (11.6-13.7)
[2020-06-17] MEDS: INSULIN LISPRO SLIDING SCALE 100 UNITS/ML VIAL SUBQ PRN ×4 (06:26→18:13)
[2020-06-17 06:39] LABS: WHITE BLOOD COUNT (AUTO) 25.2 K/uL (4.8-10.8)
[2020-06-17 06:56] LABS: ALBUMIN 1.7 g/dL (3.4-5.0); ANION GAP 18.9 (8-16); CARBON DIOXIDE 19.2 mmol/L (21-32); MAGNESIUM 1.9 mg/dL (1.8-2.4); PHOSPHORUS 5.2 mg/dL (2.5-4.9); POTASSIUM 4.1 mmol/L (3.5-5.1); TOTAL BILIRUBIN 0.3 mg/dL (0.0-1.0)
--- NOTE | 2020-06-17 07:20 | NUR ---
RECEIVED BEDSIDE REPORT FROM BIOMECHANICAL ENGINEER NURSE. PT LAYING IN BED SUPINE, BREATHING EVEN AND UNLABORED, NO SIGNS OF ACUTE DISTRESS NOTED. ETT TO VENT: AC PRVC 45% FIO2, RR 16, PEEP 5, SPO2 95%. PEG TUBE IN PLACE RUNNING NEPRO AT 40 ML/HR. CERDA CATHETER AND RECTAL TUBE IN PLACE, DRAINING TO GRAVITY. RIJ KENZIE CATH ACCESS, CHRIS PICC LINE, CLEAN DRY INTACT. INFUSING: VERSED @ 8MG/HR, FENTANYL @ 2 MCG/KG/HR, NS @ 5 ML/HR. SAP PPM CONSULTANT IN PLACE, SAFETY MEASURES IN PLACE.
[2020-06-17 07:21] LABS: LYMPHOCYTES % (MANUAL) 7 % (20-46); MONOCYTES % (MANUAL) 4 % (5-12)
--- NOTE | 2020-06-17 07:33 | NUR ---
RECEIVED CRITICAL LAB FOR BUN 73, CR 4.5. PATIENT HAS DIALYSIS ORDER. JACOB PRODUCT MANAGEMENT CONSULTANT NOTIFIED.
[2020-06-17 07:40] LABS: CREATININE 4.5 mg/dL (0.6-1.3)
[2020-06-17] MEDS: LANSOPRAZOLE 30 MG CAPDR GT SCH (08:57)
[2020-06-17] MEDS: LOSARTAN 50 MG TAB PO SCH (08:57)
[2020-06-17] MEDS: EPOETIN ALFA 10,000 UNITS/ML VIAL IV SCH (08:57)
[2020-06-17] MEDS: ATORVASTATIN 20 MG TAB PO SCH (08:58)
[2020-06-17] MEDS: FAMOTIDINE 20 MG TAB PO SCH (08:59)
[2020-06-17] MEDS: LABETALOL 100 MG TAB PO SCH ×3 (08:59→17:44)
[2020-06-17] MEDS: amLODIPine 5 MG TAB PO SCH (08:59)
[2020-06-17] MEDS: ASCORBIC ACID 500 MG TAB PO SCH (09:00)
--- NOTE | 2020-06-17 09:00 | NUR ---
ADMINISTERED SCHEDULED MEDS PER MD ORDER. MED EDUCATION PROVIDED, REINFORCEMENT NEEDED. G TUBE RESIDUAL, 5 L, FLUSHED BEFORE AND AFTER MEDS. MORNING HYGIENE PROVIDED: ORAL CARE, CATHETER CARE, HCG BATH, CHANGED ALL DIRTY LINEN. PT REPOSITIONED AND OFFLOADED PRESSURE WITH PILLOWS. ACTIVITY TOLERATED WELL, NO SIGNS OF ACUTE DISTRESS NOTED. BREATHING EVEN AND UNLABORED. HOME CARE COMPANION IN PLACE. SAFETY MEASURES IN PLACE.
[2020-06-17] MEDS: INSULIN LANTUS 100 UNITS/ML 10 ML VIAL SUBQ SCH (09:03)
--- NOTE | 2020-06-17 09:03 | NUR ---
HEMODIALYSIS IN PROGRESS
--- NOTE | 2020-06-17 09:03 | NUR ---
RECEIVED ON A [employer] R860 VENTILATOR VENTILATOR PLUGGED INTO RED OUTLET TOLERATING WELL WITHOUT ADVERSE REACTIONS NOTED TO AN ENDOTRACHEAL TUBE #7.5 SECURED AT 23cm TEETH/GUM LINE WITH ANCHOR FAST CUFF PRESSURE CHECKED NOTED AMBU BAG AT BEDSIDE LOC SEDATED RESTING WELL EASILY AWAKENS GOOD CHEST RISE ENDOTRACHEAL SUCTION FOR LARGE SEMI THICK YELLOW SECRETIONS AIRWAY PATENT
[2020-06-17] MEDS: fentaNYL citrate - 50mL vial 2.5 MG in NACL 0.9% 200 ML IV PRN (09:11)
[2020-06-17] MEDS: MIDAZOLAM MDV 100 MG in NACL 0.9% 80 ML IV PRN (09:12)
--- NOTE | 2020-06-17 09:40 | NUR ---
DIALYSIS NURSE AT BEDSIDE WITH PATIENT. PATIENT STABLE AT THIS TIME.
[2020-06-17] MEDS: THERAHONEY GEL 42.5 GM TP SCH (13:07)
--- NOTE | 2020-06-17 13:19 | NUR ---
RECEIVED A CALL FROM DAUGHTER FLORIN, PROVIDED UPDATED TO FLORIN AND ANSWERED ALL HER QUESTIONS, FLORIN WAS AWARE.
--- NOTE | 2020-06-17 13:51 | NUR ---
NO PULMONARY DISTRESS NOTED EQUAL CHEST RISE ENDOTRACHEAL SUCTION FOR LARGE SEMI THICK YELLOW SECRETIONS AIRWAY PATENT
[2020-06-17] MEDS ORDERED: SODIUM FERRIC GLUCONATE 125 MG in NACL 0.9% 100 ML IV SCH (15:00)
--- NOTE | 2020-06-17 19:15 | NUR ---
PATIENT ENDORSED TO CARE AID NURSE FOR CONTINUITY OF CARE. PATIENT STABLE AT THIS TIME.
--- NOTE | 2020-06-17 19:26 | NUR ---
RECEIVED PATIENT IN SUPINE POSITION , ETT TO VENT WITH FIO2 45%, PEEP 5 , RIJ KENZIE CATHETER IN PLACE FOR HD ACCESS, GT FEEDING WITH NEPRO AT 40 ML/HR, IV DRIP: VERSED 8 MG/HR, FENTANYL 2 MCG/KG/HR, ALL IV MEDICATION GIVING VIA PICC LINE AT [facility] , RECTAL TUBE IN PLACE, WILL CONTINUE TO MONITOR.
[2020-06-17] MEDS ORDERED: DOPPLER MC ONE (23:44)
[2020-06-18] VITALS (25 sets, daily range): BP systolic 99–143; BP diastolic 41–73
[2020-06-18] MEDS: INSULIN LISPRO SLIDING SCALE 100 UNITS/ML VIAL SUBQ PRN ×4 (01:25→18:38)
[2020-06-18] MEDS: BLOOD GLUCOSE MONITORING 1 DEV DEV FS SCH ×4 (05:05→18:38)
--- NOTE | 2020-06-18 07:20 | NUR ---
RECEIVED BEDSIDE REPORT FROM SUPERVISOR SCREEN PRINTING NURSE. PT LAYING IN BED SUPINE, BREATHING EVEN AND UNLABORED, NO SIGNS OF ACUTE DISTRESS NOTED. ETT TO VENT: AC PRVC 45% FIO2, RR 16, PEEP 5, SPO2 95%. G TUBE IN PLACE RUNNING NEPRO AT 40 ML/HR. RECTAL TUBE IN PLACE, DRAINING TO GRAVITY. RIJ KENZIE CATH ACCESS, CHRIS PICC LINE, CLEAN DRY INTACT. INFUSING: VERSED @ 8MG/HR, FENTANYL @ 2 MCG/KG/HR, NS @ 5 ML/HR. UTILIZATION REVIEW NURSE IN PLACE, SAFETY MEASURES IN PLACE.
[2020-06-18 07:47] LABS: ALBUMIN 1.7 g/dL (3.4-5.0); CARBON DIOXIDE 22.8 mmol/L (21-32); CREATININE 3.6 mg/dL (0.6-1.3); MAGNESIUM 2.2 mg/dL (1.8-2.4); PHOSPHORUS 4.4 mg/dL (2.5-4.9); POTASSIUM 3.8 mmol/L (3.5-5.1); TOTAL BILIRUBIN 0.3 mg/dL (0.0-1.0)
--- NOTE | 2020-06-18 07:55 | NUR ---
RECEIVED ON A EnstratiusSCAPE R860 VENTILATOR PLUGGED INTO RED OUTLET TOLERATING WELL WITHOUT ADVERSE REACTIONS NOTED TO AN ENDOTRACHEAL TUBE #8.0 AT 23cm TEETH/GUM LINE WITH ANCHOR FAST CUFF PRESSURE CHECKED NOTED AMBU BAG AT BEDSIDE LOC SEDATED EASILY AWAKENS GOOD CHEST RISE ENDOTRACHEAL SUCTION FOR LARGE THIN PALE YELLOW SECRETIONS AIRWAY PATENT
[2020-06-18] MEDS: LABETALOL 100 MG TAB PO SCH ×3 (09:00→17:00)
[2020-06-18] MEDS: LOSARTAN 50 MG TAB PO SCH (09:00)
[2020-06-18] MEDS: amLODIPine 5 MG TAB PO SCH (09:00)
[2020-06-18] MEDS: LANSOPRAZOLE 30 MG CAPDR GT SCH (09:06)
[2020-06-18] MEDS: ATORVASTATIN 20 MG TAB PO SCH (09:06)
[2020-06-18] MEDS: FAMOTIDINE 20 MG TAB PO SCH (09:07)
[2020-06-18] MEDS: ASCORBIC ACID 500 MG TAB PO SCH (09:07)
--- NOTE | 2020-06-18 09:10 | NUR ---
ADMINISTERED SCHEDULED MEDS PER MD ORDER, MED EDUCATION PROVIDED, REINFORCEMENT NEEDED. G TUBE RESIDUAL 10ML, FLUSHED BEFORE AND AFTER MEDS. BP MEDS HELD DUE TO PATIENT HYPERTENSION. MORNING HYGIENE PROVIDED: ORAL CARE, CATHETER CARE, CHG BATH, CHANGED ALL DIRTY LINEN. PATIENT REPOSITIONED AND OFFLOADED PRESSURE WITH PILLOWS. LIFT OPERATOR IN PLACE. SAFETY MEASURES IN PLACE.
[2020-06-18] MEDS: INSULIN LANTUS 100 UNITS/ML 10 ML VIAL SUBQ SCH (09:15)
[2020-06-18 09:54] LABS: WHITE BLOOD COUNT (AUTO) 24.2 K/uL (4.8-10.8)
[2020-06-18 09:55] LABS: HEMATOCRIT 22.4 % (36-52); HEMOGLOBIN 7.1 g/dL (12.0-18.0); MEAN CORPUSCULAR HEMOGLOBIN 30 pg (27-31); MEAN CORPUSCULAR HGB CONC 32 g/dL (33-37); MEAN CORPUSCULAR VOLUME 95.3 fL (80-94); PLATELET COUNT (AUTO) 228 K/uL (140-450); RED BLOOD CELL COUNT(AUTO) 2.35 MIL/uL (4.20-6.10); RED CELL DISTRIBUTION WIDTH 18.4 % (11.6-13.7)
[2020-06-18 09:56] LABS: BASOPHILS # (AUTO) 0.1 K/uL (0.00-0.22); BASOPHILS % (AUTO) 0.2 % (0.0-2.0); EOSINOPHILS % (AUTO) 0.1 % (0.0-4.0); LYMPHOCYTES # (AUTO) 1.9 K/uL (2.0-11.5); LYMPHOCYTES % (AUTO) 7.5 % (20.5-51.1); MONOCYTES % (AUTO) 4.1 % (1.7-9.3); NEUTROPHILS # (AUTO) 22.3 K/uL (1.8-7.7); NEUTROPHILS % (AUTO) 88.1 % (42.2-75.2)
[2020-06-18] MEDS: fentaNYL citrate - 50mL vial 2.5 MG in NACL 0.9% 200 ML IV PRN ×2 (10:00→23:24)
[2020-06-18] MEDS: MIDAZOLAM MDV 100 MG in NACL 0.9% 80 ML IV PRN ×2 (11:08→22:46)
[2020-06-18] MEDS: THERAHONEY GEL 42.5 GM TP SCH (12:33)
--- NOTE | 2020-06-18 14:11 | NUR ---
NO DISTRESS NOTED EQUAL CHEST RISE ENDOTRACHEAL SUCTION FOR LARGE THIN YELLOW SECRETIONS AIRWAY PATENT
--- NOTE | 2020-06-18 14:38 | NUR ---
06/18/20 RD FOLLOW UP COMPLETED PLEASE REFER TO NUTRITION ASSESSMENT UNDER CARE ACTIVITY FOR ESTIMATED NUTRITIONAL NEEDS. 1. CONT. NEPRO 1.8 @ 40 ML/HR WITH PROSOURCE TID -THIS PROVIDES 1908 KCAL AND 123 GM OF PROTEIN. MEETING 100% OF ESTIMATED KCAL AND PROTEIN NEEDS 2. CONT. FREE WATER FLUSH OF 100 ML Q6H 3. RECOMMEND NEPHRO-LYNNE DAILY AND CONTINUE VITAMIN C DAILY 4. RD TO FOLLOW-UP 2-3 DAYS, HIGH RISK FLOWER [address] RD
--- NOTE | 2020-06-18 18:06 | NUR ---
PATIENT SCHEDULED FOR CT SCAN. UNABLE TO COMPLETE DURING SHIFT, WILL ENDORSE TO BUSINESS ADVISOR PATIENT TO HAVE A PROCEDURE TOMORROW.
--- NOTE | 2020-06-18 19:45 | NUR ---
RECEIVED PATIENT ON BED WITH HOB TO 30 DEGREE; ORALLY INTUBATED AND VENTILATED AT 45% FIO2; SEDATED WITH CONTINOUS VERSED AND AND FENTANYL DRIP TO KEEP RASS -2. CARDIACSCOPE SHOWS ON SINUS RHYTHM HE 78/MIN NO ARRHYTHMIAS SEEN.; WITH KENZIE CATH IN SITU TO RIGHT INTERNAL JUGULAR FOR HD ACCESS; INTACT. ABDOMEN IS SOFT, HYPOACTIVE BOWEL SOUNDS. ON CONTINOUS TUBE FEEDING NEPRO AT 40 ML/HR VIA G TUBE; TOLERATED WITH MINIMAL RESIDUAL. PATIENT IS ANURIC ON HEMODIALYSIS; WITH RECTAL TUBE IN PLACE DRAINING TO SCANTY AMOUNT OF WATERY BROWN STOOL; INTACT.
--- NOTE | 2020-06-18 19:45 | NUR ---
ENDORSED PATIENT TO SYSTEM CONTROLLER NURSE FOR CONTINUITY OF CARE. RN AWARE OF PT NEED FOR CT SCAN AND TOMORROW'S SCHEDULED TRACHEOSTOMY. PATIENT STABLE AT THIS TIME.
--- NOTE | 2020-06-18 21:41 | NUR ---
BROUGHT TO CT DEPT FOR CT HEAD WITHOUT CONTRAST.
--- NOTE | 2020-06-18 22:00 | NUR ---
BACK TO ICU [address] HEAD DONE IN THE DEPT.;HOOKED BACK TO TELECOM ENGINEER.
[2020-06-19] VITALS (27 sets, daily range): BP systolic 90–139; BP diastolic 42–73
--- NOTE | 2020-06-19 | NUR ---
ACCUCHECK DONE, RESULT IS 123; NO INSULIN GIVEN PER SLIDING SCALE. KEPT PATIENT NPO OR TUBE FEEDING HELD; FOR TRACHEOSTOMY TOMORROW MORNING AT 0930; CONSENT HAS BEEN SIGNED.
[2020-06-19 05:49] LABS: BASOPHILS # (AUTO) 0.1 K/uL (0.00-0.22); BASOPHILS % (AUTO) 0.3 % (0.0-2.0); EOSINOPHILS % (AUTO) 0.2 % (0.0-4.0); HEMATOCRIT 21.1 % (36-52); LYMPHOCYTES # (AUTO) 1.2 K/uL (2.0-11.5); LYMPHOCYTES % (AUTO) 4.9 % (20.5-51.1); MEAN CORPUSCULAR HEMOGLOBIN 30 pg (27-31); MEAN CORPUSCULAR HGB CONC 32 g/dL (33-37); MEAN CORPUSCULAR VOLUME 95.6 fL (80-94); MONOCYTES # (AUTO) 0.4 K/uL (0.8-1.0); MONOCYTES % (AUTO) 1.5 % (1.7-9.3); NEUTROPHILS # (AUTO) 22.7 K/uL (1.8-7.7); NEUTROPHILS % (AUTO) 93.1 % (42.2-75.2); PLATELET COUNT (AUTO) 202 K/uL (140-450); RED CELL DISTRIBUTION WIDTH 18.2 % (11.6-13.7); WHITE BLOOD COUNT (AUTO) 24.3 K/uL (4.8-10.8)
[2020-06-19] MEDS: BLOOD GLUCOSE MONITORING 1 DEV DEV FS SCH ×4 (06:00→18:00)
[2020-06-19 06:16] LABS: HEMOGLOBIN 6.6 g/dL (12.0-18.0)
--- NOTE | 2020-06-19 07:30 | NUR ---
RECEIVED REPORT FROM ONEYDA ,PT. ETT TO VENT, HAS PICC LINE FOR IV. HE IS SCHEDULE FOR TRACHEOSTOMY AND TURNNEL CATH INSERTION.
[2020-06-19 07:38] LABS: ANION GAP 16.8 (8-16); POTASSIUM 4.8 mmol/L (3.5-5.1)
--- NOTE | 2020-06-19 08:00 | NUR ---
TALK TO DR. HOBBS REGARDING INFORM CONSENT AND INFORM HIM ABOUT LAB RESULT HGB 6.6 ALSO INFORM .
--- NOTE | 2020-06-19 08:30 | NUR ---
SWAB FOR RAPID COVID 19 TEST SENT TO LAB,
[2020-06-19] MEDS: LANSOPRAZOLE 30 MG CAPDR GT SCH (09:00)
[2020-06-19] MEDS: amLODIPine 5 MG TAB PO SCH (09:00)
[2020-06-19] MEDS: INSULIN LANTUS 100 UNITS/ML 10 ML VIAL SUBQ SCH (09:00)
[2020-06-19] MEDS: VIT-B COMP/VIT-C/FOLIC ACID 1 TAB PO SCH (09:00)
[2020-06-19] MEDS: ASCORBIC ACID 500 MG TAB PO SCH (09:00)
[2020-06-19] MEDS: ATORVASTATIN 20 MG TAB PO SCH (09:00)
[2020-06-19] MEDS: LOSARTAN 50 MG TAB PO SCH (09:00)
[2020-06-19] MEDS: FAMOTIDINE 20 MG TAB PO SCH (09:00)
[2020-06-19] MEDS: LABETALOL 100 MG TAB PO SCH ×3 (09:00→17:00)
--- NOTE | 2020-06-19 09:00 | NUR ---
HOLD ALL SCHEDULE MED AT 0900 PT NPO FOR THE PROCEDURE.
[2020-06-19 09:21] LABS: CREATININE 4.3 mg/dL (0.6-1.3)
--- NOTE | 2020-06-19 11:00 | NUR ---
OR CALLED SAID THE PROCEDURE IS CANCELLED DUE TO LOW HBG, .DR. LOONEY AWARE.
[2020-06-19] MEDS: MIDAZOLAM MDV 100 MG in NACL 0.9% 80 ML IV PRN ×2 (11:39→19:52)
--- NOTE | 2020-06-19 12:55 | NUR ---
HEMODIALYSIS STARTED , PT. TOLERATED WELL.
[2020-06-19] MEDS: THERAHONEY GEL 42.5 GM TP SCH (13:00)
--- NOTE | 2020-06-19 14:55 | NUR ---
DIALYSIS COMPLETED REMOVE 1500MLOF FLUID.
--- NOTE | 2020-06-19 15:10 | NUR ---
WOUND CARE RE-EVALUATION NOTE: PT. SKIN AND WOUNDS CONDITION NO IMPROVEMENT, PER PHYSICIAN'S NOTE " SURGEON HELD OFF TRACH PROCEDURE DUE TO LOW HGB. NO TRANSFUSION PER FAMILY'S INSTRUCTION, POOR PROGNOSIS", WILL CONTINUE WOUND CARE TREATMENT AND OFFLOADING. -MULTIPLE OPEN BLISTERING SKIN TEARS: LEFT ANTECUBITAL 2X3CM AND LEFT COHEN 1X5CM AND RIGHT MEDIAL THIGH 3X3CM,AREAS DRY WITH VERSATEL DRESSING APPLIED -LEFT LATERAL KNEE BLOOD FILLED INTACT BLISTER, 2X3 CM -INCONTINENT ASSOCIATE DERMATITIS (IAD) TO: INNER THIGHS AND SCROTAL AREA, SKIN REDNESS INTACT -COVID RELATED SKIN FAILURE PARTIAL THICKNESS SKIN LOSS ON INTERGLUTEAL CLEFT OVAL SHAPE, WOUND BED 100% SHINE YELLOW TISSUE 1.5X3X0.2 CM, MOIST, NO ODOR, WOUND EDGE FLAT, SURROUNDING REDNESS DENUDED SKIN INDICATED FURTHER DAMAGE -COVID RELATED SKIN FAILURE PARTIAL THICKNESS SKIN LOSS ON LEFT BUTTOCK, WOUND BED 100% GRANULATING TISSUE, 3X3 CM, SUPERFICIAL DEPTH, AREA MOIST, NO ODOR , WOUND EDGE FLAT, SURROUNDING REDNESS DENUDED SKIN INDICATED FURTHER DAMAGE -COVID RELATED SKIN FAILURE PARTIAL THICKNESS SKIN LOSS ON RIGHT BUTTOCK, 1X1CM AND 1.5X1CM, BOTH WOUND BEDS ARE 100% GRANULATING TISSUE, SUPERFICIAL DEPTH, AREA MOIST, NO ODOR, WOUND EDGE FLAT, SURROUNDING REDNESS DENUDED SKIN INDICATED FURTHER DAMAGE
[2020-06-19] MEDS: EPOETIN ALFA 10,000 UNITS/ML VIAL IV SCH (15:35)
--- NOTE | 2020-06-19 17:30 | NUR ---
BLOOD GLUCOSE 151. NO INSULIN GIVEN.
--- NOTE | 2020-06-19 19:30 | NUR ---
REPORT GIVE TO THOMAS RN, FOR CONTINUE CARE,
[2020-06-19] MEDS: fentaNYL citrate - 50mL vial 2.5 MG in NACL 0.9% 200 ML IV PRN (19:45)
[2020-06-20] VITALS (29 sets, daily range): BP systolic 113–162; BP diastolic 34–82
[2020-06-20] MEDS: BLOOD GLUCOSE MONITORING 1 DEV DEV FS SCH ×4 (00:43→17:38)
[2020-06-20 06:15] LABS: BASOPHILS # (AUTO) 0.1 K/uL (0.00-0.22); BASOPHILS % (AUTO) 0.5 % (0.0-2.0); EOSINOPHILS # (AUTO) 0.2 K/uL (0-0.4); EOSINOPHILS % (AUTO) 0.8 % (0.0-4.0); HEMATOCRIT 24.7 % (36-52); HEMOGLOBIN 7.7 g/dL (12.0-18.0); LYMPHOCYTES # (AUTO) 2.4 K/uL (2.0-11.5); LYMPHOCYTES % (AUTO) 11.2 % (20.5-51.1); MEAN CORPUSCULAR HEMOGLOBIN 30 pg (27-31); MEAN CORPUSCULAR HGB CONC 31 g/dL (33-37); MEAN CORPUSCULAR VOLUME 95.4 fL (80-94); MONOCYTES # (AUTO) 0.6 K/uL (0.8-1.0); MONOCYTES % (AUTO) 2.9 % (1.7-9.3); NEUTROPHILS # (AUTO) 18.3 K/uL (1.8-7.7); NEUTROPHILS % (AUTO) 84.6 % (42.2-75.2); PLATELET COUNT (AUTO) 222 K/uL (140-450); RED BLOOD CELL COUNT(AUTO) 2.59 MIL/uL (4.20-6.10); RED CELL DISTRIBUTION WIDTH 17.9 % (11.6-13.7); WHITE BLOOD COUNT (AUTO) 21.6 K/uL (4.8-10.8)
[2020-06-20 06:43] LABS: ANION GAP 16.1 (8-16); CARBON DIOXIDE 22.4 mmol/L (21-32); POTASSIUM 3.5 mmol/L (3.5-5.1)
[2020-06-20 06:51] LABS: CREATININE 3.4 mg/dL (0.6-1.3)
--- NOTE | 2020-06-20 07:15 | NUR ---
RECEIVED HANDOFF FROM TUBE ROOM SUPERVISOR RN. PT IS RASS -2. PT IS ETT TO VENT, IN ACPRVC MODE, FIO2 40%, VT 450, PEEP 5, R 16. PT IS ON NEPRO RUNNING AT 40 ML/HR WITH FWF 100 ML Q6HR. PT HAS CHRIS PICC LINE AND TIAN ESPINO FOR HEMODIALYSIS. PT IS ON VERSED AT 2 MG/HR AND FENTANYL AT 1 MCG/KG/HR. PT HAS RECTAL TUBE IN PLACE. HOB IS 30 DEG, WITH BED IN LOW, LOCKED POSITION. WILL CONTINUE TO MONITOR.
--- NOTE | 2020-06-20 08:15 | NUR ---
DR. CISNEROS SEEING PT
[2020-06-20] MEDS: LABETALOL 100 MG TAB PO SCH ×3 (09:00→16:44)
[2020-06-20] MEDS: INSULIN LANTUS 100 UNITS/ML 10 ML VIAL SUBQ SCH (09:00)
[2020-06-20] MEDS: FAMOTIDINE 20 MG TAB PO SCH (09:50)
[2020-06-20] MEDS: VIT-B COMP/VIT-C/FOLIC ACID 1 TAB PO SCH (09:51)
[2020-06-20] MEDS: amLODIPine 5 MG TAB PO SCH (09:51)
[2020-06-20] MEDS: ATORVASTATIN 20 MG TAB PO SCH (09:51)
[2020-06-20] MEDS: LOSARTAN 50 MG TAB PO SCH (09:51)
[2020-06-20] MEDS: ASCORBIC ACID 500 MG TAB PO SCH (09:52)
[2020-06-20] MEDS: LANSOPRAZOLE 30 MG CAPDR GT SCH (09:52)
--- NOTE | 2020-06-20 10:25 | NUR ---
MEDICATIONS ADMINISTERED, PT TOLERATED WELL. 5 ML RESIDUAL FROM TUBE FEED. CHG BATH PROVIDED, VAP ORAL CARE PROVIDED. TEMPERATURE 98.9 TEMPORALLY.
--- NOTE | 2020-06-20 11:39 | NUR ---
DR. KULKARNI SEEING PT
[2020-06-20] MEDS: THERAHONEY GEL 42.5 GM TP SCH (12:08)
--- NOTE | 2020-06-20 12:43 | NUR ---
BS 61, NO INSULIN COVERAGE PER SLIDING SCALE. TEMPERATURE 97.9 AXILLARY. VAP ORAL CARE PROVIDED.
[2020-06-20] MEDS: fentaNYL citrate - 50mL vial 2.5 MG in NACL 0.9% 200 ML IV PRN (16:29)
[2020-06-20] MEDS: INSULIN LISPRO SLIDING SCALE 100 UNITS/ML VIAL SUBQ PRN (17:39)
--- NOTE | 2020-06-20 17:42 | NUR ---
MEDICATIONS ADMINISTERED PER ORDER. DRESSING CHANGED, CLEANED, AND REPOSITIONED. TEMPERATURE 99.1 TEMPORALLY. BS 207, 4 UNITS OF INSULIN COVERAGE ADMINISTERED.
[2020-06-21] VITALS (29 sets, daily range): BP systolic 96–173; BP diastolic 47–75
[2020-06-21] MEDS: BLOOD GLUCOSE MONITORING 1 DEV DEV FS SCH ×4 (00:55→17:06)
[2020-06-21] MEDS: INSULIN LISPRO SLIDING SCALE 100 UNITS/ML VIAL SUBQ PRN ×4 (01:08→17:07)
[2020-06-21 06:28] LABS: BASOPHILS # (AUTO) 0.1 K/uL (0.00-0.22); BASOPHILS % (AUTO) 0.4 % (0.0-2.0); EOSINOPHILS % (AUTO) 0.1 % (0.0-4.0); HEMATOCRIT 21.6 % (36-52); LYMPHOCYTES # (AUTO) 1.5 K/uL (2.0-11.5); LYMPHOCYTES % (AUTO) 9.2 % (20.5-51.1); MEAN CORPUSCULAR HEMOGLOBIN 31 pg (27-31); MEAN CORPUSCULAR HGB CONC 32 g/dL (33-37); MEAN CORPUSCULAR VOLUME 95.8 fL (80-94); MONOCYTES # (AUTO) 0.4 K/uL (0.8-1.0); MONOCYTES % (AUTO) 2.6 % (1.7-9.3); NEUTROPHILS # (AUTO) 14.4 K/uL (1.8-7.7); NEUTROPHILS % (AUTO) 87.7 % (42.2-75.2); PLATELET COUNT (AUTO) 189 K/uL (140-450); RED BLOOD CELL COUNT(AUTO) 2.25 MIL/uL (4.20-6.10); RED CELL DISTRIBUTION WIDTH 18.3 % (11.6-13.7); WHITE BLOOD COUNT (AUTO) 16.4 K/uL (4.8-10.8)
[2020-06-21] MEDS: MIDAZOLAM MDV 100 MG in NACL 0.9% 80 ML IV PRN (06:29)
--- NOTE | 2020-06-21 07:21 | NUR ---
RECEIVED HANDOFF FROM PAINTER AND PAPERHANGER APPRENTICE RN. PT IS RASS -2. PT IS ETT TO VENT, IN ACPRVC MODE, FIO2 40%, VT 450, PEEP 5, R 16. PT IS ON NEPRO RUNNING AT 40 ML/HR WITH FWF 100 ML Q6HR. PT HAS CHRIS PICC LINE AND TIAN ESPINO FOR HEMODIALYSIS. PT IS ON VERSED AT 2 MG/HR AND FENTANYL AT 1 MCG/KG/HR. PT HAS RECTAL TUBE IN PLACE. HOB IS 30 DEG, WITH BED IN LOW, LOCKED POSITION. WILL CONTINUE TO MONITOR.
[2020-06-21 08:04] LABS: HEMOGLOBIN 6.9 g/dL (12.0-18.0)
--- NOTE | 2020-06-21 08:10 | NUR ---
SPOKE TO DR. KULKARNI ABOUT HGB 6.9. BECAUSE PATIENT'S IS RASTAFARIAN AND REFUSED BLOOD TRANSFUSION, WILL JUST CONTINUE TO MONITOR.
[2020-06-21 08:16] LABS: ANION GAP 16.2 (8-16); CARBON DIOXIDE 20.8 mmol/L (21-32); CREATININE 4.2 mg/dL (0.6-1.3)
[2020-06-21] MEDS: amLODIPine 5 MG TAB PO SCH (08:53)
[2020-06-21] MEDS: ATORVASTATIN 20 MG TAB PO SCH (08:53)
[2020-06-21] MEDS: LANSOPRAZOLE 30 MG CAPDR GT SCH (08:53)
[2020-06-21] MEDS: VIT-B COMP/VIT-C/FOLIC ACID 1 TAB PO SCH (08:53)
[2020-06-21] MEDS: FAMOTIDINE 20 MG TAB PO SCH (08:54)
[2020-06-21] MEDS: LOSARTAN 50 MG TAB PO SCH (08:54)
[2020-06-21] MEDS: LABETALOL 100 MG TAB PO SCH ×3 (08:54→17:09)
[2020-06-21] MEDS: ASCORBIC ACID 500 MG TAB PO SCH (08:54)
[2020-06-21] MEDS: INSULIN LANTUS 100 UNITS/ML 10 ML VIAL SUBQ SCH (08:56)
--- NOTE | 2020-06-21 09:07 | NUR ---
DR. CISNEROS SEEING PT
--- NOTE | 2020-06-21 09:29 | NUR ---
MEDICATIONS ADMINISTERED PER ORDER, PT TOLERATED WELL. 10 ML RESIDUAL FROM TUBE FEED. CHG BATH, VAP ORAL CARE PROVIDED. TEMPERATURE 97.3 AXILLARY. WILL CONTINUE TO MONITOR
--- NOTE | 2020-06-21 11:56 | NUR ---
BS 232, 4 UNITS HUMALOG ADMINISTERED FOR COVERAGE. TEMPERATURE 97.3 TEMPORALLY. PT REPOSITIONED, VAP ORAL CARE PROVIDED.
[2020-06-21] MEDS: THERAHONEY GEL 42.5 GM TP SCH (12:00)
--- NOTE | 2020-06-21 13:20 | NUR ---
LABETALOL HELD AT THIS TIME, PT BP 104/49. WILL CONTINUE TO MONITOR
--- NOTE | 2020-06-21 13:40 | NUR ---
DR. MULLER SEEING PT
--- NOTE | 2020-06-21 14:14 | NUR ---
06/21/20 RD FOLLOW UP COMPLETED PLEASE REFER TO NUTRITION PROGRESS NOTES UNDER CARE ACTIVITY FOR ESTIMATED NUTRITIONAL NEEDS. RD RECOMMENDATIONS: 1. CONT. NEPRO 1.8 @ 40 ML/HR WITH PROSOURCE TID -THIS PROVIDES 1908 KCAL AND 123 GM OF PROTEIN. MEETING 100% OF ESTIMATED KCAL AND PROTEIN NEEDS 2. CONT. FREE WATER FLUSH OF 100 ML Q6H 3. CONTINUE NEPHRO-LYNNE AND VITAMIN C DAILY 4. RD TO FOLLOW-UP 2-3 DAYS, HIGH RISK JOHN SHI MBA, RD
--- NOTE | 2020-06-21 17:00 | NUR ---
PT GIVEN BATH, CHANGED SACRAL DRESSING, REPOSITIONED. PT TOLERATED WELL.
--- NOTE | 2020-06-21 17:16 | NUR ---
MEDICATIONS GIVEN PER ORDER, BS 282, 6 UNITS HUMALOG ADMINISTERED PER SLIDING SCALE. TEMPERATURE 97.3 AXILLARY. VAP ORAL CARE PROVIDED.
--- NOTE | 2020-06-21 19:10 | NUR ---
HANDOFF GIVEN TO JEWEL DIAMETER GAUGER RN FOR CONTINUITY OF CARE
--- NOTE | 2020-06-21 20:38 | NUR ---
DR HARRELL CAME IN AND ORDERED NPO FROM CT FOR TRACHEOSTOMY TOMORROW. WILL HOLD FEEDING FROM CT.
--- NOTE | 2020-06-21 22:45 | NUR ---
PT RECEIVED ON PRVC 450 +5, f16 W/ 8 ETT SECURED AT 23CM. PT IS AWAKE AND ALERT NODDING HEAD TO RESPOND. VENT PLUGGED INTO RED OUTLET AND AMBU AT BEDSIDE WILL CONTINUE TO MONITOR
[2020-06-22] VITALS (32 sets, daily range): BP systolic 87–163; BP diastolic 55–77
[2020-06-22] MEDS: BLOOD GLUCOSE MONITORING 1 DEV DEV FS SCH ×4 (00:31→19:00)
[2020-06-22] MEDS: INSULIN LISPRO SLIDING SCALE 100 UNITS/ML VIAL SUBQ PRN ×3 (00:32→19:21)
--- NOTE | 2020-06-22 00:39 | NUR ---
HOLD THE GT FEEDING FOR TRACHEOSTOMY TOMORROW.
[2020-06-22] MEDS: MIDAZOLAM MDV 100 MG in NACL 0.9% 80 ML IV PRN (01:53)
--- NOTE | 2020-06-22 05:00 | NUR ---
ORAL CARE AND SKIN CARE GIVEN, CHANGED ALL LINENS AND GOWN, PRE-CHECKLIST FOR OR PREPARED.
[2020-06-22 06:54] LABS: BASOPHILS # (AUTO) 0.1 K/uL (0.00-0.22); BASOPHILS % (AUTO) 0.4 % (0.0-2.0); EOSINOPHILS % (AUTO) 0.2 % (0.0-4.0); HEMATOCRIT 21.5 % (36-52); LYMPHOCYTES # (AUTO) 1.5 K/uL (2.0-11.5); LYMPHOCYTES % (AUTO) 8.2 % (20.5-51.1); MEAN CORPUSCULAR HEMOGLOBIN 30 pg (27-31); MEAN CORPUSCULAR HGB CONC 32 g/dL (33-37); MONOCYTES # (AUTO) 0.4 K/uL (0.8-1.0); MONOCYTES % (AUTO) 2.4 % (1.7-9.3); NEUTROPHILS # (AUTO) 16.1 K/uL (1.8-7.7); NEUTROPHILS % (AUTO) 88.8 % (42.2-75.2); PLATELET COUNT (AUTO) 131 K/uL (140-450); RED BLOOD CELL COUNT(AUTO) 2.24 MIL/uL (4.20-6.10); RED CELL DISTRIBUTION WIDTH 19.1 % (11.6-13.7); WHITE BLOOD COUNT (AUTO) 18.2 K/uL (4.8-10.8)
[2020-06-22 07:05] LABS: ANION GAP 18.3 (8-16); POTASSIUM 4.3 mmol/L (3.5-5.1)
--- NOTE | 2020-06-22 07:10 | NUR ---
HANDOFF REPORT FROM WIND TURBINE SERVICE TECHNICIAN NURSE. PT IS RASS -2. ON TRACH TO VENT, IN ACPRVC MODE, FIO2 45%, VT 450, PEEP 5, R 16. ON TF NEPRO AT 40 ML/HR WITH FWF 100 ML Q6HR. CHRIS PICC DRESSING CLEAN AND INTACT. R IJ KENZIE DRESSING INTACT. ON VERSED AT 2 MG/HR AND FENTANYL AT 1 MCG/KG/HR. RECTAL TUBE IN PLACE. HOB IS 30 DEG, KEPT PT ON NPO FOR TRACH PLACEMENT TODAY. WILL CONTINUE TO MONITOR.
[2020-06-22 07:35] LABS: CREATININE 4.6 mg/dL (0.6-1.3)
[2020-06-22] MEDS: ATORVASTATIN 20 MG TAB PO SCH (08:47)
[2020-06-22] MEDS: ASCORBIC ACID 500 MG TAB PO SCH (08:47)
[2020-06-22] MEDS: amLODIPine 5 MG TAB PO SCH (08:48)
[2020-06-22] MEDS: LOSARTAN 50 MG TAB PO SCH (08:48)
[2020-06-22] MEDS: FAMOTIDINE 20 MG TAB PO SCH (08:48)
[2020-06-22] MEDS: LANSOPRAZOLE 30 MG CAPDR GT SCH (08:49)
[2020-06-22] MEDS: LABETALOL 100 MG TAB PO SCH ×3 (08:49→16:25)
[2020-06-22] MEDS: EPOETIN ALFA 10,000 UNITS/ML VIAL IV SCH (08:55)
[2020-06-22] MEDS: INSULIN LANTUS 100 UNITS/ML 10 ML VIAL SUBQ SCH (09:00)
[2020-06-22] MEDS: VIT-B COMP/VIT-C/FOLIC ACID 1 TAB PO SCH (09:00)
[2020-06-22 09:08] LABS: HEMOGLOBIN 6.8 g/dL (12.0-18.0)
--- NOTE | 2020-06-22 09:20 | NUR ---
HD STARTED. PT IS STABLE.
--- NOTE | 2020-06-22 10:04 | NUR ---
LEVOPHED STARTED AT 4MCG/MIN, HYPOTENSION DURING HEMODIALYSIS BP=87/55.
[2020-06-22] MEDS: NOREPINEPHRINE 8 MG in DEXTROSE 5% 250 ML IV PRN (10:17)
--- NOTE | 2020-06-22 10:37 | NUR ---
INCREASED LEVOPHED TO 8 MCG/MIN FOR BLOOD PRESSURE SUPPORT 89/57 DURING HD.
--- NOTE | 2020-06-22 11:20 | NUR ---
HD DONE WITH NO CHANGE OF CONDITION. 2300 OUT.
[2020-06-22] MEDS: THERAHONEY GEL 42.5 GM TP SCH (12:03)
--- NOTE | 2020-06-22 13:10 | NUR ---
LEVOPHED DRIP HELD. VS STABLE.
[2020-06-22 13:13] LABS: ANION GAP 13.6 (8-16); CARBON DIOXIDE 24.4 mmol/L (21-32); CREATININE 3.1 mg/dL (0.6-1.3)
--- NOTE | 2020-06-22 14:00 | NUR ---
PT' S SON REFUSED TO HAVE PT FOR SURGERY( TRACHEOSTOMY) PER O.R. NOTIFICATION DUE TO LOW HEMOGLOBIN. DR. HARRELL IS AWARE.
--- NOTE | 2020-06-22 19:00 | NUR ---
HANDOFF REPORT GIVEN TO CLEARANCE REP NURSE. POC REVIEWED AND DISCUSSED. PT IS STABLE.
--- NOTE | 2020-06-22 19:24 | NUR ---
1850 INCREASED FIO2 TO 50%. SATS DROPPED TO 78%. CHANGED POX PROBE. WILL TITRATE
--- NOTE | 2020-06-22 19:37 | NUR ---
RECEIVED PATIENT IN SUPINE POSITION , STILL ETT TO VENT WITH FIO2 50% PER RT, PEEP 5, DR HARRELL PASSED BY AND ORDER NPO FROM ND FOR TRACHEOSTOMY AGAIN TOMORROW, IV DRIP : VERSED 2 MG/HR, FENTANYL 1 MCG/KG/HR. ALL IV MEDICATION GIVEN VIA CHRIS PICC LINE. S/P HD TODAY, SRINI ESPINO INTACT, RECTAL TUBE IN PLACE. WILL CONTINUE TO MONITOR.
[2020-06-23] VITALS (32 sets, daily range): BP systolic 91–177; BP diastolic 49–79
--- NOTE | 2020-06-23 00:08 | NUR ---
6 UNIT OF HUMALOG GIVEN PER SLIDING SCALE. STOP G TUBE FEEDING FOR PROCEDURE TOMORROW.
[2020-06-23] MEDS: BLOOD GLUCOSE MONITORING 1 DEV DEV FS SCH ×4 (00:09→18:15)
[2020-06-23] MEDS: INSULIN LISPRO SLIDING SCALE 100 UNITS/ML VIAL SUBQ PRN ×2 (00:13→06:12)
[2020-06-23 05:50] LABS: BASOPHILS % (AUTO) 0.2 % (0.0-2.0); EOSINOPHILS % (AUTO) 0.1 % (0.0-4.0); HEMATOCRIT 22.5 % (36-52); HEMOGLOBIN 7.2 g/dL (12.0-18.0); LYMPHOCYTES # (AUTO) 1.4 K/uL (2.0-11.5); LYMPHOCYTES % (AUTO) 7.3 % (20.5-51.1); MEAN CORPUSCULAR HEMOGLOBIN 31 pg (27-31); MEAN CORPUSCULAR HGB CONC 32 g/dL (33-37); MONOCYTES # (AUTO) 0.9 K/uL (0.8-1.0); MONOCYTES % (AUTO) 4.7 % (1.7-9.3); NEUTROPHILS # (AUTO) 16.3 K/uL (1.8-7.7); NEUTROPHILS % (AUTO) 87.7 % (42.2-75.2); PLATELET COUNT (AUTO) 204 K/uL (140-450); RED BLOOD CELL COUNT(AUTO) 2.35 MIL/uL (4.20-6.10); RED CELL DISTRIBUTION WIDTH 19.5 % (11.6-13.7); WHITE BLOOD COUNT (AUTO) 18.6 K/uL (4.8-10.8)
[2020-06-23 06:15] LABS: ANION GAP 14.4 (8-16); CARBON DIOXIDE 24.7 mmol/L (21-32); CREATININE 3.8 mg/dL (0.6-1.3); POTASSIUM 4.1 mmol/L (3.5-5.1)
--- NOTE | 2020-06-23 07:15 | NUR ---
RECEIVED WINDOW-SIDE REPORT FROM CONSULTANT INTERNSHIP NURSE SOL FOR CONTINUITY OF CARE. PATIENT IS LYING COMFORTABLY ON BED, RASS -2, DRY WEIGHT 95.3 KG, EYES OPEN OCCASIONALLY FOR LESS THAN 10 SECONDS, FLACC 0. RASS RESPIRATION EVEN AND UNLABORED ON ETT TO VENT, AC/PRVC FIO2 45%, RATE 16, PEEP 5, SPO2 AT 98% AT THIS TIME. IV ON CHRIS PICC LINE, CLEAN AND INTACT, RUNNING LEVOPHED 8 MCG/MIN, VERSED 2 MG/HR, FENTANYL 1 MCG/KG/HR, NS TKO 5 ML/HR. PROCEDURE SCHEDULED, NPO SIGN POSTED BY DOOR. ABDOMEN ROUND AND SOFT. RIJ IN PLACE FOR HD. G-TUBE IN PLACE, FEEDING HELD DUE TO TRACH MULTIPLE SKIN BLISTERS, COVERED BY VERSATEL, BLACK ESCHAR ON L AND R FACE, SACRAL WOUND NOTED, DRESSING CLEAN AND INTACT. SAFETY MEASURES IN PLACE. HOB ELEVATED 30 DEGREE AND BED IN LOW POSITION.
[2020-06-23] MEDS: VIT-B COMP/VIT-C/FOLIC ACID 1 TAB PO SCH (08:30)
[2020-06-23] MEDS: ATORVASTATIN 20 MG TAB PO SCH (08:31)
[2020-06-23] MEDS: ASCORBIC ACID 500 MG TAB PO SCH (08:31)
[2020-06-23] MEDS: LANSOPRAZOLE 30 MG CAPDR GT SCH (08:33)
[2020-06-23] MEDS: FAMOTIDINE 20 MG TAB PO SCH (08:33)
[2020-06-23] MEDS: INSULIN LANTUS 100 UNITS/ML 10 ML VIAL SUBQ SCH (08:42)
[2020-06-23] MEDS: amLODIPine 5 MG TAB PO SCH (09:00)
[2020-06-23] MEDS: LABETALOL 100 MG TAB PO SCH ×3 (09:00→17:16)
[2020-06-23] MEDS: LOSARTAN 50 MG TAB PO SCH (09:00)
--- NOTE | 2020-06-23 09:05 | NUR ---
BLOOD GLUCOSE CHECKED 209, ADMINISTERED AM SCHEDULED MEDS VIA G-TUBE AND SUBQ, HELD ALL BP MEDS DUE TO PATIENT IS ON LEVOPHED DRIP AT THIS TIME. FLUSHED BEFORE AND AFTER MEDS. PROVIDED AM HYGIENE CARE,ORAL CARE, SUCTIONING, CHG BATH,PATIENT TOLERATED FAIR. FLACC 0, EYES OPEN LESS THAN 10 SECONDS, G-TUBE FEEDING HELD DUE TO PROCEDURE SCHEDULED FOR TRACH PLACEMENT. REMAIN ON ETT TO VENT, AC/PRVC FIO2 45%, RATE 16, PEEP 5, SPO2 AT 98% AT THIS TIME. SAFETY MEASURES IN PLACE. BED IN LOW POSITION, HOB ELEVATED 30 DEGREE, AND BED LOCKED.
--- NOTE | 2020-06-23 09:15 | NUR ---
DR LOONEY IS ROUNDING ON PATIENT.
--- NOTE | 2020-06-23 12:28 | NUR ---
BLOOD GLUCOSE 170, HUMALOG DID NOT GIVE DUE TO PATIENT IS NPO. REPOSITIONED PATIENT, OFFLOADED PRESSURE WITH PILLOWS, PATIENT TOLERATED FAIR, FLACC 0. SAFETY MEASURES IN PLACE.
--- NOTE | 2020-06-23 13:10 | NUR ---
DR FELDMAN IS ROUNDING ON PATIENT AND LOWERED THE FIO2 TO 40%.
--- NOTE | 2020-06-23 13:18 | NUR ---
RECEIVED CALL FROM DAUGHTER FLORIN [phone], UPDATED FLORIN WITH CURRENT CONDITION ANSWERED ALL HER QUESTIONS, FLORIN WAS AWARE. FLORIN REQUESTS DR HARRELL TO CALL HER INSTEAD OF HER BROTHER BEFORE ANYTHING TAKE PLACE, WILL NOTIFY DR HARRELL ONCE HE COMES TO ROUND ON PATIENT.
[2020-06-23] MEDS: THERAHONEY GEL 42.5 GM TP SCH (13:31)
[2020-06-23] MEDS ORDERED: MIDAZOLAM 2 MG/2 ML VIAL ONE (14:30)
[2020-06-23] MEDS ORDERED: ePHEDrine 50 MG/ML VIAL ONE (14:30)
[2020-06-23] MEDS ORDERED: ROCURONIUM 50 MG/5 ML VIAL IV ONE (14:30)
[2020-06-23] MEDS ORDERED: SEVOFLURANE 250 ML BTL INH ONE (14:30)
[2020-06-23] MEDS ORDERED: fentaNYL citrate 0.05 MG/ML VIAL ONE (14:30)
--- NOTE | 2020-06-23 14:30 | NUR ---
DR HARRELL IS AT BEDSIDE AND INFORMED THAT DAUGHTER FLORIN WANTS TO SPEAK WITH HIM PRIOR TO PROCEDURE, DR HARRELL WAS AWARE.
--- NOTE | 2020-06-23 14:40 | NUR ---
OR TOOK PATIENT TO PROCEDURE.
--- NOTE | 2020-06-23 15:39 | NUR ---
PATIENT CAME BACK FROM PROCEDURE, RT BILL IS BY BEDSIDE AND CONNECTING PATIENT BACK ON VENTILATOR. LABORER TAN HOUSE AND PULSE MONITOR CONNECTED. SAFETY MEASURES IN PLACE.
--- NOTE | 2020-06-23 15:50 | NUR ---
PATIENT RECEIVED FROM OR PLACED ON VENT FIO2 INCREASED TO 100% TO MAINTAIN SPO2. OBTURATOR PLACED ABOVE BED. BVM AT BEDSIDE AND SUCTION CATHETER REPLACED. WILL CONTINUE TO MONITOR.
--- NOTE | 2020-06-23 17:00 | NUR ---
PATIENT NOTED TO HAVE SPO2 79%. AUDIBLE LEAK NOTED THROUGH ORALPHARAYNX RETURN VOLUMES NOTED IN FLOWSHEET. INCREASED PEEP TO 8 TO MAINTAIN SPO2 84%. UPON INSPECTION TRACH PLACED WAS FENESTRATED; CALL TO DR HARRELL TO NOTIFY OF NEED OF TRACH CHANGE FOR CONTINUED MECHANICAL VENTILATION. V/S 84% HR [address] HARRELL AWARE.
--- NOTE | 2020-06-23 17:16 | NUR ---
BP 127/58 PULSE 104, SCHEDULED LABETALOL ADMINISTER VIA G-TUBE, FLUSHED BEFORE AND AFTER MED. SPO2 AT 84% AT THIS TIME. AWAITING FOR DR HARRELL TO CHANGE TRACH. SAFETY MEASURES IN PLACE.
--- NOTE | 2020-06-23 18:15 | NUR ---
BLOOD GLUCOSE 117, NO COVERAGE NEEDED.
--- NOTE | 2020-06-23 19:15 | NUR ---
ENDORSED TO PRODUCTION GRAPHIC DESIGNER NURSE SOL FOR CONTINUITY OF CARE. SAFETY MEASURES IN PLACE.
[2020-06-23] MEDS ORDERED: BUPIVACAINE-MPF 0.25% 30 ML VIAL INJ ONE (19:25)
[2020-06-23] MEDS ORDERED: LIDOCAINE 1% 500 MG/50 ML VIAL ONE (19:25)
--- NOTE | 2020-06-23 19:40 | NUR ---
RECEIVED PATIENT IN VENT VIA NEW TRACHEOSTOMY , O2 SAT IS ONLY 76 , GASPING BREATH, NEW TRACH IS LEAKING PER REPORT, DR HARRELL CAME IN AND SPOKE TO NEISHA -FLORIN LUCIA FOR REPLACE NEW TRACH DUE TO LEAKING , CONSENT OBTAINED AND PATIENT WENT TO OR FOR THE PROCEDURE.
--- NOTE | 2020-06-23 20:30 | NUR ---
UPDATED DR. CISNEROS ON PT. PT HAS ETT SIZE 8.0 @ [address] HARRELL WAS UNABLE TO CHANGE TRACH DUE TO LOW SPO2 IN 70 - 80s. PER DR. CISNEROS TITRATE PEEP TO 14 cmH20 AND CHANGE TO PC WHEN PLT>30 cmH20.
--- NOTE | 2020-06-23 20:30 | NUR ---
BACK FROM OR , ETT TO VENT WITH FIO2 100%, O2 SAT 81%, TRACH REMOVED WITH HOLE AND COVERED WITH 4X4 GAUZE, PUT PATIENT BACK ON LIQUOR MAKER AND RESUME ALL IV DRIP, WILL CONTINUE TO MONITOR.
[2020-06-23] MEDS ORDERED: ALBUTEROL SULFATE/IPRATROPIU 3 ML SOL IH PRN ×2 (20:40)
--- NOTE | 2020-06-23 21:30 | NUR ---
RECEIVED A CALL FROM FLORIN MYERS- DAUGHTER , SHE STATES SHE JUST SPOKE TO DR HARRELL AND RN UPDATE HER THE PATIENT'S CONDITION , VERBALLY UNDERSTAND.
[2020-06-24] VITALS (33 sets, daily range): BP systolic 81–176; BP diastolic 42–65
--- NOTE | 2020-06-24 00:40 | NUR ---
BLOOD GLUCOSE 45 , D50 1 AMP IVP GIVEN , RECHECKED AFTER 15 MIN , BS 141 ,FEEDING VIA GT NEPRO AT 40 ML/HR.
[2020-06-24] MEDS: ALBUTEROL SULFATE/IPRATROPIU 3 ML SOL IH SCH ×4 (01:05→19:02)
--- NOTE | 2020-06-24 06:17 | NUR ---
START LEVOPHED DRIP AT 4 MCG/MIN FROM MID NIGHT SBP STILL KEEP ON 80' , TITRATE TO 20 MCG/MIN AT THIS TIME, VENT SETTING : FIO2 100 , PEEP INCREASE TO [address] GLUCOSE DROP TO 51 AT 0530 , D50 1 AMP IVP GIVEN AND RECHECKED IN 10 MIN , BS 121, FEEDING MACHINE WAS NOT WORKING , GIVEN BOLUS FEEDING 200 ML, CONTINUE NEPRO FEEDING AT 40 ML/HR. WILL CONTINUE TO MONITOR.
[2020-06-24] MEDS: INSULIN LISPRO SLIDING SCALE 100 UNITS/ML VIAL SUBQ PRN ×2 (06:46→17:42)
[2020-06-24] MEDS: BLOOD GLUCOSE MONITORING 1 DEV DEV FS SCH ×4 (06:46→17:39)
--- NOTE | 2020-06-24 07:30 | NUR ---
RECEIVED REPORT FROM CASINO CAGE CASHIER RN FOR CONTINUITY OF CARE, RASS -3, FLACC 0, DRY WEIGHT 95.3 KG, ETT TO VENT, AC/PRVC FIO2 100, RATE 16, PEEP 5, TD 450, G-TUBE IN PLACE RUNNING NEPHRO AT 40 ML/HR, TRACH WOUND COVERED WITH GUAZE, CHRIS PICC INFUSING LEVOPHED AT 2MCG/MIN, VERSED AT 2 MG/HR, FENTANYL AT 1 MCG/KG/HR, RECTAL TUBE IN PLACE, WITH SOFT BROWN STOOL, PATIENT IN COMFORTABLE POSITION, PIPELINE ENGINEER IN PLACE, PULSE OXIMETER IN PLACE, SAFETY MEASURES IN PLACE, BED IN LOW POSITION WILL CONTINUE TO MONITOR.
[2020-06-24] MEDS: fentaNYL citrate - 50mL vial 2.5 MG in NACL 0.9% 200 ML IV PRN (08:26)
--- NOTE | 2020-06-24 08:45 | NUR ---
CHECKED PATIENT G-TUBE, RESIDUAL 310 ML, HELD FEEDING PER PROTOCOL, ADMINISTERED SCHEDULED AM MEDS, HELD BP MEDS DUE TO DIALYSIS AND PATIENT ON LEVOPHED, CHECKED BLOOD GLUCOSE, 105, HELD LANTUS, PER PROTOCOL, CHG BATH, HYGIENE, AND ORAL CARE GIVEN, DRUG SAFETY DATA MANAGEMENT SPECIALIST, PULSE OXIMETER, AND SAFETY MEASURES IN PLACE, BED IN LOW POSITION, WILL CONTINUE TO MONITOR.
[2020-06-24] MEDS: FAMOTIDINE 20 MG TAB PO SCH (08:50)
[2020-06-24] MEDS: ATORVASTATIN 20 MG TAB PO SCH (08:51)
[2020-06-24] MEDS: amLODIPine 5 MG TAB PO SCH (09:00)
[2020-06-24] MEDS: LOSARTAN 50 MG TAB PO SCH (09:00)
[2020-06-24] MEDS: INSULIN LANTUS 100 UNITS/ML 10 ML VIAL SUBQ SCH (09:00)
[2020-06-24] MEDS: LABETALOL 100 MG TAB PO SCH ×2 (09:00→12:41)
[2020-06-24] MEDS: LANSOPRAZOLE 30 MG CAPDR GT SCH (09:02)
[2020-06-24] MEDS: VIT-B COMP/VIT-C/FOLIC ACID 1 TAB PO SCH (09:02)
[2020-06-24 09:44] LABS: BASOPHILS % (AUTO) 0.1 % (0.0-2.0); EOSINOPHILS % (AUTO) 0.3 % (0.0-4.0); HEMATOCRIT 22.1 % (36-52); LYMPHOCYTES # (AUTO) 1.3 K/uL (2.0-11.5); LYMPHOCYTES % (AUTO) 10.8 % (20.5-51.1); MEAN CORPUSCULAR HEMOGLOBIN 31 pg (27-31); MEAN CORPUSCULAR HGB CONC 31 g/dL (33-37); MEAN CORPUSCULAR VOLUME 97.6 fL (80-94); MONOCYTES # (AUTO) 0.2 K/uL (0.8-1.0); MONOCYTES % (AUTO) 1.9 % (1.7-9.3); NEUTROPHILS # (AUTO) 10.6 K/uL (1.8-7.7); NEUTROPHILS % (AUTO) 86.9 % (42.2-75.2); PLATELET COUNT (AUTO) 142 K/uL (140-450); RED BLOOD CELL COUNT(AUTO) 2.26 MIL/uL (4.20-6.10); RED CELL DISTRIBUTION WIDTH 20.8 % (11.6-13.7); WHITE BLOOD COUNT (AUTO) 12.2 K/uL (4.8-10.8)
[2020-06-24 09:46] LABS: ANION GAP 12.7 (8-16); CARBON DIOXIDE 23.7 mmol/L (21-32); MAGNESIUM 2.3 mg/dL (1.8-2.4); POTASSIUM 4.4 mmol/L (3.5-5.1)
[2020-06-24 09:47] LABS: HEMOGLOBIN 6.9 g/dL (12.0-18.0)
--- NOTE | 2020-06-24 09:51 | NUR ---
PAGED DR. LOONEY, NO ANSWER, LEFT VOICEMAIL REGARDING CRITICAL LAB, HGB 6.9, AWAITING CALL BACK.
[2020-06-24 10:11] LABS: CREATININE 4.3 mg/dL (0.6-1.3)
--- NOTE | 2020-06-24 10:45 | NUR ---
DR. AAYUSH URIBE, NOTIFIED ABOUT HGB 6.9, STATED, "DO NOTHING, FAMILY DOES NOT WANT TRANSFUSIONS".
[2020-06-24] MEDS ORDERED: EPOETIN ALFA 2,000 UNITS/ML VIAL ONE (11:30)
[2020-06-24] MEDS: EPOETIN ALFA 10,000 UNITS/ML VIAL IV SCH (11:36)
--- NOTE | 2020-06-24 11:47 | NUR ---
CHECKED BLOOD GLUCOSE, 144, NO COVERAGE NEEDED PER MD SLIDING SCALE. AGENCY CASHIER, PULSE OXIMETER, AND SAFETY MEASURES IN PLACE. WILL CONTINUE TO MONITOR.
[2020-06-24] MEDS: THERAHONEY GEL 42.5 GM TP SCH (12:41)
--- NOTE | 2020-06-24 12:50 | NUR ---
CHECKED PATIENTS RESIDUAL, 120 ML, RESTARTED FEEDING TUBE AT 40 ML/HR. ADMINISTERED AFTERNOON MEDS. PILE DRIVER, PULSE OXIMETER, SAFETY MEASURES IN PLACE. BED IN LOW POSITION. WILL CONTINUE TO MONITOR.
--- NOTE | 2020-06-24 13:36 | NUR ---
PEEP TITRATED DOWN TO +12. DR JIM NOTIFIED AND AGREED WITH CHANGE
--- NOTE | 2020-06-24 14:04 | NUR ---
DR NYE IS ROUNDING ON PATIENT.
--- NOTE | 2020-06-24 17:00 | NUR ---
06/24/20 RD FOLLOW UP COMPLETED PLEASE REFER TO NUTRITION ASSESSMENT UNDER CARE ACTIVITY FOR ESTIMATED NUTRITIONAL NEEDS. 1. CONT. NEPRO 1.8 @ 40 ML/HR -THIS PROVIDES 1728 KCAL AND 78 GM OF PROTEIN. MEETING >80% OF ESTIMATED KCAL AND PROTEIN NEEDS 2. CONT. FREE WATER FLUSH OF 100 ML Q6H 3. RECOMMEND NEPHRO-LYNNE DAILY AND CONTINUE VITAMIN C DAILY 4. RD TO FOLLOW-UP 2-3 DAYS, HIGH RISK FLOWER WATKINS, RD
--- NOTE | 2020-06-24 19:10 | NUR ---
ENDORSED TO IRISH MOSS OPERATOR RNSOL, FOR CONTINUITY OF CARE.
--- NOTE | 2020-06-24 19:14 | NUR ---
RECEIVED PATIENT FROM AM SHIFT. PATIENT WAS SEEN AND ASSESSED. FOUND PT IN SUPINE POSITION. PATIENT IS INTUBATED WITH ETT SIZE 8.0 AND SECURED WITH ANCHOR-FAST AT 23cm. PATIENT IS ON VENT SETTINGS: AC/PRVC RR 16, VT 450, PEEP 10, FiO2 50% WITH SPO2 OF 92%. AMBU BAG AT BEDSIDE. VENT IS PLUGGED IN RED OUTLET. ALARMS SET AND AUDIBLE TO ENVIRONMENT. SUCTIONED MODERATE AMOUNT OF YELLOW THICK SECRETIONS FROM ETT. AIRWAY IS PATENT. AUSCULTATION REVEALS BILATERAL RALES BREATH SOUNDS. HHN TX GIVEN AT THIS TIME AND PT TOLERATED TX WELL WITH NO ADVERSE REACTION. PATIENT IS IN NO APPARENT RESPIRATORY DISTRESS AT THIS TIME. WILL CONTINUE TO MONITOR PATIENT.
--- NOTE | 2020-06-24 19:28 | NUR ---
RECEIVED PATIENT IN SUPINE POSITION, ETT TO VENT WITH FIO2 50% PEEP 10 , S/P TRACHEOSTOMY YESTERDAY AND REMOVED DUE TO DESAT AND LEAKING , 4X4 GAUZE TO COVER THE HOLE, RIJ HD CATHETER INTACT, ALL IV MEDICATION INFUSING AT CHRIS PICC LINE , IV DRIP: VERSED 2 MG/HR, FENTANYL 1 MCG/KG/HR. G TUBE FEEDING WITH NEPRO AT 40 ML/HR, RECTAL TUBE IN PLACE, WILL CONTINUE TO MONITOR.
[2020-06-24] MEDS: MIDAZOLAM MDV 100 MG in NACL 0.9% 80 ML IV PRN (21:18)
--- NOTE | 2020-06-24 22:00 | NUR ---
AT BEDSIDE PT DESATURATING. SX SMALL AMOUNT OF YELLOW THICK SECRETIONS FROM ETT. POX POSITION CHANGED. SPO2 NOT IMPROVING. TITRATED FiO2 TO 70 AND PEEP TO [id number]. B/P STABLE AT THIS TIME. RN NOTIFIED. WILL CONTINUE TO MONITOR PT.
--- NOTE | 2020-06-24 23:03 | NUR ---
AT BEDSIDE PT STILL DESATURATING IN 80s. TITRATED PEEP TO [id number]. B/P STABLE AT THIS TIME. RN NOTIFIED. WILL CONTINUE TO MONITOR PT.
[2020-06-25] VITALS (29 sets, daily range): BP systolic 51–147; BP diastolic 23–72
[2020-06-25] MEDS: BLOOD GLUCOSE MONITORING 1 DEV DEV FS SCH ×4 (00:59→17:57)
[2020-06-25] MEDS: ALBUTEROL SULFATE/IPRATROPIU 3 ML SOL IH SCH ×2 (01:23→19:40)
--- NOTE | 2020-06-25 01:40 | NUR ---
SBP DROP TO 72 , DESATUATED TO 70 , START LEVOPHED AND INCREASE FIO2 TO 100% , WILL CONTINUE TO MONITOR.
--- NOTE | 2020-06-25 01:43 | NUR ---
BS 82 , CONTINUE GT FEEDING WITH NEPRO AT 40 ML/HR, WILL CONTINUE TO MONITOR.
--- NOTE | 2020-06-25 05:05 | NUR ---
PT HEART RATE AND SPO2 DROPPING. RT AND RN WENT TO BEDSIDE TO CHECK FOR PULSE. NO PULSE FOUND. NANETTE ROSE CALLED AND CPR STARTED. ROSC BACK. SEE CODE BLUE SHEET FOR DETAILS.
--- NOTE | 2020-06-25 05:17 | NUR ---
PATIENT CODE BLUE AT 0528, AND HAD PULSE AFTER FIRST CPR. SPOKE TO SON -JR LING OVER THE PHONE , MAKE HIM AWARE THE CODE. HE VERBALLY UNDERSTAND. Addendum: 06/25/20 at 7967 by Erlinda Simmons RN RN CODED AT 3720
--- NOTE | 2020-06-25 05:30 | NUR ---
INFORMED DR. CISNEROS THAT PT CODED, GOT ROSC BACK AND UPDATED FAMILY ABOUT CODE BLUE. FAMILY STILL WANT FULL CODE.
--- NOTE | 2020-06-25 05:40 | NUR ---
START PAULETTE-SYNEPHRINE 150 MCG/MIN FOR SBP 62.
--- NOTE | 2020-06-25 05:49 | NUR ---
PATIENT CODED AGAIN AND CPR STARTED AND EPI GIVEN , GOT BACK AND UPDATE SON REGARDING CODE BLUE.
--- NOTE | 2020-06-25 05:50 | NUR ---
PT CODE AGAIN. ROSC BACK. SEE CODE BLUE SHEET FOR DETAILS.
--- NOTE | 2020-06-25 06:05 | NUR ---
SPOKE TO PATIENT'S SON SUSHIL CASTRO ON THE PHONE, UPDATED HIM ON PATIENT'S LATEST MEDICAL CONDITION THAT PATIENT HAS BEEN CODED AND RESUSCITATED FOR THE 2ND TIME; HE SAID HE WANT STILL FULL CODE.
[2020-06-25 06:07] LABS: BASOPHILS % (AUTO) 0.3 % (0.0-2.0); EOSINOPHILS % (AUTO) 0.6 % (0.0-4.0); HEMATOCRIT 22.6 % (36-52); HEMOGLOBIN 7.1 g/dL (12.0-18.0); LYMPHOCYTES # (AUTO) 0.7 K/uL (2.0-11.5); LYMPHOCYTES % (AUTO) 12.3 % (20.5-51.1); MEAN CORPUSCULAR HEMOGLOBIN 31 pg (27-31); MEAN CORPUSCULAR HGB CONC 31 g/dL (33-37); MEAN CORPUSCULAR VOLUME 98.2 fL (80-94); MONOCYTES # (AUTO) 0.1 K/uL (0.8-1.0); MONOCYTES % (AUTO) 1.8 % (1.7-9.3); NEUTROPHILS # (AUTO) 4.7 K/uL (1.8-7.7); PLATELET COUNT (AUTO) 111 K/uL (140-450); RED CELL DISTRIBUTION WIDTH 20.5 % (11.6-13.7); WHITE BLOOD COUNT (AUTO) 5.5 K/uL (4.8-10.8)
[2020-06-25 06:22] LABS: ANION GAP 13.3 (8-16); CARBON DIOXIDE 25.3 mmol/L (21-32); CREATININE 3.4 mg/dL (0.6-1.3); POTASSIUM 3.6 mmol/L (3.5-5.1)
--- NOTE | 2020-06-25 06:30 | NUR ---
SPOKE TO DAUGHTER -BUSTER AND SET FACETIME TO HER DAD.
--- NOTE | 2020-06-25 07:10 | NUR ---
RECEIVED REPORT FROM PIPER HELPER RNSOL, FOR CONTINUITY OF CARE, RASS-3, FLACC 0, ETT TO VENT, AC/PRVC FIO2 100, RATE 16, PEEP5, TD 450, CHRIS PICC CLEAN DRY INTACT, INFUSING LEVOPHED AT 30MCG/MIN, PAULETTE-SYNEPHRINE AT 150MCG/MIN, FENTANYL AT 5 MCG/KG/HR, SRINI ESPINO IN PLACE, G-TUBE IN PLACE, RECTAL TUBE IN PLACE WITH BROWN SOFT STOOL IN BAG, GRIP, PULSE OXIMETER, AND SAFETY MEASURES IN PLACE, BED IN LOW POSITION, WILL CONTINUE TO MONITOR.
[2020-06-25] MEDS: NOREPINEPHRINE 8 MG in DEXTROSE 5% 250 ML IV PRN ×3 (07:55→18:31)
[2020-06-25] MEDS: amLODIPine 5 MG TAB PO SCH (09:00)
[2020-06-25] MEDS: INSULIN LANTUS 100 UNITS/ML 10 ML VIAL SUBQ SCH (09:00)
--- NOTE | 2020-06-25 09:00 | NUR ---
CHECKED BLOOD GLUCOSE, 122, HELD LANTUS, CHECKED G-TUBE RESIDUAL, 5ML, FLUSHED BEFORE AND AFTER ADMINISTERED SCHEDULED AM MEDS, HELD BP MEDICATION FOR LOW BP AND ON LEVOPHED AND PAULETTE-SYNEPHRINE. WASTEWATER TREATMENT PLANT CHEMIST, PULSE OXIMETER, AND SAFETY MEASURES IN PLACE, BED IN LOW POSITION, WILL CONTINUE TO MONITOR.
[2020-06-25] MEDS: FAMOTIDINE 20 MG TAB PO SCH (09:01)
[2020-06-25] MEDS: LANSOPRAZOLE 30 MG CAPDR GT SCH (09:01)
[2020-06-25] MEDS: VIT-B COMP/VIT-C/FOLIC ACID 1 TAB PO SCH (09:01)
[2020-06-25] MEDS: ATORVASTATIN 20 MG TAB PO SCH (09:02)
--- NOTE | 2020-06-25 09:14 | NUR ---
DR. AAYUSH URIBE, UPDATED ON PATIENT STATUS AND DR. LOONEY TALKING WITH THE SON, SUSHIL, ON THE PHONE.
[2020-06-25] MEDS: PHENYLEPHRINE 40 MG in NACL 0.9% 250 ML IV PRN ×3 (09:57→22:47)
--- NOTE | 2020-06-25 12:35 | NUR ---
CHECKED BLOOD GLUCOSE, 135, NO COVERAGER PER MD SLIDING SCALE, DIRECTOR FOOD SAFETY, PULSE OXIMETER, AND SAFETY MEASURES IN PLACE. BED IN LOW POSITION. WILL CONTINUE TO MONITOR.
[2020-06-25] MEDS: THERAHONEY GEL 42.5 GM TP SCH (12:43)
--- NOTE | 2020-06-25 12:46 | NUR ---
DR JIM IS ASSESSING PATIENT AT BEDSIDE. DR JIM ALSO CALLED PATIENT'S SON SUSHIL AND UPDATED HIM WITH CURRENT CONDITION AND ANSWERED ALL HIS QUESTIONS.
--- NOTE | 2020-06-25 13:18 | NUR ---
DR LOPEZ IS ASSESSING PATIENT AT BEDSIDE.
--- NOTE | 2020-06-25 13:26 | NUR ---
SODIUM BICARBONATE ADMINISTERED PER MD ORDER.
[2020-06-25] MEDS ORDERED: SODIUM BICARBONATE 8.4% PFS 50 MEQ/50 ML SYR IVP SCH (13:30)
--- NOTE | 2020-06-25 14:02 | NUR ---
DISTRICT HOME E[employer]OMICS AGENT SANAZ IS DOING EEG AT BEDSIDE.
--- NOTE | 2020-06-25 14:35 | NUR ---
DR. POPEYE URIBE, UPDATED ON PATIENT STATUS, ORDERED DIALYSIS FOR TOMORROW.
--- NOTE | 2020-06-25 17:25 | NUR ---
CHECKED BLOOD SUGAR, 159, HELD SLIDING SCALE INSULIN COVERAGE DUE TO PATIENT NOT RECEIVING FEEDING. WILL CONTINUE TO MONITOR.
--- NOTE | 2020-06-25 18:38 | NUR ---
DR. HARRELL ROUNDING, UPDATED ON PATIENT STATUS, DR. HARRELL WANTS TO BE PAGED AFTER FAMILY VISITS PATIENT. WILL ENDORSE TO NURSING PROGRAM COORDINATOR RN. WILL CONTINUE TO MONITOR.
--- NOTE | 2020-06-25 19:25 | NUR ---
ENDORSED TO CANDLE MAKING SUPERVISOR RN COLLEEN FOR CONTINUITY OF CARE.
--- NOTE | 2020-06-25 19:30 | NUR ---
REPORT REPORT FROM AM SHIFT NURSE. PT IS RASS -3. ON TRACH TO VENT, IN AC MODE, FIO2 95%, VT 450, PEEP 5, RECRUITING COORDINATOR SHOW TACHYCARDIA. CONT ON NEPRO AT 40 ML/HR WITH FWF 100 ML Q6HR VIA GT. CHRIS PICC DRESSING CLEAN AND INTACT. R IJ KENZIE DRESSING INTACT. CONT ON LEVO AT 20 MCG/MIN AND NEOSYNEPRINE AT 100 MCG/MIN.PT ANURIA. RECTAL TUBE IN PLACE. SKIN WARM TO TOUCH.KEPT PT CLEAN AND DRY. WILL CONTINUE TO MONITOR.
--- NOTE | 2020-06-25 19:40 | NUR ---
RECEIVED PATIENT FROM AM SHIFT. PATIENT WAS SEEN AND ASSESSED. FOUND PT IN SUPINE POSITION. PATIENT IS INTUBATED WITH ETT SIZE 8.0 AND SECURED WITH BITTING BLOCK ANCHOR-FAST AT 23cm. PATIENT IS ON VENT SETTINGS: AC/PRVC RR 16, VT 450, PEEP 14, FiO2 95% WITH SPO2 OF 99%. AMBU BAG AT BEDSIDE. VENT IS PLUGGED IN RED OUTLET. ALARMS SET AND AUDIBLE TO ENVIRONMENT. SUCTIONED MODERATE AMOUNT OF YELLOW THICK SECRETIONS FROM ETT. AIRWAY IS PATENT. AUSCULTATION REVEALS BILATERAL RALES BREATH SOUNDS THROUGHOUT. HHN TX GIVEN AT THIS TIME AND PT TOLERATED TX WELL WITH NO ADVERSE REACTION. PATIENT IS IN NO APPARENT RESPIRATORY DISTRESS AT THIS TIME. WILL CONTINUE TO MONITOR PATIENT.
--- NOTE | 2020-06-25 21:05 | NUR ---
SPO2 100%. TITRATED FiO2 FROM 95% TO 90%. SPO2 99%. PT TOLERATING WELL. RN NOTIFIED. WILL CONTINUE TO MONITOR PT.
--- NOTE | 2020-06-25 21:20 | NUR ---
TITRATED FiO2 FROM 95% TO 90% RYLEY WELL SPO2 99%.
--- NOTE | 2020-06-25 21:30 | NUR ---
SUSHIL SON, 2 DAUGHTERS AND COME TO SEE PTS. FAMILY DECIDED TO PUT PT DNR. THE DNR PAPER SIGN BY SUSHIL SON. FAMILY ALSO BRING HOME ALL PT BELONGINGS , INCLUDING CELL PHONE, TECHNICAL WRITING LEAD/MGR, WALLET PANT, T SHIRT AND JACKET. PAGED DR. HARRELL TO NOTIFY PT FAMILY DECIDED TO PUT PT ON DNR.
--- NOTE | 2020-06-25 22:47 | NUR ---
NEOSYNEPHRINE DECREASE TO 50 MCG/HR FROM 100 MCG/HR. V/S HR 117, BP 144/55 SPO2 97%.
[2020-06-26] VITALS (33 sets, daily range): BP systolic 103–143; BP diastolic 43–62
[2020-06-26] MEDS: BLOOD GLUCOSE MONITORING 1 DEV DEV FS SCH ×4 (00:11→18:29)
[2020-06-26] MEDS: INSULIN LISPRO SLIDING SCALE 100 UNITS/ML VIAL SUBQ PRN ×4 (00:13→18:29)
--- NOTE | 2020-06-26 00:26 | NUR ---
BLOOD SUGAR 226 AND 4 UNITS INSULIN GIVEN ORDER.
[2020-06-26] MEDS: ALBUTEROL SULFATE/IPRATROPIU 3 ML SOL IH SCH ×4 (01:00→19:00)
[2020-06-26] MEDS: NOREPINEPHRINE 8 MG in DEXTROSE 5% 250 ML IV PRN ×2 (01:15→10:45)
--- NOTE | 2020-06-26 05:00 | NUR ---
AM CARE GIVEN. NOTED LEAKING FROM BUE. YELLOW CLEAR LIQUIDS. NO URINE NOTED.KEPT PT CLEAN AND DRY.
[2020-06-26 05:52] LABS: BASOPHILS % (AUTO) 0.1 % (0.0-2.0); EOSINOPHILS # (AUTO) 0.1 K/uL (0-0.4); EOSINOPHILS % (AUTO) 0.6 % (0.0-4.0); HEMATOCRIT 21.2 % (36-52); LYMPHOCYTES # (AUTO) 0.8 K/uL (2.0-11.5); LYMPHOCYTES % (AUTO) 4.5 % (20.5-51.1); MEAN CORPUSCULAR HEMOGLOBIN 30 pg (27-31); MEAN CORPUSCULAR HGB CONC 31 g/dL (33-37); MEAN CORPUSCULAR VOLUME 97.1 fL (80-94); MONOCYTES # (AUTO) 0.2 K/uL (0.8-1.0); MONOCYTES % (AUTO) 1.2 % (1.7-9.3); NEUTROPHILS # (AUTO) 16.4 K/uL (1.8-7.7); NEUTROPHILS % (AUTO) 93.6 % (42.2-75.2); PLATELET COUNT (AUTO) 139 K/uL (140-450); RED BLOOD CELL COUNT(AUTO) 2.19 MIL/uL (4.20-6.10); RED CELL DISTRIBUTION WIDTH 20.2 % (11.6-13.7); WHITE BLOOD COUNT (AUTO) 17.5 K/uL (4.8-10.8)
--- NOTE | 2020-06-26 06:38 | NUR ---
BLOOD SUGAR 225 AND 4 UNITS INSULIN GIVEN
[2020-06-26 06:54] LABS: ANION GAP 18.3 (8-16); CARBON DIOXIDE 23.9 mmol/L (21-32); CREATININE 3.6 mg/dL (0.6-1.3); POTASSIUM 4.2 mmol/L (3.5-5.1)
--- NOTE | 2020-06-26 07:20 | NUR ---
REPORT GIVEN TO CORTNEY HOBBS.
--- NOTE | 2020-06-26 07:20 | NUR ---
RECEIVED BEDSIDE REPORT FROM ORDER PULLER NURSE COLLEEN FOR CONTINUITY OF CARE. PATIENT IS LYING COMFORTABLY ON BED WITH PILLOWS USED TO OFFLOAD PRESSURE AND HEEL PROTECTORS ON BILATERALLY. PUPILS FIXED, SLUGGISH 4 MM, UNABLE TO TRACK. FLACC 0. RESPIRATION EVEN, SHALLOW, AND UNLABORED ON ETT TO VENT, AC/PRVC FIO2 90%, RATE 21, PEEP 14, SPO2 AT 98% AT THIS TIME. IV ON CHRIS DOUBLE LUMEN, CLEAN AND INTACT, RUNNING LEVOPHED 10 MCG/MIN, PAULETTE-SYNEPHRINE 50 MCG/MIN, AND NS TKO 5 ML/HR. RI KENZIE CATHETER IN PLACE, CLEAN AND DRY. SKIN CLEAN, WARM TO TOUCH, BLISTERS, ESCHAR ON L & R FACE CHEEK, AND SACRAL WOUND NOTED, VERSATEL AND DRESSING IN PLACE. BUE/BLE GENERALIZED WEAKNESS, EDEMA 3+ON ARMS NOTED. ABDOMEN ROUND, AND SOFT, G-TUBE IN PLACE., RUNNING NEPRO AT 40 ML/HR, RECEIVED 115 ML WHITE RESIDUAL.RECTAL TUBE IN PLACE, YELLOW/BROWN LIQUID STOOL IN BAG NOTED. SAFETY MEASURES IN PLACE. BED IN LOW POSITION, HOB ELEVATED 35 DEGREE, AND BED LOCKED.
--- NOTE | 2020-06-26 08:01 | NUR ---
RECEIVED CRITICAL LAB FOR BUN 75, NOT REPORTED, PATIENT IS SCHEDULED FOR HD TODAY.
[2020-06-26 08:20] LABS: HEMOGLOBIN 6.5 g/dL (12.0-18.0)
[2020-06-26] MEDS: ATORVASTATIN 20 MG TAB PO SCH (08:33)
[2020-06-26] MEDS: FAMOTIDINE 20 MG TAB PO SCH (08:33)
[2020-06-26] MEDS: LANSOPRAZOLE 30 MG CAPDR GT SCH (08:34)
[2020-06-26] MEDS: VIT-B COMP/VIT-C/FOLIC ACID 1 TAB PO SCH (08:34)
[2020-06-26] MEDS: amLODIPine 5 MG TAB PO SCH (08:34)
--- NOTE | 2020-06-26 08:35 | NUR ---
RECEIVED CRITICAL LAB FOR HGB 6.5, DR LOONEY MADE AWARE. NO ORDER RECEIVED, PER DR LOONEY, PATIENT'S FAMILY REFUSED BLOOD TRANSFUSION.
[2020-06-26] MEDS: INSULIN LANTUS 100 UNITS/ML 10 ML VIAL SUBQ SCH (08:38)
--- NOTE | 2020-06-26 08:39 | NUR ---
BLOOD GLUCOSE 238, ADMINISTERED SCHEDULED AM MEDS, HELD BP MEDS DUE TO PATIENT IS ON LEVOPHED AND PAULETTE-SYNEPHRINE DRIP, PROCRIT WILL ADMINISTER AFTER AM HD. CHECKED G-TUBE RESIDUAL RECEIVED ABOUT 115 ML WHITE RESIDUAL, FLUSHED BEFORE AND AFTER MEDS. PROVIDED AM HYGIENE CARE,CHG BATH, ORAL CARE, SUCTIONING AND RECTAL TUBE CARE, PATIENT TOLERATED FAIR, FLACC 0. RESPIRATION EVEN AND SHALLOW ON ETT TO VENT,FIO2 90%, SPO2 95%. REPOSITIONED PATIENT, PILLOWS USED TO OFFLOAD PRESSURE. SAFETY MEASURES IN PLACE. HOB ELEVATED 35 DEGREE, BED IN LOW POSITION, AND BED LOCKED.
[2020-06-26] MEDS: EPOETIN ALFA 10,000 UNITS/ML VIAL IV SCH (09:00)
--- NOTE | 2020-06-26 09:51 | NUR ---
JACOB TARGET TRIMMER MADE AWARE THAT PATIENT HAS HD ORDER TODAY.
[2020-06-26] MEDS: PHENYLEPHRINE 40 MG in NACL 0.9% 250 ML IV PRN (10:45)
--- NOTE | 2020-06-26 10:45 | NUR ---
PATIENT IS IN DIALYSIS AT THIS TIME, AMAIRANI CLOTH CHECKER IS AT BEDSIDE. SAFETY MEASURES IN PLACE.
--- NOTE | 2020-06-26 11:23 | NUR ---
PATIENT IS STILL IN DIALYSIS, VITAL SIGNS WITHIN NORMAL PARAMETER; PULSE 114, BP 115/49, RR 25, SPO2 94%, SAFETY MEASURES IN PLACE.
--- NOTE | 2020-06-26 11:36 | NUR ---
RECEIVED CALL FROM PATIENT'S DAUGHTER FLORIN, UPDATED HER WITH PATIENT'S CURRENT CONDITION AND LAB HGB 6.5 THIS AM, FLORIN WAS AWARE, AND DO NOT WANT BLOOD TRANSFUSION, ANSWERED ALL HER QUESTIONS, FLORIN WAS AWARE.
--- NOTE | 2020-06-26 11:43 | NUR ---
10,000 UNIT HEPARIN PROVIDED TO DIRECTOR OF [employer] MARKETING TO FLUSH PORTS.
--- NOTE | 2020-06-26 12:00 | NUR ---
BLOOD GLUCOSE 227, 4 UNIT HUMALOG GIVEN. SCHEDULED PROCRIT GIVEN PER MD ORDER. REPOSITIONED PATIENT, OFFLOADED PRESSURE WITH PILLOWS, PATIENT TOLERATED FAIR. SAFETY MEASURES IN PLACE.
[2020-06-26] MEDS: THERAHONEY GEL 42.5 GM TP SCH (13:01)
--- NOTE | 2020-06-26 15:32 | NUR ---
DR JIM IS ASSESSING PATIENT AT BEDSIDE. ORDERED TO INCREASE VERSED TO 5 MG/HR DUE TO RAPID BREATHING. INCREASED VERSED PER DR JIM ORDER.
[2020-06-26] MEDS ORDERED: SODIUM FERRIC GLUCONATE 125 MG in NACL 0.9% 100 ML IV SCH (15:45)
[2020-06-26] MEDS ORDERED: EPOETIN ALFA 2,000 UNITS/ML VIAL IV SCH (15:45)
--- NOTE | 2020-06-26 15:47 | NUR ---
DR SANTANA IS ROUNDING ON PATIENT. RECEIVED VERBAL ORDERS FOR 10,000 PROCRIT SUBQ STAT FOR TODAY, AND FERRKECIT 125 MG IV ONCE TODAY, REPEATED AND CONFIRMED ORDERS WITH DR SANTANA, WILL INPUT ORDERS ACCORDINGLY.
--- NOTE | 2020-06-26 17:05 | NUR ---
STARTED A NEW BOTTLE OF FEEDING NEPRO, CHANGED ALL TUBINGS.
[2020-06-26] MEDS ORDERED: EPOETIN ALFA 10,000 UNITS/ML VIAL IV SCH (17:32)
--- NOTE | 2020-06-26 18:30 | NUR ---
SCHEDULED MEDS ADMINISTERED.
--- NOTE | 2020-06-26 19:00 | NUR ---
PHONE CALL FROM SUSHIL RIVERA JR,PTS SON; FAMILY HAS DECIDED FOR PT TO BE ON COMFORT MEASURES ONLY.PER SUSHIL RIVERA JR, THEY UNDERSTAND THAT PT WILL BE EXTUBATED AND PUT ON MORPHINE DRIP. CALLED DR LOONEY; MADE AWARE OF THE ABOVE.NEW ORDERS RECEIVED
--- NOTE | 2020-06-26 19:00 | NUR ---
SPOKE SUSHIL RIVERA JR SON OF PATIENT. SON AND FAMILY DECIDED ON COMFORT MEASURES ONLY, ALL QUESTIONS ASK.
[2020-06-26] MEDS ORDERED: MORPHINE SULFATE 50 MG in NACL 0.9% 45 ML IV SCH (19:20)
[2020-06-26] MEDS ORDERED: MORPHINE SULFATE 5 MG/ML VIAL IVP SCH (19:20)
--- NOTE | 2020-06-26 19:25 | NUR ---
RECEIVED BEDSIDE REPORT FROM AM SHIFT NURSE FOR CONTINUITY OF CARE. PUPILS FIXED, SLUGGISH 4 MM, UNABLE TO TRACK. ETT TO VENT. RESPIRATIONS EVEN, SHALLOW, AND UNLABORED. VENT SETTINGS: AC/PRVC FIO2 90%, RATE 21, PEEP 14, O2SAT 98%. BLISTERS, ESCHAR ON L & R FACE CHEEK, AND SACRAL WOUND NOTED, VERSATEL AND DRESSING IN PLACE. CHRIS PICC DOUBLE LUMEN PATENT/INTACT INFUSING LEVOPHED 10 MCG/MIN, PAULETTE-SYNEPHRINE 50 MCG/MIN, AND NS TKO 5 ML/HR. RIJ KENZIE CATHETER IN PLACE, DRESSING CLEAN, DRY AND INTACT. BUE EDEMA +3 NOTED. ABDOMEN ROUND AND SOFT. BOWEL SOUNDS ACTIVE x4 QUADRANTS. GTUBE PATENT/INTACT. CONTINUES ON ENTERAL FEEDING. RECTAL TUBE IN PLACE. CERDA CATHETER PATENT/INTACT WITH YELLOW URINE DRAINING TO GRAVITY. SAFETY PRECAUTIONS IN PLACE. ISOLATION PRECAUTIONS OBSERVED BY ALL STAFF. FREQUENT ROUNDS BY ALL STAFF. Addendum: 06/27/20 at 0023 by Lian Lo RN AMEND: NO CERDA CATHETER IN PLACE.
--- NOTE | 2020-06-26 19:27 | NUR ---
PHONE CALL FROM SUSHIL RIVERA JR, FAMILY WILL BE IN THE UNIT WHEN PT WILL BE EXTUBATED.MYRIAM HOBBS, RETAIL CUSTOMER SERVICE REPRESENTATIVE AWARE
--- NOTE | 2020-06-26 22:42 | NUR ---
MORPHINE DRIP STARTED. PATIENT EXTUBATED BY RT. FAMILY AT BEDSIDE.
--- NOTE | 2020-06-26 22:42 | NUR ---
5230 extubated patient. family and rn at bedside.
--- NOTE | 2020-06-26 23:05 | NUR ---
PATIENT . FAMILY AT BEDSIDE.
--- NOTE | 2020-06-26 23:24 | NUR ---
SPOKE TO AMAIRANI FROM [facility]. PATIENT IS NOT A CANDIDATE. .
--- NOTE | 2020-06-26 23:47 | NUR ---
SPOKE TO LUSÍ DENIS FROM THE MANUFACTURING QUALITY ENGINEER'S OFFICE WITH APPROVAL TO RELEASE THE BODY.
--- NOTE | 2020-06-27 01:33 | NUR ---
BODY TAKEN TO OUTSIDE STORAGE PER FAMILY REQUEST UNTIL ARRANGEMENTS ARE MADE.
[2020-06-29] MEDS ORDERED: EPOETIN ALFA 10,000 UNITS/ML VIAL IV SCH (09:00)
== END 2020-06-26 23:05 | DRG 3 ==
LOC: MED 00:08 → MMU 02:55 → MIC 03:36
PROVIDERS: ADMIT Family Medicine; ATTEND Family Medicine
PROC: 5A1955Z Respiratory Ventilation, Greater than 96 Consecutive Hours (ICD-10-PCS; 2020-05-04)
PROC: 0BH17EZ Insertion of Endotracheal Airway into Trachea, Via Natural or Artificial Opening (ICD-10-PCS; 2020-05-04)
PROC: 5A1D70Z Performance of Urinary Filtration, Intermittent, Less than 6 Hours Per Day (ICD-10-PCS; 2020-05-05)
PROC: 5A1D70Z Performance of Urinary Filtration, Intermittent, Less than 6 Hours Per Day (ICD-10-PCS; 2020-05-06)
PROC: 5A1D70Z Performance of Urinary Filtration, Intermittent, Less than 6 Hours Per Day (ICD-10-PCS; 2020-05-08)
PROC: 5A1D70Z Performance of Urinary Filtration, Intermittent, Less than 6 Hours Per Day (ICD-10-PCS; 2020-05-09)
PROC: 5A1D70Z Performance of Urinary Filtration, Intermittent, Less than 6 Hours Per Day (ICD-10-PCS; 2020-05-10)
PROC: 5A1D70Z Performance of Urinary Filtration, Intermittent, Less than 6 Hours Per Day (ICD-10-PCS; 2020-05-12)
PROC: 5A1D70Z Performance of Urinary Filtration, Intermittent, Less than 6 Hours Per Day (ICD-10-PCS; 2020-05-13)
PROC: 5A1D70Z Performance of Urinary Filtration, Intermittent, Less than 6 Hours Per Day (ICD-10-PCS; 2020-05-14)
PROC: 5A1D70Z Performance of Urinary Filtration, Intermittent, Less than 6 Hours Per Day (ICD-10-PCS; 2020-05-15)
PROC: 5A1D70Z Performance of Urinary Filtration, Intermittent, Less than 6 Hours Per Day (ICD-10-PCS; 2020-05-18)
PROC: 5A1D70Z Performance of Urinary Filtration, Intermittent, Less than 6 Hours Per Day (ICD-10-PCS; 2020-05-19)
PROC: 5A1D70Z Performance of Urinary Filtration, Intermittent, Less than 6 Hours Per Day (ICD-10-PCS; 2020-05-20)
PROC: 5A1D70Z Performance of Urinary Filtration, Intermittent, Less than 6 Hours Per Day (ICD-10-PCS; 2020-05-21)
PROC: 5A1D70Z Performance of Urinary Filtration, Intermittent, Less than 6 Hours Per Day (ICD-10-PCS; 2020-05-22)
PROC: 5A1D70Z Performance of Urinary Filtration, Intermittent, Less than 6 Hours Per Day (ICD-10-PCS; 2020-05-24)
PROC: 5A1D70Z Performance of Urinary Filtration, Intermittent, Less than 6 Hours Per Day (ICD-10-PCS; 2020-05-26)
PROC: 5A1D70Z Performance of Urinary Filtration, Intermittent, Less than 6 Hours Per Day (ICD-10-PCS; 2020-05-28)
PROC: 5A1D70Z Performance of Urinary Filtration, Intermittent, Less than 6 Hours Per Day (ICD-10-PCS; 2020-05-30)
PROC: 5A1D70Z Performance of Urinary Filtration, Intermittent, Less than 6 Hours Per Day (ICD-10-PCS; 2020-06-01)
PROC: 5A1D70Z Performance of Urinary Filtration, Intermittent, Less than 6 Hours Per Day (ICD-10-PCS; 2020-06-03)
PROC: 5A1D70Z Performance of Urinary Filtration, Intermittent, Less than 6 Hours Per Day (ICD-10-PCS; 2020-06-04)
PROC: 5A1D70Z Performance of Urinary Filtration, Intermittent, Less than 6 Hours Per Day (ICD-10-PCS; 2020-06-05)
PROC: 5A1D70Z Performance of Urinary Filtration, Intermittent, Less than 6 Hours Per Day (ICD-10-PCS; 2020-06-07)
PROC: 5A1D70Z Performance of Urinary Filtration, Intermittent, Less than 6 Hours Per Day (ICD-10-PCS; 2020-06-09)
PROC: 0DH63UZ Insertion of Feeding Device into Stomach, Percutaneous Approach (ICD-10-PCS; principal; 2020-06-09 14:25)
PROC: 5A1D70Z Performance of Urinary Filtration, Intermittent, Less than 6 Hours Per Day (ICD-10-PCS; 2020-06-10)
PROC: 5A1D70Z Performance of Urinary Filtration, Intermittent, Less than 6 Hours Per Day (ICD-10-PCS; 2020-06-14)
PROC: 5A1D70Z Performance of Urinary Filtration, Intermittent, Less than 6 Hours Per Day (ICD-10-PCS; 2020-06-16)
PROC: 5A1D70Z Performance of Urinary Filtration, Intermittent, Less than 6 Hours Per Day (ICD-10-PCS; 2020-06-18)
PROC: 5A1D70Z Performance of Urinary Filtration, Intermittent, Less than 6 Hours Per Day (ICD-10-PCS; 2020-06-21)
PROC: 0B110F4 Bypass Trachea to Cutaneous with Tracheostomy Device, Open Approach (ICD-10-PCS; 2020-06-23)
PROC: 0WJ60ZZ Inspection of Neck, Open Approach (ICD-10-PCS; 2020-06-23)
PROC: 0BP1XFZ Removal of Tracheostomy Device from Trachea, External Approach (ICD-10-PCS; 2020-06-23)
PROC: 02HV33Z Insertion of Infusion Device into Superior Vena Cava, Percutaneous Approach (ICD-10-PCS; 2020-06-23)
PROC: 02PYX3Z Removal of Infusion Device from Great Vessel, External Approach (ICD-10-PCS; 2020-06-23)
PROC: 5A1D70Z Performance of Urinary Filtration, Intermittent, Less than 6 Hours Per Day (ICD-10-PCS; 2020-06-23)
PROC: 5A1945Z Respiratory Ventilation, 24-96 Consecutive Hours (ICD-10-PCS; 2020-06-23)
PROC: 5A1D70Z Performance of Urinary Filtration, Intermittent, Less than 6 Hours Per Day (ICD-10-PCS; 2020-06-25)
PROC: 4A00X4Z Measurement of Central Nervous Electrical Activity, External Approach (ICD-10-PCS; 2020-06-26)
DX: A41.9 Sepsis, unspecified organism (principal); U07.1 COVID-19; J12.82 Pneumonia due to coronavirus disease 2019; N17.0 Acute kidney failure with tubular necrosis; E43 Unspecified severe protein-calorie malnutrition; J80 Acute respiratory distress syndrome; J12.89 Other viral pneumonia; J15.6 Pneumonia due to other Gram-negative bacteria; R65.21 Severe sepsis with septic shock; E87.1 Hypo-osmolality and hyponatremia; I42.9 Cardiomyopathy, unspecified; J90 Pleural effusion, not elsewhere classified; G93.40 Encephalopathy, unspecified; I12.0 Hypertensive chronic kidney disease with stage 5 chronic kidney disease or end stage renal disease; E78.5 Hyperlipidemia, unspecified; E86.0 Dehydration; E11.65 Type 2 diabetes mellitus with hyperglycemia; E83.51 Hypocalcemia; R74.01 Elevation of levels of liver transaminase levels; R13.11 Dysphagia, oral phase; D63.8 Anemia in other chronic diseases classified elsewhere; Z68.36 Body mass index [BMI] 36.0-36.9, adult; E66.01 Morbid (severe) obesity due to excess calories; Z99.2 Dependence on renal dialysis; E11.22 Type 2 diabetes mellitus with diabetic chronic kidney disease; N18.31 Chronic kidney disease, stage 3a
CPT/HCPCS: 31500; 36415; 36600; 70450; 71045; 76604; 80048; 80053; 80202; 80305; 81001; 82150; 82436; 82550; 82553; 82570; 82607; 82668; 82728; 82746; 82803; 83036; 83540; 83605; 83615; 83690; 83735; 83880; 84100; 84134; 84300; 84436; 84443; 84484; 85025; 85379; 85610; 85651; 85730; 86140; 86704; 86706; 86708; 86709; 86803; 86886; 86900; 86901; 86920; 87040; 87070; 87081; 87086; 87205; 87340; 90935; 93005; 94002; 94003; 94640; 96361; 96365; 99291; A4330; C9113; J0330; J0461; J0696; J0885; J1100; J1644; J1650; J1815; J2001; J2060; J2250; J2370; J2543; J2704; J2916; J2997; J3010; J3370; J3490; J7030; J7060; U0003